=== PATIENT | male | born 1950 | race Caucasian/White ===

== ENCOUNTER → 2017-06-14 | Outpatient (CLI) | payer MEDICARE, MEDICAID, SELFPAY | PROVIDERS: Family Provider Nurse Practitioner; Visit Provider Nurse Practitioner | DX: E11.9 Type 2 diabetes mellitus without complications (principal); I10 Essential (primary) hypertension; Z71.3 Dietary counseling and surveillance | CPT/HCPCS: 97802; G0108 ==

== ENCOUNTER → 2018-07-19 14:57 | Outpatient (CLI) | payer MEDICARE, MEDICAID, SELFPAY ==
--- NOTE | 2018-07-19 15:03 | XR_ITS ---
XR chest 2V HISTORY: ITS.REASON: RESPIRATORY INFECTION, SOB, COUGH ORDERING PHYSICIAN: Christina Raymundo PATIENT AGE: 68 years COMPARISON: 12/19/2014 FINDINGS: Prior CABG. COPD. Left hemidiaphragm is slightly elevated with some increased density left lung base laterally. This did have a similar appearance on a prior abdomen CT of 12/03/2014 No lobar consolidation or collapse is evident. No acute bony anomalies. IMPRESSION: Chronic changes in the left lung base with COPD, no acute finding
== END ==
PROVIDERS: PCP Family Medicine; Visit Provider Nurse Practitioner Family
DX: J98.8 Other specified respiratory disorders (principal); R06.02 Shortness of breath; R05 Cough
CPT/HCPCS: 71046

== ENCOUNTER → 2019-04-06 09:40 | Outpatient (CLI) | payer MEDICARE, MEDICAID, SELFPAY ==
--- NOTE | 2019-04-06 | CA_ITS ---
APPROVED REPORT Left Lower Extremity Venous Study for DVT. Shingle Inspector: DARRELL Indications Lower Extremity Pain: Lower Extremity Edema: Left Lower Extremity Swelling: Left Risk Factors Trauma Obesity Patient was trampled by a cow 04/01/19. Bruising to the left lower calf. Medications Aspirin 81 mg aspirin daily Vein Imaging CFV (L): compressive, spontaneous, phasic, augmentation FEM (L): compressive, spontaneous, phasic, augmentation POP (L): compressive, spontaneous, phasic, augmentation PTV (L): Compressible GSV (L): compressive, spontaneous, phasic, augmentation SSV (L): Compressible Peroneals (L):Compressible GAS (L): Compressible Findings No evidence of DVT or superficial thrombophlebitis in the veins scanned of the left lower extremity. Conclusion No evidence of DVT or superficial thrombophlebitis in the veins scanned of the left lower extremity. Electronically signed by : Sreedhar Espion MD 04/06/2019 16:58:37
--- NOTE | 2019-04-06 | CA_ITS ---
APPROVED REPORT EXAM: Comprehensive 2D, Doppler, and color-flow Echocardiogram Campaign Developer: Radha Segovia CRT Ht: 5 ft 6 in Wt: 250lbs BSA: 2.20 BP: 102/71 mmHg Indications: ABN CTA SUSPECT PARTIALLY THROMBOSED TIFFANY BY CTA-CHEST. AAA REPAIR, CABG 2009. AORTA BI-ILIAC STENT GRAFT - POSSIBLE ENDOGRAFT LEAK BY CT ABDOMEN-PELVIS 2D Dimensions IVSd 1.10 cm PWd 1.90 cm LVDd 4.00 cm LVOT 1.90 cm (M/F) 1.5-2.5 M-Mode Dimensions RVDd 2.20 cm (0.9-2.6) LA Diam 4.50 cm (1.9-4.0) LVDd 6.30 cm (3.5-5.7) Ao Diam 4.30 cm (2.0-3.7) LVDs 4.50 cm (3.5-5.7) AV Cusp 2.10 cm (1.5-2.6) IVSd 1.50 cm (0.6-1.1) PWd 0.70 cm (0.6-1.1) EF (Teich) 54.00% FS 28.60% EDV (Teich) 201.00 mL ESV (Teich) 92.40 mL LV Diastology E/A Ratio 0.80 Aortic Valve AoV Peak Ari. 142.00 (50-130 cm/s) AI PHT 615.00 ms AO Peak GR. 8.00 mmHg Mitral Valve MV E Max Ari. 58.70 (40-130 cm/s) MV A Velocity 76.00 (40-130 cm/s) E/A Ratio 0.80 Pulmonary Valve TN End VMAX 100.00 cm/s PA Accel Time 151.00 (>120 msec) Tricuspid Valve TR P. Velocity 268.00 cm/s RAP Estimate 10.00 mmHg RVSP 39.00 mmHg Left Ventricle Left atrium is mildly enlarged, left ventricle is normal size, mild concentric left ventricular hypertrophy, visually estimated ejection fraction 55% with no regional wall motion abnormality. Endocardial surfaces are poorly visualized. Doppler evidence of impaired LV relaxation seen, there is no tissue Doppler performed. Right Ventricle Right atrium and right ventricular mildly enlarged with normal contractility. Aortic Valve Aortic valve is thickened and calcified leaflet continue to display good mobility, there is no aortic stenosis, there is mild aortic insufficiency. Mitral Valve Mitral valve leaflets are minimally thickened, there is mild mitral regurgitation. Tricuspid Valve Tricuspid valve is grossly normal, there is mild tricuspid regurgitation, tricuspid regurgitation jet velocity is inadequate for calculation of the right ventricular systolic pressure. Pulmonic Valve Pulmonic valve is poorly visualized. Great Vessels Aortic root is normal size. Pericardium No significant pericardial effusion noted. Conclusion 1. Mildly enlarged left atrium, normal left ventricular size, mild concentric left ventricular hypertrophy, visually estimated ejection fraction 55% with no regional wall motion abnormality, endocardial surfaces are poorly visualized, Doppler evidence of impaired LV relaxation seen, there is no tissue Doppler performed. 2. Mildly enlarged right ventricle with normal contractility. 3. Thickened and calcified aortic valve without Doppler evidence of aortic stenosis, there is mild aortic insufficiency. 4. Mild mitral and tricuspid regurgitation 5. No significant pericardial effusion noted. Electronically signed by : Aime Wade, 04/06/2019 13:55:18
== END ==
PROVIDERS: PCP Nurse Practitioner Family; Visit Provider Nurse Practitioner Family
DX: M79.89 Other specified soft tissue disorders (principal); R93.89 Abnormal findings on diagnostic imaging of other specified body structures; R60.0 Localized edema
CPT/HCPCS: 93306; 93971

== ENCOUNTER → 2019-04-12 12:33 | Outpatient (CLI) | payer MEDICARE, SELFPAY | PROVIDERS: Visit Provider Internal Medicine Cardiovascular Disease | DX: R06.02 Shortness of breath (principal) | CPT/HCPCS: 36415; 83880 ==

== ENCOUNTER → 2019-04-19 10:43 | Outpatient (CLI) | payer MEDICARE, OTHER, SELFPAY ==
--- NOTE | 2019-04-19 10:44 | NM_ITS ---
APPROVED REPORT Exam: Nuclear Stress Test Indication: Abnormal ECHO, Chest pain, SOB, Fatigue, Obesity, HTN, High cholesterol, Family history, CAD, CABG Patient Location: Outpatient Stress Tech: Carrie Richards [place] Tech:Zeny Bustillorington ARRT RT(R)(N) Ht: 5 ft 6 in Wt: 250 lbs HR: 65 bpm BP: 148/76 mmHg BSA: 2.20 m2 BMI: 40.3 History: Abnormal ECHO, Chest pain, SOB, Fatigue, Obesity, HTN, High cholesterol, Family history, CAD, CABG Procedure: Patient received a 0.4 mg of intravenous Lexiscan, resting heart rate 65 bpm, resting blood pressure 148/76 mmHg, with Lexiscan maximum heart rate achived was 85 bpm which is % of the maximum predicted heart rate and blood pressure was 132/71 mmHg. With Lexiscan, patient denied any complaint of chest pain. Cardiac Stress and Resting SPECT Images: Cardiac Stress and Resting SPECT images were obtained using technetium 99m Myoview 31.9 mCi stress and 10.87 mCi at rest. EF normal at 64%. No wall motion abnormalities. Reversible defect in the inferior wall. Decrease activity in the anteroseptal region which becomes normal on rest images Conclusion: EF normal at 64%. No wall motion abnormalities. Ischemia in anteroseptal region and inferior wall Electronically signed by : Sreedhar Espino MD 04/27/2019 17:06:37
--- NOTE | 2019-04-19 10:44 | CA_ITS ---
APPROVED REPORT Media Services Coordinator: Christina Carrion RVT Laterality: Bilateral Study Quality: Good Indications: cad, Dizziness and Vertigo Risk Factors Hypertension: Hyperlipidemia Smoking Doppler Spectral Velocity Analysis ECA (R) 72.70/10.70 cm/s ECA (L) 78.30/10.90 cm/s dICA (R) 60.60/18.90 cm/s dICA (L) 41.70/12.80 cm/s Annel (R) 39.70/13.30 cm/s Annel (L) 31.20/12.90 cm/s pICA (R) 55.40/13.30 cm/s pICA (L) 37.00/11.60 cm/s dCCA (R) 45.80/12.30 cm/s dCCA (L) 45.50/10.70 cm/s pCCA (R) 66.10/13.90 cm/s pCCA (L) 62.70/17.20 cm/s Vert (R) 22.80/4.40 cm/s Vert (L) 35.50/7.50 cm/s ICA/CCA 1.30 ICA/CCA 0.90 Findings Study suggests 20-49% stenosis of the right internal carotid artery. study suggests less than 20% stenosis of the left internal carotid artery. Antegrade flow seen bilateral vertebral arteries. Conclusion Study suggests 20-49% stenosis of the right internal carotid artery. study suggests less than 20% stenosis of the left internal carotid artery. Antegrade flow seen bilateral vertebral arteries. Electronically signed by : Sreedhar Espino MD 04/20/2019 18:00:57
--- NOTE | 2019-04-19 10:44 | CA_ITS ---
APPROVED REPORT Exam: Pharmacologic Technologist: benita mahan, Ht: 5 ft 6 in Wt: 250 lbs BSA: 2.20 m2 HR: 65 bpm BP: 148/76 mmHg Rhythm: NSR,PVC,EARLY REPOLARIZATION CHANGES Indications: SOB, CP Medical History Medical History: HTN, Hyperlipidemia Medications: Amlodipine,,,,, Omeprazole,,,,, Metoprolol,,,,, Simvastatin,,,,, Asa,,,,, HCTZ,,,,, Lasix,,,,, TAMSULOSIN,,,,, Benazapril,,,,, Potassium,,,,, Allergies: COCONUT Cardiac Risk Factors: Hyperlipidemia, HTN Stress Test Details Test: LEXISCAN HR Resting HR: 63 bpm Max Heart Rate (APMHR): 154 bpm Max HR Achieved: 85 bpm Target HR (85% APMHR): 130 bpm % of APMHR: 55 Recovery HR: 77 bpm BP Resting BP: 148.0/76.0 mmHg Max BP: 148.0/76.0 mmHg Recovery BP: 141.0/80.0 mmHg ECG Resting ECG: NSR,PVC,EARLY REPOLARIZATION CHANGES. Clinical Exercise duration: 04:22 min Highest Stage Achieved: Exercise capacity: 1.0 METs Stress ECG Conclusion DURING INFUSION PATIENT HAD SOA,MILD NAUSEA,MALAISE,BUT NO CHEST PAIN. OCCASIONAL ISOLATED PVC. NO SIGNIFICANT ST-T CHANGES. UNREMARKABLE LEXISCAN STRESS. MYOVIEW IMAGES REPORTED SEPARATELY. Test Summary RECOVERY 05:18 . . 74 . 140/ 77 . . Stage 1 01:00 . . 74 . . . . Stage 2 01:00 . . 84 . 132/ 71 . . Stage 3 01:00 . . 81 . 131/ 84 . . Stage 4 01:00 . . 78 . . . . Stage 4 01:22 . . 75 . 147/ 79 . Stop exercise at 04:22 RECOVERY 01:00 . . 78 . . . . RECOVERY 02:00 . . 77 . 141/ 80 . . RECOVERY 03:00 . . 78 . 141/ 80 . . RECOVERY 04:00 . . 76 . 130/ 79 . . RECOVERY 05:00 . . 74 . 130/ 79 . . RECOVERY 05:18 . . 74 . 140/ 77 . . Electronically signed by : Zachary Marcos, 04/24/2019 15:00:52
--- NOTE | 2019-04-19 14:56 | HMH.ITSHM ---
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 []FUROSEMIDE OMEPRAZOLE METOPROLOL POTASSIUM BENAZEPRIL/HCTZ ASA TAMSULOSIN AMLODIPINE SIMVASTATIN
== END ==
PROVIDERS: PCP Nurse Practitioner Family; Visit Provider Internal Medicine Cardiovascular Disease
DX: I10 Essential (primary) hypertension (principal); I25.10 Atherosclerotic heart disease of native coronary artery without angina pectoris; Z95.1 Presence of aortocoronary bypass graft; T82.330A Leakage of aortic (bifurcation) graft (replacement), initial encounter; R07.9 Chest pain, unspecified
CPT/HCPCS: 78452; 93017; 93880; A9502; J2785

== ENCOUNTER → 2019-05-02 14:02 | Outpatient (CLI) | payer MEDICARE, OTHER, SELFPAY | PROVIDERS: PCP Family Medicine; Visit Provider Internal Medicine Cardiovascular Disease | DX: G47.30 Sleep apnea, unspecified (principal); R06.02 Shortness of breath; I25.10 Atherosclerotic heart disease of native coronary artery without angina pectoris; I10 Essential (primary) hypertension; R60.9 Edema, unspecified; R53.83 Other fatigue | CPT/HCPCS: G0399 ==

== ENCOUNTER → 2019-05-30 10:43 | Outpatient (CLI) | payer MEDICARE, MEDICAID, SELFPAY ==
[2019-05-30 13:20] LABS: Ferritin 296 ng/mL (8-388)
== END ==
PROVIDERS: Visit Provider Nurse Practitioner Family
DX: E83.10 Disorder of iron metabolism, unspecified (principal); G25.81 Restless legs syndrome; G47.33 Obstructive sleep apnea (adult) (pediatric)
CPT/HCPCS: 36415; 82728

== ENCOUNTER → 2019-06-07 11:02 | Outpatient (CLI) | payer MEDICARE, OTHER, SELFPAY ==
[2019-06-07 12:50] LABS: Alanine Aminotransferase 25 U/L (12-78); Albumin Level 3.2 gm/dL (3.4-5.0); Alkaline Phosphatase 75 U/L (46-116); Anion Gap 12.7 mEq/L (5-15); Aspartate Amino Transferase 17 U/L (15-37); Bilirubin,Direct 0.2 mg/dL (0.0-0.2); Bilirubin,Indirect 0.6 mg/dL (0.0-0.9); Bilirubin,Total 0.8 mg/dL (0.2-1.0); Blood Urea Nitrogen 13 mg/dL (7-18); Calcium 8.6 mg/dL (8.5-10.1); Carbon Dioxide 29 mmol/L (21.0-32.0); Chloride 103 mmol/L (98-107); Chol/HDL Ratio 3.1 (1-3.5); Cholesterol 161 mg/dL (140-200); Creatinine,Serum 0.97 mg/dL (0.70-1.30); Estimated Glomerular Filt Rate 77 ml/min (>60); GFR (African American) 93 ML/MIN (>60); Glucose 124 mg/dL (74-106); HDL Cholesterol 52 mg/dL (27-67); LDL Cholesterol 83 mg/dL (0-130); Potassium 4.7 mmoL/L (3.5-5.1); Sodium 140 mmol/L (136-145); Total Protein,Serum 6.4 gm/dL (6.4-8.2); Triglycerides 128 mg/dL (30-200); VLDL Cholesterol 26 mg/dL (0-40)
== END ==
PROVIDERS: Visit Provider Internal Medicine Cardiovascular Disease
DX: E78.5 Hyperlipidemia, unspecified (principal); I10 Essential (primary) hypertension; I25.10 Atherosclerotic heart disease of native coronary artery without angina pectoris; R60.9 Edema, unspecified; Z95.1 Presence of aortocoronary bypass graft; I71.4 Abdominal aortic aneurysm, without rupture
CPT/HCPCS: 36415; 80048; 80061; 80076

== ENCOUNTER → 2019-07-05 19:57 | Outpatient (CLI) | payer MEDICARE, OTHER, SELFPAY | PROVIDERS: PCP Family Medicine; Visit Provider Nurse Practitioner Family | DX: G47.33 Obstructive sleep apnea (adult) (pediatric) (principal); I10 Essential (primary) hypertension; R06.83 Snoring | CPT/HCPCS: 95811 ==

== ENCOUNTER → 2019-08-09 08:31 | Outpatient (CLI) | payer MEDICARE, OTHER, SELFPAY ==
[2019-08-09 09:43] LABS: Anion Gap 11.5 mEq/L (5-15); Blood Urea Nitrogen 20 mg/dL (7-18); Carbon Dioxide 30 mmol/L (21.0-32.0); Chloride 102 mmol/L (98-107); Creatinine,Serum 0.91 mg/dL (0.70-1.30); Estimated Glomerular Filt Rate 83 ml/min (>60); GFR (African American) 101 ML/MIN (>60); Glucose 156 mg/dL (74-106); Potassium 4.5 mmoL/L (3.5-5.1); Sodium 139 mmol/L (137-145)
== END ==
PROVIDERS: Visit Provider Internal Medicine Cardiovascular Disease
DX: E78.2 Mixed hyperlipidemia (principal); I10 Essential (primary) hypertension; I25.10 Atherosclerotic heart disease of native coronary artery without angina pectoris; I71.4 Abdominal aortic aneurysm, without rupture; R53.83 Other fatigue; R60.9 Edema, unspecified; Z95.1 Presence of aortocoronary bypass graft
CPT/HCPCS: 36415; 80048

== ENCOUNTER → 2019-08-23 13:26 | Outpatient (CLI) | payer MEDICARE, OTHER, SELFPAY ==
[2019-08-23 15:50] LABS: Chloride 96 mmol/L (98-107); Potassium 5.1 mmoL/L (3.5-5.1); Sodium 132 mmol/L (136-145)
[2019-08-23 15:53] LABS: Anion Gap 15.1 mEq/L (5-15); Blood Urea Nitrogen 18 mg/dl (9-20); Calcium 9.4 mg/dl (8.4-10.2); Carbon Dioxide 26 mmol/L (22.0-30.0); Estimated Glomerular Filt Rate 84 ml/min (>60); GFR (African American) 102 ML/MIN (>60); Glucose 229 mg/dl (74-100)
== END ==
PROVIDERS: Visit Provider Internal Medicine Cardiovascular Disease
DX: I50.30 Unspecified diastolic (congestive) heart failure; E78.5 Hyperlipidemia, unspecified; I25.10 Atherosclerotic heart disease of native coronary artery without angina pectoris; I71.4 Abdominal aortic aneurysm, without rupture; R53.83 Other fatigue; R60.9 Edema, unspecified; Z95.1 Presence of aortocoronary bypass graft; Z87.891 Personal history of nicotine dependence
CPT/HCPCS: 36415; 80048; 83880

== ENCOUNTER → 2019-08-30 13:03 | Outpatient (CLI) | payer MEDICARE, OTHER, SELFPAY ==
[2019-08-30 15:01] LABS: Chloride 95 mmol/L (98-107); Potassium 5.2 mmoL/L (3.5-5.1); Sodium 131 mmol/L (136-145)
[2019-08-30 15:04] LABS: Anion Gap 14.2 mEq/L (5-15); Blood Urea Nitrogen 20 mg/dl (9-20); Calcium 9.5 mg/dl (8.4-10.2); Carbon Dioxide 27 mmol/L (22.0-30.0); Estimated Glomerular Filt Rate 84 ml/min (>60); GFR (African American) 102 ML/MIN (>60); Glucose 252 mg/dl (74-100)
== END ==
PROVIDERS: Urology; Visit Provider Internal Medicine Cardiovascular Disease
DX: E87.1 Hypo-osmolality and hyponatremia (principal)
CPT/HCPCS: 36415; 80048

== ENCOUNTER → 2019-09-06 12:05 | Outpatient (CLI) | payer MEDICARE, OTHER, SELFPAY ==
[2019-09-06 16:13] LABS: Anion Gap 16.2 mEq/L (5-15); Blood Urea Nitrogen 20 mg/dl (9-20); Calcium 9.5 mg/dl (8.4-10.2); Carbon Dioxide 24 mmol/L (22.0-30.0); Chloride 97 mmol/L (98-107); Estimated Glomerular Filt Rate 84 ml/min (>60); GFR (African American) 102 ML/MIN (>60); Glucose 222 mg/dl (74-100); Potassium 5.2 mmoL/L (3.5-5.1); Sodium 132 mmol/L (136-145)
== END ==
PROVIDERS: Visit Provider Physician Assistant
DX: E78.5 Hyperlipidemia, unspecified (principal); I25.10 Atherosclerotic heart disease of native coronary artery without angina pectoris; I50.30 Unspecified diastolic (congestive) heart failure; I71.4 Abdominal aortic aneurysm, without rupture; Z95.1 Presence of aortocoronary bypass graft
CPT/HCPCS: 36415; 80048

== ENCOUNTER → 2019-09-13 10:34 | Outpatient (CLI) | payer MEDICARE, OTHER, SELFPAY ==
[2019-09-13 11:29] LABS: Anion Gap 14.5 mEq/L (5-15); Blood Urea Nitrogen 18 mg/dl (9-20); Calcium 9.8 mg/dl (8.4-10.2); Carbon Dioxide 24 mmol/L (22.0-30.0); Chloride 97 mmol/L (98-107); Estimated Glomerular Filt Rate 112 ml/min (>60); GFR (African American) 136 ML/MIN (>60); Glucose 233 mg/dl (74-100); Potassium 4.5 mmoL/L (3.5-5.1); Sodium 131 mmol/L (136-145)
== END ==
PROVIDERS: Visit Provider Urology
DX: E78.5 Hyperlipidemia, unspecified (principal); I71.4 Abdominal aortic aneurysm, without rupture; I25.10 Atherosclerotic heart disease of native coronary artery without angina pectoris; I50.30 Unspecified diastolic (congestive) heart failure; Z95.1 Presence of aortocoronary bypass graft; I11.0 Hypertensive heart disease with heart failure
CPT/HCPCS: 36415; 80048

== ENCOUNTER → 2019-12-13 11:19 | Outpatient (CLI) | payer MEDICARE, OTHER, SELFPAY ==
[2019-12-13 11:24] LABS: MANUAL DIFFERENTIAL MANUAL DIFFERENTIAL (MANUAL DIFF)
[2019-12-13 12:00] LABS: Basophils # 0.1 K/mm3 (0-0.2); Basophils % 0.6 % (0.1-2.0); Eosinophils # 0.2 K/mm3 (0.0-0.4); Eosinophils % 2.7 % (0.1-12.0); Hematocrit 40.7 % (42.0-52.0); Hemoglobin 13.9 g/dL (14.1-18.0); Lymphocytes # 2.1 K/mm3 (0.7-4.5); Lymphocytes % 28.5 % (10-50); Mean Corpuscular HGB Conc 34.2 g/dL (31.8-35.4); Mean Corpuscular Hemoglobin 33.5 pg (27.0-31.2); Mean Corpuscular Volume 98.1 fl (80-94); Mean Platelet Volume 7.7 fl (7.4-10.4); Monocytes # 0.6 K/mm3 (0.1-1.0); Monocytes % 7.3 % (1.7-9.3); Neutrophils # 4.5 K/mm3 (1.8-7.8); Neutrophils % 60.8 % (37.0-80.0); Platelet Count 254 K/mm3 (142-424); Red Blood Count 4.15 M/mm3 (4.60-6.20); Red Cell Distribution Width 13.4 % (11.5-17.5); White Blood Count 7.4 K/mm3 (4.8-10.8)
[2019-12-13 12:46] LABS: Alanine Aminotransferase 18 U/L (12-78); Albumin Level 4.1 g/dl (3.5-5.0); Alkaline Phosphatase 113 U/L (38-126); Anion Gap 13.8 mEq/L (5-15); Aspartate Amino Transferase 28 U/L (17-59); Bilirubin,Direct 0.2 mg/dl (0.0-0.4); Bilirubin,Indirect 0.4 mg/dL (0.0-0.9); Bilirubin,Total 0.6 mg/dl (0.2-1.3); Bilirubin,Unconjugated 0.5 mg/dL (0.0-1.1); Blood Urea Nitrogen 19 mg/dl (9-20); Calcium 9.8 mg/dl (8.4-10.2); Carbon Dioxide 30 mmol/L (22.0-30.0); Chloride 93 mmol/L (98-107); Chol/HDL Ratio 2.6 (1-3.5); Cholesterol 151 mg/dl (140-200); Estimated Glomerular Filt Rate 84 ml/min (>60); GFR (African American) 102 ML/MIN (>60); Glucose 259 mg/dl (74-100); HDL Cholesterol 58 mg/dl (40-60); Potassium 4.8 mmoL/L (3.5-5.1); Sodium 132 mmol/L (136-145); Total Protein,Serum 6.9 g/dl (6.3-8.2); Triglycerides 244 mg/dl (30-150); VLDL Cholesterol 49 mg/dL (0-40)
[2019-12-13 12:57] LABS: Direct LDL Cholesterol 83.05 mg/dL (100-129)
[2019-12-13 17:05] LABS: Lymphocytes % 22 % (10-50); Monocytes % 9 % (2-9); Neutrophils % 69 % (42-76); Platelet Estimate Normal; RBC Morphology Normal; Total Cells Counted 100
== END ==
PROVIDERS: Visit Provider Physician Assistant
DX: I50.30 Unspecified diastolic (congestive) heart failure (principal); Z79.899 Other long term (current) drug therapy; E78.5 Hyperlipidemia, unspecified; I25.10 Atherosclerotic heart disease of native coronary artery without angina pectoris; R53.83 Other fatigue; R60.9 Edema, unspecified; I11.0 Hypertensive heart disease with heart failure
CPT/HCPCS: 36415; 80048; 80061; 80076; 85007; 85014; 85018; 85048; 85049

== ENCOUNTER → 2020-03-13 09:59 | Outpatient (CLI) | payer MEDICARE, OTHER, SELFPAY | PROVIDERS: Visit Provider Internal Medicine Cardiovascular Disease | DX: I25.10 Atherosclerotic heart disease of native coronary artery without angina pectoris (principal) ==

== ENCOUNTER → 2020-05-07 14:36 | Outpatient (CLI) | payer MEDICARE, OTHER, SELFPAY ==
--- NOTE | 2020-05-07 14:39 | XR_ITS ---
PROCEDURE: XR RIBS LT MIN 3V W CXR1V CLINICAL INDICATION: chest trauma, r/o ribs fracture Left-sided injury with pain COMPARISON: CR CXR CHEST(2 VIEWS-NOT PORTABLE) from 12/19/2014 CR CXR2V XR chest 2V from 07/19/[address] ANGIO CHEST from 04/05/2019 CR XR CHEST 2V from 04/05/2019 FINDINGS: Prior median sternotomy. Normal heart size. COPD changes. There is increased density in the left lung base which may be related to an area of atelectasis or infiltrate. Pericardial fat pad also consideration. No displaced rib fractures are evident. IMPRESSION: COPD with left basilar opacity which could be due to atelectasis infiltrate or pericardial fat pad with no acute finding of the ribs. Dictated by: Sreehdar Espino MD 05/07/2020 15:53 Sreedhar Espino MD in [facility] 05/07/2020 15:53
--- NOTE | 2020-05-07 14:55 | XR_ITS ---
PROCEDURE: XR STERNUM MIN 2V CLINICAL INDICATION: Pain following trauma COMPARISON: CR XR CHEST 2V from 04/05/2019 FINDINGS: There has been a prior median sternotomy. There is fracture the 2nd from top median sternotomy wire and the most inferior median sternotomy wire unchanged from 04/05/2019. no acute fracture or dislocation evident of the sternum. CT may provide more thorough evaluation if clinically warranted. IMPRESSION: Prior median sternotomy with fractured sternotomy wires otherwise negative Dictated by: Sreedhar Espino MD 05/07/2020 15:26 Sreedhar Espino MD in [facility] 05/07/2020 15:26
== END ==
PROVIDERS: PCP Family Medicine; Visit Provider Specialist
DX: R07.1 Chest pain on breathing (principal)
CPT/HCPCS: 71101; 71120

== ENCOUNTER → 2020-09-03 14:53 | Outpatient (CLI) | payer MEDICARE, OTHER, SELFPAY | PROVIDERS: PCP Family Medicine; Visit Provider Family Medicine | DX: Z71.3 Dietary counseling and surveillance (principal); E11.9 Type 2 diabetes mellitus without complications | CPT/HCPCS: 97802 ==

== ENCOUNTER → 2020-09-16 09:11 | Outpatient (CLI) | payer MEDICARE, OTHER, SELFPAY ==
--- NOTE | 2020-09-16 09:11 | US_ITS ---
PROCEDURE: US ABD. AORTA SCREENING CLINICAL INDICATION: AAA Follow-up aneurysm COMPARISON: No exams were available for comparison FINDINGS: Study is very limited due to overlying bowel gas. Cannot adequately evaluate for aortic aneurysm based on this exam. IMPRESSION: Nondiagnostic for aortic aneurysm evaluation due to overlying bowel gas. Dictated by: Sreedhar Espino MD 09/16/2020 19:33 Sreedhar Espino MD in [facility] 09/16/2020 19:33
[2020-09-16 10:33] LABS: Blood Urea Nitrogen 24 mg/dl (9-20); Estimated Glomerular Filt Rate 84 ml/min (>60); GFR (African American) 102 ML/MIN (>60)
--- NOTE | 2020-09-16 10:35 | CT_ITS ---
Procedure: CT ANGIO ABDOMEN CLINICAL HISTORY: AAA Follow-up aortic aneurysm COMPARISON: CT ABDPELW/O CT ABD PELVIS W/O CONTRAST from 12/03/[address] ANGIO CHEST from 04/05/[address] ABDOMEN PELVIS W CON from 04/05/2019 US US ABD. AORTA SCREENING from 09/16/2020 TECHNIQUE: IV Contrast: 100ml Isovue 370 Axial images obtained with sagittal and coronal reformats. All CT scans at the facility use one or more dose reduction, viz: automated exposure control, ma/kV adjustment per patient size (including targeted exams where dose is matched to indication, i.e. head), or iterative reconstruction technique. FINDINGS: Lung base images show prior CABG with paraseptal emphysematous changes and coronary artery calcifications. There is some atelectatic or fibrotic changes in the lower lobes posteriorly. There is once again noted what appears to represent an enlarged partially thrombosed left atrial appendage. This has a similar appearance when compared to the previous exam of 04/05/2019. Fatty liver. Prior cholecystectomy. The liver, spleen, adrenal glands, have an unremarkable appearance. A well-circumscribed cystic areas present along the tail the pancreas at 3.7 cm not significantly changed measuring near water density and may represent a chronic pseudo cyst. There is fatty infiltration of the pancreas. Right renal cysts are present measuring up to 4 cm. Scarring is present along the lower pole of the left kidney. There has been prior aortobifem stent graft placement. No evidence of graft leak. The [place] aneurysm sac measures 5 by 5.6 cm not significantly changed. There is mild fusiform dilatation of the abdominal aorta at the level of the renal arteries measuring 3.7 cm not significantly changed. Atherosclerotic changes involve the renal arteries. Calcific plaque is also present at the ostium of the celiac artery with at least 50 percent stenosis. There are degenerative changes in the lumbar spine. Postsurgical changes are present involving the anterior abdominal wall at the umbilical area IMPRESSION: 1. Status post aortobifem stent graft placement which appear stable. No evidence of graft leak. There is mild fusiform dilatation of the aorta at the level of the renal arteries not significantly changed. 2. Partial thrombosis of enlarged left atrial appendage overall not significantly changed. Echocardiography may confirm this. 3. No change in the benign-appearing 3.7 cm cystic lesion of the pancreas Dictated by: Sreedhar Espino MD 09/16/2020 12:51 Sreedhar Espino MD in [facility] 09/16/2020 12:51
== END ==
PROVIDERS: Physician Assistant; PCP Family Medicine; Visit Provider Internal Medicine Cardiovascular Disease
DX: I71.4 Abdominal aortic aneurysm, without rupture (principal)
CPT/HCPCS: 36415; 74175; 76705; 82565; 84520; Q9967

== ENCOUNTER → 2021-03-03 15:35 | Outpatient (CLI) | payer MEDICARE, OTHER, SELFPAY ==
--- NOTE | 2021-03-03 15:43 | XR_ITS ---
PROCEDURE: XR CHEST PORTABLE CLINICAL HISTORY: COVID OUTPATIENT COMPARISON: CR CXR2V XR chest 2V from 07/19/[address] ANGIO CHEST from 04/05/2019 CR XR CHEST 2V from 04/05/2019 CR XR RIBS LT MIN 3V W CXR1V from 05/07/2020 FINDINGS: COPD with scattered areas of scarring which has progressed since 05/07/2020. Prior CABG. Normal heart size. Chronic changes left lung base. No lobar consolidation or collapse. No acute bony abnormalities. IMPRESSION: COPD with scattered areas of scarring. No acute finding Dictated by: Sreedhar Espino MD 03/03/2021 16:43 Sreedhar Espino MD in [facility] 03/03/2021 16:43
== END ==
PROVIDERS: PCP Nurse Practitioner Family; Visit Provider Nurse Practitioner Family
DX: Z20.822 Contact with and (suspected) exposure to COVID-19 (principal); U07.1 COVID-19; R05 Cough; R06.02 Shortness of breath
CPT/HCPCS: 71045; U0003

== ENCOUNTER → 2021-03-25 15:07 | Outpatient (CLI) | payer MEDICARE, OTHER, SELFPAY ==
[2021-03-25 15:26] LABS: Basophils % 0.4 % (0.1-2.0); Eosinophils # 0.3 K/mm3 (0.0-0.4); Eosinophils % 2.6 % (0.1-12.0); Hematocrit 41.7 % (42.0-52.0); Hemoglobin 13.9 g/dL (14.1-18.0); Lymphocytes # 2.3 K/mm3 (0.7-4.5); Lymphocytes % 20.2 % (10-50); Mean Corpuscular HGB Conc 33.3 g/dL (31.8-35.4); Mean Corpuscular Hemoglobin 32.7 pg (27.0-31.2); Mean Corpuscular Volume 97.9 fl (80-94); Mean Platelet Volume 7.2 fl (7.4-10.4); Monocytes # 0.8 K/mm3 (0.1-1.0); Monocytes % 7.1 % (1.7-9.3); Neutrophils # 7.8 K/mm3 (1.8-7.8); Neutrophils % 69.7 % (37.0-80.0); Platelet Count 296 K/mm3 (142-424); Red Blood Count 4.25 M/mm3 (4.60-6.20); Red Cell Distribution Width 12.7 % (11.5-17.5); White Blood Count 11.2 K/mm3 (4.8-10.8)
[2021-03-25 15:37] LABS: Anion Gap 12.3 mEq/L (5-15); Blood Urea Nitrogen 23 mg/dl (9-20); Calcium 10.3 mg/dl (8.4-10.2); Carbon Dioxide 29 mmol/L (22.0-30.0); Chloride 99 mmol/L (98-107); Estimated Glomerular Filt Rate 67 ml/min (>60); GFR (African American) 81 ML/MIN (>60); Glucose 161 mg/dl (74-100); Potassium 5.3 mmoL/L (3.5-5.1); Sodium 135 mmol/L (136-145)
[2021-03-25 15:53] LABS: Troponin I < 0.01 ng/ml (0.00-0.034)
== END ==
PROVIDERS: Visit Provider Family Medicine
DX: R06.00 Dyspnea, unspecified (principal)
CPT/HCPCS: 36415; 80048; 84484; 85025

== ENCOUNTER → 2022-08-20 15:07 | Outpatient (CLI) | payer MEDICARE, OTHER, SELFPAY ==
[2022-08-20 15:51] LABS: Alanine Aminotransferase 24 U/L (12-78); Albumin Level 3.9 g/dl (3.5-5.0); Albumin/Globulin Ratio 1.4 (1.1-1.8); Alkaline Phosphatase 101 U/L (38-126); Anion Gap 9.3 mEq/L (5-15); Aspartate Amino Transferase 29 U/L (17-59); Bilirubin,Total 0.6 mg/dl (0.2-1.3); Blood Urea Nitrogen 19 mg/dl (9-20); Calcium 8.7 mg/dl (8.4-10.2); Carbon Dioxide 22 mmol/L (22.0-30.0); Chloride 106 mmol/L (98-107); Chol/HDL Ratio 3.4 (1-3.5); Cholesterol 141 mg/dl (140-200); Estimated Glomerular Filt Rate 83 ml/min (>60); GFR (African American) 101 ML/MIN (>60); Globulin 2.8 g/dL (1.3-3.2); Glucose 232 mg/dl (74-100); HDL Cholesterol 42 mg/dl (40-60); Potassium 4.3 mmoL/L (3.5-5.1); Sodium 133 mmol/L (136-145); Total Protein,Serum 6.7 g/dl (6.3-8.2); Triglycerides 323 mg/dl (30-150); VLDL Cholesterol 65 mg/dL (0-40)
[2022-08-20 16:02] LABS: Direct LDL Cholesterol 70.18 mg/dL (100-129)
[2022-08-20 17:21] LABS: Prostate Specific Ag Screen 4.9 ng/ml (0.0-4.0)
== END ==
PROVIDERS: PCP Nurse Practitioner Family; Visit Provider Nurse Practitioner Family
DX: I10 Essential (primary) hypertension (principal); E78.2 Mixed hyperlipidemia; Z12.5 Encounter for screening for malignant neoplasm of prostate
CPT/HCPCS: 36415; 80053; 80061; G0103

== ENCOUNTER 2022-09-20 20:25 | Emergency (ER) | payer MEDICARE, OTHER, SELFPAY ==
[2022-09-20 20:25] VITALS: BP 155/89; PULSE 93; RESP 23; TEMP 36.7; O2SAT 94; BMI 39.9
--- NOTE | 2022-09-20 20:25 | ECG_ITS ---
APPROVED REPORT Exam: Resting ECG HR:93 bpm ECG Measurements Heart Rate 93 AXES VT 159 P 25 QRSd 94 QRS 39 QT 348 T 80 QTc 398 Conclusion SINUS RHYTHM NORMAL ECG UNCONFIRMED REPORT Electronically signed by : Rajendra Sprague MD 09/21/2022 02:58:01
--- NOTE | 2022-09-20 20:26 | XR_ITS ---
PROCEDURE INFORMATION: Exam: XR Chest Exam date and time: 09/20/2022 8:33 PM Age: 72 years old Clinical indication: Cough and shortness of breath; Additional info: SOA TECHNIQUE: Imaging protocol: Radiologic exam of the chest. Views: 2 views. COMPARISON: CR XR CHEST PORTABLE 03/03/2021 3:59 PM FINDINGS: Lungs: Lungs are hyperinflated. Clear parenchyma. Pleural spaces: No pleural effusion. No pneumothorax. Heart/Mediastinum: Cardiac silhouette is normal in size for technique. Vasculature: Mediastinal surgical clips and vascular markers suggest prior myocardial revascularization. Bones/joints: Age appropriate. IMPRESSION: Hyperinflated but clear lungs. No other acute cardiopulmonary abnormality.
[2022-09-20 20:34] LABS: Coronavirus 19, PCR Not Detected (NotDetected); Influenza A, PCR Not Detected (NotDetected); Influenza B, PCR Not Detected (NotDetected)
--- NOTE | 2022-09-20 20:40 | PC.NURSE ---
pt taken to cxr via wheelchair
--- NOTE | 2022-09-20 20:45 | PC.NURSE ---
pt back in room, rechecked o2 and VS at this time
[2022-09-20 20:54] LABS: Basophils # 0.2 K/mm3 (0-0.2); Basophils % 1.2 % (0.1-2.0); Eosinophils # 0.3 K/mm3 (0.0-0.4); Eosinophils % 2.1 % (0.1-12.0); Hematocrit 46.7 % (42.0-52.0); Hemoglobin 15.5 g/dL (14.1-18.0); Lymphocytes # 2.7 K/mm3 (0.7-4.5); Mean Corpuscular HGB Conc 33.3 g/dL (31.8-35.4); Mean Corpuscular Hemoglobin 32.2 pg (27.0-31.2); Mean Corpuscular Volume 96.9 fl (80-94); Monocytes # 0.8 K/mm3 (0.1-1.0); Monocytes % 6.2 % (1.7-9.3); Neutrophils % 69.5 % (37.0-80.0); Platelet Count 283 K/mm3 (142-424); Red Blood Count 4.82 M/mm3 (4.60-6.20); Red Cell Distribution Width 13.8 % (11.5-17.5)
[2022-09-20 20:57] LABS: Blood Urea Nitrogen 24 mg/dl (9-20); Calcium 9.3 mg/dl (8.4-10.2); Carbon Dioxide 26 mmol/L (22.0-30.0); Chloride 95 mmol/L (98-107); Creatinine Clearance Estimated 112 mL/min (50-200); Estimated Glomerular Filt Rate 74 ml/min (>60); GFR (African American) 89 ML/MIN (>60); Glucose 158 mg/dl (74-100); Magnesium 1.9 mg/dl (1.6-2.3); Potassium 4.3 mmoL/L (3.5-5.1)
[2022-09-20 21:10] LABS: NT Pro Brain Natriuretic Pep. 148 pg/mL (0-125)
[2022-09-20 21:11] LABS: Anion Gap 14.3 mEq/L (5-15); Sodium 131 mmol/L (136-145)
[2022-09-20 21:24] LABS: Microscopic, Urine URINE MICROSCOPIC (MICROSCOPIC)
--- NOTE | 2022-09-20 21:29 | PC.NURSE ---
Rounded on patient, no needs voiced at this time.
--- NOTE | 2022-09-20 21:34 | CT_ITS ---
PROCEDURE INFORMATION: Exam: CTA Chest With Contrast Exam date and time: 09/20/2022 9:55 PM Age: 72 years old Clinical indication: Cough and shortness of breath; Prior surgery; Additional info: bettie REA TECHNIQUE: Imaging protocol: Computed tomographic angiography of the chest with contrast. 3D rendering (Not supervised by radiologist): MIP and/or 3D reconstructed images were created by the technologist. Radiation optimization: All CT scans at this facility use at least one of these dose optimization techniques: automated exposure control; mA and/or kV adjustment per patient size (includes targeted exams where dose is matched to clinical indication); or iterative reconstruction. Contrast material: ISOVUE; Contrast volume: 70 ml; Contrast route: INTRAVENOUS (IV); REPORTING DATA: Count of CT and Cardiac NM exams in prior 12 months: This patient has received 0 known CTs and 0 known cardiac nuclear medicine studies in the 12 months prior to the current study. COMPARISON: CT ANGIO CHEST 04/05/2019 10:31 PM FINDINGS: Pulmonary arteries: Normal. No pulmonary emboli. Aorta: Unremarkable. No aortic aneurysm. No aortic dissection. Lungs: Lungs are notable for centrilobular and paraseptal emphysema. There is diffuse bronchial wall thickening with luminal narrowing and patchy endobronchial debris. Peripheral airspace opacities are seen at both lung bases, right greater than left. Pleural spaces: Unremarkable. No pneumothorax. No pleural effusion. Heart: Mediastinal surgical clips and vascular markers suggest prior myocardial revascularization. Along the posterior aspect of the left ventricle, indenting the left atrium, there is a mass lesion measuring 4.9 x 4.8 x 4.7 cm containing a small teardrop shaped contrast collection. This appears to be in communication with heavily calcified coronary artery. Coronary arteries: Extensive coronary artery hyperdensity could be calcification and/or stent material. Lymph nodes: Unremarkable. No enlarged lymph nodes. Pancreas: Stable 3.8 cm simple cyst at the pancreatic tail has not changed since 2019. Bones/joints: Unremarkable. No acute fracture. Soft tissues: Unremarkable. IMPRESSION: 1. No findings of acute pulmonary embolism. 2. There are findings of acute on chronic bronchitis with peripheral airspace opacity at each lung base suggesting pneumonia. Aspiration not excluded. 3. 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 On prior exam this measured 3.9 cm. COMMENTS: In the absence of a history or active diagnosis of lung cancer, it is recommended that this patient with emphysema be evaluated for enrollment in a low dose CT lung cancer screening program.
[2022-09-20 21:49] LABS: Alanine Aminotransferase 20 U/L (12-78); Albumin Level 4.4 g/dl (3.5-5.0); Alkaline Phosphatase 76 U/L (38-126); Aspartate Amino Transferase 29 U/L (17-59); Bilirubin,Direct 0.1 mg/dl (0.0-0.4); Bilirubin,Indirect 0.7 mg/dL (0.0-0.9); Bilirubin,Total 0.8 mg/dl (0.2-1.3); Bilirubin,Unconjugated 0.7 mg/dL (0.0-1.1); Total Protein,Serum 7.8 g/dl (6.3-8.2)
[2022-09-20 22:08] LABS: Appearance,Urine CLEAR (Clear); Bilirubin,Urine Negative (Negative); Blood, Urine TRACE-L (Negative); Color,Urine YELLOW (Yellow); Glucose,Urine (UA) 3+ (Negative); Ketones,Urine Negative (Negative); Leukocyte Esterase,Urine Negative (Negative); Nitrate,Urine Negative (Negative); Protein,Urine Negative (Negative); Specific Gravity, Urine 1.025 (1.005-1.030); Urobilinogen,Urine 0.2 EU/dl (0.2)
[2022-09-20 22:13] LABS: Bacteria,Urine Trace /lpf; RBC,Urine Occasional #/hpf (0-3); Squamous Epithelial Cell,Urine Occasional #/hpf (0-5); WBC,Urine Occasional #/hpf (0-3); Yeast,Urine Occasional /lpf
[2022-09-20 22:15] VITALS: BP 114/72
--- NOTE | 2022-09-20 22:15 | PC.NURSE ---
Pt repositioned in bed. No other needs voiced at this time.
[2022-09-20 22:30] VITALS: BP 133/71; PULSE 92; RESP 22; O2SAT 92
--- NOTE | 2022-09-20 22:35 | PC.NURSE ---
MARIAN walters MD is with another pt at this time and asked for them to call back soon.
--- NOTE | 2022-09-20 22:38 | PC.NURSE ---
reviewing CTA results at this time
--- NOTE | 2022-09-20 22:50 | PC.NURSE ---
Dr. Bautista s/w [facility] regarding CT scan results
--- NOTE | 2022-09-20 22:59 | PC.NURSE ---
Dr. Bautista s/w Dr. Macros regarding results
--- NOTE | 2022-09-20 23:24 | HMH.EDSOB ---
Discharge Plan Disposition Patient Disposition: Home, Self-Care Prescriptions Prescriptions: New levofloxacin 500 mg tablet 500 mg PO DAILY Qty: 7 0RF No Action omeprazole 20 mg capsule,delayed release(DR/EC) 20 mg PO BID tamsulosin [Flomax] 0.4 mg capsule 0.4 mg PO DAILY aspirin [Adult Low Dose Aspirin] 81 mg tablet,delayed release (DR/EC) 81 mg PO DAILY Symbicort 80-4.5 mcg/actuation HFA aerosol inhaler 2 puff INHALATION BID pramipexole 0.25 mg tablet 0.25 mg PO HS Qty: 30 11RF dapagliflozin 5 mg tablet 5 mg PO DAILY Label Comments: TAKE 1 TABLET BY MOUTH EVERY DAY Toujeo SoloStar U-300 Insulin 300 unit/mL (1.5 mL) insulin pen 40 unit SQ HS losartan 25 mg tablet 25 mg PO DAILY Label Comments: TAKE 1 TABLET BY MOUTH EVERY DAY metformin 1,000 mg tablet 1,000 mg PO BID Label Comments: TAKE 1 TABLET BY MOUTH TWICE DAILY WITH MEALS furosemide 40 mg tablet 40 mg PO DAILY potassium chloride 10 mEq capsule, extended release 10 meq PO DAILY metoprolol succinate [Toprol XL] 50 mg tablet extended release 24 hr 50 mg PO DAILY spironolactone 50 mg tablet See Rx Instructions .ROUTE .COMPLEX Rx Instructions: TAKE 1 TABLET BY MOUTH DAILY rosuvastatin [Crestor] 20 mg tablet 20 mg PO DAILY Referrals Follow up/Referrals: Mckenna Hernández APRN [Primary Care Provider] - See instructions Zachary Marcos MD [Staff Physician] - See instructions Clinical Impressions Clinical Impression: Acute exacerbation of chronic obstructive airways disease, CAD (coronary artery disease), S/P CABG x 5, Cardiac mass Instructions Patient Instructions: DI for Chronic Obstructive Pulmonary Disease Discharge ED Provider: Lily (ED)Juancho Resp/SOB HPI General Chief Complaint: Shortness of Breath/Dyspnea Stated Complaint: SOA, Cough, Congestion Time Seen by Provider: 09/20/22 23:24 Mode of Arrival: Family Vehicle Source of Information: Patient, Spouse and Medical Record Limitations: No Limitations Description of Symptoms (Recalled from ER Triage Doc. by RN): Pt c/o SOA, chest congestion, productive cough, and pain to chest with cough. He also c/o body aches and chills. States that his symtoms began on Tuesday (09/17) and he called his PCP office today but they are unable to see him until . Pt stated I think I need to be seen before that . He does have a hx of CHF and takes Lasix. History of Present Illness started with sinus congestion on tuesday and now prod cough and body aches and chest pain ant assoc with cough - MD Complaint: shortness of breath, cough and chest pain Onset (ago): day(s) Context: recent illness Severity: moderate Consistency/Duration: intermittent Known history of: COPD Associated symptoms: cough Related Data Home oxygen amount: none Home Medications Medication Instructions Recorded Confirmed aspirin 81 mg tablet,delayed 81 mg PO DAILY heart health 04/12/19 09/20/22 release (Adult Low Dose Aspirin) budesonide-formoterol HFA 80 2 puff inhalation BID COPD 04/12/19 09/20/22 mcg-4.5 mcg/actuation aerosol inhaler (Symbicort) omeprazole 20 mg capsule,delayed 20 mg PO BID GERD 04/12/19 09/20/22 release tamsulosin 0.4 mg capsule (Flomax) 0.4 mg PO DAILY bph 04/12/19 09/20/22 dapagliflozin 5 mg tablet 5 mg PO DAILY Diabetes 09/11/20 09/20/22 insulin glargine U-300 conc 300 40 unit SQ HS Diabetes 05/07/21 09/20/22 unit/mL (1.5 mL) subcutaneous pen (Toujeo SoloStar U-300 Insulin) losartan 25 mg tablet 25 mg PO DAILY High blood pressure 05/07/21 09/20/22 metformin 1,000 mg tablet 1,000 mg PO BID Diabetes 07/15/21 09/20/22 furosemide 40 mg tablet 40 mg PO DAILY Fluid 09/20/22 09/20/22 metoprolol succinate 50 mg 50 mg PO DAILY High blood pressure 09/20/22 09/20/22 tablet,extended release 24 hr (Toprol XL) potassium chloride 10 mEq 10 meq PO DAILY Supplement 09/20/22 09/20/22 cap
[2022-09-20 23:49] VITALS: BP 119/72; PULSE 91; RESP 21; TEMP 36.7; O2SAT 93
== END 2022-09-20 23:59 | disposition home or self-care (01) ==
PROVIDERS: Emergency Provider Emergency Medicine; PCP Nurse Practitioner Family
DX: J44.1 Chronic obstructive pulmonary disease with (acute) exacerbation (principal); I25.10 Atherosclerotic heart disease of native coronary artery without angina pectoris; R07.9 Chest pain, unspecified
CPT/HCPCS: 71046; 71275; 80048; 80076; 81001; 83735; 83880; 84484; 85025; 93005; 96360; 96374; 99285; C9803; Q9967; U0003; U0005

== ENCOUNTER 2023-03-07 08:52 | Day surgery (SDC) | payer MEDICARE, SELFPAY ==
[2023-03-07] VITALS (9 sets, daily range): BP systolic 96–155; BP diastolic 63–90; PULSE 69–78; RESP 18–20; O2SAT 90–92; BMI 40.6
--- NOTE | 2023-03-07 07:08 | IR_ITS ---
APPROVED REPORT Patient Location: Outpatient Taffy Puller: SATHISH Mcclain RT (R) PROCEDURES Left heart catheterization Left ventriculogram Selective coronary angiogram Selective engagement of the saphenous vein graft which supplies the first diagonal artery first obtuse marginal artery and terminal obtuse marginal artery Selective engagement of the saphenous vein grafts which supplies the absentee-shawnee right coronary INDICATION Coronary artery disease, History of coronary bypass surgery, Accelerated angina pectoris, Informed consent was obtained prior to the procedure. COMPLICATIONS None Estimated Blood Loss: Less than 10 mls TECHNIQUE One percent lidocaine used to anesthetize the right anterior aspect of the wrist. The right radial artery was accessed via the Seldinger technique. A 6 Burkinan sheath was placed in the right radial artery. 2.5 mg of Verapamil, 800 mcg of nitroglycerin, 1mg Lidocaine and 5000 U Heparin were given through the arterial sheath. The papa catheter was also used to perform left heart catheterization, left ventriculogram and selective coronary angiogram. At the end of the procedure the sheath was removed good hemostasis was achieved using Traclet band, patient was transferred to the postop holding area in stable condition. ANGIOGRAPHIC RESULTS The left main artery Has distal 10% stenosis The left anterior descending artery Has proximal 30% stenosis with mid vessel 30% stenoses. 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 from previous heart cath The BOSTON ventriculogram reveals Hyperdynamic at 70% The left ventricular end-diastolic pressure Severely elevated at 30 mmHg Saphenous vein graft to the diagonal artery is widely patent at then skips to the first obtuse marginal artery and then skips to the terminal obtuse marginal artery off the circumflex artery Saphenous vein graft to the mid right coronary is widely patent IMPRESSION Unchanged coronary artery disease as described above from previous cardiac catheterization Complete surgical revascularization as described above Hyperdynamic ventricle consistent with diastolic dysfunction Severely elevated LVEDP consistent with diastolic dysfunction which is likely etiology for patient's symptoms PLAN 1. Medical management for ischemic heart disease and diastolic dysfunction Electronically signed by : Zachary Marcos MD 03/07/2023 11:53:56
[2023-03-07 09:34] LABS: Basophils # 0.1 K/mm3 (0-0.2); Basophils % 0.7 % (0.1-2.0); Eosinophils # 0.4 K/mm3 (0.0-0.4); Hematocrit 47.8 % (42.0-52.0); Hemoglobin 15.4 g/dL (14.1-18.0); Lymphocytes % 33.2 % (10-50); Mean Corpuscular HGB Conc 32.2 g/dL (31.8-35.4); Mean Corpuscular Hemoglobin 31.2 pg (27.0-31.2); Mean Corpuscular Volume 96.8 fl (80-94); Mean Platelet Volume 8.4 fl (7.4-10.4); Monocytes # 0.8 K/mm3 (0.1-1.0); Monocytes % 9.1 % (1.7-9.3); Neutrophils # 4.7 K/mm3 (1.8-7.8); Platelet Count 273 K/mm3 (142-424); Red Blood Count 4.94 M/mm3 (4.60-6.20); White Blood Count 8.9 K/mm3 (4.8-10.8)
[2023-03-07 09:51] LABS: Chloride 104 mmol/L (98-107); Sodium 138 mmol/L (136-145)
[2023-03-07 09:52] LABS: Potassium 4.3 mmoL/L (3.5-5.1)
[2023-03-07 09:54] LABS: Blood Urea Nitrogen 20 mg/dl (9-20); Creatinine Clearance Estimated 111 mL/min (50-200); Estimated Glomerular Filt Rate 96 ml/min (>60); GFR (African American) 116 ML/MIN (>60)
[2023-03-07 09:55] LABS: Anion Gap 15.3 mEq/L (5-15); Calcium 9.2 mg/dl (8.4-10.2); Carbon Dioxide 23 mmol/L (22.0-30.0); Glucose 161 mg/dl (74-100)
== END 2023-03-07 14:33 | disposition home or self-care (01) ==
PROVIDERS: PCP Nurse Practitioner Family; Visit Provider Internal Medicine
DX: I25.118 Atherosclerotic heart disease of native coronary artery with other forms of angina pectoris; E78.5 Hyperlipidemia, unspecified; G47.33 Obstructive sleep apnea (adult) (pediatric); I11.0 Hypertensive heart disease with heart failure; I25.41 Coronary artery aneurysm; I50.30 Unspecified diastolic (congestive) heart failure; R06.00 Dyspnea, unspecified; R53.83 Other fatigue; R60.9 Edema, unspecified; Z95.1 Presence of aortocoronary bypass graft; Z79.4 Long term (current) use of insulin; E11.9 Type 2 diabetes mellitus without complications
CPT/HCPCS: 80048; 85025; 93459; 99152; 99153; C1725; C1760; C1769; C1894; J1644; Q9967

== ENCOUNTER → 2023-03-16 11:03 | Outpatient (CLI) | payer MEDICARE, SELFPAY ==
[2023-03-16 12:15] LABS: Anion Gap 18.3 mEq/L (5-15); Blood Urea Nitrogen 17 mg/dl (9-20); Calcium 9.4 mg/dl (8.4-10.2); Carbon Dioxide 21 mmol/L (22.0-30.0); Chloride 100 mmol/L (98-107); Estimated Glomerular Filt Rate 83 ml/min (>60); GFR (African American) 101 ML/MIN (>60); Glucose 188 mg/dl (74-100); Potassium 4.3 mmoL/L (3.5-5.1); Sodium 135 mmol/L (136-145)
== END ==
PROVIDERS: PCP Nurse Practitioner Family; Visit Provider Nurse Practitioner
DX: E78.5 Hyperlipidemia, unspecified (principal); I10 Essential (primary) hypertension; R06.00 Dyspnea, unspecified; R53.83 Other fatigue; R60.9 Edema, unspecified
CPT/HCPCS: 36415; 80048

== ENCOUNTER → 2023-06-23 15:04 | Outpatient (CLI) | payer MEDICARE, MEDICAID, SELFPAY ==
--- NOTE | 2023-06-23 15:04 | CA_ITS ---
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 TDE do to body habitus and poor windows 2D Dimensions Left Atrium 4.13 cm LA Volume 40.60 mL LVOT 1.76 cm (M/F) 1.5-2.5 LA Volume Index 18.50 mL/m2 (M/F) 16-34 GL Strain -15.1 % M-Mode Dimensions RVDd 3.21 cm (0.9-2.6) LVDd 5.20 cm (3.5-5.7) Ao Diam 5.40 cm (2.0-3.7) LVDs 3.42 cm (3.5-5.7) IVSd 1.23 cm (0.6-1.1) PWd 0.76 cm (0.6-1.1) EF (Teich) 62.90% FS 34.20% EDV (Teich) 129.50 mL TAPSE 1.66 (<1.7) ESV (Teich) 48.10 mL LV Diastology E Decel Time 203 (160-240 msec) E/A Ratio 0.70 MED E' 6.4 (>= 7 cm/sec) MED A' 10.10 cm/s E'/MED E' Ratio 10.33 (<= 14) LAT E' 5.7 (>= 10 cm/sec) LAT A' 6.30 cm/s E/LAT E' Ratio 11.60 (<= 14) Aortic Valve LVOT Max 148.0 (70-110 cm/s) MEERA Index 1.12 cm2/m2 LVOT VTI 27.30 cm AoV Peak Ari. 164.0 (50-130 cm/s) AI PHT 497.00 ms AO Peak GR. 10.30 mmHg AO Mean GR. 6.10 (<5 mmHg) AO VTI 27.0 (18-25 cm) MEERA (VTI) 2.46 (2.5-4.5 cm2) Mitral Valve MV E Max Ari. 66.0 (40-130 cm/s) MV A Velocity 94.0 (40-130 cm/s) E/A Ratio 0.70 MV Decel. Time 203 (160-240 ms) Tricuspid Valve TR P. Velocity 285.00 cm/s RAP Estimate 10.00 mmHg RVSP 42.60 mmHg Left Ventricle The left ventricle is normal size. The left ventricular systolic function is normal. The left ventricular ejection fraction is within the normal range. There is increased LV wall thickness. There is normal LV segmental wall motion. Transmitral Doppler flow pattern suggests impaired LV relaxation. LVEF is 65%. Right Ventricle The right ventricle is normal size. The right ventricular systolic function is normal. Atria The left atrium size is normal. The right atrium size is normal. There is no Doppler evidence of interatrial shunt. Aortic Valve The aortic valve is mildly thickened. There is focal nodular calcification of the noncoronary cusp. There is no aortic valvular stenosis. Mild aortic regurgitation is present. Mitral Valve The mitral valve leaflets are mildly thickened. No evidence of mitral valve stenosis. Trace mitral regurgitation. Tricuspid Valve The tricuspid valve leaflets are thin and pliable. Your assessment cannot be made due to absence of Doppler imaging. Pulmonic Valve The pulmonary valve is normal in structure. Trace pulmonic regurgitation. Great Vessels The aortic root is mildly dilated, measuring 4.1 cm in diameter. There is sinus of Valsalva dilation, possibly due to pseudoaneurysm formation. The ascending aorta is not well-visualized. The IVC is dilated, but collapses > 50% with respirophasic variation. The RA pressure is estimated at 8 mmHg. Pericardium There is no pericardial effusion. Other Information Study Quality: Technically Difficult Conclusion Technically difficult study due to poor acoustic windows. Normal biventricular systolic function. Mild AI. Aortic root is mildly dilated, measuring 4.1 cm in diameter. There is sinus of Valsalva dilation, possibly due to pseudoaneurysm formation. Electronically signed by : Mikaela Ann MD 06/26/2023 22:22:29
== END ==
LOC: RT 15:04
PROVIDERS: PCP Nurse Practitioner; Visit Provider Internal Medicine
DX: I25.10 Atherosclerotic heart disease of native coronary artery without angina pectoris (principal); I50.30 Unspecified diastolic (congestive) heart failure; I51.89 Other ill-defined heart diseases; Z87.891 Personal history of nicotine dependence
CPT/HCPCS: 93306

== ENCOUNTER 2024-05-24 19:54 | Emergency (ER) | payer MEDICARE, MEDICAID, SELFPAY ==
[2024-05-24 19:55] VITALS: BP 105/72; PULSE 89; RESP 18; TEMP 36.6; O2SAT 96; BMI 39.5
--- NOTE | 2024-05-24 20:01 | XR_ITS ---
PROCEDURE INFORMATION: Exam: XR Left Humerus Exam date and time: 05/24/2024 8:16 PM Age: 73 years old Clinical indication: Pain; Shoulder; Left; Additional info: Traction injury TECHNIQUE: Imaging protocol: Radiologic exam of the left humerus. Views: 2 or more views. COMPARISON: CR XR SHOULDER RT MIN 2V 05/24/2024 8:16 PM FINDINGS: Bones/joints: No acute fracture or dislocation. Rounded calcifications projects at the humeral neck. Soft tissues: Normal. IMPRESSION: No acute fracture or dislocation.
--- NOTE | 2024-05-24 20:01 | XR_ITS ---
PROCEDURE INFORMATION: Exam: XR Left Shoulder Exam date and time: 05/24/2024 8:16 PM Age: 73 years old Clinical indication: Pain; Shoulder; Left; Additional info: Traction injury TECHNIQUE: Imaging protocol: Radiologic exam of the left shoulder. Views: 2 or more views. COMPARISON: CR XR HUMERUS RT 05/24/2024 8:16 PM FINDINGS: Bones/joints: No acute fracture or dislocation. Mild osteoarthritis of the glenohumeral and acromioclavicular joints. Soft tissues: Normal. Other findings: Rounded calcifications project over the humeral neck. IMPRESSION: No acute fracture or dislocation.
--- NOTE | 2024-05-24 20:06 | ED_ITS ---
Discharge Plan Disposition Patient Disposition: Home, Self-Care Prescriptions Prescriptions: New methocarbamol 500 mg tablet 1,000 mg PO Q8H PRN (Reason: muscle pain and spasm) Qty: 24 0RF ibuprofen 800 mg tablet 800 mg PO Q8H PRN (Reason: pain and swelling) Qty: 12 0RF Rx Instructions: Take with food hydrocodone-acetaminophen 5-325 mg tablet 1 tab PO Q12H PRN (Reason: pain (scale score 7-10)) Qty: 4 0RF Rx Instructions: Only take after your methocarbamol and ibuprofen are not satisfactory No Action omeprazole 20 mg capsule,delayed release(DR/EC) 20 mg PO BID tamsulosin [Flomax] 0.4 mg capsule 0.4 mg PO DAILY aspirin [Adult Low Dose Aspirin] 81 mg tablet,delayed release (DR/EC) 81 mg PO DAILY Symbicort 80-4.5 mcg/actuation HFA aerosol inhaler 2 puff INHALATION BID fluticasone propionate 50 mcg/actuation spray,suspension 1 spray intranasal DAILY Farxiga 10 mg tablet 10 mg PO DAILY Patient Comments: TAKE 1 TABLET BY MOUTH EVERY DAY Toujeo Max U-300 SoloStar 300 unit/mL (3 mL) insulin pen 90 unit SQ furosemide [Lasix] 40 mg tablet 40 mg PO BID Qty: 180 3RF losartan 50 mg tablet 50 mg PO BID Qty: 180 3RF pramipexole 0.25 mg tablet 0.25 mg PO HS Qty: 90 3RF metformin 1,000 mg tablet 1,000 mg PO BID Patient Comments: TAKE 1 TABLET BY MOUTH TWICE DAILY WITH MEALS potassium chloride 10 mEq capsule, extended release 10 meq PO DAILY Qty: 90 3RF Ozempic 0.25 mg or 0.5 mg (2 mg/3 mL) pen injector 0.5 mg SQ WEEKLY metoprolol succinate [Toprol XL] 50 mg tablet extended release 24 hr 50 mg PO DAILY spironolactone 50 mg tablet See Rx Instructions .ROUTE .COMPLEX Rx Instructions: TAKE 1 TABLET BY MOUTH DAILY rosuvastatin [Crestor] 20 mg tablet 20 mg PO DAILY Referrals Follow up/Referrals: Kristopher Palacios DO [Staff Physician] - See instructions Va Short APRN [Primary Care Provider] - See instructions Activity Restrictions/Add. Instructions Additional Instructions/Restrictions: At this time it was felt you are safe to be discharged home. If new or worsening symptoms please do not hesitate to return the emergency department. Please take your medications as prescribed and call and schedule appoint with Dr. Palacios as soon as you are able. Please wear your sling for comfort as needed. Clinical Impressions Clinical Impression: Left shoulder strain, Bony sclerosis Print Language Print Language: Martiniquais Discharge ED Provider: Ga Jeter General Adult HPI General Chief complaint: Extremity Injury, Upper Stated complaint: AO-05/24/24- pain in L shoulder and arm Time Seen by Provider: 05/24/24 19:56 History of Present Illness HPI narrative: Patient is a 73-year-old right handed male who presents emergency department for evaluation of a injury to his left upper extremity. 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 Onset was acute occurring a few hours prior to arrival. The pain is from his proximal humerus up over his shoulder into his lateral neck. He did not fall and hit his head. No other acute complaints at this time. Related Data Home Medications ?Medication ?Instructions ?Recorded ?Confirmed aspirin 81 mg tablet,delayed 81 mg PO DAILY heart health 04/12/19 12/21/23 release (Adult Low Dose Aspirin) budesonide-formoterol HFA 80 2 puff inhalation BID COPD 04/12/19 12/21/23 mcg-4.5 mcg/actuation aerosol inhaler (Symbicort) omeprazole 20 mg capsule,delayed 20 mg PO BID GERD 04/12/19 12/21/23 release tamsulosin 0.4 mg capsule (Flomax) 0.4 mg PO DAILY bph 04/12/19 12/21/23 metformin 1,000 mg tablet 1,000 mg PO BID Diabetes 07/15/21 12/21/23 metoprolol succinate 50 mg 50 mg PO DAILY High blood pressure 09/20/22 12/21/23 tablet,extended release 24 hr (Toprol XL) rosuvastatin 20 mg tablet (Crestor) 20 mg PO DAILY High cholesterol 09/20/22 12/21/23 spironolactone 50 mg tablet See Rx Instructions .Route 09/20/22 12/21/23 .COMPLEX High blood pressure dapagliflozin propanediol 10 mg 10 mg PO DAILY 12/20/23 06/26/24 tablet (Farxiga) fluticasone propionate 50 1 spray intranasal DAILY 06/15/23 12/21/23 mcg/actuation nasal spray,suspension insulin glargine U-300 conc 300 90 unit SQ 06/15/23 12/21/23 unit/mL (3 mL) subcutaneous pen (Toujeo Max U-300 SoloStar) semaglutide 0.25 mg or 0.5 mg (2 0.5 mg SQ WEEKLY 09/20/23 12/21/23 mg/3 mL) subcutaneous pen injector (Ozempic) Previous Rx's ?Medication ?Instructions ?Recorded potassium chloride 10 mEq 10 meq PO DAILY Supplement #90 caps 11/24/22 capsule,extended release furosemide 40 mg tablet (Lasix) 40 mg PO BID #180 tabs 12/15/23 losartan 50 mg tablet 50 mg PO BID #180 tabs 12/15/23 pramipexole 0.25 mg tablet 0.25 mg PO HS RLS #90 tabs 12/21/23 hydrocodone 5 mg-acetaminophen 325 1 tab PO Q12H PRN pain (scale 05/24/24 mg tablet score 7-10) #4 tabs ibuprofen 800 mg tablet 800 mg PO Q8H PRN pain and 05/24/24 swelling #12 tabs methocarbamol 500 mg tablet 1,000 mg (2 x 500 mg) PO Q8H PRN 05/24/24 muscle pain and spasm #24 tabs Allergies Allergy/AdvReac Type Severity Reaction Status Date / Time No Known Allergies Allergy Verified 12/21/23 07:55 [facility] Disclaimer: The information contained in this section may have been updated after the patient was seen, as this information can be updated by other users. Medical History History of coronary angiogram Coronary aneurysm Myxoma of heart Cardiac mass KALYN (obstructive sleep apnea) Severe KALYN with hypoxemia in the setting of multiple cardiac comorbidities. Compliance fluctuates without close follow-up Dyspnea Fatigue Abnormal stress test Typical angina Surgical History History of cardiac cath History of cholecystectomy Hx of CABG Family History Other Cancer Coronary artery disease Diabetes Hypertension Social History Smoking Status: Never smoker alcohol intake: current alcohol intake frequency: 3 or more drinks per day substance use type: denies use current occupational status: retired household members: spouse housing: house Other Medical History Have you received the Flu Vaccine for this season: Yes Have you received the Pneumonia Vaccine: Yes ROS Obtained: Yes Systems reviewed as appropriate & no additional complaints except as documented Physical Exam General General appearance: alert and in no apparent distress Head Head exam: atraumatic and normocephalic Eye Eye exam: Present PERRL and EOMI ENT ENT exam: Present mucous membranes moist Neck Neck exam: Present normal inspection Chest Chest inspection: Present normal inspection and symmetric chest wall rise Respiratory Respiratory exam: Present normal lung sounds bilaterally; Absent respiratory distress Cardiovascular Cardiovascular exam: Present regular rate and normal rhythm Abdominal Exam Abdominal exam: Present soft; Absent tenderness Extremities Exam Extremities exam: Present normal inspection and other (Palpable left radial pulse 5 out of 5 strength bilateral upper extremities. Tenderness over the left humeral head. Pain with abduction at the left shoulder. No overlying bruising) Neurological Exam Neurological exam: Present alert Psychiatric Psychiatric exam: Present normal affect Skin Skin exam: Present warm and dry Medical Decision Making Medical Records Screening: Per USPSTF and CDC recommendations, given the prevalence of disease in our region, it is our hospital?s policy to screen for HIV and viral Hepatitis for all patients aged 18 and over and those with ongoing risk factors. Robert Inquiry Pt receiving controlled substance: No Vital Signs: 05/24/24 19:55 05/24/24 20:35 Temperature 97.9 F Temperature Source Oral Pulse Rate 92 H Pulse Rate [Left Radial] 89 Respiratory Rate 18 Blood Pressure 102/69 L Blood Pressure [Right Arm] 105/72 L Blood Pressure Mean [Right Arm] 83 Blood Pressure Source [Right Arm] Automatic Cuff Blood Pressure Position [Right Arm] Supine 02 Sat by Pulse Oximetry 96 96 Oxygen Delivery Method Room Air Orders (Tests/Meds): ED MEDICATIONS Discontinued Medications Generic Name Dose Route Start Last Admin Trade Name Freq PRN Reason Stop Dose Admin Ibuprofen 600 mg 05/24/24 20:02 05/24/24 20:10 Ibuprofen 600 Mg Tablet PO 05/24/24 20:03 600 mg ONCE ONE Administration Methocarbamol 1,000 mg 05/24/24 20:03 05/24/24 20:10 Methocarbamol 500mg Tablet PO 05/24/24 20:04 1,000 mg ONCE ONE Administration Oxycodone HCl 5 mg 05/24/24 20:03 05/24/24 20:11 Oxycodone 5mg Immediate Release Tablet PO 05/24/24 20:04 5 mg ONCE ONE Administration ORDERS Category Date Time Status XR humerus LT Stat Exams 05/24/24 20:01 Taken XR shoulder LT min 2V Stat Exams 05/24/24 20:01 Taken Medical Decision Narrative: In summary patient is 73-year-old male past medical history described by presents emergency department for evaluation of traction injury to his left shoulder. Patient is hemodynamically stable nontoxic-appearing upon arrival, afebrile. Based on history and physical exam differential includes muscular tenderness injury, shoulder separation, shoulder dislocation, fracture, among others. Limited workup and trauma survey will be conducted with plain film of the left shoulder and humerus. Initial inventions include ibuprofen and methocarbamol and 1 dose of oxycodone given the severity of his pain. X-ray informally interpreted by me there appears to be a sclerotic lesion on his proximal humerus which is of undetermined etiology at this time. I do not see any significant fracture or dislocation. Given this patient be given a sling for comfort and will be discharged with methocarbamol and high-dose ibuprofen with a few doses of Bryant for breakthrough pain control. Critical Care Critical Care Time Critical Care Time: No
[2024-05-24] MEDS: IBUPROFEN 600 MG TABLET PO (20:10)
[2024-05-24] MEDS: METHOCARBAMOL 500MG TABLET 1000 MG PO (20:10)
[2024-05-24] MEDS: OXYCODONE 5MG IMMEDIATE RELEASE TABLET 5 MG PO (20:11)
[2024-05-24 20:35] VITALS: BP 102/69; PULSE 92; O2SAT 96
[2024-05-24 20:45] VITALS: PULSE 91; O2SAT 97
[2024-05-24 21:09] VITALS: BP 105/62; PULSE 74; RESP 18; TEMP 36.6; O2SAT 98
== END 2024-05-24 21:25 | disposition home or self-care (01) ==
PROVIDERS: Emergency Provider Emergency Medicine; PCP Nurse Practitioner
DX: S46.912A Strain of unspecified muscle, fascia and tendon at shoulder and upper arm level, left arm, initial encounter (principal); Q78.2 Osteopetrosis; M25.512 Pain in left shoulder; M79.602 Pain in left arm; W01.198A Fall on same level from slipping, tripping and stumbling with subsequent striking against other object, initial encounter; Y93.89 Activity, other specified; Y92.89 Other specified places as the place of occurrence of the external cause
CPT/HCPCS: 73030; 73060; 99283

== ENCOUNTER 2024-05-29 12:03 | Outpatient (CLI) | payer MEDICARE, MEDICAID, SELFPAY ==
--- NOTE | 2024-05-29 12:06 | XR_ITS ---
FINAL REPORT CLINICAL HISTORY: Focus on AP and Lateral -- fell on 05/24 -- no surgery COMPARISON: None FINDINGS: LEFT ELBOW: 3 images of the left elbow were obtained. The lateral view is somewhat rotated. There is no evidence of fracture or dislocation. Mild degenerative change is present. There is no soft tissue abnormality identified. IMPRESSION: Mild degenerative change without acute bony abnormality. Reviewed, Interpreted and Dictated by Praveen Treviño III, MD Transcribed by Juine Levy Authenticated and . [facility]
== END 2024-05-29 23:59 | disposition home or self-care (01) ==
LOC: RAD 12:04
PROVIDERS: PCP Nurse Practitioner; Visit Provider Physician Assistant
DX: M25.522 Pain in left elbow (principal)
CPT/HCPCS: 73080

== ENCOUNTER 2024-06-14 11:22 | Outpatient (CLI) | payer MEDICARE, MEDICAID, SELFPAY ==
[2024-06-14 12:19] LABS: Hematocrit 45.6 % (42.0-52.0); Hemoglobin 15.1 g/dL (14.1-18.0); Lymphocytes % 21.8 % (10-50); Mean Corpuscular HGB Conc 33.1 g/dL (31.8-35.4); Mean Corpuscular Hemoglobin 30.7 pg (27.0-31.2); Mean Corpuscular Volume 92.7 fl (80-94); Mean Platelet Volume 10.9 fl (7.4-10.4); Neutrophils % 67.5 % (37.0-80.0); Platelet Count 196 K/mm3 (142-424); Red Blood Count 4.92 M/mm3 (4.60-6.20); White Blood Count 8.9 K/mm3 (4.8-10.8)
[2024-06-14 12:20] LABS: Albumin Level 4.3 g/dl (3.5-5.0); Basophils # 0.1 K/mm3 (0-0.2); Basophils % 0.6 % (0.1-2.0); Chloride 102 mmol/L (98-107); Eosinophils # 0.2 K/mm3 (0.0-0.4); Lymphocytes # 1.9 K/mm3 (0.7-4.5); Monocytes # 0.7 K/mm3 (0.1-1.0); Monocytes % 7.8 % (1.7-9.3); Potassium 4.6 mmoL/L (3.5-5.1); Sodium 133 mmol/L (136-145)
[2024-06-14 12:22] LABS: Bilirubin,Unconjugated 0.3 mg/dL (0.0-1.1); Blood Urea Nitrogen 25 mg/dl (9-20); Estimated Glomerular Filt Rate 83 ml/min (>60); GFR (African American) 100 ML/MIN (>60)
[2024-06-14 12:23] LABS: Alanine Aminotransferase 26 U/L (12-78); Alkaline Phosphatase 77 U/L (38-126); Anion Gap 10.6 mEq/L (5-15); Aspartate Amino Transferase 38 U/L (17-59); Bilirubin,Direct 0.3 mg/dl (0.0-0.4); Bilirubin,Indirect 0.4 mg/dL (0.0-0.9); Bilirubin,Total 0.7 mg/dl (0.2-1.3); Calcium 9.7 mg/dl (8.4-10.2); Carbon Dioxide 25 mmol/L (22.0-30.0); Chol/HDL Ratio 3.6 (1-3.5); Cholesterol 131 mg/dl (140-200); Glucose 159 mg/dl (74-100); HDL Cholesterol 36 mg/dl (40-60); Total Protein,Serum 6.9 g/dl (6.3-8.2); Triglycerides 283 mg/dl (30-150); VLDL Cholesterol 57 mg/dL (0-40)
[2024-06-14 12:53] LABS: Thyroid Stimulating Hormone 1.13 uIU/mL (0.465-4.68)
[2024-06-14 13:48] LABS: Free T4 (Free Thyroxine) 1.16 ng/dl (0.78-2.19)
== END 2024-06-14 23:59 | disposition home or self-care (01) ==
LOC: LAB 11:24
PROVIDERS: PCP Nurse Practitioner; Visit Provider Nurse Practitioner Family
DX: R07.82 Intercostal pain (principal); Z98.890 Other specified postprocedural states; Z86.79 Personal history of other diseases of the circulatory system; I65.23 Occlusion and stenosis of bilateral carotid arteries; I25.41 Coronary artery aneurysm; I50.30 Unspecified diastolic (congestive) heart failure; I51.89 Other ill-defined heart diseases; R53.83 Other fatigue; R60.9 Edema, unspecified; E78.2 Mixed hyperlipidemia; I10 Essential (primary) hypertension; I25.118 Atherosclerotic heart disease of native coronary artery with other forms of angina pectoris; I71.40 Abdominal aortic aneurysm, without rupture, unspecified
CPT/HCPCS: 36415; 80048; 80061; 80076; 84439; 84443; 85025

== ENCOUNTER 2024-06-29 07:40 | Outpatient (CLI) | payer MEDICARE, MEDICAID, SELFPAY ==
--- NOTE | 2024-06-29 07:41 | CT_ITS ---
FINAL REPORT TECHNIQUE: Thin section axial images were obtained through the abdomen after contrast injection per CT angiogram protocol. Multiplanar reconstruction images were obtained from the axial data. This exam was performed with techniques to keep radiation dose as low as reasonably achievable. This includes automated exposure control, adjustment of the MA and KVP, and iterative reconstruction technique. CLINICAL HISTORY: AAA repair COMPARISON: 09/16/2020 FINDINGS: CTA: There is a stable appearance of the partial thrombosis of the left atrial appendage when compared to the prior exam of 2020. There are postoperative changes of an abdominal aortic aneurysm. 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 The more inferior portion of the aneurysm measures 6.6 cm in diameter, increased from 6.2 cm in 202. The graft is patent. The celiac axis and superior mesenteric artery are patent without stenosis. The FANI is not visualized. The renal arteries are patent. The common iliac arteries are patent, with occlusion of the left internal iliac artery. The remainder of the internal and external iliac arteries are patent. NONVASCULAR: Changes of emphysema are present in the lung bases. The gallbladder is absent. There is a 37 mm cystic lesion in the tail of the pancreas, stable. The solid abdominal organs are without acute abnormality. The GI tract is otherwise without acute abnormality. No lymphadenopathy or free fluid. No acute osseous abnormality. IMPRESSION: The juxtarenal portion of the aortic aneurysm measures 5 cm, stable since the prior exam. The more inferior portion of the aneurysm measures 6.6 cm in diameter, slightly enlarged from the 6.2 cm aneurysm measured in 202. The grafts are patent. 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 Cystic lesion in the tail of the pancreas, stable. Reviewed, Interpreted and Dictated by Cathy Yu MD Transcribed by Junie Levy Authenticated and [facility]
--- NOTE | 2024-06-29 07:43 | CA_ITS ---
FINAL REPORT TECHNIQUE: Sheridan scale, color and spectral doppler images of the bilateral carotid arteries were obtained. CLINICAL HISTORY: CABG, AAA, HTN, HLD, DM COMPARISON: None FINDINGS: RIGHT CAROTID: CCA PSV - 81.3 cm/sec ICA PSV - 65.1 cm/sec ICA/CCA PSV ratio - 1.0. Comments: Mild plaque is noted in the distal right common carotid and proximal right internal carotid. LEFTCAROTID: CCA PSV - 86.1. cm/sec ICA PSV - 66.3. cm/sec ICA/CCA PSV ratio - 1.2. Comments: Mild plaque is noted in the distal left common carotid and proximal left internal carotid. Antegrade flow is seen within the vertebral arteries. IMPRESSION: Carotid stenosis classified less than 50% bilaterally. Reviewed, Interpreted and Dictated by Cathy Yu MD Transcribed by Bibiana Isaacs Authenticated and . [facility]
[2024-06-29] MEDS: SODIUM CHLORIDE 0.9% 10ML SYR (RAD ONLY) 10 ML IV (08:15)
[2024-06-29] MEDS: 0.9 % SODIUM CHLORIDE 50 ML VIAL IV (08:15)
[2024-06-29] MEDS: IOPAMIDOL-370 (76%);100ML BOTTLE 100 ML IV (08:15)
== END 2024-06-29 23:59 | disposition home or self-care (01) ==
LOC: RAD 07:41
PROVIDERS: PCP Nurse Practitioner; Visit Provider Nurse Practitioner Family
DX: I71.40 Abdominal aortic aneurysm, without rupture, unspecified (principal); R07.82 Intercostal pain; I25.118 Atherosclerotic heart disease of native coronary artery with other forms of angina pectoris; I25.41 Coronary artery aneurysm; Z98.890 Other specified postprocedural states; Z86.79 Personal history of other diseases of the circulatory system; I65.23 Occlusion and stenosis of bilateral carotid arteries; I50.30 Unspecified diastolic (congestive) heart failure; R53.83 Other fatigue; R60.9 Edema, unspecified; E78.2 Mixed hyperlipidemia; I10 Essential (primary) hypertension
CPT/HCPCS: 74175; 93306; 93880; Q9967

== ENCOUNTER 2024-07-19 18:13 | Emergency (ER) | payer MEDICARE, MEDICAID, SELFPAY ==
[2024-07-19] VITALS (8 sets, daily range): BP systolic 119–181; BP diastolic 57–107; PULSE 71–93; RESP 18–20; TEMP 36.6–36.7; O2SAT 92–97; BMI 38.0
--- NOTE | 2024-07-19 18:18 | [facility].EDGENADL ---
Discharge Plan Disposition Patient Disposition: Home, Self-Care Condition: Good Prescriptions Prescriptions: No Action omeprazole 20 mg capsule,delayed release(DR/EC) 20 mg PO BID tamsulosin [Flomax] 0.4 mg capsule 0.4 mg PO DAILY aspirin [Adult Low Dose Aspirin] 81 mg tablet,delayed release (DR/EC) 81 mg PO DAILY Symbicort 80-4.5 mcg/actuation HFA aerosol inhaler 2 puff INHALATION BID fluticasone propionate 50 mcg/actuation spray,suspension 1 spray intranasal DAILY Farxiga 10 mg tablet 10 mg PO DAILY Patient Comments: TAKE 1 TABLET BY MOUTH EVERY DAY Toujeo Max U-300 SoloStar 300 unit/mL (3 mL) insulin pen 90 unit SQ furosemide [Lasix] 40 mg tablet 40 mg PO BID Qty: 180 3RF losartan 50 mg tablet 50 mg PO BID Qty: 180 3RF pramipexole 0.25 mg tablet 0.25 mg PO HS Qty: 90 3RF oxybutynin chloride 10 mg tablet extended release 24hr 10 mg PO ONCE Patient Comments: TAKE 1 TABLET BY MOUTH DAILY metformin 1,000 mg tablet 1,000 mg PO BID Patient Comments: TAKE 1 TABLET BY MOUTH TWICE DAILY WITH MEALS potassium chloride 10 mEq capsule, extended release 10 meq PO DAILY Qty: 90 3RF Ozempic 0.25 mg or 0.5 mg (2 mg/3 mL) pen injector 0.5 mg SQ WEEKLY metoprolol succinate [Toprol XL] 50 mg tablet extended release 24 hr 50 mg PO DAILY spironolactone 50 mg tablet See Rx Instructions .ROUTE .COMPLEX Rx Instructions: TAKE 1 TABLET BY MOUTH DAILY rosuvastatin [Crestor] 20 mg tablet 20 mg PO DAILY methocarbamol 500 mg tablet 1,000 mg PO Q8H PRN (Reason: muscle pain and spasm) Qty: 24 0RF ibuprofen 800 mg tablet 800 mg PO Q8H PRN (Reason: pain and swelling) Qty: 12 0RF Rx Instructions: Take with food hydrocodone-acetaminophen 5-325 mg tablet 1 tab PO Q12H PRN (Reason: pain (scale score 7-10)) Qty: 4 0RF Rx Instructions: Only take after your methocarbamol and ibuprofen are not satisfactory Referrals Follow up/Referrals: Va Short APRN [Primary Care Provider] - See instructions Art,Alfred Arguelles MD [Referring] - See instructions Activity Restrictions/Add. Instructions Additional Instructions/Restrictions: I have referred you to urology. Please keep the Guadarrama catheter in place until you see urology. Continue taking your tamsulosin. Follow-up with your PCP within 48 hours for recheck. You have any new worsening signs or symptoms return to the ER as needed. Clinical Impressions Clinical Impression: Bladder outlet obstruction, BPH with urinary obstruction Instructions Patient Instructions: DI for Acute Abdominal Pain Print Language Print Language: Citizen Of [place] Discharge ED Provider: Arnel Stoner General Adult HPI <ROCCO Wise - Last Filed: 07/19/24 21:53> General Chief complaint: Abdominal Pain Stated complaint: Back pain,nausea possible kidney stone Time Seen by Provider: 07/19/24 18:18 History of Present Illness HPI narrative: Patient presents for left-sided back and abdominal pain. Patient states that he began having left-sided back and abdominal pain starting last night continuing today. Patient reports difficulty urinating and that he has to strain to pee. He denies any fever chills hemoptysis hematochezia melena nausea vomiting diarrhea. Denies any hematuria. Related Data Home Medications ?Medication ?Instructions ?Recorded ?Confirmed aspirin 81 mg tablet,delayed 81 mg PO DAILY heart health 04/12/19 06/14/24 release (Adult Low Dose Aspirin) budesonide-formoterol HFA 80 2 puff inhalation BID COPD 04/12/19 06/14/24 mcg-4.5 mcg/actuation aerosol inhaler (Symbicort) omeprazole 20 mg capsule,delayed 20 mg PO BID GERD 04/12/19 06/14/24 release tamsulosin 0.4 mg capsule (Flomax) 0.4 mg PO DAILY bph 04/12/19 06/14/24 metformin 1,000 mg tablet 1,000 mg PO BID Diabetes 07/15/21 06/14/24 metoprolol succinate 50 mg 50 mg PO DAILY High blood pressure 09/20/22 06/14/24 tablet,extended release 24 hr (Toprol XL) rosuvastatin 20 mg tablet (Crestor) 20 mg PO DAILY High cholesterol 09/20/22 06/14/24 spironolactone 50 mg tablet See Rx Instructions .Route 09/20/22 06/14/24 .COMPLEX High blood pressure dapagliflozin propanediol 10 mg 10 mg PO DAILY 06/15/23 06/14/24 tablet (Farxiga) fluticasone propionate 50 1 spray intranasal DAILY 06/15/23 06/14/24 mcg/actuation nasal spray,suspension insulin glargine U-300 conc 300 90 unit SQ 06/15/23 06/14/24 unit/mL (3 mL) subcutaneous pen (Toujeo Max U-300 SoloStar) semaglutide 0.25 mg or 0.5 mg (2 0.5 mg SQ WEEKLY 09/20/23 06/14/24 mg/3 mL) subcutaneous pen injector (Ozempic) oxybutynin chloride 10 mg 10 mg PO ONCE 06/14/24 06/14/24 tablet,extended release 24 hr Previous Rx's ?Medication ?Instructions ?Recorded potassium chloride 10 mEq 10 meq PO DAILY Supplement #90 caps 11/24/22 capsule,extended release furosemide 40 mg tablet (Lasix) 40 mg PO BID #180 tabs 12/15/23 losartan 50 mg tablet 50 mg PO BID #180 tabs 12/15/23 pramipexole 0.25 mg tablet 0.25 mg PO HS RLS #90 tabs 12/21/23 hydrocodone 5 mg-acetaminophen 325 1 tab PO Q12H PRN pain (scale 05/24/24 mg tablet score 7-10) #4 tabs ibuprofen 800 mg tablet 800 mg PO Q8H PRN pain and 05/24/24 swelling #12 tabs methocarbamol 500 mg tablet 1,000 mg (2 x 500 mg) PO Q8H PRN 05/24/24 muscle pain and spasm #24 tabs Allergies Allergy/AdvReac Type Severity Reaction Status Date / Time No Known Allergies Allergy Verified 06/14/24 10:55 [facility] <ROCCO Wise - Last Filed: 07/19/24 21:53> [facility] Disclaimer: The information contained in this section may have been updated after the patient was seen, as this information can be updated by other users. Medical History (Updated 07/19/24 @ 21:00 by ROCCO Wise) Chest pain AAA (abdominal aortic aneurysm) HLD (hyperlipidemia) HTN (hypertension) CAD (coronary artery disease) Stenosis of carotid artery History of coronary angiogram Coronary aneurysm Myxoma of heart Cardiac mass KALYN (obstructive sleep apnea) Dyspnea Fatigue Abnormal stress test Typical angina Surgical History (Updated 06/14/24 @ 11:22 by Abiola Jamil APRN) S/P CABG x 5 S/P AAA repair History of cardiac cath History of cholecystectomy Hx of CABG Family History Other Cancer Coronary artery disease Diabetes Hypertension Social History Smoking Status: Never smoker alcohol intake: current alcohol intake frequency: 3 or more drinks per day substance use type: denies use current occupational status: retired Travel in the last 8 weeks: Inside the [place] household members: spouse housing: house Have you lived/traveled outside [place] in past 30 days?: No Contact w/someone who lives/traveled outside US past 30 days?: No Exposure to someone with infectious disease in past 14 days?: No Do you have a fever (greater than 100.4 F or 38 C)?: No Have you tested positive for COVID-19: No Exposed to someone with COVID-19 in past 14 days?: No Do you have a sore throat?: No Do you have a cough?: No Do you have any weakness?: No Do you have any diarrhea?: No Are you experiencing any unusual bleeding?: No Do you have any muscle aches/pain?: No Do you have any abdominal pain?: No Are you experiencing loss of taste or smell?: No Other Medical History Have you received the Flu Vaccine for this season: Yes Have you received the Pneumonia Vaccine: Yes <ROCCO Wise - Last Filed: 07/19/24 21:53> ROS Obtained: Yes Systems reviewed as appropriate & no additional complaints except as documented Physical Exam <ROCCO Wise - Last Filed: 07/19/24 21:53> General General appearance: alert Respiratory Respiratory exam: Present normal lung sounds bilaterally Cardiovascular Cardiovascular exam: Present regular rate Neurological Exam Neurological exam: Present alert Medical Decision Making <ROCCO Wise - Last Filed: 07/19/24 21:53> Medical Records Medical records reviewed: Yes I reviewed the patient's medical records. Screening: Per USPSTF and CDC recommendations, given the prevalence of disease in our region, it is our hospital?s policy to screen for HIV and viral Hepatitis for all patients aged 18 and over and those with ongoing risk factors. Robert Inquiry Pt receiving controlled substance: No Vital Signs: 07/19/24 18:14 07/19/24 18:32 07/19/24 19:20 Temperature Temperature Source Pulse Rate 93 H 82 Pulse Rate [Left Radial] 71 Respiratory Rate 20 Blood Pressure 181/107 H 124/70 Blood Pressure [Right Arm] 124/70 Blood Pressure Mean [Right Arm] 88 02 Sat by Pulse Oximetry 94 L 97 93 L Oxygen Delivery Method Room Air Room Air 07/19/24 19:21 07/19/24 19:31 07/19/24 20:00 Temperature 97.8 F Temperature Source Oral Pulse Rate 82 85 Pulse Rate [Left Radial] Respiratory Rate Blood Pressure 120/81 119/57 L Blood Pressure [Right Arm] Blood Pressure Mean [Right Arm] 02 Sat by Pulse Oximetry 93 L 92 L Oxygen Delivery Method 07/19/24 20:30 07/19/24 21:25 Temperature 98.1 F Temperature Source Pulse Rate 74 74 Pulse Rate [Left Radial] Respiratory Rate 18 Blood Pressure 133/76 133/76 Blood Pressure [Right Arm] Blood Pressure Mean [Right Arm] 02 Sat by Pulse Oximetry 94 L Oxygen Delivery Method Room Air Lab Data Lab results reviewed: Yes I reviewed the patient's lab results. Lab Results 07/19/24 18:26: WBC 13.8 H, RBC 5.16, Hgb 15.7, Hct 47.4, MCV 91.9, MCH 30.4, MCHC 33.1, RDW 13.1, Plt Count 156, MPV 12.2 H, Neut % (Auto) 73.0, Lymph % (Auto) 18.6, [place] % (Auto) 6.2, Eos % (Auto) 1.2, Baso % (Auto) 0.7, Neut # (Auto) 10.1 H, Lymph # (Auto) 2.6, [place] # (Auto) 0.9, Eos # (Auto) 0.2, Baso # (Auto) 0.1, Sodium 134 L, Potassium 4.6, Chloride 97 L, Carbon Dioxide 21 L, Anion Gap 20.6 H, BUN 25 H, Creatinine 1.00, Estimated Creat Clear 107, Estimated GFR 73, Est GFR ( Amer) 89, Glucose 222 H, Calcium 9.8, Total Bilirubin 0.8, AST 65 H, ALT 31, Alkaline Phosphatase 79, Total Protein 8.2, Albumin 5.0, Globulin 3.2, Albumin/Globulin Ratio 1.6, HCV Ab KASSIE w/Rflx PCR Qn Negative, HIV Ag/Ab Combo Qual Negative 07/19/24 18:54: Urine Color Yellow, Urine Appearance Clear, Urine pH 6.0, Ur Specific Marine 1.010, Urine Protein Negative, Urine Glucose (UA) 3+, Urine Ketones Negative, Urine Blood Trace-i, Urine Nitrate Negative, Urine Bilirubin Negative, Urine Urobilinogen 0.2, Ur Leukocyte Esterase Negative, Urine RBC 5-10, Urine WBC Occasional, Ur Transition Epith Cell Occ, Urine Bacteria Trace, Urine Mucus Trace 07/19/24 18:26 07/19/24 18:26 Orders (Tests/Meds): ED MEDICATIONS Discontinued Medications Generic Name Dose Route Start Last Admin Trade Name Freq PRN Reason Stop Dose Admin Acetaminophen 1,000 mg 07/19/24 18:23 07/19/24 18:36 Acetaminophen 500mg Tab PO 07/19/24 18:24 1,000 mg ONCE ONE Administration Lactated Ringer's 1,000 mls @ 999 mls/hr 07/19/24 18:23 07/19/24 18:36 Lactated Ringer's 1000 Ml Bag IV 07/19/24 19:23 999 mls/hr .Q1H1M ONE Administration Iopamidol 75 ml 07/19/24 19:56 07/19/24 19:56 Iopamidol-370 (76%);100ml Bottle IV 07/19/24 19:57 75 ml ONCE ONE Administration Ketorolac Tromethamine 15 mg 07/19/24 18:23 07/19/24 18:36 Ketorolac 30mg/Ml Vial IV 07/19/24 18:24 15 mg ONCE ONE Administration Ondansetron HCl 4 mg 07/19/24 18:23 07/19/24 18:36 Ondansetron 4mg/2ml Vial IV 07/19/24 18:24 4 mg ONCE ONE Administration Sodium Chloride 10 ml 07/19/24 19:56 07/19/24 19:56 Sodium Chloride 0.9% 10ml Syr (Rad Only) IV 08/18/24 19:55 10 ml NEEDED PRN Administration Maintain IV Site ORDERS Category Date Time Status CT abdomen pelvis w con Stat Cat Scan 07/19/24 18:23 Completed CBC w/Auto Diff [Complete Blood Count Auto Diff] Stat Lab 07/19/24 18:26 Completed CMP [Comprehensive Metabolic Panel] Stat Lab 07/19/24 18:26 Completed HIV Combo Stat Lab 07/19/24 18:26 Completed Hepatitis C Ab Qual. W/ RFX Stat Lab 07/19/24 18:26 Completed UA [Urinalysis and Microscopic] Stat Lab 07/19/24 18:54 Completed Medical Decision Narrative: In summary patient is a 74-year-old male who presents to the emergency department for evaluation of left flank and left-sided abdominal pain. Patient is hemodynamically stable upon arrival, afebrile. Physical exam is remarkable actually for suprapubic tenderness along with left-sided abdominal tenderness negative CVA tenderness to percussion normal bowel sounds no rebound or guarding or rigidity.. Differential diagnosis includes kidney stone versus constipation versus bladder outlet obstruction versus diverticulitis versus gastroenteritis etc. Initial workup will be conducted with hematologic labs urinalysis bladder scan CT scan abdomen pelvis. Initial interventions include Tylenol Toradol . Initial workup reviewed by me had greater than 1000 on bladder scan after which we placed Guadarrama catheter successfully with almost 2 L out immediately., his hematologic labs showed a white count of 13.8 with a neutrophilic shift of 10.1 however the remainder of his hematologic labs are nonactionable including normal creatinine urinalysis showed no evidence of urinary tract infection and my informal interpretation of CT scan abdomen pelvis showed bladder outlet obstruction due to BPH with with stranding around the now decompressed bladder after Guadarrama insertion.. Upon repeat evaluation significant reduction in his pain to 0. Given this patient will be discharged with Guadarrama catheter in place and referral to urology strict return precautions. <Arnel Stoner MD - Last Filed: 07/19/24 22:13> Vital Signs: 07/19/24 18:14 07/19/24 18:32 07/19/24 19:20 Temperature Temperature Source Pulse Rate 93 H 82 Pulse Rate [Left Radial] 71 Respiratory Rate 20 Blood Pressure 181/107 H 124/70 Blood Pressure [Right Arm] 124/70 Blood Pressure Mean [Right Arm] 88 02 Sat by Pulse Oximetry 94 L 97 93 L Oxygen Delivery Method Room Air Room Air 07/19/24 19:21 07/19/24 19:31 07/19/24 20:00 Temperature 97.8 F Temperature Source Oral Pulse Rate 82 85 Pulse Rate [Left Radial] Respiratory Rate Blood Pressure 120/81 119/57 L Blood Pressure [Right Arm] Blood Pressure Mean [Right Arm] 02 Sat by Pulse Oximetry 93 L 92 L Oxygen Delivery Method 07/19/24 20:30 07/19/24 21:25 Temperature 98.1 F Temperature Source Pulse Rate 74 74 Pulse Rate [Left Radial] Respiratory Rate 18 Blood Pressure 133/76 133/76 Blood Pressure [Right Arm] Blood Pressure Mean [Right Arm] 02 Sat by Pulse Oximetry 94 L Oxygen Delivery Method Room Air Lab Data Lab Results 07/19/24 18:26: WBC 13.8 H, RBC 5.16, Hgb 15.7, Hct 47.4, MCV 91.9, MCH 30.4, MCHC 33.1, RDW 13.1, Plt Count 156, MPV 12.2 H, Neut % (Auto) 73.0, Lymph % (Auto) 18.6, [place] % (Auto) 6.2, Eos % (Auto) 1.2, Baso % (Auto) 0.7, Neut # (Auto) 10.1 H, Lymph # (Auto) 2.6, [place] # (Auto) 0.9, Eos # (Auto) 0.2, Baso # (Auto) 0.1, Sodium 134 L, Potassium 4.6, Chloride 97 L, Carbon Dioxide 21 L, Anion Gap 20.6 H, BUN 25 H, Creatinine 1.00, Estimated Creat Clear 107, Estimated GFR 73, Est GFR ( Amer) 89, Glucose 222 H, Calcium 9.8, Total Bilirubin 0.8, AST 65 H, ALT 31, Alkaline Phosphatase 79, Total Protein 8.2, Albumin 5.0, Globulin 3.2, Albumin/Globulin Ratio 1.6, HCV Ab KASSIE w/Rflx PCR Qn Negative, HIV Ag/Ab Combo Qual Negative 07/19/24 18:54: Urine Color Yellow, Urine Appearance Clear, Urine pH 6.0, Ur Specific Marine 1.010, Urine Protein Negative, Urine Glucose (UA) 3+, Urine Ketones Negative, Urine Blood Trace-i, Urine Nitrate Negative, Urine Bilirubin Negative, Urine Urobilinogen 0.2, Ur Leukocyte Esterase Negative, Urine RBC 5-10, Urine WBC Occasional, Ur Transition Epith Cell Occ, Urine Bacteria Trace, Urine Mucus Trace Orders (Tests/Meds): ED MEDICATIONS Discontinued Medications Generic Name Dose Route Start Last Admin Trade Name Nicolasa PRN Reason Stop Dose Admin Acetaminophen 1,000 mg 07/19/24 18:23 07/19/24 18:36 Acetaminophen 500mg Tab PO 07/19/24 18:24 1,000 mg ONCE ONE Administration Lactated Ringer's 1,000 mls @ 999 mls/hr 07/19/24 18:23 07/19/24 18:36 Lactated Ringer's 1000 Ml Bag IV 07/19/24 19:23 999 mls/hr .Q1H1M ONE Administration Iopamidol 75 ml 07/19/24 19:56 07/19/24 19:56 Iopamidol-370 (76%);100ml Bottle IV 07/19/24 19:57 75 ml ONCE ONE Administration Ketorolac Tromethamine 15 mg 07/19/24 18:23 07/19/24 18:36 Ketorolac 30mg/Ml Vial IV 07/19/24 18:24 15 mg ONCE ONE Administration Ondansetron HCl 4 mg 07/19/24 18:23 07/19/24 18:36 Ondansetron 4mg/2ml Vial IV 07/19/24 18:24 4 mg ONCE ONE Administration Sodium Chloride 10 ml 07/19/24 19:56 07/19/24 19:56 Sodium Chloride 0.9% 10ml Syr (Rad Only) IV 08/18/24 19:55 10 ml NEEDED PRN Administration Maintain IV Site ORDERS Category Date Time Status CT abdomen pelvis w con Stat Cat Scan 07/19/24 18:23 Completed CBC w/Auto Diff [Complete Blood Count Auto Diff] Stat Lab 07/19/24 18:26 Completed CMP [Comprehensive Metabolic Panel] Stat Lab 07/19/24 18:26 Completed HIV Combo Stat Lab 07/19/24 18:26 Completed Hepatitis C Ab Qual. W/ RFX Stat Lab 07/19/24 18:26 Completed UA [Urinalysis and Microscopic] Stat Lab 07/19/24 18:54 Completed Medical Decision Narrative: In summary patient is a 74-year-old male who presents to the emergency department for evaluation of left flank and left-sided abdominal pain. Patient is hemodynamically stable upon arrival, afebrile. Physical exam is remarkable actually for suprapubic tenderness along with left-sided abdominal tenderness negative CVA tenderness to percussion normal bowel sounds no rebound or guarding or rigidity.. Differential diagnosis includes kidney stone versus constipation versus bladder outlet obstruction versus diverticulitis versus gastroenteritis etc. Initial workup will be conducted with hematologic labs urinalysis bladder scan CT scan abdomen pelvis. Initial interventions include Tylenol Toradol . Initial workup reviewed by me had greater than 1000 on bladder scan after which we placed Guadarrama catheter successfully with almost 2 L out immediately., his hematologic labs showed a white count of 13.8 with a neutrophilic shift of 10.1 however the remainder of his hematologic labs are nonactionable including normal creatinine urinalysis showed no evidence of urinary tract infection and my informal interpretation of CT scan abdomen pelvis showed bladder outlet obstruction due to BPH with with stranding around the now decompressed bladder after Guadarrama insertion.. Upon repeat evaluation significant reduction in his pain to 0. Given this patient will be discharged with Guadarrama catheter in place and referral to urology strict return precautions. I was consulted by the KHUSHI, and we discussed the complexity of the problems being addressed. I approved the treatment and management plan for this patient's care in the Emergency Department, thus performing a substantive portion of the medical decision making. Arnel Stoner MD Critical Care <ROCCO Wise - Last Filed: 07/19/24 21:53> Critical Care Time Critical Care Time: No
--- NOTE | 2024-07-19 18:23 | CT_ITS ---
PROCEDURE INFORMATION: Exam: CT Abdomen And Pelvis With Contrast Exam date and time: 07/19/2024 7:54 PM Age: 74 years old Clinical indication: Abdominal pain; Additional info: Flank pain and dysuria TECHNIQUE: Imaging protocol: Computed tomography of the abdomen and pelvis with contrast. Radiation optimization: All CT scans at this facility use at least one of these dose optimization techniques: automated exposure control; mA and/or kV adjustment per patient size (includes targeted exams where dose is matched to clinical indication); or iterative reconstruction. Contrast material: ISOVUE; Contrast volume: 75 ml; Contrast route: IV; COMPARISON: CT ANGIO ABDOMEN 06/29/2024 7:59 AM FINDINGS: Lungs: Dependent bilateral lung base opacities favor atelectasis. Liver: Normal. No mass. Gallbladder and biliary ducts: There are surgical clips within the gallbladder fossa. Pancreas: Smooth cystic structure of the pancreatic tail measuring 3.5 cm with water density of 0 Hounsfield units compatible with pancreatic pseudocyst unchanged from prior exam. Spleen: Normal. No splenomegaly. Adrenal glands: Normal. No mass. Kidneys and ureters: Multiple Bosniak 1 renal cystic lesions defined as homogeneous and fluid density (-9 to 20 HU), no septations or calcifications, having moyer smooth and thin. Largest cyst measures 5.7 cm. No follow-up recommended. Stomach and bowel: Unremarkable. No obstruction. No mucosal thickening. Appendix: No evidence of appendicitis. Intraperitoneal space: Unremarkable. No free air. No significant fluid collection. Vasculature: Aneurysmal dilatation of the distal aorta measuring 6.5 cm with postsurgical changes stable from prior exam. Lymph nodes: Unremarkable. No enlarged lymph nodes. Urinary bladder: Guadarrama catheter terminates within the bladder. Inflammatory stranding of the urinary bladder wall compatible with cystitis. Reproductive: Unremarkable as visualized. Bones/joints: Unremarkable. No acute fracture. Soft tissues: Normal. IMPRESSION: 1. Inflammatory stranding of the urinary bladder wall compatible with cystitis. 2. Smooth cystic structure of the pancreatic tail measuring 3.5 cm with water density of 0 Hounsfield units compatible with pancreatic pseudocyst unchanged from prior exam. 3. Aneurysmal dilatation of the distal aorta measuring 6.5 cm with postsurgical changes stable from prior exam. COMMENTS: Consistent with the [employer]'s Incidental Findings Committee white paper (J Am Kevyn Radiol 2018): Any incidental renal lesion less than 1 cm or classified as too small to characterize, or any incidental cystic renal lesion characterized as simple-appearing, is likely benign. No follow-up imaging is recommended for these lesions per consensus recommendations based on imaging criteria.
[2024-07-19 18:33] LABS: Basophils # 0.1 K/mm3 (0-0.2); Basophils % 0.7 % (0.1-2.0); Eosinophils # 0.2 K/mm3 (0.0-0.4); Eosinophils % 1.2 % (0.1-12.0); Hematocrit 47.4 % (42.0-52.0); Hemoglobin 15.7 g/dL (14.1-18.0); Lymphocytes # 2.6 K/mm3 (0.7-4.5); Lymphocytes % 18.6 % (10-50); Mean Corpuscular HGB Conc 33.1 g/dL (31.8-35.4); Mean Corpuscular Hemoglobin 30.4 pg (27.0-31.2); Mean Corpuscular Volume 91.9 fl (80-94); Mean Platelet Volume 12.2 fl (7.4-10.4); Monocytes # 0.9 K/mm3 (0.1-1.0); Monocytes % 6.2 % (1.7-9.3); Neutrophils # 10.1 K/mm3 (1.8-7.8); Platelet Count 156 K/mm3 (142-424); Red Blood Count 5.16 M/mm3 (4.60-6.20); Red Cell Distribution Width 13.1 % (11.5-17.5); White Blood Count 13.8 K/mm3 (4.8-10.8)
[2024-07-19] MEDS: LACTATED RINGERS 1000ML 1,000 ML 999 ML IV (18:36)
[2024-07-19] MEDS: ACETAMINOPHEN 500MG TAB 1000 MG PO (18:36)
[2024-07-19] MEDS: ONDANSETRON 4MG/2ML VIAL 4 MG IV (18:36)
[2024-07-19] MEDS: KETOROLAC 30MG/ML VIAL 15 MG IV (18:36)
--- NOTE | 2024-07-19 18:56 | PC.NURSE ---
1500 cc emptied from catheter
[2024-07-19 18:57] LABS: Microscopic, Urine URINE MICROSCOPIC (MICROSCOPIC)
[2024-07-19 19:35] LABS: Appearance,Urine CLEAR (Clear); Bilirubin,Urine Negative (Negative); Blood, Urine TRACE-I (Negative); Color,Urine YELLOW (Yellow); Glucose,Urine (UA) 3+ (Negative); Ketones,Urine Negative (Negative); Leukocyte Esterase,Urine Negative (Negative); Nitrate,Urine Negative (Negative); Protein,Urine Negative (Negative); Urobilinogen,Urine 0.2 EU/dl (0.2)
[2024-07-19 19:45] LABS: Alanine Aminotransferase 31 U/L (12-78); Albumin/Globulin Ratio 1.6 (1.1-1.8); Alkaline Phosphatase 79 U/L (38-126); Anion Gap 20.6 mEq/L (5-15); Aspartate Amino Transferase 65 U/L (17-59); Bilirubin,Total 0.8 mg/dl (0.2-1.3); Blood Urea Nitrogen 25 mg/dl (9-20); Calcium 9.8 mg/dl (8.4-10.2); Carbon Dioxide 21 mmol/L (22.0-30.0); Chloride 97 mmol/L (98-107); Creatinine Clearance Estimated 107 mL/min (50-200); Estimated Glomerular Filt Rate 73 ml/min (>60); GFR (African American) 89 ML/MIN (>60); Globulin 3.2 g/dL (1.3-3.2); Glucose 222 mg/dl (74-100); Potassium 4.6 mmoL/L (3.5-5.1); Sodium 134 mmol/L (136-145); Total Protein,Serum 8.2 g/dl (6.3-8.2)
--- NOTE | 2024-07-19 19:53 | PC.NURSE ---
Pt to CT scan via stretcher
[2024-07-19] MEDS: SODIUM CHLORIDE 0.9% 10ML SYR (RAD ONLY) 10 ML IV (19:56)
[2024-07-19] MEDS: IOPAMIDOL-370 (76%);100ML BOTTLE 75 ML IV (19:56)
[2024-07-19 20:05] LABS: Bacteria,Urine Trace /lpf; Mucus,Urine Trace /lpf; Transitional Epi Cells,Urine OCC #/lpf (0-3); WBC,Urine Occasional #/hpf (0-3)
[2024-07-19 20:24] LABS: HIV Combo NEGATIVE (Negative)
[2024-07-19 20:32] LABS: Hepatitis C Ab Qual. W/ RFX NEGATIVE (Negative)
== END 2024-07-19 21:27 | disposition home or self-care (01) ==
PROVIDERS: Physician Assistant; Emergency Provider Emergency Medicine; PCP Nurse Practitioner
DX: N40.1 Benign prostatic hyperplasia with lower urinary tract symptoms (principal); N32.0 Bladder-neck obstruction; R10.9 Unspecified abdominal pain; M54.9 Dorsalgia, unspecified
CPT/HCPCS: 51702; 74177; 80053; 81001; 85025; 86803; 87389; 96361; 96374; 96375; 99285; J1885; J2405; J7120; Q9967

== ENCOUNTER 2024-07-22 21:18 | Emergency (ER) | payer MEDICARE, MEDICAID, SELFPAY ==
--- NOTE | 2024-07-22 21:20 | ED_ITS ---
Discharge Plan Disposition Chief Complaint: Abdominal Pain Prescriptions Prescriptions: No Action omeprazole 20 mg capsule,delayed release(DR/EC) 20 mg PO BID tamsulosin [Flomax] 0.4 mg capsule 0.4 mg PO DAILY aspirin [Adult Low Dose Aspirin] 81 mg tablet,delayed release (DR/EC) 81 mg PO DAILY Symbicort 80-4.5 mcg/actuation HFA aerosol inhaler 2 puff INHALATION BID fluticasone propionate 50 mcg/actuation spray,suspension 1 spray intranasal DAILY Farxiga 10 mg tablet 10 mg PO DAILY Patient Comments: TAKE 1 TABLET BY MOUTH EVERY DAY Toujeo Max U-300 SoloStar 300 unit/mL (3 mL) insulin pen 90 unit SQ furosemide [Lasix] 40 mg tablet 40 mg PO BID Qty: 180 3RF losartan 50 mg tablet 50 mg PO BID Qty: 180 3RF pramipexole 0.25 mg tablet 0.25 mg PO HS Qty: 90 3RF oxybutynin chloride 10 mg tablet extended release 24hr 10 mg PO ONCE Patient Comments: TAKE 1 TABLET BY MOUTH DAILY metformin 1,000 mg tablet 1,000 mg PO BID Patient Comments: TAKE 1 TABLET BY MOUTH TWICE DAILY WITH MEALS potassium chloride 10 mEq capsule, extended release 10 meq PO DAILY Qty: 90 3RF Ozempic 0.25 mg or 0.5 mg (2 mg/3 mL) pen injector 0.5 mg SQ WEEKLY metoprolol succinate [Toprol XL] 50 mg tablet extended release 24 hr 50 mg PO DAILY spironolactone 50 mg tablet See Rx Instructions .ROUTE .COMPLEX Rx Instructions: TAKE 1 TABLET BY MOUTH DAILY rosuvastatin [Crestor] 20 mg tablet 20 mg PO DAILY methocarbamol 500 mg tablet 1,000 mg PO Q8H PRN (Reason: muscle pain and spasm) Qty: 24 0RF ibuprofen 800 mg tablet 800 mg PO Q8H PRN (Reason: pain and swelling) Qty: 12 0RF Rx Instructions: Take with food hydrocodone-acetaminophen 5-325 mg tablet 1 tab PO Q12H PRN (Reason: pain (scale score 7-10)) Qty: 4 0RF Rx Instructions: Only take after your methocarbamol and ibuprofen are not satisfactory Referrals Follow up/Referrals: Va Short APRN [Primary Care Provider] - See instructions Instructions Patient Instructions: DI for Acute Abdominal Pain Print Language Print Language: Vincentian Discharge ED Provider: Patrick Colon General Adult HPI General Chief complaint: Abdominal Pain Stated complaint: dark urine in bag and tube/pain Time Seen by Provider: 07/22/24 21:20 History of Present Illness HPI narrative: Patient presents for evaluation of suprapubic abdominal pain in the setting of recent diagnosis of urinary retention and Guadarrama catheter placement. He noticed gradual in onset abdominal discomfort with associated feeling of bloating. He had improvement of symptoms approximately 3 days ago following placement of Guadarrama catheter. He reports that his Guadarrama catheter has been draining appropriately however does localize some of his discomfort to his urethral area. No nausea or vomiting syncope presyncope fevers or chills. Associated symptoms include hematuria which started within the past 24 hours. No flank pain or back pain or chest pain Please note that above description of symptoms, in this electronic medical record under categorization of recalled from ER triage doctor by RN are reflective of an initial nursing assessment, however, is not reflective of my full history and physical exam that was personally taken and clarified. Consequentially, this preceding description of symptoms, which may include the patient's categorized chief complaint in the EMR, do not reflect my personal clinical impression, and the ultimate description of history of present illness and patient stated complaints should be deferred to this section of the note. Unless stated otherwise or congruent with this section of the note, additional signs, symptoms, or incongruence should be interpreted as inaccurate with my clinical impression. Related Data Home Medications ?Medication ?Instructions ?Recorded ?Confirmed aspirin 81 mg tablet,delayed 81 mg PO DAILY heart health 04/12/19 06/14/24 release (Adult Low Dose Aspirin) budesonide-formoterol HFA 80 2 puff inhalation BID COPD 04/12/19 06/14/24 mcg-4.5 mcg/actuation aerosol inhaler (Symbicort) omeprazole 20 mg capsule,delayed 20 mg PO BID GERD 04/12/19 06/14/24 release tamsulosin 0.4 mg capsule (Flomax) 0.4 mg PO DAILY bph 04/12/19 06/14/24 metformin 1,000 mg tablet 1,000 mg PO BID Diabetes 07/15/21 06/14/24 metoprolol succinate 50 mg 50 mg PO DAILY High blood pressure 09/20/22 06/14/24 tablet,extended release 24 hr (Toprol XL) rosuvastatin 20 mg tablet (Crestor) 20 mg PO DAILY High cholesterol 09/20/22 06/14/24 spironolactone 50 mg tablet See Rx Instructions .Route 09/20/22 06/14/24 .COMPLEX High blood pressure dapagliflozin propanediol 10 mg 10 mg PO DAILY 06/15/23 06/14/24 tablet (Farxiga) fluticasone propionate 50 1 spray intranasal DAILY 06/15/23 06/14/24 mcg/actuation nasal spray,suspension insulin glargine U-300 conc 300 90 unit SQ 06/15/23 06/14/24 unit/mL (3 mL) subcutaneous pen (Toujeo Max U-300 SoloStar) semaglutide 0.25 mg or 0.5 mg (2 0.5 mg SQ WEEKLY 09/20/23 06/14/24 mg/3 mL) subcutaneous pen injector (Ozempic) oxybutynin chloride 10 mg 10 mg PO ONCE 06/14/24 06/14/24 tablet,extended release 24 hr Previous Rx's ?Medication ?Instructions ?Recorded potassium chloride 10 mEq 10 meq PO DAILY Supplement #90 caps 11/24/22 capsule,extended release furosemide 40 mg tablet (Lasix) 40 mg PO BID #180 tabs 12/15/23 losartan 50 mg tablet 50 mg PO BID #180 tabs 12/15/23 pramipexole 0.25 mg tablet 0.25 mg PO HS RLS #90 tabs 12/21/23 hydrocodone 5 mg-acetaminophen 325 1 tab PO Q12H PRN pain (scale 05/24/24 mg tablet score 7-10) #4 tabs ibuprofen 800 mg tablet 800 mg PO Q8H PRN pain and 05/24/24 swelling #12 tabs methocarbamol 500 mg tablet 1,000 mg (2 x 500 mg) PO Q8H PRN 05/24/24 muscle pain and spasm #24 tabs Allergies Allergy/AdvReac Type Severity Reaction Status Date / Time No Known Allergies Allergy Verified 06/14/24 10:55 [facility] Disclaimer: The information contained in this section may have been updated after the patient was seen, as this information can be updated by other users. Medical History (Updated 07/19/24 @ 21:00 by ROCCO Wise) Chest pain AAA (abdominal aortic aneurysm) HLD (hyperlipidemia) HTN (hypertension) CAD (coronary artery disease) Stenosis of carotid artery History of coronary angiogram Coronary aneurysm Myxoma of heart Cardiac mass KALYN (obstructive sleep apnea) Dyspnea Fatigue Abnormal stress test Typical angina Surgical History (Updated 06/14/24 @ 11:22 by Abiola Jamil APRN) S/P CABG x 5 S/P AAA repair History of cardiac cath History of cholecystectomy Hx of CABG Family History Other Cancer Coronary artery disease Diabetes Hypertension Social History Smoking Status: Never smoker alcohol intake: current alcohol intake frequency: 3 or more drinks per day substance use type: denies use current occupational status: retired Travel in the last 8 weeks: Inside the [place] household members: spouse housing: house Have you lived/traveled outside US in past 30 days?: No Contact w/someone who lives/traveled outside US past 30 days?: No Exposure to someone with infectious disease in past 14 days?: No Do you have a fever (greater than 100.4 F or 38 C)?: No Have you tested positive for COVID-19: No Exposed to someone with COVID-19 in past 14 days?: No Do you have a sore throat?: No Do you have a cough?: No Do you have any weakness?: No Do you have any diarrhea?: No Are you experiencing any unusual bleeding?: No Do you have any muscle aches/pain?: No Do you have any abdominal pain?: No Are you experiencing loss of taste or smell?: No Other Medical History Have you received the Flu Vaccine for this season: Yes Have you received the Pneumonia Vaccine: Yes ROS Obtained: Yes other As per HPI Physical Exam General General appearance: alert and in no apparent distress Head Head exam: atraumatic and normocephalic Eye Eye exam: Present normal appearance Neck Neck exam: Present normal inspection Chest Chest inspection: Present normal inspection and symmetric chest wall rise Respiratory Respiratory exam: Present normal lung sounds bilaterally; Absent respiratory distress Cardiovascular Cardiovascular exam: Present regular rate and normal rhythm Abdominal Exam Abdominal exam: Present soft Neurological Exam Neurological exam: Present alert and oriented X3 Psychiatric Psychiatric exam: Present normal affect and normal mood Skin Skin exam: Present warm and dry Other Other exam information: Guadarrama catheter in place with gross hematuria, mild suprapubic tenderness to palpation, uncomfortable appearing Medical Decision Making Medical Records Medical records reviewed: Yes I reviewed the patient's medical records. Screening: Per USPSTF and CDC recommendations, given the prevalence of disease in our region, it is our hospital?s policy to screen for HIV and viral Hepatitis for all patients aged 18 and over and those with ongoing risk factors. Robert Inquiry Pt receiving controlled substance: No Vital Signs: 07/22/24 21:24 07/22/24 21:31 Temperature 97.8 F Temperature Source Oral Pulse Rate 84 Pulse Rate [Right Brachial] 84 Respiratory Rate 20 Blood Pressure 119/53 L Blood Pressure [Right Arm] 107/54 L Blood Pressure Mean [Right Arm] 71 Blood Pressure Source [Right Arm] Automatic Cuff Blood Pressure Position [Right Arm] Sitting 02 Sat by Pulse Oximetry 96 96 Oxygen Delivery Method Room Air Orders (Tests/Meds): ED MEDICATIONS Discontinued Medications Generic Name Dose Route Start Last Admin Trade Name Freq PRN Reason Stop Dose Admin Morphine Sulfate 4 mg 07/22/24 22:03 07/22/24 22:12 Morphine 4mg/Ml Syringe IV 07/22/24 22:04 4 mg ONCE ONE Administration ORDERS Category Date Time Status CBC w/Auto Diff [Complete Blood Count Auto Diff] Stat Lab 07/22/24 22:20 Received CMP [Comprehensive Metabolic Panel] Stat Lab 07/22/24 22:21 Received HIV Combo Routine Lab 07/22/24 21:27 Ordered Hepatitis C Ab Qual. W/ RFX Routine Lab 07/22/24 21:27 Ordered PT INR [Prothrombin Time INR] Stat Lab 07/22/24 22:21 Received Medical Decision Narrative: Patient with history and exam per above presenting for evaluation of hematuria, suprapubic abdominal pain Diagnoses considered include urinary retention, dysfunction of Guadarrama catheter, upon assessment and in conjunction with nursing staff who flushed Guadarrama catheter, it appears at this time that patient, with pants on and leg bag, had likely obstructed post urethral is Guadarrama catheter which potentially precipitated his discomfort and urinary retention. Patient does have history of abdominal aortic aneurysm however nontoxic-appearing and reports some improvement after manipulation of Guadarrama catheter. Additional diagnoses considered include acute kidney injury, anemia, and/or Guadarrama catheter dysfunction. Laboratory analysis ordered at this time and consideration of CT imaging will be based on patient's clinical status. Care was transferred to incoming physician Critical Care Critical Care Time Critical Care Time: No
[2024-07-22 21:24] VITALS: BP 107/54; PULSE 84; RESP 20; TEMP 36.6; O2SAT 96; BMI 37.9
[2024-07-22 21:31] VITALS: BP 119/53; PULSE 84; O2SAT 96
[2024-07-22] MEDS: MORPHINE 4MG/ML SYRINGE 4 MG IV (22:12)
--- NOTE | 2024-07-22 22:17 | PC.NURSE ---
100ml sterile water flushed through cath with sterile technique. urine flowed easily. leg bag applied for patient comfort.
[2024-07-22 22:45] LABS: Basophils # 0.1 K/mm3 (0-0.2); Basophils % 0.7 % (0.1-2.0); Eosinophils # 0.5 K/mm3 (0.0-0.4); Eosinophils % 4.7 % (0.1-12.0); Hematocrit 44.9 % (42.0-52.0); Hemoglobin 15.2 g/dL (14.1-18.0); Lymphocytes % 26.4 % (10-50); Mean Corpuscular HGB Conc 33.9 g/dL (31.8-35.4); Mean Corpuscular Hemoglobin 31.1 pg (27.0-31.2); Mean Platelet Volume 11.2 fl (7.4-10.4); Monocytes # 1.1 K/mm3 (0.1-1.0); Monocytes % 9.4 % (1.7-9.3); Neutrophils # 6.7 K/mm3 (1.8-7.8); Neutrophils % 58.6 % (37.0-80.0); Platelet Count 137 K/mm3 (142-424); Red Blood Count 4.88 M/mm3 (4.60-6.20); Red Cell Distribution Width 13.2 % (11.5-17.5); White Blood Count 11.3 K/mm3 (4.8-10.8)
[2024-07-22 22:49] LABS: Chloride 99 mmol/L (98-107)
[2024-07-22 22:50] LABS: Albumin Level 4.7 g/dl (3.5-5.0); INR 0.88 (0.9-1.1); Potassium 4.8 mmoL/L (3.5-5.1); Prothrombin Time 9.8 seconds (9.2-12.1); Sodium 135 mmol/L (136-145)
[2024-07-22 22:52] LABS: Alanine Aminotransferase 23 U/L (12-78); Aspartate Amino Transferase 33 U/L (17-59); Blood Urea Nitrogen 21 mg/dl (9-20); Creatinine Clearance Estimated 101 mL/min (50-200); Estimated Glomerular Filt Rate 73 ml/min (>60); GFR (African American) 89 ML/MIN (>60)
[2024-07-22 22:53] LABS: Albumin/Globulin Ratio 1.5 (1.1-1.8); Alkaline Phosphatase 57 U/L (38-126); Anion Gap 17.8 mEq/L (5-15); Bilirubin,Total 0.8 mg/dl (0.2-1.3); Calcium 9.8 mg/dl (8.4-10.2); Carbon Dioxide 23 mmol/L (22.0-30.0); Globulin 3.1 g/dL (1.3-3.2); Glucose 165 mg/dl (74-100); Total Protein,Serum 7.8 g/dl (6.3-8.2)
[2024-07-22 23:04] VITALS: BP 114/58; PULSE 86; RESP 20; TEMP 36.7; O2SAT 98
[2024-07-22 23:49] LABS: HIV Combo NEGATIVE (Negative)
[2024-07-22 23:56] LABS: Hepatitis C Ab Qual. W/ RFX NEGATIVE (Negative)
== END 2024-07-22 23:05 | disposition home or self-care (01) ==
PROVIDERS: Emergency Provider Emergency Medicine; PCP Nurse Practitioner
DX: T83.091A Other mechanical complication of indwelling urethral catheter, initial encounter (principal); R10.2 Pelvic and perineal pain; R31.9 Hematuria, unspecified
CPT/HCPCS: 80053; 85025; 85610; 86803; 87389; 96374; 99283; J2270

== ENCOUNTER 2024-08-08 17:49 | Emergency (ER) | payer MEDICARE, MEDICAID, SELFPAY ==
[2024-08-08 18:01] VITALS: BP 127/68; PULSE 87; RESP 16; TEMP 36.8; O2SAT 94; BMI 36.4
--- NOTE | 2024-08-08 18:09 | ED_ITS ---
Discharge Plan Disposition Patient Disposition: Home, Self-Care Condition: Good Prescriptions Prescriptions: No Action omeprazole 20 mg capsule,delayed release(DR/EC) 20 mg PO BID tamsulosin [Flomax] 0.4 mg capsule 0.4 mg PO DAILY aspirin [Adult Low Dose Aspirin] 81 mg tablet,delayed release (DR/EC) 81 mg PO DAILY Symbicort 80-4.5 mcg/actuation HFA aerosol inhaler 2 puff INHALATION BID fluticasone propionate 50 mcg/actuation spray,suspension 1 spray intranasal DAILY Farxiga 10 mg tablet 10 mg PO DAILY Patient Comments: TAKE 1 TABLET BY MOUTH EVERY DAY Toujeo Max U-300 SoloStar 300 unit/mL (3 mL) insulin pen 90 unit SQ furosemide [Lasix] 40 mg tablet 40 mg PO BID Qty: 180 3RF losartan 50 mg tablet 50 mg PO BID Qty: 180 3RF pramipexole 0.25 mg tablet 0.25 mg PO HS Qty: 90 3RF oxybutynin chloride 10 mg tablet extended release 24hr 10 mg PO ONCE Patient Comments: TAKE 1 TABLET BY MOUTH DAILY metformin 1,000 mg tablet 1,000 mg PO BID Patient Comments: TAKE 1 TABLET BY MOUTH TWICE DAILY WITH MEALS potassium chloride 10 mEq capsule, extended release 10 meq PO DAILY Qty: 90 3RF Ozempic 0.25 mg or 0.5 mg (2 mg/3 mL) pen injector 0.5 mg SQ WEEKLY metoprolol succinate [Toprol XL] 50 mg tablet extended release 24 hr 50 mg PO DAILY spironolactone 50 mg tablet See Rx Instructions .ROUTE .COMPLEX Rx Instructions: TAKE 1 TABLET BY MOUTH DAILY rosuvastatin [Crestor] 20 mg tablet 20 mg PO DAILY methocarbamol 500 mg tablet 1,000 mg PO Q8H PRN (Reason: muscle pain and spasm) Qty: 24 0RF ibuprofen 800 mg tablet 800 mg PO Q8H PRN (Reason: pain and swelling) Qty: 12 0RF Rx Instructions: Take with food hydrocodone-acetaminophen 5-325 mg tablet 1 tab PO Q12H PRN (Reason: pain (scale score 7-10)) Qty: 4 0RF Rx Instructions: Only take after your methocarbamol and ibuprofen are not satisfactory Referrals Follow up/Referrals: Va Short APRN [Primary Care Provider] - See instructions Activity Restrictions/Add. Instructions Additional Instructions/Restrictions: Follow-up with urology as scheduled. Follow-up with your PCP for any new ongoing or worsening signs or symptoms as needed Clinical Impressions Clinical Impression: Beasley catheter problem Qualifiers: Encounter type: initial encounter Qualified Code(s): T83.9XXA - Unspecified complication of genitourinary prosthetic device, implant and graft, initial encounter Instructions Patient Instructions: DI for Urinary Tract Infection (UTI), DI for Urinary Tract Infection in Children Print Language Print Language: Malay Discharge ED Provider: Arnel Stoner General Adult HPI <ROCCO Wise - Last Filed: 08/08/24 21:58> General Chief complaint: Urogenital-Male Stated complaint: catheter is leaking Time Seen by Provider: 08/08/24 18:09 Mode of Arrival: Ambulatory Source of Information: Patient and Spouse Limitations: No Limitations Description of Symptoms (Recalled from ER Triage Doc. by RN): Pt states he had a beasley catheter 1 week ago, and it started leaking this afternoon History of Present Illness HPI narrative: Patient presents for evaluation of a Beasley bag problem. Patient states that he has a Beasley indwelling for BPH with outflow obstruction. Patient was around [facility] and noticed that he is leg bag was started leaking. He came to the ER for evaluation. Patient actually has no other symptoms and is just requesting replacement. Related Data Home Medications ?Medication ?Instructions ?Recorded ?Confirmed aspirin 81 mg tablet,delayed 81 mg PO DAILY heart health 04/12/19 06/14/24 release (Adult Low Dose Aspirin) budesonide-formoterol HFA 80 2 puff inhalation BID COPD 04/12/19 06/14/24 mcg-4.5 mcg/actuation aerosol inhaler (Symbicort) omeprazole 20 mg capsule,delayed 20 mg PO BID GERD 04/12/19 06/14/24 release tamsulosin 0.4 mg capsule (Flomax) 0.4 mg PO DAILY bph 04/12/19 06/14/24 metformin 1,000 mg tablet 1,000 mg PO BID Diabetes 07/15/21 06/14/24 metoprolol succinate 50 mg 50 mg PO DAILY High blood pressure 09/20/22 06/14/24 tablet,extended release 24 hr (Toprol XL) rosuvastatin 20 mg tablet (Crestor) 20 mg PO DAILY High cholesterol 09/20/22 06/14/24 spironolactone 50 mg tablet See Rx Instructions .Route 09/20/22 06/14/24 .COMPLEX High blood pressure dapagliflozin propanediol 10 mg 10 mg PO DAILY 06/15/23 06/14/24 tablet (Farxiga) fluticasone propionate 50 1 spray intranasal DAILY 06/15/23 06/14/24 mcg/actuation nasal spray,suspension insulin glargine U-300 conc 300 90 unit SQ 06/15/23 06/14/24 unit/mL (3 mL) subcutaneous pen (Toujeo Max U-300 SoloStar) semaglutide 0.25 mg or 0.5 mg (2 0.5 mg SQ WEEKLY 09/20/23 06/14/24 mg/3 mL) subcutaneous pen injector (Ozempic) oxybutynin chloride 10 mg 10 mg PO ONCE 06/14/24 06/14/24 tablet,extended release 24 hr Previous Rx's ?Medication ?Instructions ?Recorded potassium chloride 10 mEq 10 meq PO DAILY Supplement #90 caps 11/24/22 capsule,extended release furosemide 40 mg tablet (Lasix) 40 mg PO BID #180 tabs 12/15/23 losartan 50 mg tablet 50 mg PO BID #180 tabs 12/15/23 pramipexole 0.25 mg tablet 0.25 mg PO HS RLS #90 tabs 12/21/23 hydrocodone 5 mg-acetaminophen 325 1 tab PO Q12H PRN pain (scale 05/24/24 mg tablet score 7-10) #4 tabs ibuprofen 800 mg tablet 800 mg PO Q8H PRN pain and 05/24/24 swelling #12 tabs methocarbamol 500 mg tablet 1,000 mg (2 x 500 mg) PO Q8H PRN 05/24/24 muscle pain and spasm #24 tabs Allergies Allergy/AdvReac Type Severity Reaction Status Date / Time No Known Allergies Allergy Verified 06/14/24 10:55 [facility] <ROCCO Wise - Last Filed: 08/08/24 21:58> [facility] Disclaimer: The information contained in this section may have been updated after the patient was seen, as this information can be updated by other users. Medical History (Updated 08/08/24 @ 18:14 by ROCCO Wise) Chest pain AAA (abdominal aortic aneurysm) HLD (hyperlipidemia) HTN (hypertension) CAD (coronary artery disease) Stenosis of carotid artery History of coronary angiogram Coronary aneurysm Myxoma of heart Cardiac mass KALYN (obstructive sleep apnea) Dyspnea Fatigue Abnormal stress test Typical angina Surgical History (Updated 06/14/24 @ 11:22 by Abiola Jamil APRN) S/P CABG x 5 S/P AAA repair History of cardiac cath History of cholecystectomy Hx of CABG Family History Other Cancer Coronary artery disease Diabetes Hypertension Social History Smoking Status: Never smoker alcohol intake: current alcohol intake frequency: 3 or more drinks per day substance use type: denies use current occupational status: retired Travel in the last 8 weeks: [place] the [place] household members: spouse housing: house Have you lived/traveled outside US in past 30 days?: No Contact w/someone who lives/traveled outside US past 30 days?: No Exposure to someone with infectious disease in past 14 days?: No Do you have a fever (greater than 100.4 F or 38 C)?: No Have you tested positive for COVID-19: No Exposed to someone with COVID-19 in past 14 days?: No Do you have a sore throat?: No Do you have a cough?: No Do you have any weakness?: No Do you have any diarrhea?: No Are you experiencing any unusual bleeding?: No Do you have any muscle aches/pain?: No Do you have any abdominal pain?: No Are you experiencing loss of taste or smell?: No Other Medical History Have you received the Flu Vaccine for this season: Yes Have you received the Pneumonia Vaccine: Yes <ROCCO Wise - Last Filed: 08/08/24 21:58> ROS Obtained: Yes Systems reviewed as appropriate & no additional complaints except as documented Physical Exam <ROCCO Wise - Last Filed: 08/08/24 21:58> General General appearance: alert Respiratory Respiratory exam: Present normal lung sounds bilaterally Cardiovascular Cardiovascular exam: Present regular rate and +S2 Neurological Exam Neurological exam: Present alert Medical Decision Making <ROCCO Wise - Last Filed: 08/08/24 21:58> Medical Records Screening: Per USPSTF and CDC recommendations, given the prevalence of disease in our [facility], it is our hospital?s policy to screen for HIV and viral Hepatitis for all patients aged 18 and over and those with ongoing risk factors. Robert Inquiry Pt receiving controlled substance: No Vital Signs: 08/08/24 18:01 08/08/24 18:20 Temperature 98.3 F 98.3 F Temperature Source Oral Oral Pulse Rate 87 Pulse Rate [Right] 87 Respiratory Rate 16 16 Blood Pressure 127/68 Blood Pressure [Right Arm] 127/68 Blood Pressure Mean [Right Arm] 87 Blood Pressure Source Automatic Cuff Blood Pressure Source [Right Arm] Automatic Cuff Blood Pressure Position Sitting Blood Pressure Position [Right Arm] Sitting 02 Sat by Pulse Oximetry 94 L Oxygen Delivery Method Room Air Room Air Medical Decision Narrative: In summary patient is a 74-year-old male who presents to the emergency de partment for evaluation of a leg bag malfunction. Patient is hemodynamically stable upon arrival, afebrile. Unremarkable nonfocal as patient has no complaints. Confirmed that he has a malfunctioning drain valve on his Beasley bag and I have replaced the leg bag with a new 1 and confirmed that it is not leaking anywhere else. Patient is thus appropriate for discharge follow-up urology as scheduled. <Arnel Stoner MD - Last Filed: 08/08/24 22:10> Vital Signs: 08/08/24 18:01 08/08/24 18:20 Temperature 98.3 F 98.3 F Temperature Source Oral Oral Pulse Rate 87 Pulse Rate [Right] 87 Respiratory Rate 16 16 Blood Pressure 127/68 Blood Pressure [Right Arm] 127/68 Blood Pressure Mean [Right Arm] 87 Blood Pressure Source Automatic Cuff Blood Pressure Source [Right Arm] Automatic Cuff Blood Pressure Position Sitting Blood Pressure Position [Right Arm] Sitting 02 Sat by Pulse Oximetry 94 L Oxygen Delivery Method Room Air Room Air Medical Decision Narrative: In summary patient is a 74-year-old male who presents to the emergency department for evaluation of a leg bag malfunction. Patient is hemodynamically stable upon arrival, afebrile. Unremarkable nonfocal as patient has no complaints. Confirmed that he has a malfunctioning drain valve on his Beasley bag and I have replaced the leg bag with a new 1 and confirmed that it is not leaking anywhere else. Patient is thus appropriate for discharge follow-up urology as scheduled. I was consulted by the KHUSHI, and we discussed the complexity of the problems being addressed. I approved the treatment and management plan for this patient's care in the Emergency Department, thus performing a substantive portion of the medical decision making. Arnel Stoner MD Critical Care <ROCCO Wise - Last Filed: 08/08/24 21:58> Critical Care Time Critical Care Time: No
[2024-08-08 18:20] VITALS: BP 127/68; PULSE 87; RESP 16; TEMP 36.8; O2SAT 94
== END 2024-08-08 18:24 | disposition home or self-care (01) ==
PROVIDERS: Emergency Provider Emergency Medicine; PCP Nurse Practitioner
DX: T83.9XXA Unspecified complication of genitourinary prosthetic device, implant and graft, initial encounter (principal)
CPT/HCPCS: 99283

== ENCOUNTER 2024-08-14 18:54 | Emergency (ER) | payer MEDICARE, MEDICAID, SELFPAY ==
[2024-08-14 18:57] VITALS: BP 169/103; PULSE 89; RESP 18; TEMP 36.8; O2SAT 98; BMI 36.4
--- NOTE | 2024-08-14 19:34 | PC.NURSE ---
560 ml in bladder
--- NOTE | 2024-08-14 19:34 | PC.NURSE ---
ROUNDING COMPLETE; NO NEEDS AT THIS TIME
[2024-08-14 19:45] VITALS: PULSE 100; O2SAT 96
--- NOTE | 2024-08-14 19:55 | PC.NURSE ---
16 [employer] FC PLACED- 800ML OF BLOOD TINGED URINE OUT
--- NOTE | 2024-08-14 20:04 | PC.NURSE ---
ROUNDING DONE; NO NEEDS
[2024-08-14 20:19] LABS: Microscopic, Urine URINE MICROSCOPIC (MICROSCOPIC)
--- NOTE | 2024-08-14 20:32 | ED_ITS ---
Discharge Plan Disposition Patient Disposition: Home, Self-Care Prescriptions Prescriptions: New cefdinir 300 mg capsule 300 mg PO BID 10 Days Qty: 20 0RF No Action omeprazole 20 mg capsule,delayed release(DR/EC) 20 mg PO BID tamsulosin [Flomax] 0.4 mg capsule 0.4 mg PO DAILY aspirin [Adult Low Dose Aspirin] 81 mg tablet,delayed release (DR/EC) 81 mg PO DAILY Symbicort 80-4.5 mcg/actuation HFA aerosol inhaler 2 puff INHALATION BID fluticasone propionate 50 mcg/actuation spray,suspension 1 spray intranasal DAILY Farxiga 10 mg tablet 10 mg PO DAILY Patient Comments: TAKE 1 TABLET BY MOUTH EVERY DAY Toujeo Max U-300 SoloStar 300 unit/mL (3 mL) insulin pen 90 unit SQ furosemide [Lasix] 40 mg tablet 40 mg PO BID Qty: 180 3RF losartan 50 mg tablet 50 mg PO BID Qty: 180 3RF pramipexole 0.25 mg tablet 0.25 mg PO HS Qty: 90 3RF oxybutynin chloride 10 mg tablet extended release 24hr 10 mg PO ONCE Patient Comments: TAKE 1 TABLET BY MOUTH DAILY metformin 1,000 mg tablet 1,000 mg PO BID Patient Comments: TAKE 1 TABLET BY MOUTH TWICE DAILY WITH MEALS potassium chloride 10 mEq capsule, extended release 10 meq PO DAILY Qty: 90 3RF Ozempic 0.25 mg or 0.5 mg (2 mg/3 mL) pen injector 0.5 mg SQ WEEKLY metoprolol succinate [Toprol XL] 50 mg tablet extended release 24 hr 50 mg PO DAILY spironolactone 50 mg tablet See Rx Instructions .ROUTE .COMPLEX Rx Instructions: TAKE 1 TABLET BY MOUTH DAILY rosuvastatin [Crestor] 20 mg tablet 20 mg PO DAILY methocarbamol 500 mg tablet 1,000 mg PO Q8H PRN (Reason: muscle pain and spasm) Qty: 24 0RF ibuprofen 800 mg tablet 800 mg PO Q8H PRN (Reason: pain and swelling) Qty: 12 0RF Rx Instructions: Take with food hydrocodone-acetaminophen 5-325 mg tablet 1 tab PO Q12H PRN (Reason: pain (scale score 7-10)) Qty: 4 0RF Rx Instructions: Only take after your methocarbamol and ibuprofen are not satisfactory Referrals Follow up/Referrals: Va Short APRN [Primary Care Provider] - See instructions Activity Restrictions/Add. Instructions Additional Instructions/Restrictions: Follow-up with urology as discussed. Antibiotics for 10 days. Call your family doctor to establish care for this visit to the emergency department and schedule follow-up within 48 hours to ensure improvement. If you have any worsening of your condition or any other concerning signs or symptoms, return to the emergency department or your primary care doctor for further evaluation. Clinical Impressions Clinical Impression: Acute urinary retention Instructions Patient Instructions: DI for Urinary Tract Infection (UTI), DI for Urinary Tract Infection in Children Print Language Print Language: Urdu Discharge ED Provider: Arnel Stoner General Adult HPI General Chief complaint: Urogenital-Male Stated complaint: having trouble urinating Time Seen by Provider: 08/14/24 19:09 Mode of Arrival: Ambulatory Source of Information: Patient and Spouse Limitations: No Limitations Description of Symptoms (Recalled from ER Triage Doc. by RN): Pt arrives today with c/o urinary rention. Pt had a beasley catheter removed today by urologist at 1pm. Pt was able to void some when the beasley catheter was removed in the office. Pt last voided at 4pm. However now patient is unable to void and is in extreme pain. History of Present Illness HPI narrative: Please note that above description of symptoms, in this electronic medical record under categorization of recalled from ER triage doctor by RN are reflective of an initial nursing assessment, however, is not reflective of my full history and physical exam that was personally taken and clarified. Consequentially, this preceding description of symptoms, which may include the patient's categorized chief complaint in the EMR, do not reflect my personal clinical impression, and the ultimate description of history of present illness and patient stated complaints should be deferred to this section of the note. Unless stated otherwise or congruent with this section of the note, additional signs, symptoms, or incongruence should be interpreted as inaccurate with my clinical impression. Related Data Home Medications ?Medication ?Instructions ?Recorded ?Confirmed aspirin 81 mg tablet,delayed 81 mg PO DAILY heart health 04/12/19 06/14/24 release (Adult Low Dose Aspirin) budesonide-formoterol HFA 80 2 puff inhalation BID COPD 04/12/19 06/14/24 mcg-4.5 mcg/actuation aerosol inhaler (Symbicort) omeprazole 20 mg capsule,delayed 20 mg PO BID GERD 10/17/19 12/19/24 release tamsulosin 0.4 mg capsule (Flomax) 0.4 mg PO DAILY bph 04/12/19 06/14/24 metformin 1,000 mg tablet 1,000 mg PO BID Diabetes 07/15/21 08/14/24 metoprolol succinate 50 mg 50 mg PO DAILY High blood pressure 09/20/22 06/14/24 tablet,extended release 24 hr (Toprol XL) rosuvastatin 20 mg tablet (Crestor) 20 mg PO DAILY High cholesterol 09/20/22 06/14/24 spironolactone 50 mg tablet See Rx Instructions .Route 09/20/22 06/14/24 .COMPLEX High blood pressure dapagliflozin propanediol 10 mg 10 mg PO DAILY 06/15/23 06/14/24 tablet (Farxiga) fluticasone propionate 50 1 spray intranasal DAILY 06/15/23 06/14/24 mcg/actuation nasal spray,suspension insulin glargine U-300 conc 300 90 unit SQ 06/15/23 06/14/24 unit/mL (3 mL) subcutaneous pen (Toujeo Max U-300 SoloStar) semaglutide 0.25 mg or 0.5 mg (2 0.5 mg SQ WEEKLY 09/20/23 06/14/24 mg/3 mL) subcutaneous pen injector (Ozempic) oxybutynin chloride 10 mg 10 mg PO ONCE 06/14/24 06/14/24 tablet,extended release 24 hr Previous Rx's ?Medication ?Instructions ?Recorded potassium chloride 10 mEq 10 meq PO DAILY Supplement #90 caps 11/24/22 capsule,extended release furosemide 40 mg tablet (Lasix) 40 mg PO BID #180 tabs 12/15/23 losartan 50 mg tablet 50 mg PO BID #180 tabs 12/15/23 pramipexole 0.25 mg tablet 0.25 mg PO HS RLS #90 tabs 12/21/23 hydrocodone 5 mg-acetaminophen 325 1 tab PO Q12H PRN pain (scale 05/24/24 mg tablet score 7-10) #4 tabs ibuprofen 800 mg tablet 800 mg PO Q8H PRN pain and 05/24/24 swelling #12 tabs methocarbamol 500 mg tablet 1,000 mg (2 x 500 mg) PO Q8H PRN 05/24/24 muscle pain and spasm #24 tabs cefdinir 300 mg capsule 300 mg PO BID 10 days #20 caps 08/14/24 Allergies Allergy/AdvReac Type Severity Reaction Status Date / Time No Known Allergies Allergy Verified 06/14/24 10:55 [facility] Disclaimer: The information contained in this section may have been updated after the patient was seen, as this information can be updated by other users. Medical History (Updated 08/14/24 @ 21:44 by Arnel Stoner MD) Chest pain AAA (abdominal aortic aneurysm) HLD (hyperlipidemia) HTN (hypertension) CAD (coronary artery disease) Stenosis of carotid artery History of coronary angiogram Coronary aneurysm Myxoma of heart Cardiac mass KALYN (obstructive sleep apnea) Dyspnea Fatigue Abnormal stress test Typical angina Surgical History (Updated 06/14/24 @ 11:22 by Abiola Jamil APRN) S/P CABG x 5 S/P AAA repair History of cardiac cath History of cholecystectomy Hx of CABG Family History Other Cancer Coronary artery disease Diabetes Hypertension Social History Smoking Status: Never smoker alcohol intake: current alcohol intake frequency: 3 or more drinks per day substance use type: denies use current occupational status: retired Travel in the last 8 weeks: Inside the [place] household members: spouse housing: house Have you lived/traveled outside [place] in past 30 days?: No Contact w/someone who lives/traveled outside [place] past 30 days?: No Exposure to someone with infectious disease in past 14 days?: No Do you have a fever (greater than 100.4 F or 38 C)?: No Have you tested positive for COVID-19: No Exposed to someone with COVID-19 in past 14 days?: No Do you have a sore throat?: No Do you have a cough?: No Do you have any weakness?: No Do you have any diarrhea?: No Are you experiencing any unusual bleeding?: No Do you have any muscle aches/pain?: No Do you have any abdominal pain?: No Are you experiencing loss of taste or smell?: No Other Medical History Have you received the Flu Vaccine for this season: Yes Have you received the Pneumonia Vaccine: Yes ROS Obtained: Yes All systems reviewed & no additional complaints except as documented Physical Exam General General appearance: alert and in distress (Secondary to pain) Head Head exam: atraumatic and normocephalic Eye Eye exam: Present normal appearance, PERRL and EOMI Neck Neck exam: Present normal inspection, full ROM and trachea midline Respiratory Respiratory exam: Absent respiratory distress, wheezes, stridor, accessory muscle use or prolonged expiratory phase Cardiovascular Cardiovascular exam: Present other (Pulses equal symmetric in upper and lower extremities) Abdominal Exam Abdominal exam: Present soft and tenderness; Absent distention or pulsatile mass Abdominal tenderness: Present suprapubic Extremities Exam Extremities exam: Absent edema Neurological Exam Neurological exam: Present alert, oriented X3 and CN II-XII intact; Absent motor sensory deficit Skin Skin exam: Present warm and dry; Absent diaphoresis or erythema Medical Decision Making Medical Records Medical records reviewed: Yes I reviewed the patient's medical records. Screening: Per USPSTF and CDC recommendations, given the prevalence of disease in our region, it is our hospital?s policy to screen for HIV and viral Hepatitis for all patients aged 18 and over and those with ongoing risk factors. Robert Inquiry Pt receiving controlled substance: No Robert was queried for this patient: No Vital Signs: 08/14/24 18:57 08/14/24 19:45 Temperature 98.3 F Temperature Source Tympanic Pulse Rate 100 H Pulse Rate [Right] 89 Respiratory Rate 18 Blood Pressure [Right Arm] 169/103 H Blood Pressure Mean [Right Arm] 125 Blood Pressure Source [Right Arm] Automatic Cuff Blood Pressure Position [Right Arm] Standing 02 Sat by Pulse Oximetry 98 96 Oxygen Delivery Method Room Air Lab Data Lab Results 08/14/24 19:52: Urine Color Red, Urine Appearance Turbid, Urine pH 5.5, Ur Specific [place] 1.015, Urine Protein 2+ A, Urine Glucose (UA) 3+, Urine Ketones Negative, Urine Blood 3+ A, Urine Nitrate Positive A, Urine Bilirubin Negative, Urine Urobilinogen 0.2, Ur Leukocyte Esterase 2+ A, Urine RBC Tntc, Urine WBC 20-50, Urine Bacteria 2+ Orders (Tests/Meds): ED MEDICATIONS Discontinued Medications Generic Name Dose Route Start Last Admin Trade Name Freq PRN Reason Stop Dose Admin Cefdinir 300 mg 08/14/24 20:56 08/14/24 21:02 Cefdinir 300mg Capsule PO 08/14/24 20:57 300 mg ONCE ONE Administration ORDERS Category Date Time Status Urinalysis and Microscopic Stat Lab 08/14/24 19:52 Completed Urine Culture Stat Micro 08/14/24 19:52 Received Medical Decision Narrative: 74-year-old male presenting with urinary retention. Patient recently had nephrolithiasis, had these instrument ties to [place]. Patient was following with urology, had Beasley catheter removed today, 08/[address] Anne at [place]. Able to urinate shortly thereafter, however couple hours later, unable to urinate. Has not been able to urinate in multiple hours at this point. Came in for further evaluation. On physical exam, patient appears to be in moderate distress secondary to pain. He does have suprapubic tenderness, but no peritonitis. Differential includes UTI, hematoma, urinary tract infection, BPH, less likely to be bladder rupture, hemorrhagic cystitis, among others. Bladder scan performed, patient had over 800 mL in his bladder. Beasley catheter placed gross hematuria returned. This was sent for UA, on independent interpretation, UTI, cefdinir given. Beasley anchored, discharged with outpatient urology follow-up. Because patient at baseline without signs or symptoms of clinical decompensation, deemed appropriate for discharge. Results were relayed to patient who voiced understanding and were agreeable to outpatient management and follow up. I discussed my clinical impression with patient and answered all questions. At this time, the evidence for any other entities in the differential is insufficient to warrant any further testing or ED observation. This was explained as well. Advisory was given that persistent or worsening symptoms require further evaluation. I confirmed the understanding of this discussion. Client Reporting Associate disclaimer Much of this encounter note is an electronic vp of product spoken language to printed text. Electronic vp of product of the spoken language may permit errors. Although I have reviewed the note, some errors may still exist. Critical Care Critical Care Time Critical Care Time: No
[2024-08-14 20:39] LABS: Bilirubin,Urine Negative (Negative); Blood, Urine 3+ (Negative); Glucose,Urine (UA) 3+ (Negative); Ketones,Urine Negative (Negative); Leukocyte Esterase,Urine 2+ (Negative); Nitrate,Urine POSITIVE (Negative); PH,Urine 5.5 (5.0-8.5); Protein,Urine 2+ (Negative); Specific Gravity, Urine 1.015 (1.005-1.030); Urobilinogen,Urine 0.2 EU/dl (0.2)
[2024-08-14 20:40] LABS: Appearance,Urine Turbid (Clear); Color,Urine Red (Yellow)
[2024-08-14 20:51] LABS: Bacteria,Urine 2+ /lpf; RBC,Urine TNTC #/hpf (0-3); WBC,Urine 20-50 #/hpf (0-3)
[2024-08-14] MEDS: CEFDINIR 300MG CAPSULE 300 MG PO (21:02)
--- NOTE | 2024-08-14 21:05 | PC.NURSE ---
ROUNDING COMPLETE; NO NEEDS
[2024-08-14 21:46] VITALS: BP 128/72; PULSE 72; RESP 18; TEMP 36.6; O2SAT 98
--- NOTE | 2024-08-16 16:51 | PC.NURSE ---
spoke with pt and informed him of his urine culture per and the need to come back to the ER for IV antibiotics, pt reports to give him a few hours and he will be in here.
== END 2024-08-14 21:59 | disposition home or self-care (01) ==
PROVIDERS: Emergency Provider Emergency Medicine; PCP Nurse Practitioner
DX: R33.8 Other retention of urine (principal); R33.9 Retention of urine, unspecified
CPT/HCPCS: 51702; 81001; 87086; 87088; 87186; 99283

== ENCOUNTER 2024-08-16 18:11 | Observation (INO) | payer MEDICARE, MEDICAID, SELFPAY ==
[2024-08-16 18:34] VITALS: BP 105/59; PULSE 96; RESP 19; TEMP 36.9; O2SAT 97; BMI 36.4
--- NOTE | 2024-08-16 18:46 | CT_ITS ---
PROCEDURE INFORMATION: Exam: CT Abdomen And Pelvis Without Contrast Exam date and time: 08/16/2024 7:22 PM Age: 74 years old Clinical indication: Other: Recurrent UTI TECHNIQUE: Imaging protocol: Computed tomography of the abdomen and pelvis without contrast. Radiation optimization: All CT scans at this facility use at least one of these dose optimization techniques: automated exposure control; mA and/or kV adjustment per patient size (includes targeted exams where dose is matched to clinical indication); or iterative reconstruction. COMPARISON: CT ABDOMEN PELVIS W CON 07/19/2024 7:54 PM FINDINGS: Lungs: Right lower lobe calcified nodule compatible with prior granulomatous process. No consolidations. Liver: Normal. No mass. Gallbladder and biliary ducts: There are surgical clips within the gallbladder fossa. Pancreas: Fatty infiltration of the pancreas is demonstrated without inflammatory changes. Spleen: Normal. No splenomegaly. Adrenal glands: Normal. No mass. Kidneys and ureters: Right renal Bosniak 1 cystic lesion that is homogeneous and fluid density (-9-20 HU), no septations or calcifications, having moyer smooth and thin. Measurement is 5.4 cm. No follow-up recommended. Stomach and bowel: Diverticula are scattered throughout the colon without inflammatory changes. Appendix: No evidence of appendicitis. Intraperitoneal space: Unremarkable. No free air. No significant fluid collection. Vasculature: Moderate calcific atherosclerotic disease of the abdominal aorta with 5.1 cm aneurysmal dilatation unchanged from prior exam repaired with endovascular stent. Lymph nodes: Unremarkable. No enlarged lymph nodes. Urinary bladder: [place] catheter terminates within the bladder. Inflammatory stranding of the urinary bladder wall compatible with cystitis. Reproductive: Unremarkable as visualized. Bones/joints: Moderate loss of intervertebral disc space with degenerative changes involving lower thoracic and lumbar spine greatest between T10 through L1. Soft tissues: Normal. IMPRESSION: Inflammatory stranding of the urinary bladder wall compatible with cystitis. COMMENTS: Consistent with the [employer]'s Incidental Findings Committee white paper (J Am Kevyn Radiol 2018): Any incidental renal lesion less than 1 cm or classified as too small to characterize, or any incidental cystic renal lesion characterized as simple-appearing, is likely benign. No follow-up imaging is recommended for these lesions per consensus recommendations based on imaging criteria.
--- NOTE | 2024-08-16 18:47 | HMH.EDGENADL ---
Discharge Plan Disposition Patient Disposition: Admitted Condition: Good Clinical Impressions Clinical Impression: Urinary tract infection due to extended-spectrum beta lactamase (ESBL) producing Escherichia coli, Chronic indwelling Guadarrama catheter Discharge ED Provider: Jenny Rea General Adult HPI General Chief complaint: Recheck/Abnormal Lab/Rx Stated complaint: UTI Time Seen by Provider: 08/16/24 18:42 Mode of Arrival: Ambulatory Source of Information: Patient Limitations: No Limitations Description of Symptoms (Recalled from ER Triage Doc. by RN): pt presents to ED with further eval. pt was seen recently and had cath urine sample sent for culture. reports from culture come back today. pt was called and told to come back in for IV ABX. History of Present Illness HPI narrative: This patient is a 74-year-old male with a history of hypertension, hyperlipidemia, CAD, carotid stenosis, KALYN, and urinary retention requiring Guadarrama catheter presented to the emergency department for evaluation after being called about abnormal urine culture. Patient was evaluated here 08/14/2024 because he had had his Guadarrama catheter removed by his urologist in [place] and had acute urinary retention again. He had a Guadarrama catheter placed, and culture was sent. Culture grew ESBL E. coli, which I was notified of today. I called and advised that he return to the ED, so he came in for presentation. He states he has not been feeling great. No specific symptoms overall, do stating that he has not felt very well. Related Data Home Medications ?Medication ?Instructions ?Recorded ?Confirmed aspirin 81 mg tablet,delayed 81 mg PO DAILY heart health 04/12/19 08/16/24 release (Adult Low Dose Aspirin) budesonide-formoterol HFA 80 2 puff inhalation BID COPD 04/12/19 08/16/24 mcg-4.5 mcg/actuation aerosol inhaler (Symbicort) omeprazole 20 mg capsule,delayed 20 mg PO BID GERD 04/12/19 08/16/24 release tamsulosin 0.4 mg capsule (Flomax) 0.4 mg PO DAILY bph 04/12/19 08/16/24 metformin 1,000 mg tablet 1,000 mg PO BID Diabetes 07/15/21 08/16/24 metoprolol succinate 50 mg 50 mg PO DAILY High blood pressure 09/20/22 08/16/24 tablet,extended release 24 hr (Toprol XL) rosuvastatin 20 mg tablet (Crestor) 20 mg PO DAILY High cholesterol 09/20/22 08/16/24 spironolactone 50 mg tablet 50 mg PO DAILY High blood pressure 09/20/22 08/16/24 fluticasone propionate 50 1 spray intranasal DAILY 06/15/23 08/16/24 mcg/actuation nasal spray,suspension dapagliflozin propanediol 5 mg 5 mg PO DAILY 08/16/24 08/16/24 tablet (Farxiga) insulin glargine U-300 conc 300 40 unit SQ HS 08/16/24 08/16/24 unit/mL (3 mL) subcutaneous pen (Toujeo Max U-300 SoloStar) potassium chloride 10 mEq 10 meq PO BID Supplement 08/16/24 08/16/24 capsule,extended release semaglutide 0.25 mg or 0.5 mg (2 0.5 mg SQ WEEKLY 08/16/24 08/16/24 mg/3 mL) subcutaneous pen injector (Ozempic) Previous Rx's ?Medication ?Instructions ?Recorded furosemide 40 mg tablet (Lasix) 40 mg PO BID #180 tabs 12/15/23 losartan 50 mg tablet 50 mg PO BID #180 tabs 12/15/23 pramipexole 0.25 mg tablet 0.25 mg PO HS RLS #90 tabs 12/21/23 Allergies Allergy/AdvReac Type Severity Reaction Status Date / Time No Known Allergies Allergy Verified 06/14/24 10:55 [facility] Disclaimer: The information contained in this section may have been updated after the patient was seen, as this information can be updated by other users. Medical History Chest pain AAA (abdominal aortic aneurysm) HLD (hyperlipidemia) HTN (hypertension) CAD (coronary artery disease) Stenosis of carotid artery History of coronary angiogram Coronary aneurysm Myxoma of heart Cardiac mass KALYN (obstructive sleep apnea) Dyspnea Fatigue Abnormal stress test Typical angina Surgical History S/P CABG x 5 S/P AAA repair History of cardiac cath History of cholecystectomy Hx of CABG Family History Other Cancer Coronary artery disease Diabetes Hypertension Social History Smoking Status: Former smoker alcohol intake: current alcohol intake frequency: 3 or more drinks per day substance use type: denies use current occupational status: retired Travel in the last 8 weeks: Inside the [place] household members: spouse housing: house Have you lived/traveled outside [place] in past 30 days?: No Contact w/someone who lives/traveled outside [place] past 30 days?: No Exposure to someone with infectious disease in past 14 days?: No Do you have a fever (greater than 100.4 F or 38 C)?: No Have you tested positive for COVID-19: No Exposed to someone with COVID-19 in past 14 days?: No Do you have a sore throat?: No Do you have a cough?: No Do you have any weakness?: No Do you have any diarrhea?: No Are you experiencing any unusual bleeding?: No Do you have any muscle aches/pain?: No Do you have any abdominal pain?: No Are you experiencing loss of taste or smell?: No Other Medical History Have you received the Flu Vaccine for this season: Yes Have you received the Pneumonia Vaccine: Yes ROS Obtained: Yes All systems reviewed & no additional complaints except as documented Physical Exam General General appearance: alert, in no apparent distress and obese Head Head exam: atraumatic and normocephalic Eye Eye exam: Present normal appearance, PERRL and EOMI ENT ENT exam: Present normal exam, normal oropharynx, mucous membranes moist and normal external ear exam Neck Neck exam: Present normal inspection, full ROM and trachea midline; Absent tenderness Chest Chest inspection: Present normal inspection and symmetric chest wall rise; Absent tenderness Respiratory Respiratory exam: Present normal lung sounds bilaterally; Absent respiratory distress, wheezes, stridor or accessory muscle use Cardiovascular Cardiovascular exam: Present regular rate and normal rhythm Abdominal Exam Abdominal exam: Present soft; Absent distention, tenderness or guarding Extremities Exam Extremities exam: Present normal inspection, full ROM and normal capillary refill; Absent tenderness or edema Back Exam Back exam: Present normal inspection and full ROM; Absent tenderness Neurological Exam Neurological exam: Present alert, oriented X3, CN II-XII intact and normal gait; Absent motor sensory deficit Psychiatric Psychiatric exam: Present normal affect and normal mood Skin Skin exam: Present warm and dry Medical Decision Making Medical Records Medical records reviewed: Yes I reviewed the patient's medical records. Screening: Per USPSTF and CDC recommendations, given the prevalence of disease in our region, it is our hospital?s policy to screen for HIV and viral Hepatitis for all patients aged 18 and over and those with ongoing risk factors. Robert Inquiry Pt receiving controlled substance: No Vital Signs: 08/16/24 18:34 08/16/24 20:07 08/16/24 20:22 Temperature 98.5 F 97.6 F Temperature Source Oral Oral Pulse Rate Pulse Rate [Left Radial] 96 H 90 Respiratory Rate 19 18 Blood Pressure Blood Pressure [Right Arm] 105/59 L 120/61 Blood Pressure Mean [Right Arm] 74 80 Blood Pressure Source Blood Pressure Source [Right Arm] Automatic Cuff Blood Pressure Position 02 Sat by Pulse Oximetry 97 96 Oxygen Delivery Method Room Air Room Air Room Air 08/16/24 20:26 08/16/24 20:39 Temperature 98.5 F 98.2 F Temperature Source Oral Oral Pulse Rate 91 H 71 Pulse Rate [Left Radial] Respiratory Rate 16 20 Blood Pressure 110/64 110/64 Blood Pressure [Right Arm] Blood Pressure Mean [Right Arm] Blood Pressure Source Automatic Cuff Blood Pressure Source [Right Arm] Blood Pressure Position Sitting Sitting 02 Sat by Pulse Oximetry Oxygen Delivery Method Room Air Room Air Lab Data Lab results reviewed: Yes I reviewed the patient's lab results. Lab Results 08/16/24 18:55: WBC 13.9 H, RBC 4.39 L, Hgb 13.6 L, Hct 39.9 L, MCV 90.9, MCH 31.0, MCHC 34.1, RDW 13.2, Plt Count 180, MPV 11.2 H, Neut % (Auto) 79.7, Lymph % (Auto) 9.9 L, Greer % (Auto) 8.4, Eos % (Auto) 1.2, Baso % (Auto) 0.4, Neut # (Auto) 11.1 H, Lymph # (Auto) 1.4, Greer # (Auto) 1.2 H, Eos # (Auto) 0.2, Baso # (Auto) 0.1, Sodium 131 L, Potassium 4.2, Chloride 99, Carbon Dioxide 22, Anion Gap 14.2, BUN 32 H, Creatinine 1.00, Estimated Creat Clear 97, Estimated GFR 73, Est GFR ( Amer) 89, Glucose 211 H, Calcium 9.5, Total Bilirubin 0.8, AST 29, ALT 22, Alkaline Phosphatase 73, Total Protein 7.2, Albumin 4.1, Globulin 3.1, Albumin/Globulin Ratio 1.3 08/16/24 19:20: Urine Color Yellow, Urine Appearance Clear, Urine pH 5.5, Ur Specific [place] 1.015, Urine Protein Negative, Urine Glucose (UA) 3+, Urine Ketones Negative, Urine Blood 3+ A, Urine Nitrate Negative, Urine Bilirubin Negative, Urine Urobilinogen 0.2, Ur Leukocyte Esterase 1+ A, Urine RBC 50-100, Urine WBC Tntc, Ur Squamous Epith Cells 3-5, Urine Bacteria 4+ 08/16/24 18:55 08/16/24 18:55 Orders (Tests/Meds): ED MEDICATIONS Generic Name Dose Route Start Last Admin Trade Name Freq PRN Reason Stop Dose Admin Acetaminophen 650 mg 08/16/24 20:12 08/16/24 21:37 Acetaminophen 325mg Tab PO 09/15/24 20:11 650 mg Q4HP PRN Administration Fever or Mild Pain (1-3) Hydrocodone Bitart/Acetaminophen 1 tab 08/16/24 21:09 Hydrocodone/Apap 5/325 Mg Tablet PO 09/15/24 21:08 Q12H PRN pain (scale score 7-10) Aspirin 81 mg 08/17/24 09:00 Aspirin Ec 81mg Tablet PO 09/16/24 08:59 DAILY [facility] Furosemide 40 mg 08/17/24 09:00 Furosemide 40 Mg Tablet PO 09/16/24 08:59 BID L[facility]SET Meropenem 1 gm/ Sodium 100 mls @ 100 mls/hr 08/16/24 20:15 08/16/24 20:49 Chloride IV 08/26/24 20:14 100 mls/hr Q8H [facility]SET Administration Insulin Human Lispro 0 unit 08/17/24 06:00 Humalog 100 Units/Ml 10ml Vial (Ssi) SUBCUT 09/16/24 05:59 ACHS [facility] Protocol Metoprolol Succinate 50 mg 08/17/24 09:00 Metoprolol Succinate Xl 50mg Tablet PO 09/16/24 08:59 DAILY [facility] Non-Formulary Medication 2 puff 08/17/24 09:00 Budesonide-Formoterol [Symbicort] IH 09/16/24 08:59 BID [facility] Non-Formulary Medication 0 mg 08/16/24 21:15 Spironolactone .ROUTE 09/15/24 21:14 .COMPLEX [facility] Non-Formulary Medication 50 mg 08/17/24 09:00 Losartan PO 09/16/24 08:59 BID [facility] Non-Formulary Medication 40 unit 08/16/24 21:00 Insulin Glargine U-300 Conc [Toujeo Max U-300 Solostar] SUBCUT 09/15/24 20:59 HS [facility]SET Pramipexole Dihydrochloride 0.25 mg 08/17/24 21:00 Pramipexole 0.25mg Tab PO 09/16/24 20:59 HS L[facility]SET Sodium Chloride 10 ml 08/16/24 20:17 Sodium Chloride 0.9% 10ml Flush Syringe IV 08/17/24 20:17 NEEDED PRN Maintain IV Site Tamsulosin HCl 0.4 mg 08/17/24 09:00 Tamsulosin 0.4mg Capsule PO 09/16/24 08:59 DAILY [facility]ISSET Discontinued Medications Generic Name Dose Route Start Last Admin Trade Name Freq PRN Reason Stop Dose Admin Ertapenem 1 gm/ Sodium 50 mls @ 100 mls/hr 08/16/24 19:41 08/16/24 20:04 Chloride IV 08/16/24 19:42 100 mls/hr ONCE ONE Administration ORDERS Category Date Time Status CT abdomen pelvis wo con Stat Cat Scan 08/16/24 18:46 Completed Consult to Case Management [CONS] Routine Cons 08/16/24 20:18 Active XR chest portable PICC plac Routine Exams 08/16/24 20:17 Ordered Basic Metabolic Panel AMLAB Lab 08/17/24 06:00 Ordered Complete Blood Count Auto Diff AMLAB Lab 08/17/24 06:00 Ordered Complete Blood Count Auto Diff Stat Lab 08/16/24 18:55 Completed Comprehensive Metabolic Panel Stat Lab 08/16/24 18:55 Completed Magnesium AMLAB Lab 08/17/24 06:00 Ordered Phosphorous AMLAB Lab 08/17/24 06:00 Ordered UA [Urinalysis and Microscopic] Stat Lab 08/16/24 19:20 Completed Blood Culture Stat Micro 08/16/24 18:55 Received Urine Culture Stat Micro 08/16/24 19:20 Received Urine Culture(cathed specimen) Stat Micro 08/16/24 19:20 Received Medical Decision Narrative: In summary, this patient is a 74-year-old male presenting to the Emergency Department for evaluation of abnormal urine culture. Differential diagnoses considered include but are not limited to UTI, sepsis, obstructive uropathy. Ruling out the most morbid conditions drove assessment. It should be noted patient's history includes hypertension, hyperlipidemia, CAD, KALYN, obesity which may or may not be at goal therapy. This complicates all aspects of care by increasing patient's risk for morbidity. I reviewed patient's past medical records and noted previous evaluations for catheter issues in the past and evaluation here 08/14/2024. I noted prior culture that was resistant to all oral medications except Macrobid, for which she does not have a great renal penetrance. On exam, the patient is sitting upright in no acute distress. He is afebrile, nontoxic-appearing. Workup included CBC, CMP, blood cultures, urinalysis, urine culture, CT abdomen and pelvis without IV contrast. I independently interpreted CT prior to the radiologist read and noted no hydronephrosis or obvious ureteral stone. Please see their read for final interpretation. Labs were obtained that demonstrated leukocytosis. Kidney function is normal. He has mild hyponatremia. Patient was given ertapenem for ESBL UTI. I had a discussion with him regarding discharge and follow-up for PICC placement with IV antibiotics continued tomorrow, but he would prefer admission as he does not feel comfortable going home since he is not felt well and lives far away. Given this, I had an interactive discussion with the hospitalist who admitted the patient in stable condition. Critical Care Critical Care Time Critical Care Time: No
[2024-08-16 19:14] LABS: Basophils # 0.1 K/mm3 (0-0.2); Basophils % 0.4 % (0.1-2.0); Eosinophils # 0.2 K/mm3 (0.0-0.4); Eosinophils % 1.2 % (0.1-12.0); Hematocrit 39.9 % (42.0-52.0); Hemoglobin 13.6 g/dL (14.1-18.0); Lymphocytes # 1.4 K/mm3 (0.7-4.5); Lymphocytes % 9.9 % (10-50); Mean Corpuscular HGB Conc 34.1 g/dL (31.8-35.4); Mean Corpuscular Volume 90.9 fl (80-94); Mean Platelet Volume 11.2 fl (7.4-10.4); Monocytes # 1.2 K/mm3 (0.1-1.0); Monocytes % 8.4 % (1.7-9.3); Neutrophils # 11.1 K/mm3 (1.8-7.8); Neutrophils % 79.7 % (37.0-80.0); Platelet Count 180 K/mm3 (142-424); Red Blood Count 4.39 M/mm3 (4.60-6.20); Red Cell Distribution Width 13.2 % (11.5-17.5); White Blood Count 13.9 K/mm3 (4.8-10.8)
[2024-08-16 19:17] LABS: Albumin Level 4.1 g/dl (3.5-5.0); Chloride 99 mmol/L (98-107); Potassium 4.2 mmoL/L (3.5-5.1); Sodium 131 mmol/L (136-145)
[2024-08-16 19:20] LABS: Alanine Aminotransferase 22 U/L (12-78); Albumin/Globulin Ratio 1.3 (1.1-1.8); Alkaline Phosphatase 73 U/L (38-126); Anion Gap 14.2 mEq/L (5-15); Aspartate Amino Transferase 29 U/L (17-59); Bilirubin,Total 0.8 mg/dl (0.2-1.3); Blood Urea Nitrogen 32 mg/dl (9-20); Calcium 9.5 mg/dl (8.4-10.2); Carbon Dioxide 22 mmol/L (22.0-30.0); Creatinine Clearance Estimated 97 mL/min (50-200); Estimated Glomerular Filt Rate 73 ml/min (>60); GFR (African American) 89 ML/MIN (>60); Globulin 3.1 g/dL (1.3-3.2); Glucose 211 mg/dl (74-100); Total Protein,Serum 7.2 g/dl (6.3-8.2)
[2024-08-16 19:26] LABS: Appearance,Urine CLEAR (Clear); Bilirubin,Urine Negative (Negative); Blood, Urine 3+ (Negative); Color,Urine YELLOW (Yellow); Glucose,Urine (UA) 3+ (Negative); Ketones,Urine Negative (Negative); Leukocyte Esterase,Urine 1+ (Negative); Microscopic, Urine URINE MICROSCOPIC (MICROSCOPIC); Nitrate,Urine Negative (Negative); PH,Urine 5.5 (5.0-8.5); Protein,Urine Negative (Negative); Specific Gravity, Urine 1.015 (1.005-1.030); Urobilinogen,Urine 0.2 EU/dl (0.2)
[2024-08-16 19:47] LABS: RBC,Urine 50-100 #/hpf (0-3)
[2024-08-16 19:48] LABS: Bacteria,Urine 4+ /lpf; WBC,Urine TNTC #/hpf (0-3)
[2024-08-16] MEDS: ERTAPENEM SODIUM 1 GM in 0.9 % SODIUM CHLORIDE 50 ML IV (20:04)
--- NOTE | 2024-08-16 20:19 | P.HP_ITS ---
History of Present Illness *Admission Date: 08/16/24 *Reason for visit:: UTI with fatigue and chills *History of present illness: The patient is a 74-year-old male with a history of hypertension, hyperlipidemia, coronary artery disease, carotid stenosis, obstructive sleep apnea, and urinary retention requiring a Guadarrama catheter who presents to the emergency department for evaluation following notification of an abnormal urine culture. He was seen in the emergency department on 08/14/2024 after experiencing acute urinary retention following the removal of his Guadarrama catheter by his urologist in [place]. At that time, a new Guadarrama catheter was placed, and a urine culture was sent. Today, the urine culture resulted, showing ESBL- producing E. coli, prompting the patient to return to the ED as advised. He reports that he has not been feeling well but does denies fever, dysuria, hematu kortney, flank pain, nausea, vomiting, or altered mental status. He does endorse chills, fatigue and will lower abdominal pain 5 out of 10 Laboratory results reveal leukocytosis with a WBC count of 13.9 and neutrophilic predominance. Basic metabolic panel is notable for mild hyponatremia (131) and an elevated BUN (32) with a normal creatinine. Urinalysis shows 3+ glucose, 3+ blood, too numerous to count WBCs, 50-100 RBCs, and 4+ bacteria, consistent with a urinary tract infection. CT abdomen and pelvis without contrast was reviewed and does not show hydronephrosis or an obstructing stone. The patient was started on ertapenem for treatment of his ESBL UTI. While discharge with outpatient IV antibiotic therapy was considered, the patient expressed concerns about his ability to manage at home given his distance from the hospital and his overall poor sense of well-being. After discussion with hospital medicine, he was admitted in stable condition for continued IV antibiotics and monitoring. [facility] Disclaimer: The information contained in this section may have been updated after the ro ent was seen, as this information can be updated by other users. Medical History Chest pain AAA (abdominal aortic aneurysm) HLD (hyperlipidemia) HTN (hypertension) CAD (coronary artery disease) Stenosis of carotid artery History of coronary angiogram Coronary aneurysm Myxoma of heart Cardiac mass KALYN (obstructive sleep apnea) Dyspnea Fatigue Abnormal stress test Typical angina Surgical History S/P CABG x 5 S/P AAA repair History of cardiac cath History of cholecystectomy Hx of CABG Family History Other Cancer Coronary artery disease Diabetes Hypertension Social History Smoking Status: Former smoker alcohol intake: current alcohol intake frequency: 3 or more drinks per day substance use type: denies use current occupational status: retired Travel in the last 8 weeks: Inside the [place] household members: spouse housing: house Other Medical History Have you received the Flu Vaccine for this season: Yes Have you received the Pneumonia Vaccine: Yes Review of Systems Review of Systems Review of systems (narrative): 13 point review of systems negative except as listed in HPI Meds Home Medications and Allergies Home Medications ?Medication ?Instructions ?Recorded ?Confirmed ?Type aspirin 81 mg tablet,delayed 81 mg PO DAILY 04/12/19 08/16/24 History release (Adult Low Dose Aspirin) budesonide-formoterol HFA 80 2 puff inhalation BID 04/12/19 08/16/24 History mcg-4.5 mcg/actuation aerosol inhaler (Symbicort) omeprazole 20 mg capsule,delayed 20 mg PO BID 04/12/19 08/16/24 History release tamsulosin 0.4 mg capsule (Flomax) 0.4 mg PO DAILY 04/12/19 08/16/24 History metformin 1,000 mg tablet 1,000 mg PO BIDWMEAL 07/15/21 08/17/24 History metoprolol succinate 50 mg 50 mg PO DAILY 09/20/22 08/16/24 History tablet,extended release 24 hr (Toprol XL) rosuvastatin 20 mg tablet (Crestor) 20 mg PO DAILY 09/20/22 08/16/24 History spironolactone 50 mg tablet 50 mg PO DAILY 09/20/22 08/16/24 History fluticasone propionate 50 2 spray intranasal DAILY 06/15/23 08/17/24 History mcg/actuation nasal spray,suspension furosemide 40 mg tablet (Lasix) 40 mg PO BID #180 tabs 12/15/23 08/16/24 Rx pramipexole 0.25 mg tablet 0.25 mg PO HS RLS #90 tabs 12/21/23 08/16/24 Rx dapagliflozin propanediol 5 mg 5 mg PO DAILY 08/16/24 08/16/24 History tablet (Farxiga) insulin glargine U-300 conc 300 40 unit SQ HS 08/16/24 08/16/24 History unit/mL (3 mL) subcutaneous pen (Toujeo Max U-300 SoloStar) potassium chloride 10 mEq 10 meq PO BID 08/16/24 08/16/24 History capsule,extended release semaglutide 0.25 mg or 0.5 mg (2 0.5 mg SQ WEEKLY 08/16/24 08/16/24 History mg/3 mL) subcutaneous pen injector ([employer]) ertapenem 1 gram solution for 1 g IV Q24H 5 days #0 ea 08/17/24 Rx injection finasteride 5 mg tablet 5 mg PO DAILY 30 days #30 tabs 08/17/24 Rx losartan 25 mg tablet 25 mg PO DAILY 08/17/24 08/17/24 History oxybutynin chloride 10 mg 10 mg PO DAILY 08/17/24 08/17/24 History tablet,extended release 24 hr New Prescriptions to Start Prescriptions: finasteride Drew Pleitez Allergies Allergy/AdvReac Type Severity Reaction Status Date / Time No Known Allergies Allergy Verified 06/14/24 10:55 Exam Data for Last 24 hours Vital signs and Labs for Last 24 Hours: Temp Pulse Resp BP Pulse Ox O2 Del Method 98.5 F 96 H 19 105/59 L 97 Room Air 08/16/24 18:34 08/16/24 18:34 08/16/24 18:34 08/16/24 18:34 08/16/24 18:34 08/16/24 20:07 Laboratory Results - last 24 hr 08/16/24 18:55: WBC 13.9 H, RBC 4.39 L, Hgb 13.6 L, Hct 39.9 L, MCV 90.9, MCH 31.0, MCHC 34.1, RDW 13.2, Plt Count 180, MPV 11.2 H, Neut % (Auto) 79.7, Lymph % (Auto) 9.9 L, [place] % (Auto) 8.4, Eos % (Auto) 1.2, Baso % (Auto) 0.4, Neut # (Auto) 11.1 H, Lymph # (Auto) 1.4, [place] # (Auto) 1.2 H, Eos # (Auto) 0.2, Baso # (Auto) 0.1, Sodium 131 L, Potassium 4.2, Chloride 99, Carbon Dioxide 22, Anion Gap 14.2, BUN 32 H, Creatinine 1.00, Estimated Creat Clear 97, Estimated GFR 73, Est GFR ( Amer) 89, Glucose 211 H, Calcium 9.5, Total Bilirubin 0.8, AST 29, ALT 22, Alkaline Phosphatase 73, Total Protein 7.2, Albumin 4.1, Globulin 3.1, Albumin/Globulin Ratio 1.3 08/16/24 19:20: Urine Color Yellow, Urine Appearance Clear, Urine pH 5.5, Ur Specific [place] 1.015, Urine Protein Negative, Urine Glucose (UA) 3+, Urine Ketones Negative, Urine Blood 3+ A, Urine Nitrate Negative, Urine Bilirubin Negative, Urine Urobilinogen 0.2, Ur Leukocyte Esterase 1+ A, Urine RBC 50-100, Urine WBC Tntc, Ur Squamous Epith Cells 3-5, Urine Bacteria 4+ I & O for Last 24 hours: Intake & Output 08/13/24 08/14/24 08/15/24 08/16/24 23:59 23:59 23:59 23:59 Weight 102.512 kg Constitutional Constitutional: no acute distress *Routine HEENT Exam Head: Present normocephalic Eye: Present EOMI and PERRL ENT: Present mucous membranes moist *Routine Neck Exam Neck: Present supple; Absent lymphadenopathy *Routine Respiratory Exam Respiratory: Present CTA bilaterally *Routine Cardiovascular Exam Cardiovascular: Present RRR *Routine Abdominal Exam Abdominal: Present soft and normoactive bowel sounds; Absent tenderness *Routine Rectal Exam Rectal:: deferred *Routine Genitalia Exam Genitalia:: deferred *Routine Extremities Exam Extremities: Absent cyanosis, clubbing or edema *Routine Skin Exam Skin: Present warm; Absent rash *Routine Neurological Exam Neurological: Present alert and oriented X3 Assessment and Plan *Assessment and plan (1) Urinary tract infection due to extended-spectrum beta lactamase (ESBL) producing Escherichia coli: Status: Acute Category: Medical Code(s): N39.0 - Urinary tract infection, site not specified; B96.29 - Other Escherichia coli [E. coli] as the cause of diseases classified elsewhere; Z16.12 - Extended spectrum beta lactamase (ESBL) resistance (2) Chronic indwelling Guadarrama catheter: Status: Acute Category: Medical Code(s): Z97.8 - Presence of other specified devices (3) Acute urinary retention: Status: Acute Category: Medical Code(s): R33.8 - Other retention of urine (4) HTN (hypertension): Status: Chronic Qualifiers: Hypertension type: essential hypertension Qualified Code(s): I10 - Essential (primary) hypertension Category: Medical Code(s): I10 - Essential (primary) hypertension (5) CAD (coronary artery disease): Status: Chronic Qualifiers: Associated angina: without angina Coronary Disease-Associated Artery/Lesion type: [place] artery [place] vs. transplanted heart: [place] heart Qualified Code(s): I25.10 - Atherosclerotic heart disease of [place] coronary artery without angina pectoris Category: Medical Code(s): I25.10 - Atherosclerotic heart disease of [place] coronary artery without angina pectoris (6) Restless leg syndrome: Problem Comment: Asymptomatic on pramipexole 0.25 mg p.o. nightly, no evidence of side effects. Status: Chronic Category: Medical Code(s): G25.81 - Restless legs syndrome Plan Medical Decision Making: The patient is a 74-year-old male with a history of hypertension, hyperlipidemia, coronary artery disease, carotid stenosis, obstructive sleep apnea, and chronic urinary retention requiring a Guadarrama catheter, presenting for evaluation after an ESBL E. coli UTI was identified on urine culture. He was previously seen for acute urinary retention following Guadarrama removal, requiring catheter replacement. He now reports feeling unwell without specific symptoms. Given his positive culture, leukocytosis, and risk factors for urosepsis, IV ertapenem was initiated. Blood cultures were obtained, and imaging showed no hydronephrosis or obstructing stone. While outpatient IV antibiotic therapy was considered, the patient requested admission due to concerns about self-care and travel distance. He was admitted in stable condition for continued IV antibiotics, monitoring, and further evaluation. ESBL urinary tract infection in the setting of chronic Guadarrama catheter use * Urine culture grew ESBL-producing E. coli, resistant to all oral options except Macrobid, which has poor renal penetration. * Urinalysis consistent with infection showing too numerous to count WBCs, 50- 100 RBCs, and 4+ bacteria. * Patient reports feeling unwell but denies dysuria, flank pain, fever, or other systemic symptoms. * CT abdomen and pelvis without contrast reviewed, showing no hydronephrosis or obstructing stone. * Ertapenem initiated for directed therapy against ESBL infection. * Requested PICC line placement and case management consultation * Blood cultures obtained to rule out bacteremia. * Continue Guadarrama catheter with appropriate hygiene measures. * Monitor for worsening infection or signs of urosepsis. Leukocytosis (WBC 13.9) with neutrophilic predominance * Likely reactive due to urinary tract infection. * No evidence of an alternative infectious source at this time. * Trend CBC to monitor for resolution of leukocytosis. Mild hyponatremia (131) * Likely multifactorial, possibly due to chronic disease or mild dehydration. * Monitor sodium levels and ensure adequate fluid intake. Type 2 diabetes mellitus * Hyperglycemia noted with glucose 211, urine positive for 3+ glucosuria. * No history of diabetic ketoacidosis symptoms or severe hyperglycemia. * Monitor blood glucose throughout admission. * Continue Toujeo 40 units nightly, initiate sliding scale insulin with ACHS Accu-Cheks * Consider checking HbA1c if recent values unavailable. * Adjust diabetic medications as needed. Hypertension * History of hypertension, but current blood pressure trends are unknown. * Monitor blood pressure throughout admission. * Continue home antihypertensives if patient is stable to take oral medications. Hyperlipidemia and coronary artery disease * History of coronary artery disease and hyperlipidemia, but lipid panel results are unknown. * Continue home statin therapy if appropriate. * Monitor for any signs of cardiac symptoms during hospitalization. * Maintain appropriate secondary prevention measures. Carotid stenosis * No reported neurological symptoms concerning for stroke or TIA. * Continue home ASA 81 mg * Monitor for neurological changes during admission. Obstructive sleep apnea * No reported symptoms of acute hypoxia or desaturation. * Ensure patient has access to CPAP if used at home. Chronic urinary retention with chronic Guadarrama catheter use * Guadarrama catheter was previously removed by urology but required replacement due to acute urinary retention. * Urology follow-up recommended to reassess long-term catheter needs and management options. Disposition * Initially considered for discharge with PICC line for outpatient IV antibiotics, but patient prefers admission due to concerns about self-care and distance from the hospital. * Hospitalist service accepted the patient for admission in stable condition for continued IV ertapenem, monitoring of infection status, and further evaluation. Rounded on patient after nurse practitioner. Personally examined and interviewed patient. Agree with exam findings and care plan as documented.
[2024-08-16 20:22] VITALS: BP 120/61; PULSE 90; RESP 17; RESP 18; TEMP 36.4; O2SAT 96; O2SAT 98; BMI 36.3
--- NOTE | 2024-08-16 20:25 | PC.NURSE ---
report given to Radha RN on the floor.
[2024-08-16 20:26] VITALS: BP 110/64; PULSE 91; RESP 16; TEMP 36.9; O2SAT 100
--- NOTE | 2024-08-16 20:37 | PC.NURSE ---
Patient arrived to floor via wheelchair from ED at 20:35.
[2024-08-16 20:39] VITALS: BP 110/64; PULSE 71; RESP 20; TEMP 36.8; O2SAT 96
[2024-08-16] MEDS: MEROPENEM 1 GM in 0.9 % SODIUM CHLORIDE 100 ML IV (20:49)
[2024-08-16 21:37] VITALS: TEMP 38
[2024-08-16] MEDS: ACETAMINOPHEN 325MG TAB 650 MG PO (21:37)
[2024-08-16 22:07] VITALS: TEMP 37.4
[2024-08-16 22:40] LABS: POC Glucose,Bedside 132 (70-110)
[2024-08-17] VITALS: BP 97/48; PULSE 93; RESP 18; TEMP 37.2; O2SAT 94
--- NOTE | 2024-08-17 01:53 | PC.NURSE ---
Addendum entered by Radha Stone RN 08/17/24 02:07: Medication not available in [facility]. Ac MANRIQUEZ was paged at this time for an alternative/new orders. Original Note: Patient did not take any of his bedtime home medications prior to arriving. He started to complain of restless legs with pain that was interfering with his sleep at this time. Ac MANRIQUEZ was paged to ask about administering a dose of Mirapex NOW to treat the patient's restless leg syndrome. He stated that he can receive the medication.
[2024-08-17] MEDS: GABAPENTIN 300MG CAPSULE 300 MG PO (02:17)
[2024-08-17 04:00] VITALS: TEMP 36.9; BMI 36.1
--- NOTE | 2024-08-17 05:03 | PC.NURSE ---
Mr Thierno Reyna was newly admitted on behalf of an Extended Spectrum Beta-Lactamase infection detected in his urine. He has a chronic Guadarrama in place; the Guadarrama bag was also replaced this shift. Admission assessment and home medication reconciliation was completed this shift. Upon arrival to the second floor, the patient was complaining of feeling feverish with chills. Skin was hot and moist. Oral temperature was taken and the reading was 100.4. Tylenol was administered, and his room temperature was decreased. Temperature was reevaluated as appropriately, and the reading was 99.4. Patient has remained afebrile thus far (98.5 at 04:00). He was also given a one time dose of gabapentin due to restless legs + pain. Patient has denied generalized body aches and nausea/vomiting. However, the patient did report having some lower abdominal discomfort. Auscultation of his heart, lungs, and bowels were within normal findings. Intravenous antibiotic administered per AUG. ACHS glucose checks performed. Blood pressures have been soft this shift. At this time, the patient is resting in bed with eyes closed, respirations even/unlabored on room air, and is without any apparent distress. His remains at the bedside. No acute changes noted thus far. Call light within reach. Contact precautions in place.
[2024-08-17 05:32] LABS: POC Glucose,Bedside 110 (70-110)
[2024-08-17 07:16] LABS: Chloride 101 mmol/L (98-107); Potassium 4.2 mmoL/L (3.5-5.1); Sodium 131 mmol/L (136-145)
[2024-08-17 07:18] LABS: Basophils % 0.3 % (0.1-2.0); Eosinophils # 0.1 K/mm3 (0.0-0.4); Eosinophils % 0.7 % (0.1-12.0); Hematocrit 39.4 % (42.0-52.0); Hemoglobin 13.2 g/dL (14.1-18.0); Lymphocytes # 1.6 K/mm3 (0.7-4.5); Lymphocytes % 16.2 % (10-50); Mean Corpuscular HGB Conc 33.5 g/dL (31.8-35.4); Mean Corpuscular Hemoglobin 30.5 pg (27.0-31.2); Mean Platelet Volume 11.9 fl (7.4-10.4); Monocytes # 1.1 K/mm3 (0.1-1.0); Monocytes % 11.1 % (1.7-9.3); Neutrophils # 7.2 K/mm3 (1.8-7.8); Neutrophils % 71.2 % (37.0-80.0); Platelet Count 107 K/mm3 (142-424); Red Blood Count 4.33 M/mm3 (4.60-6.20); Red Cell Distribution Width 13.2 % (11.5-17.5); White Blood Count 10.1 K/mm3 (4.8-10.8)
[2024-08-17 07:19] LABS: Blood Urea Nitrogen 28 mg/dl (9-20); Carbon Dioxide 18 mmol/L (22.0-30.0); Creatinine Clearance Estimated 96 mL/min (50-200); Estimated Glomerular Filt Rate 95 ml/min (>60); GFR (African American) 115 ML/MIN (>60); Phosphorous 2.7 mg/dl (2.5-4.5)
[2024-08-17 07:20] LABS: Calcium 9.2 mg/dl (8.4-10.2); Glucose 123 mg/dl (74-100); Magnesium 1.5 mg/dl (1.6-2.3)
[2024-08-17 07:51] LABS: Anion Gap 16.2 mEq/L (5-15)
[2024-08-17 08:00] VITALS: BP 117/60; PULSE 92; RESP 20; TEMP 37.4; O2SAT 93
--- NOTE | 2024-08-17 08:16 | SW/DCPLANNER ---
Addendum entered by Grazyna Arenas RN 08/17/24 13:27: Order for Ertapenem 1gm IV X 5 days faxed to infusion per Dr. Pleitez order. Patient will have a midline placed today, which will be pulled by infusion once antibiotic therapy has been completed. Original Note: I spoke w/ this patient regarding plans once medically stable for discharge. Patient will need an additional 7 days of IV antibiotics. I discussed options of home w/ home health and family assistance vs return to outpatient Infusion Dept for IV antibiotics. Per the patient he would prefer to return [facility] daily for the next 7 days for IV antibiotics. Patient will receive PICC line and discharge home this afternoon.
[2024-08-17] MEDS: METOPROLOL SUCCINATE XL 50MG TABLET 50 MG PO (08:46)
[2024-08-17] MEDS: IRBESARTAN 75MG TABLET 75 MG PO (08:46)
[2024-08-17] MEDS: ASPIRIN EC 81MG TABLET 81 MG PO (08:47)
[2024-08-17] MEDS: FUROSEMIDE 40 MG TABLET PO (08:47)
[2024-08-17] MEDS: SPIRONOLACTONE 25MG TABLET 50 MG PO (08:47)
--- NOTE | 2024-08-17 09:43 | P.DS_ITS ---
General Admission date:: 08/16/24 Discharge date: 08/17/24 HPI HPI HPI: The patient is a 74-year-old male with a history of hypertension, hyperlipidemia, coronary artery disease, carotid stenosis, obstructive sleep apnea, and urinary retention requiring a Guadarrama catheter who presents to the emergency department for evaluation following notification of an abnormal urine culture. He was seen in the emergency department on 08/14/2024 after experiencing acute urinary retention following the removal of his Guadarrama catheter by his urologist in [place]. At that time, a new Guadarrama catheter was placed, and a urine culture was sent. Today, the urine culture resulted, showing ESBL- producing E. coli, prompting the patient to return to the ED as advised. He reports that he has not been feeling well but does denies fever, dysuria, hematuria, flank pain, nausea, vomiting, or altered mental status. He does endorse chills, fatigue and will lower abdominal pain 5 out of 10 Laboratory results reveal leukocytosis with a WBC count of 13.9 and neutrophilic predominance. Basic metabolic panel is notable for mild hyponatremia (131) and an elevated BUN (32) with a normal creatinine. Urinalysis shows 3+ glucose, 3+ blood, too numerous to count WBCs, 50-100 RBCs, and 4+ bacteria, consistent with a urinary tract infection. CT abdomen and pelvis without contrast was reviewed and does not show hydronephrosis or an obstructing stone. The patient was started on ertapenem for treatment of his ESBL UTI. While discharge with outpatient IV antibiotic therapy was considered, the patient expressed concerns about his ability to manage at home given his distance from the hospital and his overall poor sense of well-being. After discussion with hospital medicine, he was admitted in stable condition for continued IV antibiotics and monitoring. Hospital Course Hospital Course Hospital Course: The patient is a 74-year-old male with a history of hypertension, hyperlipidemia, coronary artery disease, carotid stenosis, obstructive sleep apnea, and chronic urinary retention requiring a Guadarrama catheter, presenting for evaluation after an ESBL E. coli UTI was identified on urine culture. He was previously seen for acute urinary retention following Guadarrama removal, requiring catheter replacement. He now reports feeling unwell without specific symptoms. Given his positive culture, leukocytosis, and risk factors for urosepsis, IV ertapenem was initiated. Blood cultures were obtained, and imaging showed no hydronephrosis or obstructing stone. While outpatient IV antibiotic therapy was considered, the patient requested admission due to concerns about self-care and travel distance. He was admitted in stable condition for continued IV antibiotics, monitoring, and further evaluation. Did well overnight. PICC line was placed and transition to IV antibiotics based on culture sensitivity. Stable to discharge home with outpatient infusions on a daily basis to complete regimen. Problems addressed as follows: ESBL urinary tract infection in the setting of chronic Guadarrama catheter use Leukocytosis -Patient was having symptoms concerning for UTI. Urine culture was obtained showing ESBL producing E. coli. Only oral agent was Macrobid which did not seem appropriate given indwelling hardware. Also sensitive to meropenem and ertapenem. Decision made to initiate ertapenem for treatment of complicated UTI. Urinalysis concerning with white cells, 50-100 RBCs, 4+ bacteria. Patient had no ct signs of pyelonephritis with no flank pain or fever. Had no hydronephrosis or nephrolithiasis/obstructing stone on CT of abdomen pelvis. Decision made to place midline following morning after admission. Will complete 7 days total of ertapenem. Case management assisted with scheduling patient for outpatient infusions with ertapenem 1 g daily for total of 7 days of therapy. Last dose due on 08/22. Okay to remove midline after completing antibiotics. -Morning of discharge, white count normal at 10.1. Kidney function at baseline with BUN 28, creatinine 0.8. BPH Urinary retention -Urinary retention symptoms led to initiation of Guadarrama catheter. Patient currently on tamsulosin 0.4 mg nightly. Will add finasteride 5 mg daily to promote improvement in voiding. Has failed 2 previous voiding trials with removal of Guadarrama catheter. Counseled that finasteride may take 4 to 12 weeks to work completely but should help his prostate shrink and may aid independent voiding and ability to remove catheter in the coming weeks to months. Encouraged him to follow with urology as previously scheduled. Type 2 diabetes: Continue home regimen. No changes during admission. Hypertension: Continue home regimen for hypertension. Carotid stenosis - No reported neurological symptoms concerning for stroke or TIA. Continue home ASA 81 mg, monitored for neurologic changes. Not appear during admission. KALYN: Continue home CPAP 30-minute Exam Data for Last 24 hours Vital signs and Labs for Last 24 Hours: Temp Pulse Resp BP Pulse Ox O2 Del Method 99.3 F 92 H 20 117/60 93 L Room Air 08/17/24 08:00 08/17/24 08:00 08/17/24 08:00 08/17/24 08:00 08/17/24 08:00 08/17/24 08:00 Laboratory Results - last 24 hr 08/16/24 18:55: WBC 13.9 H, RBC 4.39 L, Hgb 13.6 L, Hct 39.9 L, MCV 90.9, MCH 31.0, MCHC 34.1, RDW 13.2, Plt Count 180, MPV 11.2 H, Neut % (Auto) 79.7, Lymph % (Auto) 9.9 L, [place] % (Auto) 8.4, Eos % (Auto) 1.2, Baso % (Auto) 0.4, Neut # (Auto) 11.1 H, Lymph # (Auto) 1.4, [place] # (Auto) 1.2 H, Eos # (Auto) 0.2, Baso # (Auto) 0.1, Sodium 131 L, Potassium 4.2, Chloride 99, Carbon Dioxide 22, Anion Gap 14.2, BUN 32 H, Creatinine 1.00, Estimated Creat Clear 97, Estimated GFR 73, Est GFR ( Amer) 89, Glucose 211 H, Calcium 9.5, Total Bilirubin 0.8, AST 29, ALT 22, Alkaline Phosphatase 73, Total Protein 7.2, Albumin 4.1, Globulin 3.1, Albumin/Globulin Ratio 1.3 08/16/24 19:20: Urine Color Yellow, Urine Appearance Clear, Urine pH 5.5, Ur Specific [place] 1.015, Urine Protein Negative, Urine Glucose (UA) 3+, Urine Ketones Negative, Urine Blood 3+ A, Urine Nitrate Negative, Urine Bilirubin Negative, Urine Urobilinogen 0.2, Ur Leukocyte Esterase 1+ A, Urine RBC 50-100, Urine WBC Tntc, Ur Squamous Epith Cells 3-5, Urine Bacteria 4+ 08/16/24 22:15: POC Glucose 132 H 08/17/24 05:25: POC Glucose 110 08/17/24 06:06: WBC 10.1 D, RBC 4.33 L, Hgb 13.2 L, Hct 39.4 L, MCV 91.0, MCH 30.5, MCHC 33.5, RDW 13.2, Plt Count 107 L D, MPV 11.9 H, Neut % (Auto) 71.2, Lymph % (Auto) 16.2, [place] % (Auto) 11.1 H, Eos % (Auto) 0.7, Baso % (Auto) 0.3, Neut # (Auto) 7.2, Lymph # (Auto) 1.6, [place] # (Auto) 1.1 H, Eos # (Auto) 0.1, Baso # (Auto) 0.0, Sodium 131 L, Potassium 4.2, Chloride 101, Carbon Dioxide 18 L, Anion Gap 16.2 H, BUN 28 H, Creatinine 0.80, Estimated Creat Clear 96, Estimated GFR 95, Est GFR ( Amer) 115 D, Glucose 123 H D, Calcium 9.2, Phosphorus 2.7, Magnesium 1.5 L I & O for Last 24 hours: Intake & Output 08/14/24 08/15/24 08/16/24 08/17/24 23:59 23:59 23:59 23:59 Intake Total 454 / 454 Output Total 550 / 550 Balance - / Weight 102.557 kg 102.1 kg Microbiology Reports for the Last 24 Hours: Microbiology 08/16/24 19:20 Urine,Clean Catch Urine Culture - Preliminary Gram Negative Rods Constitutional Constitutional: no acute distress, obese, chronically ill appearing and cooperative *Routine HEENT Exam Head: Present normocephalic Eye: Present EOMI and PERRL ENT: Present mucous membranes moist *Routine Neck Exam Neck: Present supple; Absent lymphadenopathy *Routine Respiratory Exam Respiratory: Present CTA bilaterally; Absent rhonchi, wheezes or crackles *Routine Cardiovascular Exam Cardiovascular: Present RRR *Routine Abdominal Exam Abdominal: Present soft and normoactive bowel sounds; Absent tenderness *Routine Rectal Exam Patient deferred: visual exam *Routine Exam Penile: Absent swelling Comments: Guadarrama in place *Routine Extremities Exam Extremities: Absent cyanosis, clubbing or edema *Routine Skin Exam Skin: Present warm; Absent rash *Routine Neurological Exam Neurological: Present alert, oriented X3 and moving all extremities; Absent altered mental status Results Data Completed and Pending Labs on day of discharge: Labs from last 24 hours 08/17/24 08/17/24 08/16/24 06:06 05:25 22:15 WBC 10.1 D RBC 4.33 L Hgb 13.2 L Hct 39.4 L MCV 91.0 MCH 30.5 MCHC 33.5 RDW 13.2 Plt Count 107 L D MPV 11.9 H Neut % (Auto) 71.2 Lymph % (Auto) 16.2 [place] % (Auto) 11.1 H Eos % (Auto) 0.7 Baso % (Auto) 0.3 Neut # (Auto) 7.2 Lymph # (Auto) 1.6 [place] # (Auto) 1.1 H Eos # (Auto) 0.1 Baso # (Auto) 0.0 Sodium 131 L Potassium 4.2 Chloride 101 Carbon Dioxide 18 L Anion Gap 16.2 H BUN 28 H Creatinine 0.80 Estimated Creat Clear 96 Estimated GFR 95 Est GFR ( Amer) 115 D Glucose 123 H D POC Glucose 110 132 H Calcium 9.2 Phosphorus 2.7 Magnesium 1.5 L Total Bilirubin AST ALT Alkaline Phosphatase Total Protein Albumin Globulin Albumin/Globulin Ratio Urine Color Urine Appearance Urine pH Ur Specific [place] Urine Protein Urine Glucose (UA) Urine Ketones Urine Blood Urine Nitrate Urine Bilirubin Urine Urobilinogen Ur Leukocyte Esterase Urine RBC Urine WBC Ur Squamous Epith Cells Urine Bacteria 08/16/24 08/16/24 19:20 18:55 WBC 13.9 H RBC 4.39 L Hgb 13.6 L Hct 39.9 L MCV 90.9 MCH 31.0 MCHC 34.1 RDW 13.2 Plt Count 180 MPV 11.2 H Neut % (Auto) 79.7 Lymph % (Auto) 9.9 L [place] % (Auto) 8.4 Eos % (Auto) 1.2 Baso % (Auto) 0.4 Neut # (Auto) 11.1 H Lymph # (Auto) 1.4 [place] # (Auto) 1.2 H Eos # (Auto) 0.2 Baso # (Auto) 0.1 Sodium 131 L Potassium 4.2 Chloride 99 Carbon Dioxide 22 Anion Gap 14.2 BUN 32 H Creatinine 1.00 Estimated Creat Clear 97 Estimated GFR 73 Est GFR ( Amer) 89 Glucose 211 H POC Glucose Calcium 9.5 Phosphorus Magnesium Total Bilirubin 0.8 AST 29 ALT 22 Alkaline Phosphatase 73 Total Protein 7.2 Albumin 4.1 Globulin 3.1 Albumin/Globulin Ratio 1.3 Urine Color Yellow Urine Appearance Clear Urine pH 5.5 Ur Specific [place] 1.015 Urine Protein Negative Urine Glucose (UA) 3+ Urine Ketones Negative Urine Blood 3+ A Urine Nitrate Negative Urine Bilirubin Negative Urine Urobilinogen 0.2 Ur Leukocyte Esterase 1+ A Urine RBC 50-100 Urine WBC Tntc Ur Squamous Epith Cells 3-5 Urine Bacteria 4+ Preliminary micro results at discharge 08/16/24 19:20 Urine Culture - Preliminary Urine,Clean Catch Gram Negative Rods DS: Diagnosis Discharge Diagnosis (1) Chronic indwelling Guadarrama catheter: Status: Acute Code(s): Z97.8 - Presence of other specified devices (2) Urinary tract infection due to extended-spectrum beta lactamase (ESBL) producing Escherichia coli: Status: Acute Code(s): N39.0 - Urinary tract infection, site not specified; B96.29 - Other Escherichia coli [E. coli] as the cause of diseases classified elsewhere; Z16.12 - Extended spectrum beta lactamase (ESBL) resistance (3) Acute urinary retention: Status: Acute Code(s): R33.8 - Other retention of urine (4) HTN (hypertension): Status: Chronic Code(s): I10 - Essential (primary) hypertension Qualifiers: Hypertension type: essential hypertension Qualified Code(s): I10 - Essential (primary) hypertension (5) CAD (coronary artery disease): Status: Chronic Code(s): I25.10 - Atherosclerotic heart disease of [place] coronary artery without angina pectoris Qualifiers: Associated angina: without angina Coronary Disease-Associated Artery/Lesion type: [place] artery [place] vs. transplanted heart: [place] heart Qualified Code(s): I25.10 - Atherosclerotic heart disease of [place] coronary artery without angina pectoris (6) Restless leg syndrome: Status: Chronic Code(s): G25.81 - Restless legs syndrome Problem details: Asymptomatic on pramipexole 0.25 mg p.o. nightly, no evidence of side effects. Meds Home Medications and Allergies Home Medications ?Medication ?Instructions ?Recorded ?Confirmed ?Type aspirin 81 mg tablet,delayed 81 mg PO DAILY 04/12/19 08/16/24 History release (Adult Low Dose Aspirin) budesonide-formoterol HFA 80 2 puff inhalation BID 04/12/19 08/16/24 History mcg-4.5 mcg/actuation aerosol inhaler (Symbicort) omeprazole 20 mg capsule,delayed 20 mg PO BID 04/12/19 08/16/24 History release tamsulosin 0.4 mg capsule (Flomax) 0.4 mg PO DAILY 04/12/19 08/16/24 History metformin 1,000 mg tablet 1,000 mg PO BIDWMEAL 07/15/21 08/17/24 History metoprolol succinate 50 mg 50 mg PO DAILY 09/20/22 08/16/24 History tablet,extended release 24 hr (Toprol XL) rosuvastatin 20 mg tablet (Crestor) 20 mg PO DAILY 09/20/22 08/16/24 History spironolactone 50 mg tablet 50 mg PO DAILY 09/20/22 08/16/24 History fluticasone propionate 50 2 spray intranasal DAILY 06/15/23 08/17/24 History mcg/actuation nasal spray,suspension furosemide 40 mg tablet (Lasix) 40 mg PO BID #180 tabs 12/15/23 08/16/24 Rx pramipexole 0.25 mg tablet 0.25 mg PO HS RLS #90 tabs 12/21/23 08/16/24 Rx dapagliflozin propanediol 5 mg 5 mg PO DAILY 08/16/24 08/16/24 History tablet (Farxiga) insulin glargine U-300 conc 300 40 unit SQ HS 08/16/24 08/16/24 History unit/mL (3 mL) subcutaneous pen (Toujeo Max U-300 SoloStar) potassium chloride 10 mEq 10 meq PO BID 08/16/24 08/16/24 History capsule,extended release semaglutide 0.25 mg or 0.5 mg (2 0.5 mg SQ WEEKLY 08/16/24 08/16/24 History mg/3 mL) subcutaneous pen injector (Ozempic) ertapenem 1 gram solution for 1 g IV Q24H 5 days #0 ea 08/17/24 Rx injection finasteride 5 mg tablet 5 mg PO DAILY 30 days #30 tabs 08/17/24 Rx losartan 25 mg tablet 25 mg PO DAILY 08/17/24 08/17/24 History oxybutynin chloride 10 mg 10 mg PO DAILY 08/17/24 08/17/24 History tablet,extended release 24 hr New Prescriptions to Start Prescriptions: finasteride Drew Pleitez Allergies Allergy/AdvReac Type Severity Reaction Status Date / Time No Known Allergies Allergy Verified 06/14/24 10:55 Discharge Plan Disposition Patient Disposition: Home, Self-Care Condition: Good Follow up Plan Follow up with: Va Short APRN [Primary Care Provider] - 08/24/24 9:00 am Prescriptions/Medication Reconciliation: New ertapenem 1 gram Recon Soln 1 g IV Q24H 5 Days Qty: 0 0RF finasteride 5 mg Tablet 5 mg PO DAILY 30 Days Qty: 30 0RF Continued omeprazole 20 mg capsule,delayed release(DR/EC) 20 mg PO BID tamsulosin [Flomax] 0.4 mg capsule 0.4 mg PO DAILY aspirin [Adult Low Dose Aspirin] 81 mg tablet,delayed release (DR/EC) 81 mg PO DAILY Symbicort 80-4.5 mcg/actuation HFA aerosol inhaler 2 puff INHALATION BID fluticasone propionate 50 mcg/actuation spray,suspension 2 spray intranasal DAILY furosemide [Lasix] 40 mg tablet 40 mg PO BID Qty: 180 3RF pramipexole 0.25 mg tablet 0.25 mg PO HS Qty: 90 3RF metformin 1,000 mg tablet 1,000 mg PO BIDWMEAL Patient Comments: TAKE 1 TABLET BY MOUTH TWICE DAILY WITH MEALS Rx Instructions: With meals metoprolol succinate [Toprol XL] 50 mg tablet extended release 24 hr 50 mg PO DAILY spironolactone 50 mg tablet 50 mg PO DAILY Rx Instructions: TAKE 1 TABLET BY MOUTH DAILY rosuvastatin [Crestor] 20 mg tablet 20 mg PO DAILY potassium chloride 10 mEq capsule, extended release 10 meq PO BID dapagliflozin propanediol [Farxiga] 5 mg tablet 5 mg PO DAILY Patient Comments: TAKE 1 TABLET BY MOUTH DAILY insulin glargine U-300 conc [Toujeo Max U-300 SoloStar] 300 unit/mL (3 mL) insulin pen 40 unit SQ HS Patient Comments: ADMINISTER 40 UNITS UNDER THE SKIN AT BEDTIME Ozempic 0.25 mg or 0.5 mg (2 mg/3 mL) pen injector 0.5 mg SQ WEEKLY Patient Comments: INJECT 0.5 MG UNDER THE SKIN ONCE WEEKLY ON THE SAME DAY EACH WEEK oxybutynin chloride 10 mg tablet extended release 24hr 10 mg PO DAILY Patient Comments: TAKE 1 TABLET BY MOUTH DAILY losartan 25 mg tablet 25 mg PO DAILY Patient Comments: TAKE 1 TABLET BY MOUTH DAILY Problem Reconciliation Problems Reviewed?: Yes Patient Discharge Instructions ACTIVITY: Continue current activity DIET: continue same diet Patient Instructions: DI for Urinary Tract Infection (UTI), DI for Extended Spectrum Beta-Lactamase Infection Print Language: Greek Providers Primary Care Provider: Va Short Admit Provider: Drew Pleitez Attending Provider: Drew Pleitez
[2024-08-17] MEDS: FINASTERIDE 5MG TABLET 5 MG PO (11:31)
[2024-08-17] MEDS: HYDROCODONE/APAP 5/325 MG TABLET 1 TAB PO (11:34)
[2024-08-17 11:42] LABS: POC Glucose,Bedside 142 (70-110)
[2024-08-17] MEDS: ERTAPENEM SODIUM 1 GM in 0.9 % SODIUM CHLORIDE 50 ML IV (14:19)
--- NOTE | 2024-08-21 10:09 | SW/DCPLANNER ---
Phoned patient x2. Left message with my name and call back number both times. Angle [employer]
== END 2024-08-17 15:07 | disposition home or self-care (01) ==
LOC: ER 20:12 → 2ND 20:31
PROVIDERS: Nurse Practitioner Family; Admitting Provider Internal Medicine Adolescent Medicine; Emergency Provider Emergency Medicine; PCP Nurse Practitioner; Visit Provider Internal Medicine Adolescent Medicine
DX: N39.0 Urinary tract infection, site not specified (principal); B96.29 Other Escherichia coli [E. coli] as the cause of diseases classified elsewhere; Z16.12 Extended spectrum beta lactamase (ESBL) resistance; R33.8 Other retention of urine; I10 Essential (primary) hypertension; I25.10 Atherosclerotic heart disease of native coronary artery without angina pectoris; G25.81 Restless legs syndrome; E11.9 Type 2 diabetes mellitus without complications; Z79.4 Long term (current) use of insulin; Z79.85 Long-term (current) use of injectable non-insulin antidiabetic drugs; Z79.899 Other long term (current) drug therapy; E87.1 Hypo-osmolality and hyponatremia; I65.29 Occlusion and stenosis of unspecified carotid artery
CPT/HCPCS: 36410; 74176; 80048; 80053; 81001; 82962; 83735; 84100; 85025; 87040; 87086; 87088; 87186; 99221; 99285; G0378; J1335; J2185

== ENCOUNTER 2024-08-18 14:05 | Outpatient (CLI) | payer MEDICARE, MEDICAID, SELFPAY ==
[2024-08-18] MEDS: ERTAPENEM SODIUM 1 GM in 0.9 % SODIUM CHLORIDE 50 ML IV (14:35)
== END 2024-08-18 23:59 | disposition home or self-care (01) ==
LOC: INF 14:07
PROVIDERS: PCP Nurse Practitioner; Visit Provider Internal Medicine Adolescent Medicine
DX: N39.0 Urinary tract infection, site not specified (principal)
CPT/HCPCS: 96365; J1335

== ENCOUNTER 2024-08-20 13:46 | Outpatient (CLI) | payer MEDICARE, MEDICAID, SELFPAY ==
[2024-08-20] MEDS: 0.9 % SODIUM CHLORIDE 50 ML 100 ML IV (13:57)
[2024-08-20] MEDS: ERTAPENEM SODIUM 1 GM in 0.9 % SODIUM CHLORIDE 50 ML IV (13:57)
[2024-08-20 14:00] VITALS: BP 130/58; PULSE 68; RESP 18; O2SAT 96
[2024-08-20 14:49] VITALS: BP 125/56; PULSE 62; RESP 18; O2SAT 97
== END 2024-08-20 14:49 | disposition home or self-care (01) ==
LOC: INF 13:47
PROVIDERS: PCP Nurse Practitioner; Visit Provider Internal Medicine Adolescent Medicine
DX: N39.0 Urinary tract infection, site not specified (principal); Z16.12 Extended spectrum beta lactamase (ESBL) resistance
CPT/HCPCS: 96365; J1335

== ENCOUNTER 2024-08-21 13:35 | Outpatient (CLI) | payer MEDICARE, MEDICAID, SELFPAY ==
[2024-08-21] MEDS: SODIUM CHLORIDE 0.9% 10ML FLUSH SYRINGE 10 ML IV (13:59)
[2024-08-21 14:00] VITALS: BP 109/53; PULSE 78; RESP 16; TEMP 36.7; O2SAT 98
[2024-08-21] MEDS: ERTAPENEM SODIUM 1 GM in 0.9 % SODIUM CHLORIDE 50 ML IV (14:00)
[2024-08-21] MEDS: 0.9 % SODIUM CHLORIDE 50 ML 25 ML IV (14:00)
[2024-08-21 14:43] VITALS: BP 106/69; PULSE 75; RESP 18; TEMP 36.7; O2SAT 98
== END 2024-08-21 14:45 | disposition home or self-care (01) ==
LOC: INF 13:36
PROVIDERS: PCP Nurse Practitioner; Visit Provider Internal Medicine Adolescent Medicine
DX: N39.0 Urinary tract infection, site not specified (principal)
CPT/HCPCS: 96365; J1335

== ENCOUNTER 2024-08-22 13:30 | Outpatient (CLI) | payer MEDICARE, MEDICAID, SELFPAY ==
[2024-08-22 13:42] VITALS: BP 102/68; PULSE 91; RESP 18; TEMP 36.4; O2SAT 98
[2024-08-22] MEDS: ERTAPENEM SODIUM 1 GM in 0.9 % SODIUM CHLORIDE 50 ML IV (13:42)
[2024-08-22] MEDS: SODIUM CHLORIDE 0.9% 10ML FLUSH SYRINGE 10 ML IV (13:48)
[2024-08-22 14:05] VITALS: BP 103/72; PULSE 85; RESP 18; O2SAT 98
== END 2024-08-22 14:05 | disposition home or self-care (01) ==
LOC: INF 13:30
PROVIDERS: PCP Nurse Practitioner; Visit Provider Internal Medicine Adolescent Medicine
DX: N39.0 Urinary tract infection, site not specified (principal)
CPT/HCPCS: 96365; J1335

== ENCOUNTER 2024-08-23 13:41 | Outpatient (CLI) | payer MEDICARE, MEDICAID, SELFPAY ==
[2024-08-23 13:51] VITALS: BP 100/52; PULSE 80; RESP 18; TEMP 36.6; O2SAT 98; BMI 36.4
[2024-08-23] MEDS: ERTAPENEM SODIUM 1 GM in 0.9 % SODIUM CHLORIDE 50 ML IV (14:00)
[2024-08-23 14:26] VITALS: BP 105/56; PULSE 72; RESP 18; TEMP 36.6; O2SAT 98
[2024-08-23] MEDS: NEOSPORIN OINTMENT 0.9GM UDP 1 EACH TP (14:34)
[2024-08-23] MEDS: SODIUM CHLORIDE 0.9% 50ML BAG 50 ML IV (14:35)
[2024-08-23] MEDS: SODIUM CHLORIDE 0.9% 10ML FLUSH SYRINGE 10 ML IV (14:35)
== END 2024-08-23 14:26 | disposition home or self-care (01) ==
LOC: INF 13:43
PROVIDERS: PCP Nurse Practitioner; Visit Provider Internal Medicine Adolescent Medicine
DX: N39.0 Urinary tract infection, site not specified (principal); Z16.12 Extended spectrum beta lactamase (ESBL) resistance
CPT/HCPCS: 96365; J1335

== ENCOUNTER 2024-09-07 07:23 | Day surgery (SDC) | payer MEDICARE, MEDICAID, SELFPAY ==
[2024-09-06 11:26] VITALS: BMI 36.3
[2024-09-07 07:48] VITALS: BP 135/62; PULSE 87; RESP 18; TEMP 36.1; O2SAT 91
[2024-09-07 08:03] LABS: POC Glucose,Bedside 120 (70-110)
--- NOTE | 2024-09-07 08:07 | EXP.ANES.CKL ---
[facility] Disclaimer: The information contained in this section may have been updated after the patient was seen, as this information can be updated by other users. Medical History Pre-op evaluation Guadarrama catheter in place Diabetes History of gastroesophageal reflux (GERD) Chest pain Stenosis of carotid artery History of coronary angiogram Coronary aneurysm Myxoma of heart Cardiac mass KALYN (obstructive sleep apnea) Body mass index (BMI) of 40.1 to 44.9 in adult Dyspnea Fatigue Abnormal stress test Typical angina HLD (hyperlipidemia) HTN (hypertension) CAD (coronary artery disease) AAA (abdominal aortic aneurysm) Surgical History S/P AAA repair History of cardiac cath History of cholecystectomy Hx of CABG S/P CABG x 5 Family History Other Cancer Coronary artery disease Diabetes Hypertension Social History Smoking Status: Former smoker alcohol intake: current alcohol intake frequency: 3 or more drinks per day substance use type: denies use current occupational status: retired Travel in the last 8 weeks: Inside the [place] household members: spouse housing: house Have you lived/traveled outside [place] in past 30 days?: No Contact w/someone who lives/traveled outside US past 30 days?: No Exposure to someone with infectious disease in past 14 days?: No Do you have a fever (greater than 100.4 F or 38 C)?: No Have you tested positive for COVID-19: No Exposed to someone with COVID-19 in past 14 days?: No Do you have a sore throat?: No Do you have a cough?: No Do you have any weakness?: No Are you experiencing any nausea/vomitting?: No Do you have any diarrhea?: No Are you experiencing any unusual bleeding?: No Do you have any muscle aches/pain?: No Do you have any abdominal pain?: No Are you experiencing loss of taste or smell?: No [facility] Anesthesia Checklist Patient Identification Patient Identification: Arm Band Structural Data Admitted From: Home Planned Operative Procedure/s: Colonoscopy Consent for Planned Operative Procedure(s) Verified: Yes Verified Documents: Surgical Consent and History and Physical NPO Status Verified Time NPO: 00:00 Additional verifications Anesthesia Reactions: No Airway Assessment Mallampati Score:: Class II C-Spine Mobility Assessed: Yes TMJ Mobility Assessed: Yes Dentition: Good Dentition Neurological Assessment Level of Consciousness: Awake, Alert and Appropriate Anesthesia Plan Anesthesia Risk discussed: Yes Anesthesia Plan: Verified ASA Class: III Anesthesia Type: MAC
--- NOTE | 2024-09-07 08:09 | HMH.SCOPE ---
Procedure: Date: 09/07/24 Patient Date of :: 1950 Procedure Performed:: Total colonoscopy with numerous polypectomy Indications:: Patient is a 74-year-old male with history of coronary artery disease with previous CABG x 5, abdominal aortic aneurysm status postrepair, carotid stenosis, coronary aneurysm, obstructive sleep apnea, cardiac myxoma, hypertension, hyperlipidemia. He currently has an indwelling Guadarrama catheter for urinary retention. Referred for colonoscopy. Patient states that he did have a colonoscopy a few years ago at this facility. However I am unable to locate any record of this. . Performing Provider:: Praveen Watt MD Referring Provider:: Va Nova Sedation:: MAC sedation Procedure:: Patient history was obtained and appropriate physical examination was performed. Patient's medications and allergies were reviewed. Informed consent was obtained after explaining the benefits, alternatives, and risks of the procedure including, but not limited to, bleeding, perforation, missed lesions, and adverse reaction to anesthesia medications. Patient was transported to endoscopy procedure room. Patient was connected to monitoring devices. Throughout the procedure the patient's blood pressure, pulse, and oxygen saturations were monitored continuously. Patient identification and planned procedure were verified by the staff. Patient was positioned in lateral decubitus position. Digital anorectal exam was performed. Variable stiffness Olympus colonoscope was inserted and advanced under direct visualization to the cecum. Adequacy of the colonic preparation was noted. The colonoscope was unable to be advanced into the terminal ileum. The colonoscope was then slowly withdrawn while carefully examining the color, texture, anatomy, and integrity of the mucosoa circumferentially. Within the rectum retroflexion was performed. Colonoscope was then withdrawn. Impression: Advancement of the colonoscope to the cecum was somewhat difficult due to tortuosity and redundancy of the sigmoid colon. Ultimately the ileocecal valve and appendiceal orifice were clearly identified. There was a moderate adenomatous appearing polyp in the cecum removed with hot snare. In the ascending colon distal to the ileocecal valve there was a sessile irregular adenomatous polyp removed with hot snare. At the hepatic flexure there was a moderate adenomatous polyp removed with hot snare. In the transverse colon there was a diminutive possible early polyp removed with biopsy forceps. In the descending colon there were a couple of moderate adenomatous polyps removed with hot snare. Within the rectum there were rectal varicosities. . Findings:: Multiple complex adenomatous appearing polyps as noted above Rectal varicosities Recommendations:: Follow-up colonoscopy pending pathology. Likely 2 or 3 years Complications:: None immediately apparent Estimated blood obtained (mL): 2 Colonoscopy Component Colonoscopy Component Was a colonoscopy performed during today's procedure?: Yes Recommended follow up colonoscopy of at least 10 years?: No If no, follow up colonoscopy recommended in ___ years?: See above Reason for not recommending >/= 10 yr follow-up interval?: See above
[2024-09-07 08:21] VITALS: O2SAT 92
[2024-09-07 09:11] VITALS: BP 102/64; PULSE 84; RESP 18; TEMP 36.1; O2SAT 95
[2024-09-07 09:21] VITALS: BP 101/63; PULSE 84; RESP 18; O2SAT 95
[2024-09-07 09:31] VITALS: BP 128/74; PULSE 79; RESP 18; O2SAT 96
[2024-09-07 09:41] VITALS: BP 130/73; PULSE 76; RESP 18; O2SAT 95
== END 2024-09-07 09:45 | disposition home or self-care (01) ==
PROVIDERS: PCP Nurse Practitioner; Visit Provider Surgery
PROC: 0DJD8ZZ Inspection of Lower Intestinal Tract, Via Natural or Artificial Opening Endoscopic (ICD-10-PCS; CPT 45380; principal; 2024-09-07 08:30)
DX: Z12.11 Encounter for screening for malignant neoplasm of colon (principal); D12.2 Benign neoplasm of ascending colon; D12.0 Benign neoplasm of cecum; D12.4 Benign neoplasm of descending colon; D12.3 Benign neoplasm of transverse colon; I25.10 Atherosclerotic heart disease of native coronary artery without angina pectoris; Z95.1 Presence of aortocoronary bypass graft; G47.33 Obstructive sleep apnea (adult) (pediatric); I10 Essential (primary) hypertension; E78.5 Hyperlipidemia, unspecified; R33.9 Retention of urine, unspecified; I86.8 Varicose veins of other specified sites
CPT/HCPCS: 45380; 45385; 82962; 88305; J2704

== ENCOUNTER 2024-10-12 10:30 | Outpatient (CLI) | payer MEDICARE, MEDICAID, SELFPAY ==
--- OUTSIDE RECORDS SUMMARY | 2024-10-12 10:33 | XMS_ITS | Continuity of Care Document ---
Author Organization [facility], [place], operated by [facility] Address [address] [place] [address] Care Team Providers Care Play Therapist Name Role Phone FAUSTINO AMPARO Primary Care Provider Assessment No assessment recorded. Plan of Treatment Reminders Order Date Submit Date Provider Last Modified By Organization Details Last Modified Time Details Appointments SURGERY 30 2024 03:00P M AMBERLY WRIGHT MD Not available Not available Not available OV NEW 60 2024 01:00P M SOFIA ZAIDI MD Not available Not available Not available Lab None recorded . Referral None recorded . Procedures None recorded . Surgeries None recorded . Imaging None recorded . Medication Orders None recorded . Patient TargetsNo targets recorded. Patient InstructionsNo instructions recorded. Reason for Referral None Reported. Problems Name Problem SNOMED Code Status Onset Date Resolution Date Notes Provider Name and Address Organization Details Recorded Time Retention of urine [id number] Active Julius WRIGHT MD [address], [place], [address] , [facility] & [place] 5 15:05:27 Prostate specific antigen above reference range 019182047 Active MD [address], [place], [address] , [facility] & [place] 5 15:05:21 Malignant tumor of prostate 989363291 Active MD [address], [place], [address] , [facility] & [place] 5 12:04:35 Problem Notes None recorded. Procedures Surgical History Date Name Laterality Status Provider Name and Address Organization Details Recorded Time 5 Prostate Biopsy completed AMBERLY WRIGHT MD [address], [facility] [address], [facility] & [place] 09/28/2024 09:57:43 5 Cystoscopy-Ma le completed AMBERLY WRIGHT MD [address], [facility] [address], [facility] & [place] 09/28/2024 09:58:50 5 TRUS completed AMBERLY WRIGHT MD [address], [facility] [address], [facility] & [place] 09/28/2024 09:58:17 5 CRANE MECHANIC Test completed Liyah Andersonarrez [facility] & [place] 09/13/2024 14:45:35 5 CRANE MECHANIC Test completed Christina Asher NP, [address], [facility] [address], [facility] & [place] 07/30/2024 14:57:54 Imaging Results None recorded. Procedure Notes None recorded. Medical Equipment None Reported. Allergies No known drug allergies Medications Name Sig Start Date Stop Date Status Note LastModified by Organization Details LastModified Time losartan 50 mg tablet TAKE 1 TABLET BY MOUTH TWICE DAILY active Not Available Not Available No t Available Hydromet 5 mg-1.5 mg/5 mL oral solution TAKE 5 MLS BY MOUTH EVERY 6 HOURS NEEDED FOR 6 DAYS active Not Available Not Available No t Available furosemid e 40 mg tablet TAKE 1 TABLET BY MOUTH TWICE DAILY active Not Available Not Available No t Available methocarb michael 500 mg tablet TAKE 2 TABLETS BY MOUTH EVERY 8 HOURS NEEDED FOR MUSCLE PAIN OR SPASM active Not Available Not Available No t Available potassium chloride ER 10 mEq capsule,e xtended release TAKE 1 CAPSULE BY MOUTH TWICE DAILY active Not Available Not Available No t Available oxybutyni n chloride ER 10 mg tablet,ex tended release 24 hr TAKE 1 TABLET BY MOUTH DAILY active Not Available Not Available No t Available ibuprofen 800 mg tablet TAKE 1 TABLET BY MOUTH EVERY 8 HOURS WITH FOOD NEEDED FOR PAIN OR SWELLING active Not Available Not Available No t Available metoprolo l succinate ER 50 mg tablet,ex tended release 24 hr TAKE 1 TABLET BY MOUTH DAILY active Not Available Not Available No t Available hydrocodo ne 5 mg-acetam inophen 325 mg tablet TAKE 1 TABLET BY MOUTH EVERY 12 HOURS NEEDED FOR PAIN. ONLY TAKE AFTER YOUR METHOCAR BAMOL AND IBUPROFE N ARE NOT SATISFAC TORY 08/02 completed Not Available Not Available Not Available ondansetr on HCl 4 mg tablet TAKE 1 TABLET BY MOUTH EVERY 6 HOURS FOR 10 DAYS active Not Available Not Available No t Available prednison e 20 mg tablet TAKE 2 TABLETS BY MOUTH ONCE DAILY IN AM WITH FOOD FOR 6 DAYS active Not Available Not Available No t Available ciproflox acin 500 mg tablet TAKE 1 TABLET BY MOUTH EVERY 12 HOURS FOR 7 DAYS active Not Available Not Available No t Available sulfameth oxazole 800 mg-trimet hoprim 160 mg tablet TAKE 1 TABLET BY MOUTH EVERY 12 HOURS FOR 3 DAYS active Not Available Not Available No t Available tamsulosi n 0.4 mg capsule TAKE 1 CAPSULE BY MOUTH EVERY DAY 30 MINUTES AFTER THE SAME MEAL active Not Available Not Available No t Available metformin 1,000 mg tablet TAKE 1 TABLET BY MOUTH TWICE DAILY WITH MEALS active Not Available Not Available No t Available losartan 25 mg tablet TAKE 1 TABLET BY MOUTH DAILY active Not Available Not Available No t Available pramipexo le 0.25 mg tablet TAKE 1 TABLET BY MOUTH EVERY NIGHT AT BEDTIME FOR RESTLESS LEG SYNDROME active Not Available Not Available No t Available omeprazol e 20 mg capsule,d elayed release TAKE 2 CAPSULES BY MOUTH DAILY active Not Available Not Available No t Available gentamici n 40 mg/mL injection solution Take 2 mL by injectio n route. 2024 active pt tolerate d IM injectio n well at the time it was given. Medicati on was provided by office. Not Available Not Available Not Available cefdinir 300 mg capsule TAKE 1 CAPSULE BY MOUTH TWICE DAILY FOR 10 DAYS active Not Available Not Available No t Available fluticaso ne propionat e 50 mcg/actua tion nasal spray,jason pension ADMINIST ER 2 SPRAYS INTO EACH NOSTRIL ONCE DAILY active Not Available Not Available No t Available finasteri de 5 mg tablet TAKE 1 TABLET BY MOUTH DAILY active Not Available Not Available No t Available spironola ctone 50 mg tablet TAKE 1 TABLET BY MOUTH DAILY active Not Available Not Available No t Available azithromy elis 500 mg tablet TAKE 1 TABLET BY MOUTH ONCE DAILY FOR 5 DAYS active Not Available Not Available No t Available ezetimibe 10 mg tablet TAKE 1 TABLET BY MOUTH DAILY active Not Available Not Available No t Available rosuvasta tin 20 mg tablet TAKE 1 TABLET BY MOUTH EVERY DAY active Not Available Not Available No t Available BD Ultra-Fin e Mini Pen Needle 31 gauge x 3/16 USE 1 NEEDLE DAILY DIRECTED active Not Available Not Available No t Available Symbicort 80 mcg-4.5 mcg/actua tion HFA aerosol inhaler INHALE 2 PUFFS BY MOUTH TWICE DAILY active Not Available Not Available No t Available Farxiga 10 mg tablet TAKE 1 TABLET BY MOUTH EVERY DAY active Not Available Not Available No t Available Farxiga 5 mg tablet TAKE 1 TABLET BY MOUTH DAILY active Not Available Not Available No t Available Accu-Chek Guide test strips USE DIRECTED TO TEST ONCE DAILY active Not Available Not Available No t Available Toujeo Max U-300 SoloStar 300 unit/mL (3 mL) subcutane ous insulin pen INJECT 40 UNITS UNDER THE SKIN EVERY NIGHT AT BEDTIME active Not Available Not Available No t Available OneTouch Delica Plus Lancet 33 gauge USE DIRECTED ONCE DAILY active Not Available Not Available No t Available Ozempic 0.25 mg or 0.5 mg (2 mg/3 mL) subcutane ous pen injector INJECT 0.5 MG UNDER THE SKIN ONCE WEEKLY ON THE SAME DAY EACH WEEK active Not Available Not Available No t Available OneTouch UltraSoft 2 Lancet 30 gauge USE ONE LANCET DAILY DIRECTED active Not Available Not Available No t Available Vitals None Recorded Social History None recorded. Functional Status None recorded. Mental Status None recorded. Family History Nothing Reported. Medical History No medical history recorded. Past Encounters Encounter ID Performer Location Encounter Start Date Encounter Closed Date Diagnosis/Indication Diagnosis SNOMED-CT Code Diagnosis ICD10 Code Diagnosis Note [id number] AMBERLY WRIGHT MD [facility] [place] [address] 09/13/2024 14:06:21 09/13/2024 15:34:40 Prostate specific antigen above reference range [id number] R97.20 Retention of urine 06885 4002 R33.9 we will schedule for cystoscopy and prostate biopsy in office. Assuming no cancer is present, we will likely need to proceed with surgical interventi on as he was failed multiple voiding trials. Beasley catheter will be exchanged today. [id number] AMBERLY WRIGHT MD [facility] [place] [address] 09/28/2024 09:15:18 09/28/2024 10:25:23 Prostate specific antigen above reference range 111793038 R97.20 Patient tolerated procedure well. He will follow up in 1 week for results. He was reminded to complete oral antibiotic therapy. He was instructed to contact our office or go to the ER if he experience s fever greater than 100.5?? F or chills. Retention of urine 65101 4002 R33.9 A Beasley catheter replaced after procedure. Health Concerns Section Related Observation LastModified by Organization Detai ls LastModified Time None Recorded Concern Status LastModified by Organization Details LastModified Time None Recorded Payers Encounter Date Sequence Insurance Name Policy Number Policy Rose Covered Member ID Rose Member ID Guarantor Name 09/28/2024 1 [facility] (MEDICARE REPLACEMENT/A DVANTAGE - HMO) [id number] Thierno Reyna [id number] Thierno Reyna Notes Date Note Type Note Provider Name and Address Organization Details Recorded Time 09/28/2024 text/html 09/28/24 [id number] returns to my office for cystoscopy, TRUS Bx. -- 09/14/[id number]-[id number]- male returns to clinic for voiding trail --------08/02/2571-y [id number] returns to clinic for voiding trail. 250 mL was placed in the bladder today and was unsuccessful-------- 5Pt here for CRANE MECHANIC test ---------07/24/2571 renata presents to clinic for evaluation of urinary retention. Patient reports he went to [facility] last with inability to urinate. Beasley catheter was placed and approximately 2 L was returned. Patient reports last Tuesday started experiencing some constipation however this has cleared. Reports prior to this he has never had to have a catheter placed other than after his CABG in 2009. Patient reports prior to he was having some urinary urgency / frequency. Patient has been on tamsulosin 0.4 mg daily for approximately 1 year started per his PCP. Patient reports he has also been on oxybutynin 10 mg daily for the past 6 months. Since catheter has been in place he denies any gross hematuria. CT scan of abdomen pelvis with contrast on 025 CT revealed multiple Bosniak 1 renal cystic lesions identified as homogeneous and fluid density with no septations or calcifications having while smooth and then. Largest cyst measures 5.7 cm, no follow-up recommended. 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 Beasley catheter terminates within the bladder. Inflammatory stranding of the urinary bladder wall compatible with cystitis. Pt states on Tuesday started experiencing lower abdominal pressure and went back to the ER and beasley was flushed.H/o CAD, CABG x 5 in 2009, AAA surgery, DM, HTN, and HLD. 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 08/24/24 PSA 10.2 (beasley catheter in place)07/30/24: CRANE MECHANIC- Pressure over basline [id number], Peak detrusor pressure 69spK45, Peak Vaslsalva pressure [id number]/19/2024: CT scan of abd/pelvis with contrast revealed multiple Bosniak 1 renal cystic lesions identified as homogeneous and fluid density with no septations or calcifications having while smooth and then. Largest cyst measures 5.7 cm, no follow-up recommended. 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 Beasley catheter terminates within the bladder. Inflammatory stranding of the urinary bladder wall compatible with cystitis. WBC 13.8, Hgb 15.7, Hct 47.4, BUN 25, Creat 1.00, Glucose 222. UA pH 6.0, SG 1.010, glucose 3+, trace blood, neg leuks, and neg nitratesJune 2023 PSA 7.51Edbianca Reyna is a 74-year-old male who presents for a follow-up visit. He has been experiencing difficulty urinating despite being on medication. His recent PSA level was 10.2, which was checked approximately three weeks ago while he had a catheter in place. The elevated PSA level is not of significant concern due to the presence of the catheter. However, a PSA level of 7.5 was noted in November of last year, which is elevated and raises the possibility of prostate cancer. Thierno has been unable to urinate normally, and surgical procedures are being considered to address this issue.Thierno is currently taking an 81 mg aspirin daily, prescribed by his heart doctor, Dr. Marcos. He recently had a total endoscopy done last Tuesday at [facility] and was cleared by Dr. Marcos's office for the procedure. Thierno has a history of almost becoming septic and was treated with antibiotics. He is also taking finasteride, which was prescribed to shrink his prostate. AMBERLY WRIGHT MD [address], [place], [address], [facility] & [place] 09/28/2024 09:59:54
--- OUTSIDE RECORDS SUMMARY | 2024-10-12 10:33 | XMS_ITS | Continuity of Care Document ---
Author Organization [facility] Phone Care Team Providers Care Instrument/Control Technician Name Role Phone ART, AMBERLY Arguelles Unavailable ART, AMBERLY S Primary Care KYLE, AMBERLY S Primary Attending ART, AMBERLY S Admitting RESULTS Patient: KIERA GUNN Date of : 1950 11 LABORATORY RESULTS Information is not available LABORATORY NARRATIVE RESULTS Information is not available RADIOLOGY RESULTS Information is not available PATHOLOGY NARRATIVE RESULTS ORDER 100: PATHOLOGY SPECIME N (LOINC: 70824-7) ORDER DATE: September 28, 2024 2:57:00 PM [facility] Specimen Source: PATH Specimen Type: Refer to [facility] ology laboratory PERFORMING LAB: [address] [id number] Final Result Date: October 01, 2024 9:19:00 PM [place] TEST: PATHOLOGY SPECIMEN MICROBIOLOGY RESULTS No Micro Labs/Results Exist for Patient BLOOD ADMIN RESULTS Information is not available MEDICATIONS HOME MEDICATIONS Status RXNORM NDC Medication Dose Route Frequency Dates Comments Reported By Updated By Drug Treatment Unknown DISCHARGE MEDICATIONS Status RXNORM NDC Medication Dose Route Frequency Dates Comments Physician Updated By No Discharge Medication Info rmation Available INPATIENT MEDICATIONS Status RXNORM NDC Medication Dose Route Frequency Rat e Quantity Dates Comments Physician Updated By No Inpatient Medication Info rmation Available SOCIAL HISTORY SOCIAL HISTORY SNOMED-CT Social History Element Description Effective Dates Offered Cessation Comment UpdatedBy [id number] Smoking Status Unknown If Ever Smoked SOCIAL HISTORY - Gender Sex: Male SOCIAL HISTORY - Status : status i nformation is not available Intention in Next Year: intention information is not available SOCIAL HISTORY - Sexual Behavior Sexual Orientation Gender Identity SNOMED-CT Description SNO MED -CT Description Activity Level No of Partners Partner Type UpdatedBy Information is not available HEALTH CONCERNS Problems Concern Status Health Concern problem infor mation not available. Smoking Status Status Years Used Consumed packs p er day Health Concern smoking histo ry information not available. Family History Concern Status Health Concern family histor y information not available. ENCOUNTERS ENCOUNTER INFORMATION Reason for Visit LAB DROP Admission September 28, 2024 2:48:00 PM [facility] [address] [facility] [address] Discharge September 28, 2024 2:48:00 PM [place] DIS CHARGED TO HOME OR SELF CARE ENCOUNTER DIAGNOSES Notes information is not freddy ilable. Code System Diagnosis Onset Date Diagnosis information is not available. 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 Role on Team Status Start Date End Date Update d By KYLE FISCHER Referring normal September 28 4:00:00 AM [facility] September 28, 2024 2:48:00 PM [facility] [id number] on September 28, 2024 2:54:31 PM [facility] KYLE FISCHER Attending normal September 28 4:00:00 AM [facility] September 28, 2024 2:48:00 PM [facility] [id number] on September 28, 2024 2:54:31 PM [facility] KYLE FISCHER Admitting normal September 28 4:00:00 AM [facility] September 28, 2024 2:48:00 PM [facility] [id number] on September 28, 2024 2:54:31 PM [facility] KYLE FISCHER PCP normal September 28 4:00:00 AM [facility] September 28, 2024 2:48:00 PM [facility] [id number] on September 28, 2024 2:54:31 PM [facility]
--- OUTSIDE RECORDS SUMMARY | 2024-10-12 10:33 | XMS_ITS | Continuity of Care Document ---
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 PLAN: 1. Ordered a PSMA scan to ensure the cancer has not spread to other parts of the body. 2. Referred the patient to Dr. Ron, a radiation oncologist, for further evaluation and treatment planning. 3. Discussed the possibility of performing a bipolar TURP or plasma button procedure to open up the prostate and improve urination. This procedure would be done under anesthesia, with no incisions, and the patient would likely go home the same day with a catheter in place for about three days. I reviewed the risks of the procedure including bleeding, infection, injury to adjacent structures, urethral stricture, bladder neck contracture, and the risk of anesthesia. While his BRIQUETTER OPERATOR Test numbers are encouraging, I explained that I can not guarantee that surgery will result in spontaneous voiding. He verbalized his understanding and wishes to proceed. 4. Planned to coordinate the PSMA scan, referral to Dr. Ron, and the TURP procedure simultaneously to address both the cancer and the urinary issues. 5. Informed the patient that the PSMA scan would be done at [facility] in [place] and that the referral to Dr. Ron would be placed immediately. [email or web address] Not available 10/09/2024 12:48:41 Plan of Treatment Reminders Order Date Submit Date Provider Last Modified By Organization Details Last Modified Time Details Appointments SURGERY 30 2024 03:00P M ALFRED WRIGHT MD Not available Not available Not available OV NEW 60 2024 01:00P M SOFIA ETIENNE MD Not available Not available Not available Lab None recorded. Referral radiation oncologis t referral 2024 025 NOEMI Etienne MD, [address] [facility], [place], [address], 10/09/2024 12:05:59 Procedures None recorded. Surgeries transuret hral resection of prostate (SURG) 2024 025 [email or web address] Not available 10/09/2024 14:42:37 Imaging PET-CT, skull base to mid-thigh scan - [place] 68 PSMA scan [facility] [address] [place] [address] [place], [address], 10/09/2024 12:35:19 Medication Orders None recorded. Patient TargetsNo targets recorded. Patient InstructionsNo instructions recorded. Reason for Referral Referring Physician: Alfred Wan rt, Urology, Encounter Date: 10/09/2024 Problems Name Problem SNOMED Code Status Onset Date Resolution Date Notes Provider Name and Address Organization Details Recorded Time Retention of urine 302199935 Active MD [address], [place], [address] , [place] - [facility] - [place] & [place] 5 15:05:27 Prostate specific antigen above reference range 207023922 Active MD [address], [place], [address] , [place] - [facility] - [place] & [place] 5 15:05:21 Malignant tumor of prostate 122477378 Active MD [address], [place], [address] , [place] - [facility] - [place] & [place] 5 12:04:35 Problem Notes None recorded. Procedures Surgical History Date Name Laterality Status Provider Name and Address Organization Details Recorded Time 5 Prostate Biopsy completed ALFRED WRIGHT MD [address], [place], [address], [facility] - [facility] & [place] 09/28/2024 09:57:43 5 Cystoscopy-Ma le completed MD [address], [place], [address], [facility] - [facility] & [place] 09/28/2024 09:58:50 5 TRUS completed ALFRED WRIGHT MD [address], [place], [address], [facility] - [facility] & [place] 09/28/2024 09:58:17 5 BRIQUETTER OPERATOR Test completed Liyah Garcia [facility] & [place] 09/13/2024 14:45:35 5 BRIQUETTER OPERATOR Test completed Christina Asher NP, [address] , [place], [address], [facility] - [facility] & [place] 07/30/2024 14:57:54 Imaging Results None recorded. Procedure [...] Available Not Available No t Available Vitals Date Recorded Body weight Oxygen saturation Oxygen saturation in Arterial blood by Pulse oximetry Heart rate Systolic blood pressure Diastolic blood pressure Provider Name and Address Organization Details Last Updated DateTime 5 676017. 1 g 98 % 98 % 77 /min 134 mm[Hg] 76 mm[Hg] Liyah Burnetteno Radha [facility] & [place] 5 11:32:29 Social History None recorded. Functional Status None recorded. Mental Status None recorded. Family History Nothing Reported. Medical History No medical history recorded. Past Encounters Encounter ID Performer Location Encounter Start Date Encounter Closed Date Diagnosis/Indication Diagnosis SNOMED-CT Code Diagnosis ICD10 Code Diagnosis Note [id number] ALFRED WRIGHT MD [facility] [address] [facility] [address] [place] [address] 09/13/2024 14:06:21 09/13/2024 15:34:40 Prostate specific antigen above reference range 198290042 R97.20 Retention of urine 63923 4002 R33.9 we will schedule for cystoscopy and prostate biopsy in office. Assuming no cancer is present, we will likely need to proceed with surgical interventi on as he was failed multiple voiding trials. Beasley catheter will be exchanged today. [id number] ALFRED WRIGHT MD [facility] [address] [facility] [address] [place] [address] 09/28/2024 09:15:18 09/28/2024 10:25:23 Prostate specific antigen above reference range 628540481 R97.20 Patient tolerated procedure well. He will follow up in 1 week for results. He was reminded to complete oral antibiotic therapy. He was instructed to contact our office or go to the ER if he experience s fever greater than 100.5?? F or chills. Retention of urine 39593 4002 R33.9 A Beasley catheter replaced after procedure. [id number] ALFRED WRIGHT MD [facility] 00 [address] [facility] [address] [place] [address] 10/09/2024 11:18:09 10/09/2024 12:26:02 Retention of urine 498857017 R33.9 Malignant tumor of prostate [id number] C61 Health Concerns Section Related Observation LastModified by Organization Detai ls LastModified Time None Recorded Concern Status LastModified by Organization Details LastModified Time None Recorded Payers Encounter Date Sequence Insurance Name Policy Number Policy Rose Covered Member ID Rose Member ID Guarantor Name 10/09/2024 1 [facility] (MEDICARE REPLACEMENT/A DVANTAGE - HMO) GUILLE Hectorbianca Beyer Reyna [id number] Thierno Reyna Notes Date Note Type Note Provider Name and Address Organization Details Recorded Time 10/09/2024 text/html 10/09/24 CC: [id number] returns to my office for TRUS Bx results Thierno Reyna is a 74-year-old male who presents for a follow-up visit. He has been experiencing issues since his recent procedure, including a little blood for a day or two, which he was informed is normal. He still has a catheter in place. During the visit, it was discussed that a significant amount of cancer was found in his prostate. Out of the 12 cores taken, 11 showed cancer, and even the one core without cancer had atypical cells. The prostate cancer is high-volume and high-risk, with [place] scores of 4+4 and 4+3, indicating aggressive cancer. The percentage of cancer involvement in the cores was also high, with many cores being 100% cancerous. 09/28/24 [id number] returns to my office for cystoscopy, TRUS Bx. Thierno Reyna is a 74-year-old male who presents [...] a total endoscopy done last Tuesday at [facility] and was cleared by Dr. Marcos's office for the procedure. Thierno has a history of almost becoming septic and was treated with antibiotics. He is also taking finasteride, which was prescribed to shrink his prostate. 09/14/25715956-xdtp-lvp- male returns to clinic for voiding trial --------08/02/2571-y [id number] returns to clinic for voiding trail. 250 mL was placed in the bladder today and was unsuccessful -- 07/30/24Pt here for BRIQUETTER OPERATOR test ----- 07/24/2571 renata presents to clinic for evaluation of urinary retention. Patient reports he went to [facility] last with inability to urinate. Beasley [...] scan of abdomen pelvis with contrast on 07/19/2024 CT revealed multiple Bosniak 1 renal cystic lesions identified as homogeneous and fluiddensity with no septations or calcifications having while [...] AAA surgery, DM, HTN, and HLD. 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 10/01/24 TRUS Bx: R LB 4+4- 75%, R LA 4+4 100%, RB 4+3 100%, RM 4+3 100%, RA 4+4 100%, LLB 4+3 100%, LLM 4+4 100%, LLA 4+4 50%, L B 4+3 100%, LM 4+4 75%, LA 4+3 100%; vol 25.5 cc 08/24/24 PSA 10.2 (beasley catheter in place)07/30/24: BRIQUETTER OPERATOR- Pressure over basline [id number], Peak detrusor pressure 30iqO89, Peak Vaslsalva pressure [id number]/19/2024: CT scan of abd/pelvis with contrast revealed [...] neg leuks, and neg nitratesJune 2023 PSA 7.51 ALFRED WRIGHT MD [address] , [place], [address], [place] - [facility] - [place] & [place] 10/09/2024 12:48:53
[2024-10-12 11:01] LABS: Albumin Level 4.3 g/dl (3.5-5.0); Chloride 100 mmol/L (98-107); Sodium 136 mmol/L (136-145)
[2024-10-12 11:02] LABS: Potassium 4.5 mmoL/L (3.5-5.1)
[2024-10-12 11:04] LABS: Alanine Aminotransferase 20 U/L (12-78); Albumin/Globulin Ratio 1.2 (1.1-1.8); Alkaline Phosphatase 60 U/L (38-126); Anion Gap 14.5 mEq/L (5-15); Aspartate Amino Transferase 31 U/L (17-59); Blood Urea Nitrogen 20 mg/dl (9-20); Carbon Dioxide 26 mmol/L (22.0-30.0); Estimated Glomerular Filt Rate 83 ml/min (>60); GFR (African American) 100 ML/MIN (>60); Globulin 3.6 g/dL (1.3-3.2); Total Protein,Serum 7.9 g/dl (6.3-8.2)
[2024-10-12 11:05] LABS: Calcium 9.5 mg/dl (8.4-10.2); Glucose 124 mg/dl (74-100)
== END 2024-10-12 23:59 | disposition home or self-care (01) ==
LOC: LAB 10:31
PROVIDERS: PCP Nurse Practitioner; Visit Provider Anesthesiology
DX: Z01.818 Encounter for other preprocedural examination (principal)
CPT/HCPCS: 36415; 80053

== ENCOUNTER 2024-10-18 03:02 | Emergency (ER) | payer MEDICARE, MEDICAID, SELFPAY ==
--- NOTE | 2024-10-18 03:11 | ED_ITS ---
Discharge Plan Disposition Patient Disposition: Home, Self-Care Prescriptions Prescriptions: No Action omeprazole 20 mg capsule,delayed release(DR/EC) 20 mg PO BID tamsulosin [Flomax] 0.4 mg capsule 0.4 mg PO DAILY aspirin [Adult Low Dose Aspirin] 81 mg tablet,delayed release (DR/EC) 81 mg PO DAILY Symbicort 80-4.5 mcg/actuation HFA aerosol inhaler 2 puff INHALATION BID fluticasone propionate 50 mcg/actuation spray,suspension 2 spray intranasal DAILY pramipexole 0.25 mg tablet 0.25 mg PO HS Qty: 90 3RF metformin 1,000 mg tablet 1,000 mg PO BIDWMEAL Patient Comments: TAKE 1 TABLET BY MOUTH TWICE DAILY WITH MEALS Rx Instructions: With meals (DME) pen needle, diabetic 31 gauge x 3/16 needle See Rx Instructions .ROUTE .MEDSUPPLY Qty: 1200 Patient Comments: USE 1 NEEDLE DAILY DIRECTED Rx Instructions: As directed sulfamethoxazole-trimethoprim 800-160 mg tablet 1 tab PO metoprolol succinate [Toprol XL] 50 mg tablet extended release 24 hr 50 mg PO DAILY spironolactone 50 mg tablet 50 mg PO DAILY Rx Instructions: TAKE 1 TABLET BY MOUTH DAILY rosuvastatin [Crestor] 20 mg tablet 20 mg PO DAILY potassium chloride 10 mEq capsule, extended release 10 meq PO BID dapagliflozin propanediol [Farxiga] 5 mg tablet 5 mg PO DAILY Patient Comments: TAKE 1 TABLET BY MOUTH DAILY insulin glargine U-300 conc [Toujeo Max U-300 SoloStar] 300 unit/mL (3 mL) insulin pen 40 unit SQ HS Patient Comments: ADMINISTER 40 UNITS UNDER THE SKIN AT BEDTIME Ozempic 0.25 mg or 0.5 mg (2 mg/3 mL) pen injector 0.5 mg SQ WEEKLY Patient Comments: INJECT 0.5 MG UNDER THE SKIN ONCE WEEKLY ON THE SAME DAY EACH WEEK losartan 25 mg tablet 50 mg PO DAILY Patient Comments: TAKE 1 TABLET BY MOUTH DAILY finasteride 5 mg Tablet 5 mg PO DAILY 30 Days Qty: 30 0RF furosemide [Lasix] 40 mg tablet 40 mg PO DAILY Referrals Follow up/Referrals: Va Short APRN [Primary Care Provider] - See instructions Activity Restrictions/Add. Instructions Additional Instructions/Restrictions: Please follow-up with your urologist. Please return to the emergency department if you develop any new or worsening symptoms or become concerned for your health. Clinical Impressions Clinical Impression: Acute urinary retention Instructions Patient Instructions: DI for Urinary Tract Infection (UTI), DI for Urinary Tract Infection in Children Print Language Print Language: Ethiopian Discharge ED Provider: Anthony Boyd General Adult HPI General Chief complaint: Urogenital-Male Stated complaint: cath taken out, unable to urinate Time Seen by Provider: 10/18/24 03:10 History of Present Illness HPI narrative: 74 male with history of intermittent secondary to prostate issues presents for urinary retention. He had a Guadarrama in place for some time and it was removed today. He was able to pee after the Guadarrama was removed and left the clinic appointment. Unfortunately, since that time he has not been able to pee and he has been having worsening pelvic pain and distention. Related Data Home Medications ?Medication ?Instructions ?Recorded ?Confirmed aspirin 81 mg tablet,delayed 81 mg PO DAILY 04/12/19 09/18/24 release (Adult Low Dose Aspirin) budesonide-formoterol HFA 80 2 puff inhalation BID 04/12/19 09/18/24 mcg-4.5 mcg/actuation aerosol inhaler (Symbicort) omeprazole 20 mg capsule,delayed 20 mg PO BID 04/12/19 09/18/24 release tamsulosin 0.4 mg capsule (Flomax) 0.4 mg PO DAILY 04/12/19 09/18/24 metformin 1,000 mg tablet 1,000 mg PO BIDWMEAL 07/15/21 09/18/24 metoprolol succinate 50 mg 50 mg PO DAILY 09/20/22 09/18/24 tablet,extended release 24 hr (Toprol XL) rosuvastatin 20 mg tablet (Crestor) 20 mg PO DAILY 09/20/22 09/18/24 spironolactone 50 mg tablet 50 mg PO DAILY 09/20/22 09/18/24 fluticasone propionate 50 2 spray intranasal DAILY 06/15/23 09/18/24 mcg/actuation nasal spray,suspension dapagliflozin propanediol 5 mg 5 mg PO DAILY 08/16/24 09/18/24 tablet (Farxiga) insulin glargine U-300 conc 300 40 unit SQ HS 08/16/24 09/18/24 unit/mL (3 mL) subcutaneous pen (Toujeo Max U-300 SoloStar) potassium chloride 10 mEq 10 meq PO BID 08/16/24 09/18/24 capsule,extended release semaglutide 0.25 mg or 0.5 mg (2 0.5 mg SQ WEEKLY 08/16/24 09/18/24 mg/3 mL) subcutaneous pen injector (Ozempic) losartan 25 mg tablet 50 mg PO DAILY 08/17/24 09/18/24 furosemide 40 mg tablet (Lasix) 40 mg PO DAILY 09/06/24 09/18/24 pen needle, diabetic 31 gauge x #1,200 ea 09/06/24 09/18/2409/09 sulfamethoxazole 800 1 tab PO 09/18/24 09/18/24 mg-trimethoprim 160 mg tablet Previous Rx's ?Medication ?Instructions ?Recorded pramipexole 0.25 mg tablet 0.25 mg PO HS RLS #90 tabs 12/21/23 finasteride 5 mg tablet 5 mg PO DAILY 30 days #30 tabs 08/17/24 Allergies Allergy/AdvReac Type Severity Reaction Status Date / Time No Known Allergies Allergy Verified 09/18/24 10:10 [facility] Disclaimer: The information contained in this section may have been updated after the patient was seen, as this information can be updated by other users. Medical History Pre-op evaluation Guadarrama catheter in place Diabetes History of gastroesophageal reflux (GERD) Chest pain Stenosis of carotid artery History of coronary angiogram Coronary aneurysm Myxoma of heart Cardiac mass KALYN (obstructive sleep apnea) 12/21/2023 severe KALYN currently doing well on CPAP 14 cm, nasal mask, SAIGE Chew Body mass index (BMI) of 40.1 to 44.9 in adult Advised to work lifestyle modification specifically weight loss. Dyspnea Fatigue Abnormal stress test Typical angina HLD (hyperlipidemia) HTN (hypertension) CAD (coronary artery disease) AAA (abdominal aortic aneurysm) Surgical History S/P AAA repair History of cardiac cath History of cholecystectomy Hx of CABG S/P CABG x 5 Family History Other Cancer Coronary artery disease Diabetes Hypertension Social History Smoking Status: Unknown if ever smoked alcohol intake: current alcohol intake frequency: 3 or more drinks per day substance use type: denies use current occupational status: retired Travel in the last 8 weeks: Inside the [place] household members: spouse housing: house Have you lived/traveled outside US in past 30 days?: No Contact w/someone who lives/traveled outside US past 30 days?: No Exposure to someone with infectious disease in past 14 days?: No Do you have a fever (greater than 100.4 F or 38 C)?: No Have you tested positive for COVID-19: No Exposed to someone with COVID-19 in past 14 days?: No Do you have a sore throat?: No Do you have a cough?: No Do you have any weakness?: No Do you have any diarrhea?: No Are you experiencing any unusual bleeding?: No Do you have any muscle aches/pain?: No Do you have any abdominal pain?: No Are you experiencing loss of taste or smell?: No Other Medical History Have you received the Flu Vaccine for this season: No Have you received the Pneumonia Vaccine: Yes ROS Obtained: Yes All systems reviewed & no additional complaints except as documented Physical Exam General General appearance: alert and in no apparent distress Head Head exam: atraumatic and normocephalic Eye Eye exam: Present normal appearance, PERRL and EOMI ENT ENT exam: Present normal oropharynx and normal external ear exam Neck Neck exam: Present normal inspection and full ROM Chest Chest inspection: Present normal inspection and symmetric chest wall rise; Absent tenderness Respiratory Respiratory exam: Present normal lung sounds bilaterally; Absent respiratory distress Cardiovascular Cardiovascular exam: Present regular rate and normal rhythm Abdominal Exam Abdominal exam: Present soft, distention and tenderness (Suprapubic); Absent guarding Extremities Exam Extremities exam: Present normal inspection; Absent edema or joint swelling Back Exam Back exam: Present normal inspection; Absent tenderness Neurological Exam Neurological exam: Present alert and oriented X3; Absent motor sensory deficit Psychiatric Psychiatric exam: Present normal affect and normal mood Skin Skin exam: Present warm, dry and normal color Lymphatic Lymphatic Findings: no adenopathy Medical Decision Making Medical Records Medical records reviewed: Yes I reviewed the patient's medical records. Screening: Per USPSTF and CDC recommendations, given the prevalence of disease in our region, it is our hospital?s policy to screen for HIV and viral Hepatitis for all patients aged 18 and over and those with ongoing risk factors. Robert Inquiry Pt receiving controlled substance: No Robert was queried for this patient: No Vital Signs: 10/18/24 03:38 10/18/24 04:23 Temperature 98.2 F 98.1 F Temperature Source Oral Pulse Rate 65 Pulse Rate [Right] 70 Respiratory Rate 20 18 Blood Pressure 104/52 L Blood Pressure [Right Arm] 111/64 Blood Pressure Mean [Right Arm] 79 02 Sat by Pulse Oximetry 94 L Oxygen Delivery Method Room Air Room Air Lab Data Lab results reviewed: Yes I reviewed the patient's lab results. Lab Results 10/18/24 03:24: Urine Color Yellow, Urine Appearance Clear, Urine pH 6.5, Ur Specific [place] 1.010, Urine Protein Negative, Urine Glucose (UA) 3+, Urine Ketones Negative, Urine Blood 3+ A, Urine Nitrate Negative, Urine Bilirubin Negative, Urine Urobilinogen 0.2, Ur Leukocyte Esterase Trace, Urine RBC 5-10, Urine WBC Occasional Orders (Tests/Meds): ORDERS Category Date Time Status UA [Urinalysis and Microscopic] Stat Lab 10/18/24 03:24 Completed Medical Decision Narrative: 74-year-old male with history of prostatic hypertrophy, heart, pendant diabetes, hypertension, high blood presents for urinary retention after he had his Guadarrama removed in clinic today.. History was obtained via interactive discussion with patient. On arrival, patient is [afebrile, hemodynamically stable, satting appropriately, alert, oriented x4, GCS 15], moving all extremities spontaneously. Full physical exam performed and significant for suprapubic distention and tenderness. Differential includes but is not limited to urinary retention, UTI. Patient unable to void, bladder scan greater than 700. Guadarrama was placed, UA was ordered. On re-evaluation, patient [remains afebrile, HD stable.] Laboratory workup independently interpreted by me and significant for no evidence of UTI. Patient symptomatically improved. Given patient history, exam and workup, patient's presentation most likely represents acute on chronic urinary retention. Patient was discharged in stable condition with Guadarrama in place instructions to follow-up with urology.. Procedures Risk/Benefits of Procedure(s) Were Explained: Yes Critical Care Critical Care Time Critical Care Time: No
[2024-10-18 03:28] LABS: Microscopic, Urine URINE MICROSCOPIC (MICROSCOPIC)
[2024-10-18 03:29] LABS: Appearance,Urine CLEAR (Clear); Bilirubin,Urine Negative (Negative); Blood, Urine 3+ (Negative); Color,Urine YELLOW (Yellow); Glucose,Urine (UA) 3+ (Negative); Ketones,Urine Negative (Negative); Leukocyte Esterase,Urine TRACE (Negative); Nitrate,Urine Negative (Negative); PH,Urine 6.5 (5.0-8.5); Protein,Urine Negative (Negative); Urobilinogen,Urine 0.2 EU/dl (0.2)
--- NOTE | 2024-10-18 03:29 | PC.NURSE ---
BLADDER SCAN >700 MLS PER BLADDER SCANNER. PROVIDER MADE AWARE, U/A SENT TO LAB
--- OUTSIDE RECORDS SUMMARY | 2024-10-18 03:29 | XMS_ITS | Continuity of Care Document ---
Author Organization [facility] Address [address] [facility] [address] [place] [address] Care Team Providers Care Oracle Database Analyst Name Role Phone AMPARO HARMON Primary Care [...] and the risk of anesthesia. While his ANIMAL GROOMER Test numbers are encouraging, I explained that I can not guarantee that surgery will result in spontaneous voiding. He verbalized his understanding and wishes to proceed. 4. Planned to coordinate the PSMA scan, referral to Dr. Ron, and the TURP procedure simultaneously to address both the cancer and the urinary issues. 5. Informed the patient that the PSMA scan would be done at [facility] in [place] and that the referral to Dr. Ron would be placed immediately. [email or web address] Not available 10/09/2024 12:48:41 Plan of Treatment Reminders Order Date Submit Date Provider Last Modified By Organization Details Last Modified Time Details Appointments New Patient Visit 30 min 2024 01:00P M Merritt Del Valle MD Not available Not available Not available FOLLOW UP 15 2024 10:15A M ALFRED WRIGHT MD Not available Not available Not available CT SIMULATIO N 2024 01:00P M SOFIA ETIENNE MD Not available Not available Not available Lab None recorded. Referral radiation oncologis t referral 2024 025 NOEMI Etienne MD, [address] [place], [address], 10/09/2024 12:05:59 Procedures None recorded. Surgeries transuret hral resection of prostate (SURG) 2024 025 [email or web address] Not available 10/16/2024 16:33:58 Imaging PET-CT, skull base to mid-thigh scan - Ga 68 PSMA scan 2024 025 [facility], [address] [place] [address] [place], [address], 10/16/2024 04:10:01 Medication Orders None recorded. Patient TargetsNo targets recorded. Patient InstructionsNo instructions recorded. Reason for Referral Referring Physician: Alfred [email or web address], Urology, Encounter Date: 10/09/2024 Problems Name Problem SNOMED Code Status Onset Date Resolution Date Notes Provider Name and Address Organization Details Recorded Time Retention of urine 390544740 Active 025 ALFRED WRIGHT MD [address], [place], [address] , [place] - [facility] - [place] & [place] 5 15:05:27 Prostate specific antigen above reference range 484069045 Active [address] [place], [address] , [place] - [facility] & [place] 5 15:05:21 Malignant tumor of prostate 616513238 Active [address], [place], [address] , [place] - [facility] & [place] 5 12:04:35 Problem Notes None recorded. Procedures Surgical History Date Name Laterality Status Provider Name and Address Organization Details Recorded Time 5 Prostate Biopsy completed ALFRED WRIGHT MD [address], [place], [address], [facility] & [place] 09/28/2024 09:57:43 5 Cystoscopy-Ma le completed ALFRED WRIGHT MD [address], [facility] [address], [facility] - [facility] & [place] 09/28/2024 09:58:50 5 TRUS completed ALFRED WRIGHT MD [address], [facility] [address] [place] [address] [facility] & [place] 09/28/2024 09:58:17 5 ANIMAL GROOMER Test completed Liyah Garcia [facility] & [place] 09/13/2024 14:45:35 5 ANIMAL GROOMER Test completed Christina Asher NP, [address], [place], [address], [facility] & [place] 07/30/2024 14:57:54 Imaging Results None recorded. Procedure [...] e Mini Pen Needle 31 gauge x /16 USE 1 NEEDLE DAILY DIRECTED active Not [...] Address Organization Details Last Updated DateTime 5 029530. 1 g 98 % 98 % 77 /min 134 mm[Hg] 76 mm[Hg] Liyah Hancockez [place] - [facility] & [place] 5 11:32:29 Social History None recorded. Functional Status None recorded. Mental Status None recorded. Family History Nothing Reported. Medical History No medical history recorded. Past Encounters Encounter ID Performer Location Encounter Start Date Encounter Closed Date Diagnosis/Indication Diagnosis SNOMED-CT Code Diagnosis ICD10 Code Diagnosis Note [id number] ALFRED WRIGHT MD [facility] [address] [facility] [address] [place] [address] 09/13/2024 14:06:21 09/13/2024 15:34:40 Prostate specific antigen above reference range 287135728 R97.20 Retention of urine 49718 4002 R33.9 we will schedule for cystoscopy and prostate biopsy in office. Assuming no cancer is present, we will likely need to proceed with surgical interventi on as he was failed multiple voiding trials. Beasley catheter will be exchanged today. [id number] ALFRED WRIGHT MD [facility] [address] 09/28/2024 09:15:18 09/28/2024 10:25:23 Prostate specific antigen above reference range 739142123 R97.20 Patient tolerated procedure well. He will follow up in 1 week for results. He was reminded to complete oral antibiotic therapy. He was instructed to contact our office or go to the ER if he experience s fever greater than 100.5?? F or chills. Retention of urine 49366 4002 R33.9 A Beasley catheter replaced after procedure. [id number] ALFRED WRIGHT MD [facility] [address] 10/09/2024 11:18:09 10/09/2024 12:26:02 Retention of urine 219104011 R33.9 Malignant tumor of prostate [id number] C61 Health Concerns Section Related Observation LastModified by Organization Detai ls LastModified Time None Recorded Concern Status LastModified by Organization Details LastModified Time None Recorded Payers Encounter Date Sequence Insurance Name Policy Number Policy Rose Covered Member ID Rose Member ID Guarantor Name 10/09/2024 1 [facility] (MEDICARE REPLACEMENT/A DVANTAGE - HMO) GUILLE Thierno Reyna [id number] Thierno Reyna Notes Date Note Type Note Provider Name and Address Organization Details Recorded Time 10/09/2024 text/html 10/09/24 CC: [id number]-male returns to my office for TRUS Bx [...] prostate cancer is high-volume and high-risk, with [place] scores of 4+4 and 4+3, indicating aggressive cancer. The percentage of cancer involvement in the cores was also high, with many cores being 100% cancerous. 09/28/24 [id number]-yzs-male returns to my office for cystoscopy, TRUS [...] a total endoscopy done last Tuesday at [facility] and was cleared by Dr. Marcos's office for the procedure. Thierno has a history of almost becoming septic and was treated with antibiotics. He is also taking finasteride, which was prescribed to shrink his prostate. 09/14/25712001-jqxb-aks- male returns to clinic for voiding trial --------08/02/2571-y veh-bid-bapt returns to clinic for voiding trail. 250 mL was placed in the bladder today and was unsuccessful -- 07/30/24Pt here for ANIMAL GROOMER test ----- 07/24/2571 renata presents to clinic for evaluation of urinary retention. Patient reports he went to [facility] last with inability to urinate. Beasley catheter [...] AAA surgery, DM, HTN, and HLD. Pts mechanical equipment test engineer is Dr Marcos. 10/01/24 TRUS Bx: R LB 4+4- 75%, R LA 4+4 100%, RB 4+3 100%, RM 4+3 100%, RA 4+4 100%, LLB 4+3 100%, LLM 4+4 100%, LLA 4+4 50%, L B 4+3 100%, LM 4+4 75%, LA 4+3 100%; vol 25.5 cc 08/24/24 PSA 10.2 (beasley catheter in place)07/30/24: ANIMAL GROOMER- Pressure over basline [id number], Peak detrusor pressure 46diJ38, Peak Vaslsalva pressure 5cbH9h707/19/2024: CT scan of abd/pelvis with contrast revealed [...] nitratesJune 2023 PSA 7.51 ALFRED WRIGHT MD [address], [place], [address], [facility] - [place] & [place] 10/09/2024 12:48:53
--- OUTSIDE RECORDS SUMMARY | 2024-10-18 03:29 | XMS_ITS | Data Portability ---
Author Organization [place] [facility] ADMIN Address [address] [place] [address] Care Team Providers Care Bus Assistant Name Role Phone AMPARO HARMON Primary Care Provider Assessment Encounter Date Assessment Date Assessment LastModified by Organization Details LastModified Time 09/13/2024 09/13/2024 ASSESSMENT: Thierno Reyna is a 74-year-old male with difficulty urinating and elevated PSA levels. PLAN: 1. We discussed the possibility of performing a procedure to look inside the prostate with a camera and perform an ultrasound and biopsy to check for cancer. This procedure would require Thierno to start antibiotics at least 24 hours before the biopsy to reduce the risk of infection. 2. We will reach out to Dr. Marcos to confirm if it is safe to hold aspirin for a week before the biopsy due to the bleeding risk. 3. Thierno's catheter will be changed today as it is due for replacement. 4. We will schedule the biopsy and ultrasound within the next week, assuming clearance from Dr. Marcos. 5. Thierno was advised to monitor for signs of infection, such as a high fever, and to seek medical attention if symptoms occur. 6. The antibiotic prescription for Bactrim will be sent to the pharmacy, and Thierno will start taking it the day before the biopsy. [email or web address] Not available 09/13/2024 15:05:38 10/09/2024 10/09/2024 ASSESSMENT: Thierno Reyna is a [...] and the risk of anesthesia. While his SURETY BOND AGENT Test numbers are encouraging, I explained that I can not guarantee that surgery will result in spontaneous voiding. He verbalized his understanding and wishes to proceed. 4. Planned to coordinate the PSMA scan, referral to Dr. Ron, and the TURP procedure simultaneously to address both the cancer and the urinary issues. 5. Informed the patient that the PSMA scan would be done at [facility] in [place] and that the referral to Dr. Ron [...] Not available CT SIMULATIO N 2024 01:00P Nohemi ETIENNE MD Not available Not available Not available Lab None recorded. Referral radiation oncologis t referral 2024 025 NOEMI Etienne MD, [address] [place] [address], [id number], 10/09/2024 12:05:59 Procedures None recorded. Surgeries transuret hral resection of prostate (SURG) 2024 025 [email or web address] Not available 10/16/2024 16:33:58 Imaging PET-CT, skull base to mid-thigh scan - Ga 68 PSMA scan 2024 025 [facility], [address] [place] [address] [place], [address], 10/16/2024 04:10:01 Medication Orders Bactrim DS 800 mg-160 mg tablet 2024 025 [email or web address] [facility][id number], [address] [facility] [facility], [facility] [address] [place], [phone], 09/17/2024 13:04:20 tamsulosi n 0.4 mg capsule 2024 025 [facility][id number], [address] [facility], [facility] [address] [place], [phone], 08/14/2024 13:36:31 Patient TargetsNo targets recorded. Patient InstructionsNo instructions recorded. Reason for Referral Referring Physician: Alfred zepeda, Urology, Encounter Date: 10/09/2024 Results Created Date Observation Date Name Description Value Unit Range Abnormal Flag Note LastModifiedBy Organization Detail LastModifiedTime Result Notes None recorded. Problems Name Problem SNOMED Code Status Onset Date Resolution Date Notes Provider Name and Address Organization Details Recorded Time Retention of urine 508583231 Active [address], [place], [address] , [facility] - [facility] & [place] 5 15:05:27 Prostate specific antigen above reference range 025690031 Active [address], [place], [address] , [facility] - [facility] & [place] 5 15:05:21 Malignant tumor of prostate 684939202 Active [address], [place], [address] , [facility] - [facility] & [place] 5 12:04:35 Problem Notes None recorded. Procedures Surgical History Date Name Laterality Status Provider Name and Address Organization Details Recorded Time 5 Prostate Biopsy completed MD [address], [place], [address], [facility] - [facility] & [place] 09/28/2024 09:57:43 5 Cystoscopy-Ma le completed MD [address], [place], [address], [facility] & [place] 09/28/2024 09:58:50 5 TRUS completed ALFRED WRIGHT MD [address], [place], [address], [facility] & [place] 09/28/2024 09:58:17 5 SURETY BOND AGENT Test completed Liyah Garcia [facility] & [place] 09/13/2024 14:45:35 5 SURETY BOND AGENT Test completed Christina Asher NP, [address], [place], [address], [facility] & [place] 07/30/2024 14:57:54 Imaging Results None recorded. Procedure [...] Arterial blood by Pulse oximetry Heart rate Provider Name and Address Organization Details Last Updated DateTime 08/02/2024 148657.06 g 95 % 95 % 89 /min Liyah FOURNIER TRENTON [facility] & [place] 08/02/2024 11:06:35 Date Recorded Body weight Oxygen saturation Oxygen saturation in Arterial blood by Pulse oximetry Heart rate Systolic blood pressure Diastolic blood pressure Provider Name and Address Organization Details Last Updated DateTime 883278. 88 g 96 % 96 % 83 /min 138 mm[Hg] 76 mm[Hg] Liyah CHOWDHURY [facility] & [place] 13:11:26 Date Recorded Body weight Heart rate Systolic blood pressure Diastolic blood pressure Provider Name and Address Organization Details Last Updated DateTime 09/13/2024 885152.28 g 84 /min 132 mm[Hg] 76 mm[Hg] Liyah CHOWDHURY [facility] & [place] 09/13/2024 14:43:07 Date Recorded Body weight Oxygen saturation Oxygen saturation in Arterial blood by Pulse oximetry Heart rate Systolic blood pressure Diastolic blood pressure Provider Name and Address Organization Details Last Updated DateTime 5 657527. 1 g 98 % 98 % 77 /min 134 mm[Hg] 76 mm[Hg] Liyah Garcia [place] - [facility] - [place] & [place] 5 11:32:29 Social History None recorded. Functional Status None recorded. Mental Status None recorded. Family History Nothing Reported. Medical History No medical history recorded. Past Encounters Encounter ID Performer Location Encounter Start Date Encounter Closed Date Diagnosis/Indication Diagnosis SNOMED-CT Code Diagnosis ICD10 Code Diagnosis Note [id number] Christina Asher NP, S [facility] [place] [address] 07/24/2024 13:12:43 07/24/2024 14:54:37 Retention of urine 719992323 R33.9 CT [facility] for SURETY BOND AGENT testing on Tuesday. History of diabetes mellitus 869254592 Z86.39 [id number] Christina Asher NP, S [facility] [place] [address] 07/30/2024 13:23:12 07/30/2024 14:51:50 Retention of urine 903841934 R33.9 SURETY BOND AGENT test performed [id number] ALFRED WRIGHT MD [facility] [place] [address] 08/02/2024 10:41:00 08/02/2024 12:01:26 Retention of urine 381893918 R33.9 voiding trial unsuccessf ul, catheter replaced. Patient will follow up in 1 week for repeat voiding trial and possible cystoscopy with transrecta l ultrasound of the prostate to evaluate for possible surgical interventi ons. [id number] ALFRED WRIGHT MD [facility] [place] [address] 08/14/2024 13:00:29 08/14/2024 13:38:34 Retention of urine 129263538 R33.9 Patient had successful voiding trial in office today. He will continue tamsulosin . I have instructed him to perform timed voiding at least once every 2 hours during the daytime hours. He will follow up in 6 weeks for re-evaluat ion. We will obtain pressure flow studies with [facility] prior to his return [id number] ALFRED WRIGHT MD [facility] [address] [facility] [address] [place] [address] 09/13/2024 14:06:21 09/13/2024 15:34:40 Prostate specific antigen above reference range 077590624 R97.20 Retention of urine 11549 4002 R33.9 we will schedule for cystoscopy and prostate biopsy in office. Assuming no cancer is present, we will likely need to proceed with surgical interventi on as he was failed multiple voiding trials. Beasley catheter will be exchanged today. [id number] ALFRED WRIGHT MD [facility] [address] [facility] [address] [place] [address] 09/28/2024 09:15:18 09/28/2024 10:25:23 Prostate specific antigen above reference range 921666856 R97.20 Patient tolerated procedure well. He will follow up in 1 week for results. He was reminded to complete oral antibiotic therapy. He was instructed to contact our office or go to the ER if he experience s fever greater than 100.5?? F or chills. Retention of urine 82898 4002 R33.9 A Beasley catheter replaced after procedure. [id number] ALFRED WRIGHT MD [facility] [address] [facility] [address] [place] [address] 10/09/2024 11:18:09 10/09/2024 12:26:02 Retention of urine 998215618 R33.9 Malignant tumor of prostate 134748995 C61 Health Concerns Section Related Observation LastModified by Organization Detai ls LastModified Time None Recorded Concern Status LastModified by Organization Details LastModified Time None Recorded Advance Directives Directive None Recorded Payers Encounter Date Sequence Insurance Name Policy Number Policy Rose Covered Member ID Rose Member ID Guarantor Name 08/02/2024 1 [facility] (MEDICARE REPLACEMENT/A DVANTAGE - HMO) GUILLE Reyna [id number] Thierno Reyna 08/14/2024 1 [facility] (MEDICARE REPLACEMENT/A DVANTAGE - HMO) GUILLE Reyna [id number] Thierno Reyna 09/13/2024 1 [facility] (MEDICARE REPLACEMENT/A DVANTAGE - HMO) GUILLE Reyna [id number] Thierno Reyna 09/28/2024 1 [facility] (MEDICARE REPLACEMENT/A DVANTAGE - HMO) GUILLE Reyna [id number] Thierno Reyna 10/09/2024 1 [facility] (MEDICARE REPLACEMENT/A DVANTAGE - HMO) GUILLE Reyna [id number] Thierno Reyna Notes Date Note Type Note Provider Name and Address Organization Details Recorded Time 08/02/2024 text/html 08/02/[age]-year- old- male returns to clinic for voiding trail. 250 mL was placed in the bladder today and was unsuccessful -- 07/30/2024Pt here for SURETY BOND AGENT test --------- renata presents to clinic for evaluation of urinary retention. Patient reports he went to [facility] last with inability to urinate. Beasley catheter [...] of abdomen pelvis with contrast on 07/19/2024 revealed multiple Bosniak 1 renal cystic lesions [...] AAA surgery, DM, HTN, and HLD. Pts nurse aide is Dr Marcos. 07/30/24: SURETY BOND AGENT- Pressure over basline 06bjR4n, Peak detrusor pressure 70idQ97, Peak Vaslsalva pressure 5nkY1m707/19/2024: CT scan of abd/pelvis with contrast revealed [...] 3+, trace blood, neg leuks, and neg nitrates ALFRED WRIGHT MD [address], [place], [address], [facility] - [facility] - [place] & [place] 08/02/2024 11:37:27 08/14/2024 text/html 08/14/24 35-askz-ghc-male returns to clinic for voiding trial 08/02/24 48-eeyt-swa-male returns to clinic for voiding trail. 250 mL was placed in the bladder today and was unsuccessful-------- 07/30/19 Pt here for SURETY BOND AGENT test ---------07/24/2024 74 yowm presents to clinic for evaluation of urinary retention. Patient reports he went to [facility] last with inability to urinate. Beasley catheter [...] of abdomen pelvis with contrast on 025 revealed multiple Bosniak 1 renal cystic lesions [...] AAA surgery, DM, HTN, and HLD. Pts nurse aide is Dr Marcos. * 07/30/24: SURETY BOND AGENT- Pressure over basline 03suQ1p, Peak detrusor pressure 37yrJ41, Peak Vaslsalva pressure 0vzF7n707/19/2024: CT scan of abd/pelvis with contrast revealed [...] pH 6.0, SG 1.010, glucose 3+, trace blood ALFRED WRIGHT MD [address] [facility], [place], [address], [facility] - [facility] - [place] & [place] 08/14/2024 13:36:47 09/13/2024 text/html 09/13/24 44-oebi-ydd-male returns to clinic for voiding trail --- 08/02/24 22-uyjj-kvv-male returns to clinic for voiding trail. 250 mL was placed in the bladder today and was unsuccessful-------- 5 Pt here for SURETY BOND AGENT test ---------07/24/24 74 yowm presents to clinic for evaluation of urinary retention. Patient reports he went to [facility] last with inability to urinate. Beasley catheter [...] scan of abdomen pelvis with contrast on 5 CT revealed multiple Bosniak 1 renal cystic [...] AAA surgery, DM, HTN, and HLD. Pts nurse aide is Dr Marcos. *08/24/24PSA 10.2(beasley catheter in place)07/30/24: SURETY BOND AGENT- Pressure over basline 15qsV5o, Peak detrusor pressure 44ebM61, Peak Vaslsalva pressure 4uaE0n207/19/2024: CT scan of abd/pelvis with contrast revealed [...] 3+, trace blood, neg leuks, and neg nitrates NovemberSA 7.51Edbianca Reyna is a 74-year-old male who [...] procedures are being considered to address this issue. Thierno is currently taking an 81 mg aspirin daily, prescribed by his heart doctor, Dr. Marcos. He recently had a total endoscopy done last Tuesday at [facility] and was cleared by Dr. Marcos's office for the procedure. Thierno has a history of almost becoming septic and was treated with antibiotics. He is also taking finasteride, which was prescribed to shrink his prostate. ALFRED WRIGHT MD [address], [place], [address], [place] - [facility] - [place] & [place] 09/18/2024 09:37:33 09/28/2024 text/html 09/28/24 20-eucq-ktp-male returns to my office for cystoscopy, TRUS Bx. -- 09/14/25714600-wehn-vyf- male returns to clinic for voiding trail --------08/02/2571-y gvn-acx-cpil returns to clinic for voiding trail. 250 mL was placed in the bladder today and was unsuccessful-------- 5Pt here for SURETY BOND AGENT test ---------07/24/2571 lmwnohemi presents to clinic for evaluation of urinary retention. Patient reports he went to [facility] last with inability to urinate. Beasley catheter [...] AAA surgery, DM, HTN, and HLD. Pts nurse aide is Dr Marcos. 08/24/24 PSA 10.2 (beasley catheter in place)07/30/24: SURETY BOND AGENT- Pressure over basline 14laC4s, Peak detrusor pressure 03jtS80, Peak Vaslsalva pressure 1inI3m907/19/2024: CT scan of abd/pelvis with contrast revealed [...] neg leuks, and neg nitratesJune 2023 PSA 7.51Thierno Reyna is a 74-year-old male who presents [...] a total endoscopy done last Tuesday at [facility] and was cleared by Dr. Marcos's office for the procedure. Thierno has a history of almost becoming septic and was treated with antibiotics. He is also taking finasteride, which was prescribed to shrink his prostate. ALFRED WRIGHT MD [address], [place], [address], [place] - [facility] - [place] & [place] 09/28/2024 09:59:54 10/09/2024 text/html 10/09/24 CC: 56-kbij-rwt-male returns to my office for TRUS Bx [...] prostate cancer is high-volume and high-risk, with Hecla scores of 4+4 and 4+3, indicating aggressive cancer. The percentage of cancer involvement in the cores was also high, with many cores being 100% cancerous. 09/28/24 97-jyjg-lqp-male returns to my office for cystoscopy, TRUS [...] a total endoscopy done last Tuesday at [facility] and was cleared by Dr. Marcos's office for the procedure. Thierno has a history of almost becoming septic and was treated with antibiotics. He is also taking finasteride, which was prescribed to shrink his prostate. 09/14/25714013-mlwq-ooz- male returns to clinic for voiding trial --------08/02/2571-y eru-wwu-nuev returns to clinic for voiding trail. 250 mL was placed in the bladder today and was unsuccessful -- 07/30/24Pt here for SURETY BOND AGENT test ----- 07/24/2571 renata presents to clinic for evaluation of urinary retention. Patient reports he went to [facility] last with inability to urinate. Beasley catheter [...] AAA surgery, DM, HTN, and HLD. Pts nurse aide is Dr Marcos. 10/01/24 TRUS Bx: R LB 4+4- 75%, R LA 4+4 100%, RB 4+3 100%, RM 4+3 100%, RA 4+4 100%, LLB 4+3 100%, LLM 4+4 100%, LLA 4+4 50%, L B 4+3 100%, LM 4+4 75%, LA 4+3 100%; vol 25.5 cc 08/24/24 PSA 10.2 (beasley catheter in place)07/30/24: SURETY BOND AGENT- Pressure over basline 22qzC6l, Peak detrusor pressure 08chR37, Peak Vaslsalva pressure 1rcH1k407/19/2024: CT scan of abd/pelvis with contrast revealed [...] nitratesJune 2023 PSA 7.51 ALFRED WRIGHT MD [address] [facility], [place], [address], [facility] - [place] & [place] 10/09/2024 12:48:53
--- OUTSIDE RECORDS SUMMARY | 2024-10-18 03:29 | XMS_ITS | Continuity of Care Document ---
Author Organization [facility] Address [address] [address] [place] [address] Care Team Providers Care Fisher Line Name Role Phone AMPARO HARMON Primary Care [...] the biopsy. [email or web address] Not available 09/13/2024 15:05:38 Plan of Treatment Reminders Order Date Submit Date Provider Last Modified By Organization Details Last Modified Time Details Appointments New Patient Visit 30 min 2024 01:00P Scott Del Valle MD Not available Not available Not available FOLLOW UP 15 2024 10:15A Scott WRIGHT MD Not available Not available Not available CT SIMULATIO N 2024 01:00P M SOFIA ZAIDI MD Not available Not available Not available Lab None recorded. Referral None recorded. Procedures None recorded. Surgeries None recorded. Imaging None recorded. Medication Orders Bactrim DS 800 mg-160 mg tablet 2024 025 [email or web address] [employer] #[id number], [address], [phone], 09/17/2024 13:04:20 Patient TargetsNo targets recorded. Patient InstructionsNo instructions recorded. Reason for Referral None Reported. Problems Name Problem SNOMED Code Status Onset Date Resolution Date Notes Provider Name and Address Organization Details Recorded Time Retention of urine 965924524 Active [address], [place], [address] , [place] - [facility] & [place] 5 15:05:27 Prostate specific antigen above reference range 096623543 Active [address], [place], [address] , [place] - [facility] & [place] 5 15:05:21 Malignant tumor of prostate 036335913 Active [address], [place], [address] , [place] - [facility] & [place] 5 12:04:35 Problem Notes None recorded. Procedures Surgical History Date Name Laterality Status Provider Name and Address Organization Details Recorded Time 5 Prostate Biopsy completed MD [address], [place], [address], [place] - [facility] & [place] 09/28/2024 09:57:43 5 Cystoscopy-Ma le completed MD [address], [place], [address], [place] - [facility] & [place] 09/28/2024 09:58:50 5 TRUS completed MD [address], [place], [address], [facility] & [place] 09/28/2024 09:58:17 5 FORKLIFT TECHNICIAN Test completed Liyah Garcia [facility] & [place] 09/13/2024 14:45:35 5 FORKLIFT TECHNICIAN Test completed Christina Asher, GARDE MANAGER, [address], [place], [address], [facility] & [place] 07/30/2024 14:57:54 Imaging Results [...] e Mini Pen Needle 31 gauge x 09/09 USE 1 NEEDLE DAILY DIRECTED active Not [...] t Available Vitals Date Recorded Body weight Heart rate Systolic blood pressure Diastolic blood pressure Provider Name and Address Organization Details Last Updated DateTime 09/13/2024 071736.28 g 84 /min 132 mm[Hg] 76 mm[Hg] Liyah Garcia [facility] 09/13/2024 14:43:07 Social History None recorded. Functional Status None recorded. Mental Status None recorded. Family History Nothing Reported. Medical History No medical history recorded. Past Encounters Encounter ID Performer Location Encounter Start Date Encounter Closed Date Diagnosis/Indication Diagnosis SNOMED-CT Code Diagnosis ICD10 Code Diagnosis Note [id number] AMBERLY WRIGHT MD [facility] [place] [address] 09/13/2024 14:06:21 09/13/2024 15:34:40 Prostate specific antigen above reference range 723949889 R97.20 Retention of urine 10419 4002 R33.9 we will schedule for cystoscopy and prostate biopsy in office. Assuming no cancer is present, we will likely need to proceed with surgical interventi on as he was failed multiple voiding trials. Beasley catheter will be exchanged today. Health Concerns Section Related Observation LastModified by Organization Detai ls LastModified Time None Recorded Concern Status LastModified by Organization Details LastModified Time None Recorded Payers Encounter Date Sequence Insurance Name Policy Number Policy Rose Covered Member ID Rose Member ID Guarantor Name 09/13/2024 1 [facility] (MEDICARE REPLACEMENT/A DVANTAGE - HMO) [id number] Thierno Reyna [id number] Thierno Reyna Notes Date Note Type Note Provider Name and Address Organization Details Recorded Time 09/13/2024 text/html 09/13/24 90-kgof-xqf-male returns to clinic for voiding trail --- 08/02/24 77-iqgn-zdg-male returns to clinic for voiding trail. 250 mL was placed in the bladder today and was unsuccessful-------- 5 Pt here for FORKLIFT TECHNICIAN test ---------07/24/24 74 yowm presents to clinic for evaluation of urinary retention. Patient reports [facility] with [facility]. [...] AAA surgery, DM, HTN, and HLD. Pts addiction medicine physician is Dr Marcos. *08/24/24PSA 10.2(beasley catheter in place)07/30/24: FORKLIFT TECHNICIAN- Pressure over basline 67fzW8y, Peak detrusor pressure 99qbZ68, Peak Vaslsalva pressure 4ytW8l107/19/2024: CT scan of abd/pelvis with contrast revealed [...] to shrink his prostate. AMBERLY WRIGHT MD [address], [place], [address], [facility] - [place] & [place] 09/18/2024 09:37:33
--- OUTSIDE RECORDS SUMMARY | 2024-10-18 03:30 | XMS_ITS | Continuity of Care Document ---
Author Organization [facility] Phone Care Team Providers Care Loss Prevention Guard Name Role Phone AMBERLY WRIGHT Primary Attending NO, DEFINED P Primary Care Unavailable AMBERLY WRIGHT S Unavailable AMBERLY WRIGHT Admitting ALLERGIES AND ADVERSE REACTIONS ALLERGIES AND ADVERSE REACTIONS Code System Allergy Substance Adverse Reaction Date Reaction (Severity) Comment Status Reported By Updated By No Known Allergies [id number] on October 11, 2024 4:42:32 PM UTC ASSESSMENTS Retention of urine ; FAMILY HISTORY RELATION: Father Status: Cause of : Unknown Age at : Unknown SNOMED-CT Diagnosis Age At Onset Information not available RELATION: Mother Status: Cause of : Unknown Age at : Unknown SNOMED-CT Diagnosis Age At Onset Information not available PROBLEMS PATIENT PROBLEMS Code Description/Comments Category Status Upda erik By [id number] Retention of urine active [id number] on October 15, 2024 3:47:40 PM UTC RESULTS Patient: KIERA Beyer Date of : 1950 11 LABORATORY RESULTS ORDER 500: GLUCOSE BEDSIDE T ESTING (LOINC: 76287-5) ORDER DATE: October 15, 2024 12:16:00 PM UTC Specimen Source: WHOLE BLOOD Specimen Type: Whole blood s ample PERFORMING LAB: [address] [id number] Result Comment: October 15 12:17:00 PM UTC Test performed by: [id number] ; Instrument: [id number] Final Result Date: October 15, 2024 12:17:00 PM [facility] LOINC TEST [place] [address]-5 Glucose [Mass/volume ] in Capillary blood by Glucometer H 140 mg/dl 70 mg/dl - 105 mg/dl Kenyatta 21, 2 025 12:17:00 PM [facility] LABORATORY NARRATIVE RESULTS Information is not available RADIOLOGY RESULTS Information is not available PATHOLOGY NARRATIVE RESULTS Information is not available MICROBIOLOGY RESULTS No Micro Labs/Results Exist for Patient BLOOD ADMIN RESULTS Information is not available TREATMENT PLAN DISCHARGE MEDICATIONS Status RXNORM Medication Dose Route Frequency Dates Comments U pdated By Continued [id number] Omeprazole Oral Capsule Delayed Release 20 MG 20 MG ORAL ONCE DAILY Prescr ibed: October 15, 2024 3:46:4 1 PM [facility] [id number] on October 15, 2024 3:46:41 PM [facility] Continued [id number] Methocarbamol Oral Tablet 500 MG 2 TAB ORAL NEEDED Prescr ibed: October 15, 2024 3:46:4 1 PM [facility] [id number] on October 15, 2024 3:46:41 PM [facility] Continued [id number] Ozempic (0.25 or 0.5 MG/DOSE) Subcutaneous Solution Pen-injector 2 MG/3ML 2 MG SUBCUTANEOUS ONCE EACH WEEK Prescr ibed: October 15, 2024 3:46:4 1 PM [facility] pt knows not to use until after surgery [id number] on October 15, 2024 3:46:41 PM [facility] Continued [id number] Albuterol Sulfate HFA Inhalation Aerosol Solution 108 (90 Base) MCG/ACT 2 PUF INHALED NEEDED Prescr ibed: October 15, 2024 3:46:4 1 PM [facility] [id number] on October 15, 2024 3:46:41 PM [facility] Continued [id number] Potassium Chloride ER Oral Capsule Extended Release 10 MEQ 10 MEQ ORAL ONCE DAILY Prescr ibed: October 15, 2024 3:46:4 1 PM [facility] [id number] on October 15, 2024 3:46:41 PM [facility] Continued [id number] Pramipexole Dihydrochlorid e Oral Tablet 0.25 MG 1 TAB ORAL AT BEDTIME Prescr ibed: October 15, 2024 3:46:4 1 PM [place] [id number] on October 15, 2024 3:46:41 PM [facility] Continued 111278 traMADol HCl Oral Tablet 50 MG 1 TAB ORAL EVERY SIX HOURS NEEDED Prescr ibed: October 15, 2024 3:46:4 1 PM UT [id number] on October 15, 2024 3:46:41 PM [facility] Continued 235797 Rosuvastatin Calcium Oral Tablet 20 MG 20 MG ORAL ONCE DAILY Prescr ibed: October 15, 2024 3:46:4 1 PM [place] [id number] on October 15, 2024 3:46:41 PM UTC Continued [id number] Aspirin 81 Oral Tablet Delayed Release 81 MG 81 MG ORAL ONCE DAILY Prescr ibed: October 15, 2024 3:46:4 1 PM UT [id number] on October 15, 2024 3:46:41 PM UTC Continued [id number] Ezetimibe Oral Tablet 10 MG 10 MG ORAL ONCE DAILY Prescr ibed: October 15, 2024 3:46:4 1 PM [place] [id number] on October 15, 2024 3:46:41 PM UTC Continued [id number] Spironolactone Oral Tablet 50 MG 50 MG ORAL ONCE DAILY Prescr ibed: October 15, 2024 3:46:4 1 PM UT [id number] on October 15, 2024 3:46:41 PM UTC Continued [id number] Symbicort Inhalation Aerosol 80-4.5 MCG/ACT 1 PUF INHALED ONCE DAILY Prescr ibed: October 15, 2024 3:46:4 1 PM UT [id number] on October 15, 2024 3:46:41 PM UTC Continued [id number] Farxiga Oral Tablet 5 MG 5 MG ORAL ONCE DAILY Prescr ibed: October 15, 2024 3:46:4 1 PM UT [id number] on October 15, 2024 3:46:41 PM UTC Continued 913193 Cefdinir Oral Capsule 300 MG 1 TAB ORAL TWICE A DAY Prescr ibed: October 15, 2024 3:46:4 1 PM UT [id number] on October 15, 2024 3:46:41 PM UTC Continued [id number] Finasteride Oral Tablet 5 MG 5 MG ORAL ONCE DAILY Prescr ibed: October 15, 2024 3:46:4 1 PM UT [id number] on October 15, 2024 3:46:41 PM UT Continued 397938 Tamsulosin HCl Oral Capsule 0.4 MG 0.4 MG ORAL ONCE DAILY Prescr ibed: October 15, 2024 3:46:4 1 PM UT [id number] on October 15, 2024 3:46:41 PM UTC Continued [id number] Furosemide Oral Tablet 40 MG 40 MG ORAL ONCE DAILY Prescr ibed: October 15, 2024 3:46:4 1 PM UT [id number] on October 15, 2024 3:46:41 PM UT Continued [id number] Ray Loera SoloStar Subcutaneous Solution Pen-injector 300 UNIT/ML 40 UNT SUBCUTANEOUS AT BEDTIME Prescr ibed: October 15, 2024 3:46:4 1 PM UT [id number] on October 15, 2024 3:46:41 PM UT Continued [id number] metFORMIN HCl ER (MOD) Oral Tablet Extended Release 24 Hour 1000 MG 1000 MG ORAL ONCE DAILY Prescr ibed: October 15, 2024 3:46:4 1 PM UT [id number] on October 15, 2024 3:46:41 PM UT Continued 581402 Losartan Potassium Oral Tablet 25 MG 25 MG ORAL ONCE DAILY Prescr ibed: October 15, 2024 3:46:4 1 PM UT [id number] on October 15, 2024 3:46:41 PM UT Continued 278239 Metoprolol Succinate ER Oral Tablet Extended Release 24 Hour 50 MG 50 MG ORAL ONCE DAILY Prescr ibed: October 15, 2024 3:46:4 1 PM UT [id number] on October 15, 2024 3:46:41 PM [facility] PATIENT OPEN ORDERS Code System Description Frequency Occurrences Priority [place] [address]-0 [facility] Pathology report addendum in Specimen Narrative ONE TIME 0 Routine October 15, 2024 10:05:0 0 PM [place] ART AMBERLY Arguelles [id number] on October 15, 2024 10:06:00 PM [facility] SCHEDULED PROCEDURES Code System Description Status Scheduled Date Upd ated By Patient scheduled procedure information is not available. MEDICATIONS HOME MEDICATIONS Status RXNORM [facility] Medication Dose Route Frequency Dates Comments Reported By Updated By Active [id number] 17736 33012 8 Albuterol Sulfate HFA Inhalation Aerosol Solution 108 (90 Base) MCG/ACT 2.0 PUF INHALA TION PRN Last Dose: October 14, 2024 1:00:0 0 PM UT [id number] on October 15, 2024 3:46:17 PM [facility] Active 82956 39046 1 Aspirin 81 Oral Tablet Delayed Release 81 MG 81.0 MG ORAL DAILY Last Dose: October 11, 2024 1:00:0 0 PM UT [id number] on October 15, 2024 12:17:49 PM [facility] Active 416284 96652 07166 9 Ezetimibe Oral Tablet 10 MG 10.0 MG ORAL DAILY Last Dose: October 14, 2024 1:00:0 0 PM [facility] [id number] on October 15, 2024 12:18:01 PM UTC Active 7031233 69624 94872 0 Farxiga Oral Tablet 5 MG 5.0 MG ORAL DAILY Last Dose: October 14, 2024 1:00:0 0 PM [facility] [id number] on October 15, 2024 12:18:15 PM UTC Active 011342 55321 28636 6 Finasteride Oral Tablet 5 MG 5.0 MG ORAL DAILY Last Dose: October 14, 2024 1:00:0 0 PM [facility] [id number] on October 15, 2024 12:18:26 PM UTC Active 972287 63331 10435 5 Furosemide Oral Tablet 40 MG 40.0 MG ORAL DAILY Last Dose: October 14, 2024 1:00:0 0 PM [facility] [id number] on October 15, 2024 12:18:36 PM UTC Active 896642 99318 83810 0 Losartan Potassium Oral Tablet 25 MG 25.0 MG ORAL DAILY Last Dose: October 14, 2024 1:00:0 0 PM [facility] [id number] on October 15, 2024 12:18:46 PM UTC Active 0251152 53363 87871 9 metFORMIN HCl ER (MOD) Oral Tablet Extended Release 24 Hour 1000 MG 1000. 0 MG ORAL DAILY Last Dose: October 14, 2024 1:00:0 0 PM [facility] [id number] on October 15, 2024 12:18:56 PM UTC Active 529018 33772 95716 0 Methocarbamo l Oral Tablet 500 MG 2.0 TAB ORAL PRN Last Dose: October 14, 2024 1:00:0 0 PM UTC [id number] on October 15, 2024 3:44:49 PM UTC Active 739259 99934 94072 7 Metoprolol Succinate ER Oral Tablet Extended Release 24 Hour 50 MG 50.0 MG ORAL DAILY Last Dose: October 15, 2024 1:00:0 0 AM UT [id number] on October 15, 2024 12:19:25 PM UTC Active 518100 99962 03966 2 Omeprazole Oral Capsule Delayed Release 20 MG 20.0 MG ORAL DAILY Last Dose: October 15, 2024 1:00:0 0 AM [facility] [id number] on October 15, 2024 12:19:46 PM UTC Active 398436 88039 67465 7 oxyBUTYnin Chloride ER Oral Tablet Extended Release 24 Hour 10 MG 10.0 MG ORAL DAILY Last Dose: October 14, 2024 1:00:0 0 PM [facility] [id number] on October 15, 2024 12:20:00 PM [facility] Active 2335543 08454 13045 3 Ozempic (0.25 or 0.5 MG/DOSE) Subcutaneous Solution Pen-injector 2 MG/3ML 2.0 MG SUBCUT ANEOUS QWEEK Last Dose: October 08, 2024 1:00:0 0 AM [facility] pt knows not to use until after surgery [id number] on October 15, 2024 12:20:17 PM [facility] Active 478733 11639 35830 0 Potassium Chloride ER Oral Capsule Extended Release 10 MEQ 10.0 MEQ ORAL DAILY Last Dose: October 15, 2024 1:00:0 0 AM [facility] [id number] on October 15, 2024 12:20:28 PM [facility] Active 287650 56198 95835 0 Pramipexole Dihydrochlor ricardo Oral Tablet 0.25 MG 1.0 TAB ORAL BEDTIME Last Dose: October 15, 2024 1:00:0 0 AM [facility] [id number] on October 15, 2024 12:20:45 PM [facility] Active 439884 68750 50032 1 Rosuvastatin Calcium Oral Tablet 20 MG 20.0 MG ORAL DAILY Last Dose: October 14, 2024 1:00:0 0 PM [facility] [id number] on October 15, 2024 12:20:57 PM [facility] Active 465159 51264 61495 1 Spironolacto ne Oral Tablet 50 MG 50.0 MG ORAL DAILY Last Dose: October 14, 2024 1:00:0 0 PM [facility] [id number] on October 15, 2024 12:21:11 PM [facility] Active 1404451 96982 20367 0 Symbicort Inhalation Aerosol 80-4.5 MCG/ACT 1.0 PUF INHALA TION DAILY Last Dose: October 14, 2024 1:00:0 0 PM [facility] [id number] on October 15, 2024 12:21:35 PM [facility] Active 018930 94663 31665 1 Tamsulosin HCl Oral Capsule 0.4 MG 0.4 MG ORAL DAILY Last Dose: October 14, 2024 1:00:0 0 PM [facility] [id number] on October 15, 2024 12:21:47 PM UT Active 7472506 90642 12319 2 Ray Loera SoloStar Subcutaneous Solution Pen-injector 300 UNIT/ML 40.0 UNT SUBCUT ANEOUS BEDTIME Last Dose: October 15, 2024 1:00:0 0 AM [facility] [id number] on October 15, 2024 12:21:59 PM [place] DISCHARGE MEDICATIONS Status RXNORM [facility] Medication Dose Route Frequency Dates Comments Physician Updated By Continue d 439172 4173 5011 832 Omeprazole Oral Capsule Delayed Release 20 MG 20.0 MG ORAL ONCE DAILY Prescr ibed: October 15, 2024 3:46:4 1 PM [facility] ART AMBERLY Arguelles PHY [id number] on October 15, 2024 3:46:41 PM [facility] Continue d 114683 9140 8010 920 Methocarbam ol Oral Tablet 500 MG 2.0 TAB ORAL NEEDED Prescr ibed: October 15, 2024 3:46:4 1 PM [facility] ART AMBERLY Arguelles PHY [id number] on October 15, 2024 3:46:41 PM [facility] Continue d 3886000 0016 9418 113 Ozempic (0.25 or 0.5 MG/DOSE) Subcutaneou s Solution Pen-injecto r 2 MG/3ML 2.0 MG SUBCUT ANEOUS ONCE EACH WEEK Prescr ibed: October 15, 2024 3:46:4 1 PM UT pt knows not to use until after surgery ART AMBERLY Arguelles PHY [id number] on October 15, 2024 3:46:41 PM UT Continue d 3377922 6699 3001 968 Albuterol Sulfate HFA Inhalation Aerosol Solution 108 (90 Base) MCG/ACT 2.0 PUF INHALE D NEEDED Prescr ibed: October 15, 2024 3:46:4 1 PM [place] ART AMBERLY Arguelles PHY [id number] on October 15, 2024 3:46:41 PM [facility] Continue d 418862 9059 9021 830 Potassium Chloride ER Oral Capsule Extended Release 10 MEQ 10.0 MEQ ORAL ONCE DAILY Prescr ibed: October 15, 2024 3:46:4 1 PM [place] ART AMBERLY Arguelles PHY [id number] on October 15, 2024 3:46:41 PM UTC Continue d 273445 6923 2032 190 Pramipexole Dihydrochlo ride Oral Tablet 0.25 MG 1.0 TAB ORAL AT BEDTIME Prescr ibed: October 15, 2024 3:46:4 1 PM [place] ART AMBERLY Arguelles PHY [id number] on October 15, 2024 3:46:41 PM UTC Continue d 883258 1594 4037 708 traMADol HCl Oral Tablet 50 MG 1.0 TAB ORAL EVERY SIX HOURS NEEDED Prescr ibed: October 15, 2024 3:46:4 1 PM [place] ART AMBERLY Arguelles PHY [id number] on October 15, 2024 3:46:41 PM UTC Continue d 293212 6628 5058 481 Rosuvastati n Calcium Oral Tablet 20 MG 20.0 MG ORAL ONCE DAILY Prescr ibed: October 15, 2024 3:46:4 1 PM [facility] ART AMBERLY Arguelles PHY [id number] on October 15, 2024 3:46:41 PM UTC Continue d 828036 1353 7001 431 Aspirin 81 Oral Tablet Delayed Release 81 MG 81.0 MG ORAL ONCE DAILY Prescr ibed: October 15, 2024 3:46:4 1 PM [place] ART AMBERLY Arguelles PHY [id number] on October 15, 2024 3:46:41 PM UTC Continue d 243291 7205 1371 319 Ezetimibe Oral Tablet 10 MG 10.0 MG ORAL ONCE DAILY Prescr ibed: October 15, 2024 3:46:4 1 PM [facility] ART AMBERLY Arguelles PHY [id number] on October 15, 2024 3:46:41 PM UTC Continue d 640635 2302 9032 801 Spironolact one Oral Tablet 50 MG 50.0 MG ORAL ONCE DAILY Prescr ibed: October 15, 2024 3:46:4 1 PM [place] ART AMBERLY Arguelles PHY [id number] on October 15, 2024 3:46:41 PM UTC Continue d 2497624 7596 6037 220 Symbicort Inhalation Aerosol 80-4.5 MCG/ACT 1.0 PUF INHALE D ONCE DAILY Prescr ibed: October 15, 2024 3:46:4 1 PM [place] ART AMBERLY Arguelles PHY [id number] on October 15, 2024 3:46:41 PM UTC Continue d 7527195 0228 0620 530 Farxiga Oral Tablet 5 MG 5.0 MG ORAL ONCE DAILY Prescr ibed: October 15, 2024 3:46:4 1 PM [facility] ART AMBERLY Arguelles PHY [id number] on October 15, 2024 3:46:41 PM UTC Continue d 220059 9051 0071 160 Cefdinir Oral Capsule 300 MG 1.0 TAB ORAL TWICE A DAY Prescr ibed: October 15, 2024 3:46:4 1 PM [facility] ART AMBERLY Arguelles PHY [id number] on October 15, 2024 3:46:41 PM UTC Continue d 809737 4157 3735 556 Finasteride Oral Tablet 5 MG 5.0 MG ORAL ONCE DAILY Prescr ibed: October 15, 2024 3:46:4 1 PM [facility] ART AMBERLY Arguelles PHY [id number] on October 15, 2024 3:46:41 PM UT Continue d 017889 0922 1207 601 Tamsulosin HCl Oral Capsule 0.4 MG 0.4 MG ORAL ONCE DAILY Prescr ibed: October 15, 2024 3:46:4 1 PM [facility] ART AMBERLY Arguelles PHY [id number] on October 15, 2024 3:46:41 PM UTC Continue d 014656 4620 4429 925 Furosemide Oral Tablet 40 MG 40.0 MG ORAL ONCE DAILY Prescr ibed: October 15, 2024 3:46:4 1 PM [facility] ART AMBERLY Arguelles PHY [id number] on October 15, 2024 3:46:41 PM UTC Continue d 0474007 0002 4587 102 Toujeo Max SoloStar Subcutaneou s Solution Pen-injecto r 300 UNIT/ML 40.0 UNT SUBCUT ANEOUS AT BEDTIME Prescr ibed: October 15, 2024 3:46:4 1 PM [place] ART AMBERLY Arguelles PHY [id number] on October 15, 2024 3:46:41 PM UTC Continue d 6246614 0182 0033 909 metFORMIN HCl ER (MOD) Oral Tablet Extended Release 24 Hour 1000 MG 1000. 0 MG ORAL ONCE DAILY Prescr ibed: October 15, 2024 3:46:4 1 PM [facility] ART AMBERLY Arguelles PHY [id number] on October 15, 2024 3:46:41 PM UTC Continue d 582035 7441 2020 190 Losartan Potassium Oral Tablet 25 MG 25.0 MG ORAL ONCE DAILY Prescr ibed: October 15, 2024 3:46:4 1 PM UT ART AMBERLY FISCHER [id number] on October 15, 2024 3:46:41 PM [facility] Continue fred 867752 6556 8459 677 Metoprolol Succinate ER Oral Tablet Extended Release 24 Hour 50 MG 50.0 MG ORAL ONCE DAILY Prescr ibed: October 15, 2024 3:46:4 1 PM UT ART AMBERLY FISCHER [id number] on October 15, 2024 3:46:41 PM [facility] INPATIENT MEDICATIONS Status RXNORM [facility] Medication Dose Route Frequency Rat e Quantity Dates Comments Physician Updated By Maury inued [id number] 0186 7084 001 ceFAZolin (ANCEF) 2 GM SOLR 2.0 GM INTRAV ENOUS ONE TIME ADMINISTRA TION (UNSCHEDUL ED) Start: October 15, 2024 11:00: 00 AM UT End: October 15, 2024 12:15: 02 PM [facility] KASIE TESHA [id number] on October 15, 2024 12:15:00 PM [facility] Disccristi inued 440294 1591 8011 704 LACTATED RINGERS SOLN 1000. 0 ML INTRAV ENOUS ONE TIME ADMINISTRA TION (UNSCHEDUL ED) 25.0 ML/HR Start: October 12, 2024 5:33:0 0 PM UT End: October 15, 2024 12:15: 01 PM [facility] RONNIE Portillo [id number] on October 15, 2024 12:15:00 PM [facility] 1427[facility] 8285 8011 704 LACTATED RINGERS SOLN 1000. 0 ML INTRAV ENOUS ONE TIME ONLY (PACU) 25.0 ML/HR Start: October 12, 2024 5:33:0 0 PM UT End: October 15, 2024 3:46:4 1 PM [facility] RONNIE Portillo [id number] on October 12, 2024 5:33:00 PM [facility] Disccristi inued 4798486 0040 9117 630 meperidine (DEMEROL) 25 MG/ML SOLN 12.5 MG INTRAV ENOUS NEEDED (PACU) Start: October 12, 2024 5:33:0 0 PM UT End: October 15, 2024 3:46:4 1 PM [facility] RONNIE Portillo [id number] on October 12, 2024 5:33:00 PM UTC Discont inued 6060545 0040 9117 630 meperidine (DEMEROL) 25 MG/ML SOLN 25.0 MG INTRAV ENOUS NEEDED (PACU) Start: October 12, 2024 5:33:0 0 PM UTC End: October 15, 2024 3:46:4 1 PM UTC RONNIE JIMENEZ Fred [id number] on October 12, 2024 5:33:00 PM UTC Discont inued 2388539 0064 1624 725 fentaNYL (SUBLIMAZE) 50 MGC/ML SOLN 25.0 MCG INTRAV ENOUS EVERY 5 MINUTES NEEDED (PACU) Start: October 12, 2024 5:33:0 0 PM UTC End: October 15, 2024 3:46:4 1 PM UTC TRUJILLO TONY Fred [id number] on October 12, 2024 5:33:00 PM UTC Discont inued 6269110 0064 1624 725 fentaNYL (SUBLIMAZE) 50 MGC/ML SOLN 50.0 MCG INTRAV ENOUS EVERY 5 MINUTES NEEDED (PACU) Start: October 12, 2024 5:33:0 0 PM UTC End: October 15, 2024 3:46:4 1 PM UTC RONNIE JIMENEZ Fred [id number] on October 12, 2024 5:33:00 PM UTC Discont inued 7648770 9845 9426 401 HYDROmorpho ne (DILAUDID) 0.5 MG/0.5ML SOLN 0.5 MG INTRAV ENOUS EVERY 10 MINUTES NEEDED (PACU) Start: October 12, 2024 5:33:0 0 PM UTC End: October 15, 2024 3:46:4 1 PM UTC RONNIE JIMENEZ Fred [id number] on October 12, 2024 5:33:00 PM UTC Discont inued 5285658 3454 9128 331 HYDROmorpho ne (DILAUDID) 1 MG/ML SOLN 1.0 MG INTRAV ENOUS EVERY 10 MINUTES NEEDED (PACU) Start: October 12, 2024 5:33:0 0 PM UTC End: October 15, 2024 3:46:4 1 PM UTC TRUJILLOYUE Portillo [id number] on October 12, 2024 5:33:00 PM UTC Active 3197289 3618 8010 250 PERCOCET 5-325 MG TABS 1.0 TAB ORAL ONE TIME ADMINISTRA TION (UNSCHEDUL ED) Start: October 12, 2024 5:33:0 0 PM UTC End: October 14, 2024 5:33:0 0 PM UTC RONNIE JIMENEZ Fred [id number] on October 12, 2024 5:33:00 PM UTC Active 1181703 8285 8010 250 PERCOCET 5-325 MG TABS 2.0 TAB ORAL ONE TIME ADMINISTRA TION (UNSCHEDUL ED) Start: October 12, 2024 5:33:0 0 PM UTC End: October 14, 2024 5:33:0 0 PM UTC RONNIE Portillo [id number] on October 12, 2024 5:33:00 PM UTC Discont inued 1048337 7550 5613 000 ondansetron (ZOFRAN) INJ 4 MG/2 ML SOLN 4.0 MG INTRAV ENOUS NEEDED (PACU) Start: October 12, 2024 5:33:0 0 PM UTC End: October 15, 2024 3:46:4 1 PM UTC RONNIE Portillo [id number] on October 12, 2024 5:33:00 PM UTC Discont inued 7655100 0051 7970 201 droperidol (INAPSINE) 2.5 MG/ML SOLN 0.625 MG INTRAV ENOUS NEEDED (PACU) Start: October 12, 2024 5:33:0 0 PM UTC End: October 15, 2024 3:46:4 1 PM UTC RONNIE Portillo [id number] on October 12, 2024 5:33:00 PM UTC Discont inued 3732470 8177 3041 112 midazolam (VERSED) 2 MG/2 ML SOLN 1.0 MG INTRAV ENOUS EVERY FIVE MINUTES NEEDED Start: October 12, 2024 5:33:0 0 PM UTC End: October 15, 2024 3:46:4 1 PM UTC RNONIE Portillo [id number] on October 12, 2024 5:33:00 PM UTC Discont inued 4789426 1943 3041 112 midazolam (VERSED) 2 MG/2 ML SOLN 2.0 MG INTRAV ENOUS NEEDED (PACU) Start: October 12, 2024 5:33:0 0 PM UTC End: October 15, 2024 3:46:4 1 PM UTC RONNIE Portillo [id number] on October 12, 2024 5:33:00 PM UTC Discont inued 597620 4204 1092 825 promethazin e (PHENERGAN) 25 MG/ML SOLN 12.5 MG INTRAV ENOUS NEEDED (PACU) Start: October 12, 2024 5:33:0 0 PM UTC End: October 15, 2024 3:46:4 1 PM UTC RONNIE Portillo [id number] on October 12, 2024 5:33:00 PM UTC Discont inued XXXX [id number] 011 promethazin e (PHENERGAN) 12.5 MG GEL 12.5 MG TOPICA L NEEDED (PACU) Start: October 12, 2024 5:33:0 0 PM UTC End: October 15, 2024 3:46:4 1 PM UTC RONNIE Portillo [id number] on October 12, 2024 5:33:00 PM UTC Discont inued 9200358 2832 5623 105 ceFAZolin (ANCEF) 2 GM SOLR 2.0 GM INTRAV ENOUS ONE TIME ONLY (SCHEDULED DOSE) Start: October 15, 2024 12:07: 00 PM UTC End: October 15, 2024 12:07: 00 PM UTC ART AMBERLY S INTERFAC ED on October 15, 2024 12:06:00 PM UTC Discont inued [id number] 8671 9909 332 PACU - fentaNYL (SUBLIMAZE) 100 MCG/2ML SOLN 100.0 MCG INTRAV ENOUS ONE TIME ONLY (SCHEDULED DOSE) Start: October 15, 2024 2:40:0 0 PM UTC End: October 15, 2024 2:40:0 0 PM UTC ART AMBERLY S INTERFAC ED on October 15, 2024 2:39:00 PM UTC Discont inued 0750962 9221 9301 305 lidocaine (XYLOCAINE) 2% UROJET GEL 10.0 ML ONE TIME ONLY (SCHEDULED DOSE) Start: October 15, 2024 2:42:0 0 PM UTC End: October 15, 2024 2:42:0 0 PM UTC ART AMBERLY S INTERFAC ED on October 15, 2024 2:40:00 PM UTC Discont inued [id number] 6332 3087 811 fentaNYL (SUBLIMAZE) 50 MCG/ML SOSY 50.0 MCG INTRAV ENOUS ONE TIME ONLY (SCHEDULED DOSE) Start: October 15, 2024 4:10:0 0 PM UT End: October 15, 2024 4:10:0 0 PM UT ART AMBERLY Arguelles INTERFAC ED on October 15, 2024 4:10:00 PM UT Discont inued 9228140 0002 9020 901 PROPOFOL 200 MG/20ML EMUL 200.0 MG INTRAV ENOUS ONE TIME ONLY (SCHEDULED DOSE) 8.333 MG/HR Start: October 15, 2024 6:01:0 0 PM UT End: October 15, 2024 6:01:2 6 PM UT ART AMBERLY Arguelles [id number] on October 15, 2024 6:01:00 PM UT Discont inued 2954595 3271 3016 505 DEXAMETHASO NE SODIUM PHOSPHATE 20.0 MG INTRAV ENOUS ONE TIME ONLY (SCHEDULED DOSE) 0.833 MG/HR Start: October 15, 2024 6:01:0 0 PM UT End: October 15, 2024 6:01:2 6 PM UT ART AMBERLY Arguelles [id number] on October 15, 2024 6:01:00 PM UT Discont inued 3416063 3108 5613 000 ONDANSETRON HCL 4 MG/2ML SOLN 4.0 MG INTRAV ENOUS ONE TIME ONLY (SCHEDULED DOSE) 0.167 MG/HR Start: October 15, 2024 6:01:0 0 PM UTC End: October 15, 2024 6:01:2 7 PM [place] ART AMBERLY Arguelles [id number] on October 15, 2024 6:01:00 PM [facility] SOCIAL HISTORY SOCIAL HISTORY SNOMED-CT Social History Element Description Effective Dates Offered Cessation Comment UpdatedBy [id number] Current Tobacco smoking status Former Smoker End: September 25, 1997 5:00:00 AM [facility] [id number] on October 15, 2024 12:16:52 PM [facility] SOCIAL HISTORY - Gender Sex: Male SOCIAL HISTORY - Status : status i nformation is not available Intention in Next Year: intention information is not available SOCIAL HISTORY - Sexual Behavior Sexual Orientation Gender Identity SNOMED-CT Description SNO MED -CT Description Activity Level No of Partners Partner Type UpdatedBy Information is not available VITAL SIGNS PATIENT VITAL SIGNS This section displays the mo st recent value for each vital sign as of October 16, 2024 4:13:50 AM [place] Code Vital Sign Activity Date Result Updated By 8302-2 Body height October 15, 2024 12:05:55 PM UTC 167.64 cm (66.0 in) [id number] on October 15, 2024 12:05:[place] [address]-8 Body mass index (BMI) [Ratio] October 15, 2024 12:05:55 PM UTC 34.939 kg/m2 [id number] on October 15, 2024 12:05:55 PM UT 3140-1 Body Surface Area Derived From Formula October 15, 2024 12:05:55 PM UTC 2.0687 m2 [id number] on October 15, 2024 12:05:[place] [address]-5 Body weight Measured October 15 025 12:05:55 PM [place] 98.2 kg (216.0 lb) [id number] on October 15, 2024 12:05:55 PM [facility] PEDIATRIC GROWTH CHART - VITAL SIGNS This section displays Head C ircumference Percentile, Weight for Length Percentile and BMI Percentile Loinc Code Pediatric Measure Age (Months) Result Updat ed By No Pediatric Growth Chart Pe rcentile Information Available. PROCEDURES PATIENT PROCEDURES Procedure information is not available. PROCEDURE NOTE Note Title Operative/Procedure Note Date Of Service October 15, 2024 3:41: 44 PM UTC Created By [id number] on October 15, 2024 3:41:44 PM UTC Signed By [id number] on October 15, 2024 3:44:13 PM UTC Pre-Procedure Diagnosis Urinary retention, prostate cancer Post- Procedure Diagnosis Same Procedure / Surgery None Cystoscopy with bipolar plasma button electrode vaporization of the prostate (CPT 69615) Anesthesia Type General anesthesia Estimated Blood Loss Minimal Complications None Procedure Description / Findings After informed consent was obtained from the patient, he was taken the operating room where he was placed in a comfortable supine position on the procedure table. Time-out was performed confirming correct patient, correct procedure, and correct operative site. General anesthesia was induced and preoperative IV antibiotics were administered. He was then placed in dorsal lithotomy position genitals were prepped and draped in usual sterile fashion. We inserted the rigid cystoscope in the bladder and visualized the entire mucosa. Both left and right ureteral orifices were identified. We then withdrew the scope to the level of the veru. We then inserted the plasma button and scored the lateral lobes of the prostate it either side at the level of the veru to serve as the distal limit of our electrode vaporization. We then advanced the scope to the bladder neck and began electrode vaporization of the floor of the prostate. This was carried down to the surgical capsule. We then systematically electrode vaporized the left and right lateral lobes. We attempted to vaporized anterior tissue, however, due to the floppiness of the tissue the plasma button would not make good contact. We therefore exchanged the plasma button for the traditional bipolar loop. We then resected the anterior tissue and used the [employer] evacuator to remove these pieces prostate. These were then passed off the field and sent to pathology. We then reinserted the plasma button and fulgurated the resection site to achieve hemostasis throughout. We then advanced the scope in the bladder lumen and visualized the left and right ureteral orifices which were well away from the area of electrode vaporization. The scope was then withdrawn and a 24 Swedish three-way Guadarrama catheter was inserted with 30 cc of sterile water placed in the balloon. The procedure was terminated, the patient was awoken and transferred to the PACU in stable condition Specimens Prostate chips Tubes/Drains 24 Swedish three-way Guadarrama catheter Implants None Disposition of Patient Stable to PACU. DC home with Guadarrama catheter bag, leg bags Electronically signed by KYLE FISCHER on 1144 [facility] Problems Concern Status Health Concern problem infor mation not available. Smoking Status Status Years Used Consumed packs p er day Health Concern smoking histo ry information not available. Family History Concern Status Health Concern family histor y information not available. ENCOUNTERS ENCOUNTER INFORMATION Reason for Visit TRANSURETHERAL RESEC TION OF PROSTATE PLASMA BUTTON Admission October 15, 2024 11:29:00 AM [facility] [address] [address] Discharge October 15, 2024 7:29:00 PM [facility] DI SCHARGED TO HOME OR SELF CARE ENCOUNTER DIAGNOSES Notes information is not freddy ilable. Code System Diagnosis Onset Date Diagnosis information is not available. ABSTRACT DIAGNOSES Code System Diagnosis Updated By R33.9 ICD10 RETENTION OF URINE, UNSPECIF IED [id number] on October 11, 2024 12:47:57 PM [facility] CARE TEAM Care Loss Prevention Guard Role AMBERLY WRIGHT Primary Attending DEFINED NO Primary Care AMBERLY WRIGHT Referring AMBERLY WRIGHT Admitting HOSPITAL DISCHARGE INSTRUCTION DISCHARGE INSTRUCTION Encounter [id number] Admit Date October 15, 2024 11:29 :00 AM [facility] Discharge Date October 15, 2024 7:29: 00 PM [facility] PATIENT EDUCATION SUMMARY Patient/Visit Information: Patient Name: VELIA QURESHI Diag: Attending Caregiver: KYLE Arguelles Discharge Instruction Sheets Provided: BEFAST-Stroke Warning Signs COVID-19 CDC-EN Discharge Information Fall Prevention in Hospitals and in the Home [facility] Pain and Responsible Opioid (Pain Medication) Management KYNECT- HELP Medication Side Effects Suicide - Managing your Feelings Transurethral Resection of the Prostate, Care After Patient Instructions: Followup Appointments/Instructions: CARE TEAM CARE level designer Role on Team Status Start Date End Date Update d By NO DEFINED PRIMARY C PCP normal October 15, 2024 11:31:06 AM [facility] October 15, 2024 7:29:00 PM [facility] [id number] on October 15, 2024 11:31:06 AM [facility] ART AMBERLY FISCHER Referring normal October 15 11:31:06 AM [facility] October 15, 2024 7:29:00 PM [facility] [id number] on October 15, 2024 11:31:06 AM [facility] KYLE AMBERLY Arguelles AALIYAH PCP normal October 11 12:47:58 PM [facility] October 15, 2024 11:31:06 AM [facility] [id number] on October 15, 2024 11:31:06 AM [facility] ART AMBERLY Arguelles AALIYAH Attending normal October 11 12:47:58 PM [facility] October 15, 2024 7:29:00 PM [facility] [id number] on October 15, 2024 11:31:06 AM [facility] ART AMBERLY Arguelles AALIYAH Admitting normal October 11 12:47:58 PM [facility] October 15, 2024 7:29:00 PM [facility] [id number] on October 15, 2024 11:31:06 AM [facility]
--- OUTSIDE RECORDS SUMMARY | 2024-10-18 03:30 | XMS_ITS | Continuity of Care Document ---
Author Organization [facility] Address [address] [place] [address] Care Team Providers Care Fusion Operator Name Role Phone MADISONJANELLE AMPARO Primary Care Provider Assessment No assessment recorded. Plan of Treatment Reminders Order Date Submit Date Provider Last Modified By Organization Details Last Modified Time Details Appointments New Patient Visit 30 min 2024 01:00P M Merritt Del Valle MD Not available Not available Not available FOLLOW UP 15 2024 10:15A M AMBERLY WRIGHT MD Not available Not available Not available CT SIMULATIO N 2024 01:00P M SOFIA ZAIDI MD Not available Not available Not available Lab None recorded. Referral None recorded. Procedures None recorded. Surgeries None recorded. Imaging None recorded. Medication Orders None recorded. Patient TargetsNo targets recorded. Patient InstructionsNo instructions recorded. Reason for Referral None Reported. Problems Name Problem SNOMED Code Status Onset Date Resolution Date Notes Provider Name and Address Organization Details Recorded Time Retention of urine 017082230 Active [place], [address] , [facility] & [place] 5 15:05:27 Prostate specific antigen above reference range 711509535 Active [place], [address] , [facility] & [place] 5 15:05:21 Malignant tumor of prostate 045260261 [place], [address] , [facility] [place] 5 12:04:35 Problem Notes None recorded. Procedures Surgical History Date Name Laterality Status Provider Name and Address Organization Details Recorded Time 5 Prostate Biopsy completed AMBERLY WRIGHT MD [address], [place], [address], [facility] [place] 09/28/2024 09:57:43 5 Cystoscopy-Ma le completed MD [address], [place] [address], [facility] & [place] 09/28/2024 09:58:50 5 TRUS completed MD [address], [address] [facility] & [place] 09/28/2024 09:58:17 5 ANIMAL SKINNER Test [facility] [place] 09/13/2024 14:45:35 5 ANIMAL SKINNER Test completed Christina Asher NP, [address], [place], [address], [facility] [place] 07/30/2024 14:57:54 Imaging Results None recorded. Procedure [...] SNOMED-CT Code Diagnosis ICD10 Code Diagnosis Note [id number] AMBERLY WRIGHT MD [facility]-[address] [facility] [address] [address] [place] [address] 09/13/2024 14:06:21 09/13/2024 15:34:40 Prostate specific antigen above reference range 499730967 R97.20 Retention of urine 90912 4002 R33.9 we will schedule for cystoscopy and prostate biopsy in office. Assuming no cancer is present, we will likely need to proceed with surgical interventi on as he was failed multiple voiding trials. Beasley catheter will be exchanged today. [id number] AMBERLY WRIGHT MD [facility]-[address] [place] [address] 09/28/2024 09:15:18 09/28/2024 10:25:23 Prostate specific antigen above reference range 757160430 R97.20 Patient tolerated procedure well. He will follow up in 1 week for results. He was reminded to complete oral antibiotic therapy. He was instructed to contact our office or go to the ER if he experience s fever greater than 100.5?? F or chills. Retention of urine 67337 4002 R33.9 A Beasley catheter replaced after procedure. Health Concerns Section Related Observation LastModified by Organization Detai ls LastModified Time None Recorded Concern Status LastModified by Organization Details LastModified Time None Recorded Payers Encounter Date Sequence Insurance Name Policy Number Policy Rose Covered Member ID Rose Member ID Guarantor Name 09/28/2024 1 [facility] (MEDICARE REPLACEMENT/A DVANTAGE - HMO) GUILLE Reyna [id number] Thierno Reyna Notes Date Note Type Note Provider Name and Address Organization Details Recorded Time 09/28/2024 text/html 09/28/24 13-mlyz-noi-male returns to my office for cystoscopy, TRUS Bx. -- 09/14/25710949-nnke-xzo- male returns to clinic for voiding trail --------08/02/2571-y [id number]-[id number] returns to clinic for voiding trail. 250 mL was placed in the bladder today and was unsuccessful-------- 5Pt here for ANIMAL SKINNER test ---------07/24/2571 renata presents to clinic for evaluation of urinary retention. Patient reports he went to [facility] last with inability to urinate. [...] AAA surgery, DM, HTN, and HLD. Pts residential living assistant is Dr Marcos. 08/24/24 PSA 10.2 (beasley catheter in place)07/30/24: ANIMAL SKINNER- Pressure over basline 73amG3e, Peak detrusor pressure 73ktW98, Peak Vaslsalva pressure [id number]/19/2024: CT scan of abd/pelvis with contrast revealed [...] a total endoscopy done last Tuesday at [facility] and was cleared by Dr. Marcos's office for the procedure. Thierno has a history of almost becoming septic and was treated with antibiotics. He is also taking finasteride, which was prescribed to shrink his prostate. AMBERLY WRIGHT MD [address], [place], [address], [facility] 09/28/2024 09:59:54
[2024-10-18 03:38] VITALS: BP 111/64; PULSE 70; RESP 20; TEMP 36.8; O2SAT 94; BMI 38.2
[2024-10-18 04:02] LABS: WBC,Urine Occasional #/hpf (0-3)
[2024-10-18 04:23] VITALS: BP 104/52; PULSE 65; RESP 18; TEMP 36.7; O2SAT 96
== END 2024-10-18 04:31 | disposition home or self-care (01) ==
PROVIDERS: Emergency Provider Emergency Medicine; PCP Nurse Practitioner
DX: R10.30 Lower abdominal pain, unspecified (principal); R33.8 Other retention of urine
CPT/HCPCS: 51702; 81001; 99283

== ENCOUNTER 2024-11-01 16:00 | Emergency (ER) | payer MEDICARE, MEDICAID, SELFPAY ==
[2024-11-01 16:31] VITALS: BP 140/52; PULSE 94; RESP 17; TEMP 36.7; O2SAT 95; BMI 35.2
--- NOTE | 2024-11-01 16:46 | PC.NURSE ---
pt bladder scanned at this time with a volume of 786ml. aware and gave order to anchor besaley
--- OUTSIDE RECORDS SUMMARY | 2024-11-01 16:53 | XMS_ITS | Continuity of Care Document ---
Author Organization [facility] Address [address] [place] [address] Care Team Providers Care Ground Support Agent Name Role Phone AMPARO HARMON Primary Care Provider [phone] Assessment No assessment recorded. Plan of Treatment Reminders Order Date Submit Date Provider Last Modified By Organization Details Last Modified Time Details Appointments FOLLOW UP 15 2024 10:15A Scott WRIGHT MD Not available Not available Not available OV EST 15 2024 10:15A Scott WRIGHT MD Not available Not available Not available CT SIMULATIO N 2024 01:00P Scott ZAIDI MD Not available Not available Not available Lab None recorded. Referral None recorded. Procedures None recorded. Surgeries None recorded. Imaging None recorded. Medication Orders None recorded. Patient TargetsNo targets recorded. Patient InstructionsNo instructions recorded. Reason for Referral None Reported. Results Created Date Observation Date Name Description Value Unit Range Abnormal Flag Note LastModifiedBy Organization Detail LastModifiedTime 11/01/19 25 PET-C T, skull base to mid-t high scan No observ ation record ed. [email or web address] Not Available 2024 09:27:48 Result Notes None recorded. Problems Name Problem SNOMED Code Status Onset Date Resolution Date Notes Provider Name and Address Organization Details Recorded Time Retention of urine 160614861 Active Julius WRIGHT MD [address], [place], [address] , [facility] 15:05:27 Prostate specific antigen above reference range 405835484 Active Julius WRIGHT MD [address], [place], [address] , [place] [facility] & [place] 15:05:21 Malignant neoplasm of prostate 623141587 Active 025 AMBERLY WRIGHT MD [address], [facility] [address] , [place] - [facility] & [place] 12:04:35 Problem Notes None recorded. Procedures Surgical History Date Name Laterality Status Provider Name and Address Organization Details Recorded Time 09/29/19 25 Prostate Biopsy completed AMBERLY WRIGHT MD [address], [facility] [address], [place] - [facility] & [place] 09/28/2024 09:57:43 09/29/19 25 Cystoscopy-Male completed AMBERLY WRIGHT MD [address], [facility] [address], [place] - [facility] & [place] 09/28/2024 09:58:50 09/29/19 25 TRUS completed AMBERLY WRIGHT MD [address], [facility] [address], [place] - [facility] & [place] 09/28/2024 09:58:17 09/14/19 25 EXHIBITOR SALES Test completed Liyah Garcia [place] - [facility] & [place] 09/13/2024 14:45:35 07/30/19 25 EXHIBITOR SALES Test completed Christina Asher NP, [address], [facility] [address], [place] - [facility] & [place] 07/30/2024 14:57:54 cholecystectomy completed Chanda De Jesus [place] - [facility] & [place] 10/24/2024 13:09:14 Imaging Results None recorded. Procedure Notes None [...] IN AM WITH FOOD FOR 6 DAYS 10/24 completed Not Available Not Available Not Available ciproflox acin 500 mg tablet TAKE 1 TABLET BY MOUTH EVERY 12 HOURS FOR 7 DAYS 10/24 completed Not Available Not Available Not Available sulfameth oxazole 800 mg-trimet hoprim 160 mg tablet TAKE 1 TABLET BY MOUTH EVERY 12 HOURS FOR 3 DAYS 10/24 completed Not Available Not Available Not Available tramadol 50 mg tablet TAKE 1 TABLET BY MOUTH EVERY 6 HOURS NEEDED FOR MODERATE PAIN 10/24 completed Not Available Not Available Not Available tamsulosi n 0.4 mg capsule TAKE [...] 1 CAPSULE BY MOUTH TWICE DAILY FOR 3 DAYS 10/24 completed Not Available Not Available Not Available fluticaso ne propionat e 50 mcg/actua [...] BY MOUTH ONCE DAILY FOR 5 DAYS 10/24 completed Not Available Not Available Not Available ezetimibe 10 mg tablet TAKE 1 TABLET BY MOUTH DAILY 10/24 completed Not Available Not Available Not Available rosuvasta tin 20 mg tablet TAKE [...] TAKE 1 TABLET BY MOUTH EVERY DAY 10/24 completed Not Available Not Available Not Available Farxiga 5 mg tablet TAKE 1 TABLET BY MOUTH DAILY active Not Available Not Available No t Available Accu-Chek Guide test strips USE DIRECTED TO TEST ONCE DAILY active Not Available Not Available No t Available Toujeo Max U-300 SoloStar 300 unit/mL (3 mL) subcutane ous insulin pen INJECT 40 UNITS UNDER THE SKIN AT BEDTIME active Not Available Not Available [...] No t Available Vitals Date Recorded Body height Body mass index (BMI) Body weight Body temperature Oxygen saturation Oxygen saturation in Arterial blood by Pulse oximetry Heart rate Systolic blood pressure Diastolic blood pressure Provider Name and Address Organization Details Last Updated DateTime 5 167.64 cm 35.1 kg/m2 63205.3 4 g 97.5 [degF] 96 % 96 % 100 /min 118 mm[Hg] 59 mm[Hg] Chanda CHOWDHURY [facility] & [place] 5 13:13:47 Social History Question Answer Notes LastModified by Organizat ion Details LastModified Time Tobacco Smoking Status Former Smoker IRLANDA Benavides [place] & [place] 10/24/2024 13:08:36 What Is Your Level Of Alcohol Consumption? None [email or web address] Information not available 10/24/2024 When Did You Quit Smoking? 18+yearssin celastcigar ette 27 Years Ago Quit 06/1994 [email or web address] Information not available 10/24/2024 At What Age Did You Start Smoking Tobacco? 17 [email or web address] Information not available 10/24/2024 Do You Use Any Illicit Or Recreational Drugs? No Information not available 10/24/2024 Sex: Unknown Functional Status None recorded. Mental Status None recorded. Family History Nothing Reported. Medical History No medical history recorded. Immunizations Vaccine Type Date Status Note Provider Nam e and Address Organization Details Recorded Time zoster recombinant 4 completed IRLANDA Benavides [place] [facility] [place] 10/24/2024 13:04:23 zoster recombinant 4 completed IRLANDA Benavides [place] [facility] [place] 10/24/2024 13:04:23 Influenza, high-dose, quadrivalent, PF 2 completed IRLANDA Benavides [facility] & [place] 10/24/2024 13:04:23 Influenza, high-dose, quadrivalent, PF 1 completed [facility] [place] 10/24/2024 13:04:23 Influenza, high-dose, quadrivalent, PF [address] [facility], [facility] & [place] 10/24/2024 13:04:23 Influenza, high-dose, quadrivalent, PF [address] [facility] null, [facility] & [place] 10/24/2024 13:04:23 COVID-19, mRNA, LNP-S, PF, 100 mcg/0.5mL dose or 50 mcg/0.25mL dose [facility] & [place] 10/24/2024 13:04:23 COVID-19 vaccine, vector-nr, rS-Ad26, PF, 0.5 mL 1 completed Chanda Liza [facility], [facility] & [place] 10/24/2024 13:04:23 RSV, recombinant, protein subunit RSVpreF, adjuvant reconstituted, 0.5 mL, PF 4 [facility] & [place] 10/24/2024 13:04:23 pneumococcal polysaccharide PPV23 3 [facility] & [place] 10/24/2024 13:04:23 Influenza, split virus, quadrivalent, PF 7 [facility] & [place] 10/24/2024 13:04:23 Past Encounters Encounter ID Performer Location Encounter Start Date Encounter Closed Date Diagnosis/Indication Diagnosis SNOMED-CT Code Diagnosis ICD10 Code Diagnosis Note [id number] AMBERLY WRIGHT MD [facility] [place] [address] 09/28/2024 09:15:18 09/28/2024 10:25:23 Prostate specific antigen above reference range 468157409 R97.20 Patient tolerated procedure well. He will follow up in 1 week for results. He was reminded to complete oral antibiotic therapy. He was instructed to contact our office or go to the ER if he experience s fever greater than 100.5?? F or chills. Retention of urine 17763 4002 R33.9 A [place] catheter replaced after procedure. [id number] AMBERLY WRIGHT MD [facility] [place] [address] 10/09/2024 11:18:09 10/09/2024 12:26:02 Retention of urine 909891744 R33.9 Malignant neoplasm of prostate 742249343 C61 [id number] Merritt Del Valle MD [facility] [address] [place] [address] 10/24/2024 12:59:21 10/24/2024 13:47:59 Malignant neoplasm of prostate 462474413 C61 Patient initially presented to Urology for evaluation of elevated PSA. Labs on August 24, 2024 with PSA 10.2. Patient had prostate biopsy performed on September 28, 2024. With pathology demonstrat ing prostate adenocarci noma 4+4=8 in 11/12 cores. Prostate cancer involving both right and left side of prostate gland. Clinically pT2c N0 M0 which is stage IIA prostate adenocarci noma. Patient seen by radiation and discussion of definitive radiation therapy. PSA PET scan ordered and pending completion at this time. Recommende d treatment by Radiation Medicine was 70 Gy radiation over the course of 28 fractions. Recommenda tion of concurrent androgen deprivatio n therapy. Patient has had CT simulation . Based on NCCN guidelines for risk stratifica tion patient falls in the intermedia te unfavorabl e risk group due to number of cores positive and PSA > 10. Patient has more than 50% cores positive. Patient presents for evaluation October 24, 2024. Discussed NCCN guidelines and recommenda tion for androgen deprivatio n therapy during the course of prostate radiation. Discussed side effect profile of androgen deprivatio n therapy in usual treatment is with Lupron or Eligard. Usually starting with monthly dosing to assess for tolerabili ty. Will follow-up as patient starts androgen deprivatio n therapy.Re commendati on from NCCN guidelines is for 4-6 months of androgen deprivatio n therapy. Planning for 6 months of androgen deprivatio n therapy. Will follow-up on day of starting therapy. Will check labs on 1st day injection. Urinary ou tflow obstruction 750723420 N13.9 Patient with urinary catheter in place. Will follow-up obstructiv e uropathy symptoms as patient starts androgen deprivatio n therapy. Health Concerns Section Related Observation LastModified by Organization Detai ls LastModified Time None Recorded Concern Status LastModified by Organization Details LastModified Time None Recorded Payers Encounter Date Sequence Insurance Name Policy Number Policy Rose Covered Member ID Rose Member ID Guarantor Name 10/24/2024 1 [facility] (MEDICARE REPLACEMENT/A DVANTAGE - HMO) [employer] Thierno Reyna [id number] Thierno Reyna 10/24/2024 2 MEDICAID-[facility] - FFS/[facility] Thierno Reyna [id number] Thierno Reyna Notes Date Note Type Note Provider Name and Address Organization Details Recorded Time 10/24/2024 text/html 74 yo M presents for evaluation of prostate cancer. Patient initially presented to Urology for evaluation of elevated PSA. Labs on August 24, 2024 with PSA 10.2. Patient had prostate biopsy performed on September 28, 2024. With pathology demonstrating prostate adenocarcinoma 4+4=8 in 11/12 cores. Prostate cancer involving both right and left side of prostate gland. Clinically pT2c N0 M0 which is stage IIA prostate adenocarcinoma. Patient seen by radiation and discussion of definitive radiation therapy. PSA PET scan ordered and pending completion at this time. Recommended treatment by Radiation Medicine was 70 Gy radiation over the course of 28 fractions. Recommendation of concurrent androgen deprivation therapy. Patient has had CT simulation. Based on NCCN guidelines for risk stratification patient falls in the intermediate unfavorable risk group due to number of cores positive and PSA > 10. Patient has more than 50% cores positive. Patient presents for evaluation October 24, 2024. Discussed NCCN guidelines and recommendation for androgen deprivation therapy during the course of prostate radiation. Discussed side effect profile of androgen deprivation therapy in usual treatment is with Lupron or Eligard. Usually starting with monthly dosing to assess for tolerability. Will follow-up as patient starts androgen deprivation therapy.Recommendati on from NCCN guidelines is for 4-6 months of androgen deprivation therapy. Merritt Del Valle MD [address], [place], [address], [facility] & [place] 10/24/2024 14:11:09
--- OUTSIDE RECORDS SUMMARY | 2024-11-01 16:53 | XMS_ITS | Data Portability ---
Author Organization [place] - [facility] - [facility] ADMIN Address [address] [place] [address] Care Team Providers Care Mattress Inspector Name Role Phone AMPARO HARMON Primary Care Provider [phone] Assessment Encounter Date Assessment Date Assessment LastModified [...] and the risk of anesthesia. While his FIRE ALARM TECHNICIAN Test numbers are encouraging, I explained that I can not guarantee that surgery will result in spontaneous voiding. He verbalized his understanding and wishes to proceed. 4. Planned to coordinate the PSMA scan, referral to Dr. Ron, and the TURP procedure simultaneously to address both the cancer and the urinary issues. 5. Informed the patient that the PSMA scan would be done at [facility] in [place] and that the referral to Dr. Ron would be placed immediately. [email or web address] Not available 10/09/2024 12:48:41 11/01/2024 11/01/2024 ASSESSMENT: Thierno Reyna is a 74-year-old male with nonspecific findings on PET scan, including a 1.8 cm area in the lung and several low-density lesions within the right kidney. There is no evidence of prostate cancer metastasis. PLAN: 1. Continue with the scheduled Eligard injection for testosterone management. 2. Follow up with Dr. Del Valle, the oncologist, for further management and coordination of care. 3. Schedule a follow-up appointment in six weeks to ensure the patient is emptying his bladder properly. 4. Educate the patient on timed voiding every two hours and maintaining regular bowel movements. 5. Provide the patient with supplies and instructions for in-and-out catheterization if needed to avoid emergency room visits. 6. Ensure all findings from the PET scan are communicated to the patient's primary care provider (PCP). Please note this report was created using voice recognition/text compilation software with [employer]'s documentation services during the encounter with the patient; Please excuse any errors due to the machine repair person process. [email or web address] Not available 11/01/2024 11:10:56 Plan of Treatment Reminders Order Date Submit Date Provider Last Modified By Organization Details Last Modified Time Details Appointments FOLLOW UP 2024 10:15A Scott WRIGHT MD Not available Not available Not available OV EST 15 2024 10:15A Scott WRIGHT MD Not available Not available Not available CT SIMULATIO N 2024 01:00P Scott ETIENNE MD Not available Not available Not available Lab None recorded. Referral radiation oncologis t referral 2024 025 NOEMI Etienne MD, [address] [facility], [place], [address], 10/18/2024 09:04:44 Procedures None recorded. Surgeries transuret hral resection of prostate (SURG) 2024 025 [email or web address] Not available 10/16/2024 16:33:58 Imaging PET-CT, skull base to mid-thigh scan - Ga 68 PSMA scan 2024 025 [email or web address] [facility], [address] [place] [address] [place], [address], 10/30/2024 11:08:45 Medication Orders Bactrim DS 800 mg-160 mg tablet 2024 025 [id number], [address], [phone], 10/24/2024 13:07:35 Patient TargetsNo targets recorded. Patient InstructionsNo instructions recorded. Reason for Referral Referring Physician: Alfred Wan rt, Urology, Encounter Date: 10/09/2024 Results Created Date Observation Date Name Description Value Unit Range Abnormal Flag Note LastModifiedBy Organization Detail LastModifiedTime 11/01/19 25 PET-C T, skull base to mid-t high scan No observ ation record ed. [email or web address] Not Available 2024 09:27:48 Result Notes None recorded. Problems Name Problem SNOMED Code Status Onset Date Resolution Date Notes Provider Name and Address Organization Details Recorded Time Retention of urine 628464373 Active 025 ALFRED WRIGHT MD [address] [facility], [place], [address] , [facility] [place] 15:05:27 Prostate specific antigen above reference range 977017674 Active 025 ALFRED WRIGHT MD [address], [place], [address] , [place] - [facility] & [place] 15:05:21 Malignant neoplasm of prostate 517677761 Active 025 ALFRED WRIGHT MD [address], [place], [address] , [place] - [facility] & [place] 12:04:35 Problem Notes None recorded. Procedures Surgical History Date Name Laterality Status Provider Name and Address Organization Details Recorded Time 09/29/19 25 Prostate Biopsy completed ALFRED WRIGHT MD [address], [facility] [address], [place] - [facility] & [place] 09/28/2024 09:57:43 09/29/19 25 Cystoscopy-Male completed ALFRED WRIGHT MD [address], [facility] [address], [place] - [facility] & [place] 09/28/2024 09:58:50 09/29/19 25 TRUS completed ALFRED WRIGHT MD [address], [facility] [address], [place] - [facility] & [place] 09/28/2024 09:58:17 09/14/19 25 FIRE ALARM TECHNICIAN Test completed Liyah Garcia [place] - [facility] & [place] 09/13/2024 14:45:35 07/30/19 25 FIRE ALARM TECHNICIAN Test completed Christina Asher NP, S [address], [facility] [address], [place] [facility] [place] 07/30/2024 14:57:54 cholecystectomy completed Chanda De Jesus [place] - [facility] & [place] 10/24/2024 13:09:14 Imaging Results Imaging Date Name Status LastModified by [facility] Details LastModified Time 10/31/2024 PET-CT, skull base to mid-thigh scan completed Information not available 10/31/2024 09:27:48 Procedure Notes None recorded. Medical Equipment None [...] Address Organization Details Last Updated DateTime 09/13/2024 567069.28 g 84 /min 132 mm[Hg] 76 mm[Hg] Liyah FOURNIER - [facility] & [place] 09/13/2024 14:43:07 Date Recorded Body weight Oxygen saturation Oxygen saturation in Arterial blood by Pulse oximetry Heart rate Systolic blood pressure Diastolic blood pressure Provider Name and Address Organization Details Last Updated DateTime 5 110658. 1 g 98 % 98 % 77 /min 134 mm[Hg] 76 mm[Hg] Liyah FOURNIER - LPARACELI [facility] & [place] 5 11:32:29 Date Recorded Body height Body mass index (BMI) Body weight Body temperature Oxygen saturation Oxygen saturation in Arterial blood by Pulse oximetry Heart rate Systolic blood pressure Diastolic blood pressure Provider Name and Address Organization Details Last Updated DateTime 5 167.64 cm 35.1 kg/m2 87640.3 4 g 97.5 [degF] 96 % 96 % 100 /min 118 mm[Hg] 59 mm[Hg] Chandasanjay Blancorobyn FOURNIER - [facility] & [place] 5 13:13:47 Date Recorded Body height Body mass index (BMI) Body weight Oxygen saturation Oxygen saturation in Arterial blood by Pulse oximetry Heart rate Systolic blood pressure Diastolic blood pressure Provider Name and Address Organization Details Last Updated DateTime 5 167.64 cm 35.7 kg/m2 842945. 91 g 96 % 96 % 78 /min 136 mm[Hg] 76 mm[Hg] Liyah FOURNIER - [facility] & [place] 5 10:20:41 Social History Question Answer Notes LastModified by Organizat ion Details LastModified Time Tobacco Smoking Status Former Smoker Chanda ohara, IRLANDA CHOWDHURY [facility] & [place] 10/24/2024 13:08:36 What Is Your Level Of Alcohol Consumption? None [email or web address] Information not available 10/24/2024 When Did You Quit Smoking? 18+yearssin lamberto miranda 27 Years Ago Quit 06/1994 [email or web address] Information not available 10/24/2024 At What Age Did You Start Smoking Tobacco? 17 [email or web address] Information not available 10/24/2024 Do You Use Any Illicit Or Recreational Drugs? No [email or web address] Information not available 10/24/2024 Sex: Unknown Functional Status None recorded. Mental Status None recorded. Family History Nothing Reported. Medical History No medical history recorded. Immunizations Vaccine Type Date Status Note Provider Nam e and Address Organization Details Recorded Time zoster recombinant 4 completed Chanda De Jesus null, IRLANDA - CHERELLENT [facility] & [place] 10/24/2024 13:04:23 zoster recombinant 4 completed Chanda Liza null, IRLANDA - [facility] & [place] 10/24/2024 13:04:23 Influenza, high-dose, quadrivalent, PF 2 completed Chanda De Jesus null, IRLANDA Connolly [facility] & [place] 10/24/2024 13:04:23 Influenza, high-dose, quadrivalent, PF 1 completed Chandasanjay De Jesus null, IRLANDA - [facility] & [place] 10/24/2024 13:04:23 Influenza, high-dose, quadrivalent, PF 0 completed Chanda Workman null, IRLANDA - [facility] & [place] 10/24/2024 13:04:23 Influenza, high-dose, quadrivalent, PF 3 completed Chandasanjay Blancoman null, IRLANDA - [facility] & [place] 10/24/2024 13:04:23 COVID-19, mRNA, LNP-S, PF, 100 mcg/0.5mL dose or 50 mcg/0.25mL dose 2 completed Chanda Workman null, [facility] & [place] 10/24/2024 13:04:23 COVID-19 vaccine, vector-nr, rS-Ad26, PF, 0.5 mL 1 completed [facility], [place] - [facility] & [place] 10/24/2024 13:04:23 RSV, recombinant, protein subunit RSVpreF, adjuvant reconstituted, 0.5 mL, PF 4 completed [facility], [place] [facility] & [place] 10/24/2024 13:04:23 pneumococcal polysaccharide PPV23 3 completed [facility], [facility] & [place] 10/24/2024 13:04:23 Influenza, split virus, quadrivalent, PF 7 completed [facility], [facility] & [place] 10/24/2024 13:04:23 Past Encounters Encounter ID Performer Location Encounter Start Date Encounter Closed Date Diagnosis/Indication Diagnosis SNOMED-CT Code Diagnosis ICD10 Code Diagnosis Note [id number] Christina Asher NP, S [facility] [address] 07/24/2024 13:12:43 07/24/2024 14:54:37 Retention of urine 666002241 R33.9 CT [facility] for FIRE ALARM TECHNICIAN testing on Tuesday. History of diabetes mellitus 680328600 Z86.39 [id number] Christina Asher NP, S [facility] [address] 07/30/2024 13:23:12 07/30/2024 14:51:50 Retention of urine 520109307 R33.9 FIRE ALARM TECHNICIAN test performed [id number] ALFRED WRIGHT MD [facility] [address] 08/02/2024 10:41:00 08/02/2024 12:01:26 Retention of urine 320807683 R33.9 voiding trial unsuccessf ul, catheter replaced. Patient will follow up in 1 week for repeat voiding trial and possible cystoscopy with transrecta l ultrasound of the prostate to evaluate for possible surgical interventi ons. [id number] [facility] [address] [facility] [address] [place] [address] 08/14/2024 13:00:29 08/14/2024 13:38:34 Retention of urine 797843683 R33.9 Patient had successful voiding trial in office today. He will continue tamsulosin . I have instructed him to perform timed voiding at least once every 2 hours during the daytime hours. He will follow up in 6 weeks for re-evaluat ion. We will obtain pressure flow studies with Uroc[facility] prior to his return [id number] [facility] [address] [address] 09/13/2024 14:06:21 09/13/2024 15:34:40 Prostate specific antigen above reference range 431044477 R97.20 Retention of urine 27037 4002 R33.9 we will schedule for cystoscopy and prostate biopsy in office. Assuming no cancer is present, we will likely need to proceed with surgical interventi on as he was failed multiple voiding trials. Beasley catheter will be exchanged today. [id number] ALFRED WRIGHT MD [facility]-[address] [address] 09/28/2024 09:15:18 09/28/2024 10:25:23 Prostate specific antigen above reference range 091263934 R97.20 Patient tolerated procedure well. He will follow up in 1 week for results. He was reminded to complete oral antibiotic therapy. He was instructed to contact our office or go to the ER if he experience s fever greater than 100.5?? F or chills. Retention of urine 42343 4002 R33.9 A Beasley catheter replaced after procedure. [id number] ALFRED WRIGHT MD [facility]-[address] [address] 10/09/2024 11:18:09 10/09/2024 12:26:02 Retention of urine 230934238 R33.9 Malignant neoplasm of prostate 848331581 C61 [id number] ALFRED WRIGHT MD [facility] [place] [address] 11/01/2024 10:00:40 11/01/2024 11:17:32 [id number] Merritt Del Valle MD [facility] [address] [facility] [address] [place] [address] 10/24/2024 12:59:21 10/24/2024 13:47:59 Malignant neoplasm of prostate 544150746 C61 Patient initially presented to Urology for [...] 1st day injection. Urinary ou tflow obstruction 630591621 N13.9 Patient with urinary catheter in place. Will follow-up obstructiv e uropathy symptoms as patient starts androgen deprivatio n therapy. Health Concerns Section Related Observation LastModified by Organization Detai ls LastModified Time None Recorded Concern Status LastModified by Organization Details LastModified Time None Recorded Advance Directives Directive None Recorded Payers Insurance Date Sequence Insurance Name Policy Number Policy Rose Covered Member ID Rose Member ID Guarantor Name 10/29/2024 1 [employer] (MEDICARE REPLACEMENT/A DVANTAGE - HMO) IRLANDADSNP Krunalbianca Beyer Axel [id number] Thierno Reyna 10/29/2024 2 MEDICAID-[facility] - FFS/TRADITION AL Thierno Reyna [id number] Thierno Reyna Notes Date Note Type Note Provider Name and Address Organization Details Recorded Time 09/13/2024 text/html 09/13/24 51-yoqu-aed-male returns to clinic for voiding trail --- 08/02/24 83-tkdi-hzo-male returns to clinic for voiding trail. 250 mL was placed in the bladder today and was unsuccessful-------- 5 Pt here for FIRE ALARM TECHNICIAN test ---------07/24/24 74 yowm presents to clinic for evaluation of urinary retention. Patient reports he went to [facility] last with inability to urinate. Beasley [...] scan of abdomen pelvis with contrast on CT revealed multiple Bosniak 1 renal cystic [...] AAA surgery, DM, HTN, and HLD. Pts tafe lecturer is Dr Marcos. *08/24/24PSA 10.2(beasley catheter in place)07/30/24: FIRE ALARM TECHNICIAN- Pressure over basline 16wmH5o, Peak detrusor pressure 08kxG73, Peak Vaslsalva pressure 9adP1g807/19/2024: CT scan of abd/pelvis with contrast revealed [...] blood, neg leuks, and neg nitrates NovemberSA 7.51Thierno Reyna is a 74-year-old male who [...] a total endoscopy done last Tuesday at [facility] and was cleared by Dr. Marcos's office for the procedure. Thierno has a history of almost becoming septic and was treated with antibiotics. He is also taking finasteride, which was prescribed to shrink his prostate. ALFRED WRIGHT MD [address] [facility], [place], [address], [place] [facility] [place] 09/18/2024 09:37:33 09/28/2024 text/html 09/28/24 98-fmgq-djr-male returns to my office for cystoscopy, TRUS Bx. -- 09/14/25718930-vfrh-ugb- male returns to clinic for voiding trail --------08/02/2571-y pxu-vnc-kswk returns to clinic for voiding trail. 250 mL was placed in the bladder today and was unsuccessful-------- 5Pt here for FIRE ALARM TECHNICIAN test ---------07/24/2571 renata presents to clinic for evaluation of urinary retention. Patient reports he went to [facility] last with inability to urinate. Beasley [...] AAA surgery, DM, HTN, and HLD. Pts tafe lecturer is Dr Marcos. 08/24/24 PSA 10.2 (beasley catheter in place)07/30/24: FIRE ALARM TECHNICIAN- Pressure over basline 79pmS9d, Peak detrusor pressure 78kvV45, Peak Vaslsalva pressure 9xhR9e207/19/2024: CT scan of abd/pelvis with contrast revealed [...] a total endoscopy done last Tuesday at [facility] and was cleared by Dr. Marcos's office for the procedure. Thierno has a history of almost becoming septic and was treated with antibiotics. He is also taking finasteride, which was prescribed to shrink his prostate. ALFRED WRIGHT MD [address], [place], [address], [place] 09/28/2024 09:59:54 10/09/2024 text/html 10/09/24 CC: 30-ofug-wiy-male returns to my office for TRUS Bx [...] prostate cancer is high-volume and high-risk, with Gelacio scores of 4+4 and 4+3, indicating aggressive cancer. The percentage of cancer involvement in the cores was also high, with many cores being 100% cancerous. 09/28/24 20-rpiw-iid-male returns to my office for cystoscopy, TRUS [...] a total endoscopy done last Tuesday at [facility] and was cleared by Dr. Marcos's office for the procedure. Thierno has a history of almost becoming septic and was treated with antibiotics. He is also taking finasteride, which was prescribed to shrink his prostate. 09/14/25716540-jzag-osv- male returns to clinic for voiding trial --------08/02/2571-y woc-vpo-idvs returns to clinic for voiding trail. 250 mL was placed in the bladder today and was unsuccessful -- 07/30/24Pt here for FIRE ALARM TECHNICIAN test ----- 07/24/2571 renata presents to clinic for evaluation of urinary retention. Patient reports he went to [facility] last with inability to urinate. Beasley [...] AAA surgery, DM, HTN, and HLD. Pts tafe lecturer is Dr Marcos. 10/01/24 TRUS Bx: R LB 4+4- 75%, R LA 4+4 100%, RB 4+3 100%, RM 4+3 100%, RA 4+4 100%, LLB 4+3 100%, LLM 4+4 100%, LLA 4+4 50%, L B 4+3 100%, LM 4+4 75%, LA 4+3 100%; vol 25.5 cc 08/24/24 PSA 10.2 (beasley catheter in place)07/30/24: FIRE ALARM TECHNICIAN- Pressure over basline 96wtJ4k, Peak detrusor pressure 03leK95, Peak Vaslsalva pressure 2meI7g507/19/2024: CT scan of abd/pelvis with contrast revealed [...] nitratesJune 2023 PSA 7.51 ALFRED WRIGHT MD [address] [facility], [place], [address], [facility] - [place] 10/09/2024 12:48:53 10/24/2024 text/html 74 yo M presents for [...] androgen deprivation therapy. Merritt Del Valle MD [address], [place], [address], [place] [facility] [place] 10/24/2024 14:11:09 11/01/2024 text/html 11/01/24 90-unuh-bam-male returns to my office for follow up prostate biopsy and PET-CT scan results. Study found no evidence of metastases. There is questionable asymmetrical lesion of the upper pole of the left kidney. Patient had previously had CT scan with IV contrast in June 2024 which identified several Bosniak 1 cysts. ---- 10/09/24CC: 14-rspm-kst-male returns to my office for TRUS Bx resultsThierno Reyna is a 74-year-old male who presents [...] prostate cancer is high-volume and high-risk, with [place] scores of 4+4 and 4+3, indicating aggressive cancer. The percentage of cancer involvement in the cores was also high, with many cores being 100% cancerous. 25718573-gzve-mwc-male returns to my office for cystoscopy, TRUS Bx.Thierno Reyna is a 74-year-old male who presents [...] a total endoscopy done last Tuesday at [facility] and was cleared by Dr. Marcos's office for the procedure. Thierno has a history of almost becoming septic and was treated with antibiotics. He is also taking finasteride, which was prescribed to shrink his prostate. 09/13/24 42-ovzb-yoi-male returns to clinic for voiding trial --- 08/02/24 10-uara-jfd-male returns to clinic for voiding trail. 250 mL was placed in the bladder today and was unsuccessful-------- 5 Pt here for FIRE ALARM TECHNICIAN test ---------07/24/24 74 yowm presents to clinic for evaluation of urinary retention. Patient reports he went to [facility] last with inability to urinate. Beasley [...] scan of abdomen pelvis with contrast on 5CT revealed multiple Bosniak 1 renal cystic lesions [...] AAA surgery, DM, HTN, and HLD. Pts tafe lecturer is Dr Marcos. * 10/30/24 PET-CT ([facility]): No hyperintense lesions to suggest the presence of bone, lymph node, or other metastatic disease in this patient with history of prostate carcinoma, noncalcified 1.8cm nodule within the right upper lobe, lung carcinoma in no way can be excluded in this patient with emphysema, no old films are available for comparison,asymmetri c parenchyma versus soft tissue mass left upper kidney, renal ultrasound is meefppxwfyt45/23/25 FIRE ALARM TECHNICIAN testing: valsalva Peak 21spW5B, void peak 44awj1K97/21/25 Prostate biopsy: prostatic adenocarcinoma, 4+4=8 (grade group 4) with background intraductal carcinoma; tumor involves 60% of lljgxi55/07/25 TRUS Bx: R LB 4+4- 75%, R LA 4+4 100%, RB 4+3 100%, RM 4+3 100%, RA 4+4 100%, LLB 4+3 100%, LLM 4+4 100%, LLA 4+4 50%, L B 4+3 100%, LM 4+4 75%, LA 4+3 100%; vol 25.5 cc08/24/24 PSA 10.2 (beasley catheter in place)07/30/24: FIRE ALARM TECHNICIAN- Pressure over basline 25qfD3n, Peak detrusor pressure 73wxZ79, Peak Valsalva pressure 6kjA0u707/19/2024: CT scan of abd/pelvis with contrast revealed [...] leuks, and neg nitratesJune 2023 PSA 7.51 Thierno Reyna is a 74-year-old male who presents for a follow-up visit. He initially did well in the office but experienced a setback at home, requiring a catheter to be reinserted after approximately ten hours. He has not yet started his treatments but has undergone a PET scan. The PET scan report indicates no worrisome signs of cancer elsewhere in the body. However, there are nonspecific findings, including a 1.8 cm area in the lung, which could be scarring or another benign condition, and several low-density lesions within the right kidney. The patient had a CT scan with contrast in June, which showed no tumors in the kidney. Thierno has been referred to Dr. Del Valle, an oncologist, and has been scheduled for a follow-up appointment on Tuesday at 09: 30. He has also been scheduled to receive an Eligard injection for testosterone management. He has been in contact with various coordinators and nurse navigators, including Mary and Aurea, to manage his treatment plan. Not Available [facility] 11/01/2024 11:48:18
--- OUTSIDE RECORDS SUMMARY | 2024-11-01 16:53 | XMS_ITS ---
Author Organization Unknown Vital Signs BpStanding BpSitting BpSupine Date Temperature HeartRate Weight Hei ght Spo2 Respiration Bmi HeadCircumference FieldCount TimeRecorded NeckCircumferen ce WaistCircumference Pulse 128/68 08/24 00:00 :00 98.7 74 225,0 5,6 98 36.3 1 7 10/18/2024 09:00:00 08/03 00:00 :00 240,0 5,6 38.7 3 3 10/18/2024 14:30:00 126/68 05/28 00:00 :00 98.6 72 238,0 5,6 98 38.4 1 7 10/18/2024 14:00:00 04/04 00:00 :00 234,0 5,6 37.7 6 3 10/18/2024 14:00:00 126/62 02/14 00:00 :00 98.8 244,0 5,6 39.3 8 5 10/18/2024 14:00:00 120/64 12/08 00:00 :00 97.4 244,0 5,6 39.3 8 5 10/18/2024 14:45:00
--- OUTSIDE RECORDS SUMMARY | 2024-11-01 16:53 | XMS_ITS | Continuity of Care Document ---
Author Organization [facility] U[facility]-100 Address [address] [place] [address] Care Team Providers Care Pattern Stamper Name Role Phone AMPARO HARMON Primary Care Provider [phone] Assessment Encounter Date Assessment Date Assessment LastModified [...] and the risk of anesthesia. While his FUSING LINE INSPECTOR Test numbers are encouraging, I explained that I can not guarantee that surgery will result in spontaneous voiding. He verbalized his understanding and wishes to proceed. 4. Planned to coordinate the PSMA scan, referral to Dr. Ron, and the TURP procedure simultaneously to address both the cancer and the urinary issues. 5. Informed the patient that the PSMA scan would be done at [facility] in [place] and that the referral to Dr. Ron would be placed immediately. [email or web address] Not available 10/09/2024 12:48:41 Plan of Treatment Reminders Order Date Submit Date Provider Last Modified By Organization Details Last Modified Time Details Appointments FOLLOW UP 15 2024 10:15A M ALFRED WRIGHT MD Not available Not available Not available OV EST 15 2024 10:15A M ALFRED WRIGHT MD Not available Not available Not available CT SIMULATIO N 2024 01:00P Scott ETIENNE MD Not available Not available Not available Lab None recorded. Referral radiation oncologis t referral 2024 025 NOEMI Etienne MD, [facility] [place], [address], 10/18/2024 09:04:44 Procedures None recorded. Surgeries transuret hral resection of prostate (SURG) 2024 025 [email or web address] Not available 10/16/2024 16:33:58 Imaging PET-CT, skull base to mid-thigh scan - Ga 68 PSMA scan 2024 025 [email or web address] [facility] Radiology, [address] [place] [address] [place], [address], 10/30/2024 11:08:45 Medication Orders None recorded. Patient TargetsNo targets recorded. Patient InstructionsNo instructions recorded. Reason for Referral Referring Physician: Alfred Wan rt, Urology, Encounter Date: 10/09/2024 Results Created Date Observation Date Name Description Value Unit Range Abnormal Flag Note LastModifiedBy Organization Detail LastModifiedTime 11/01/19 25 PET-C T, skull base to mid-t high scan No observ ation record ed. [email or web address] Not Available 2024 09:27:48 Result Notes None recorded. Problems Name Problem SNOMED Code Status Onset Date Resolution Date Notes Provider Name and Address Organization Details Recorded Time Retention of urine 366785124 Active MD Bart [address] , [place], [address] , [facility] - [place] & [place] 15:05:27 Prostate specific antigen above reference range 354766006 Active [address], [place], [address] , [facility] - [facility] & [place] 15:05:21 Malignant neoplasm of prostate 350353561 Active [address], [address] , [place] - [facility] & [place] 12:04:35 Problem Notes None recorded. Procedures Surgical History Date Name Laterality Status Provider Name and Address Organization Details Recorded Time 09/29/19 25 Prostate Biopsy completed MD Bart [address], [place] [address], [facility] - [facility] & [place] 09/28/2024 09:57:43 09/29/19 25 Cystoscopy-Male completed MD Bart [address], [address] [place] - [facility] & [place] 09/28/2024 09:58:50 09/29/19 25 TRUS completed MD Bart [address], [address] [place] - [facility] & [place] 09/28/2024 09:58:17 09/14/19 25 FUSING LINE INSPECTOR Test completed Liyah Burnetteno Radha [facility] & [place] 09/13/2024 14:45:35 07/30/19 25 FUSING LINE INSPECTOR Test completed Christina Asher [employer] SUR[employer]YING ENGINE[employer], [address], [place] [address], [place] - [facility] & [place] 07/30/2024 14:57:54 cholecystectomy completed Chanda De Jesus [place] - [facility] & [place] 10/24/2024 13:09:14 Imaging Results None recorded. Procedure [...] Address Organization Details Last Updated DateTime 5 280741. 1 g 98 % 98 % 77 /min 134 mm[Hg] 76 mm[Hg] Liyah CHOWDHURY [facility] & [place] 5 11:32:29 Social History Question Answer Notes LastModified by Organizat ion Details LastModified Time Tobacco Smoking Status Former Smoker IRLANDA Benavidesarh [facility] & [place] 10/24/2024 13:08:36 What Is Your Level Of Alcohol Consumption? None Information not available 10/24/2024 When Did You Quit Smoking? 18+yearssin celastcipasha ette 27 Years Ago Quit 06/1994 [email or web address] Information not available 10/24/2024 At What Age Did You Start Smoking Tobacco? 17 [email or web address] Information not available 10/24/2024 Do You Use Any Illicit Or Recreational Drugs? No [email or web address] Information not available 10/24/2024 Sex: Unknown Functional Status None recorded. Mental Status None recorded. Family History Nothing Reported. Medical History No medical history recorded. Immunizations Vaccine Type Date Status Note Provider Nam e and Address Organization Details Recorded Time zoster recombinant 4 completed Chanda ohara, IRLANDA Connolly [place] & [place] 10/24/2024 13:04:23 zoster recombinant 4 completed Chanda ohara, IRLANDA [facility]OW[facility]UR[facility] & [place] 10/24/2024 13:04:23 Influenza, high-dose, quadrivalent, PF 2 completed IRLANDA Benavidesarh [facility] & [place] 10/24/2024 13:04:23 Influenza, high-dose, quadrivalent, PF 1 completed IRLANDA Benavidesarh [facility] & [place] 10/24/2024 13:04:23 Influenza, high-dose, quadrivalent, PF 0 completed [facility], [facility] & [place] 10/24/2024 13:04:23 Influenza, high-dose, quadrivalent, PF 3 completed [facility], [facility] & [place] 10/24/2024 13:04:23 COVID-19, mRNA, LNP-S, PF, 100 mcg/0.5mL dose or 50 mcg/0.25mL dose 2 completed [facility], [facility] & [place] 10/24/2024 13:04:23 COVID-19 vaccine, vector-nr, rS-Ad26, PF, 0.5 mL 1 completed [facility], [facility] & [place] 10/24/2024 13:04:23 RSV, recombinant, protein subunit RSVpreF, adjuvant reconstituted, 0.5 mL, PF 4 completed [facility], [facility] & [place] 10/24/2024 13:04:23 pneumococcal polysaccharide PPV23 3 completed [facility], [facility] & [place] 10/24/2024 13:04:23 Influenza, split virus, quadrivalent, PF 7 completed [facility] & [place] 10/24/2024 13:04:23 Past Encounters Encounter ID Performer Location Encounter Start Date Encounter Closed Date Diagnosis/Indication Diagnosis SNOMED-CT Code Diagnosis ICD10 Code Diagnosis Note [id number] ALFRED WRIGHT MD [facility] Urology-[address] [place] [address] 09/13/2024 14:06:21 09/13/2024 15:34:40 Prostate specific antigen above reference range 224551638 R97.20 Retention of urine 78616 4002 R33.9 we will schedule for cystoscopy and prostate biopsy in office. Assuming no cancer is present, we will likely need to proceed with surgical interventi on as he was failed multiple voiding trials. Beasley catheter will be exchanged today. [id number] ALFRED WRIGHT MD [facility] Urology-1 [address] [place] [address] 09/28/2024 09:15:18 09/28/2024 10:25:23 Prostate specific antigen above reference range 810098054 R97.20 Patient tolerated procedure well. He will follow up in 1 week for results. He was reminded to complete oral antibiotic therapy. He was instructed to contact our office or go to the ER if he experience s fever greater than 100.5?? F or chills. Retention of urine 93676 4002 R33.9 A Beasley catheter replaced after procedure. [id number] ALFRED WRIGHT MD [facility]-1 [address] [place] [address] 10/09/2024 11:18:09 10/09/2024 12:26:02 Retention of urine 004145891 R33.9 Malignant neoplasm of prostate 721970203 C61 Health Concerns Section Related Observation LastModified by Organization Detai ls LastModified Time None Recorded Concern Status LastModified by Organization Details LastModified Time None Recorded Payers Encounter Date Sequence Insurance Name Policy Number Policy Rose Covered Member ID Rose Member ID Guarantor Name 10/09/2024 1 [facility] (MEDICARE REPLACEMENT/A DVANTAGE - HMO) [id number] Thierno Reyna [id number] Thierno Reyna Notes Date Note Type Note Provider Name and Address Organization Details Recorded Time 10/09/2024 text/html 10/09/24 CC: 21-urtm-eir-male returns to my office for TRUS Bx results hTierno Reyna is a 74-year-old male who presents [...] prostate cancer is high-volume and high-risk, with [place] scores of 4+4 and 4+3, indicating aggressive cancer. The percentage of cancer involvement in the cores was also high, with many cores being 100% cancerous. 09/28/24 27-poyl-rys-male returns to my office for cystoscopy, TRUS [...] a total endoscopy done last Tuesday at [facility] and was cleared by Dr. Marcos's office for the procedure. Thierno has a history of almost becoming septic and was treated with antibiotics. He is also taking finasteride, which was prescribed to shrink his prostate. 09/14/25714808-jsth-esh- male returns to clinic for voiding trial --------08/02/2571-y cbz-jtk-jlud returns to clinic for voiding trail. 250 mL was placed in the bladder today and was unsuccessful -- 07/30/24Yonathan here for FUSING LINE INSPECTOR test ----- 07/24/2571 yowm presents to clinic for evaluation of urinary retention. Patient reports he went to [facility] last with inability to urinate. Beasley [...] AAA surgery, DM, HTN, and HLD. Pts thread reeler is Dr Marcos. 10/01/24 TRUS Bx: R LB 4+4- 75%, R LA 4+4 100%, RB 4+3 100%, RM 4+3 100%, RA 4+4 100%, LLB 4+3 100%, LLM 4+4 100%, LLA 4+4 50%, L B 4+3 100%, LM 4+4 75%, LA 4+3 100%; vol 25.5 cc 08/24/24 PSA 10.2 (beasley catheter in place)07/30/24: FUSING LINE INSPECTOR- Pressure over basline 03cqC9r, Peak detrusor pressure 96axU39, Peak Vaslsalva pressure 2jhA0o507/19/2024: CT scan of abd/pelvis with contrast revealed [...] nitratesJune 2023 PSA 7.51 ALFRED WRIGHT MD [address], [place], [address], [place] - [facility] - [place] & [place] 10/09/2024 12:48:53
--- OUTSIDE RECORDS SUMMARY | 2024-11-01 16:53 | XMS_ITS | Continuity of Care Document ---
Author Organization [facility] Urology-100 Address [address] [place] [address] Care Team Providers Care Transportation Maintenance Operator Name Role Phone AMPARO HARMON Primary Care Provider [phone] Assessment Encounter Date Assessment Date Assessment LastModified [...] DS 800 mg-160 mg tablet 2024 025 [employer] [id number], [address] [place], [place], [id number], 10/24/2024 13:07:35 Patient TargetsNo targets recorded. Patient InstructionsNo instructions recorded. Reason for Referral None Reported. Results Created Date Observation Date Name Description Value Unit Range Abnormal Flag Note LastModifiedBy Organization Detail LastModifiedTime 11/01/19 25 PET-C T, skull base to mid-t high scan No observ ation record ed. [email or web address] Not Available 2024 09:27:48 Result Notes None recorded. Problems Name Problem SNOMED Code Status Onset Date Resolution Date Notes Provider Name and Address Organization Details Recorded Time Retention of urine 049269425 Active 025 AMBERLY WRIGHT MD [address], [place], [address] , [place] - [facility] & [place] 15:05:27 Prostate specific antigen above reference range 553332596 Active 025 AMBERLY WRIGHT MD [address], [place], [address] , [place] - [facility] & [place] 5 15:05:21 Malignant neoplasm of prostate 113082718 Active [address], [place], [address] , [place] - [facility] & [place] 5 12:04:35 Problem Notes None recorded. Procedures Surgical History Date Name Laterality Status Provider Name and Address Organization Details Recorded Time 09/29/19 25 Prostate Biopsy completed MD Bart [address], [place], [address], [place] - [facility] & [place] 09/28/2024 09:57:43 09/29/19 25 Cystoscopy-Male completed AMBERLY WRIGHT MD [address], [place], [address], [facility] - [facility] & [place] 09/28/2024 09:58:50 09/29/19 25 TRUS completed AMBERLY WRIGHT MD [address], [place], [address], [facility] - [facility] & [place] 09/28/2024 09:58:17 09/14/19 25 TRAVEL PHYSICAL THERAPIST Test completed Liyah Garcia CT - [facility] & [place] 09/13/2024 14:45:35 07/30/19 25 TRAVEL PHYSICAL THERAPIST Test completed Christina Asher NP, [address], [place], [address], [facility] - [facility] & [place] 07/30/2024 14:57:54 cholecystectomy completed Chanda De Jesus [facility] & [place] 10/24/2024 13:09:14 Imaging Results None recorded. Procedure [...] Address Organization Details Last Updated DateTime 09/13/2024 685319.28 g 84 /min 132 mm[Hg] 76 mm[Hg] Liyah Garcia [facility] & [place] 09/13/2024 14:43:07 Social History Question Answer Notes LastModified by Organizat ion Details LastModified Time Tobacco Smoking Status Former Smoker Chanda ohara, IRLANDA CHOWDHURY [facility] & [place] 10/24/2024 13:08:36 What Is Your Level Of Alcohol Consumption? None [email or web address] Information not available 10/24/2024 When Did You Quit Smoking? 18+yearssin lamberto miranda 27 Years Ago Quit 06/1994 [email or web address] Information not available 10/24/2024 At What Age Did You Start Smoking Tobacco? 17 [email or web address] Information not available 10/24/2024 Do You Use Any Illicit Or Recreational Drugs? No [email or web address] Information not available 10/24/2024 Sex: Unknown Functional Status None recorded. Mental Status None recorded. Family History Nothing Reported. Medical History No medical history recorded. Immunizations Vaccine Type Date Status Note Provider Nam e and Address Organization Details Recorded Time zoster recombinant 4 completed Chanda Workman null, [place] - [facility] - [place] & [place] 10/24/2024 13:04:23 zoster recombinant 4 completed Chanda Workman null, [place] - [facility] - [place] & [place] 10/24/2024 13:04:23 Influenza, high-dose, quadrivalent, PF 2 completed Chanda Workman null, [place] - [facility] - [place] & [place] 10/24/2024 13:04:23 Influenza, high-dose, quadrivalent, PF 1 completed Chanda Workman null, [place] - [facility] - [place] & [place] 10/24/2024 13:04:23 Influenza, high-dose, quadrivalent, PF 0 completed Chanda Workman null, [place] - [facility] - [place] & [place] 10/24/2024 13:04:23 Influenza, high-dose, quadrivalent, PF 3 completed Chanda Workman null, [place] - [facility] - [place] & [place] 10/24/2024 13:04:23 COVID-19, mRNA, LNP-S, PF, 100 mcg/0.5mL dose or 50 mcg/0.25mL dose 2 completed Chanda Workman null, [place] - [facility] - [place] & [place] 10/24/2024 13:04:23 COVID-19 vaccine, vector-nr, rS-Ad26, PF, 0.5 mL 1 completed Chanda Workman null, [place] - [facility] - [place] & [place] 10/24/2024 13:04:23 RSV, recombinant, protein subunit RSVpreF, adjuvant reconstituted, 0.5 mL, PF 4 completed Chanda ohara, IRLANDA CHOWDHURY [facility] & [place] 10/24/2024 13:04:23 pneumococcal polysaccharide PPV23 3 completed Chanda ohara, IRLANDA - [facility] - [place] & [place] 10/24/2024 13:04:23 Influenza, split virus, quadrivalent, PF 7 completed Chanda De Jesus null, IRLANDA - [facility] - [place] & [place] 10/24/2024 13:04:23 Past Encounters Encounter ID Performer Location Encounter Start Date Encounter Closed Date Diagnosis/Indication Diagnosis SNOMED-CT Code Diagnosis ICD10 Code Diagnosis Note [id number] AMBERLY WRIGHT MD [facility] Urology-[address] [place] [address] 09/13/2024 14:06:21 09/13/2024 15:34:40 Prostate specific antigen above reference range 825512353 R97.20 Retention of urine 81092 4002 R33.9 we will schedule for cystoscopy [...] Rose Member ID Guarantor Name 09/13/2024 1 [facility] (MEDICARE REPLACEMENT/A DVANTAGE - HMO) [id number] Thierno Reyna [id number] Thierno Reyna Notes Date Note Type Note Provider Name and Address Organization Details Recorded Time 09/13/2024 text/html 09/13/24 41-gamq-ijx-male returns to clinic for voiding trail --- 08/02/24 31-rdcq-hfr-male returns to clinic for voiding trail. 250 mL was placed in the bladder today and was unsuccessful-------- 5 Pt here for TRAVEL PHYSICAL THERAPIST test ---------07/24/24 74 yowm presents to clinic for evaluation of urinary retention. Patient reports he went to [facility] last with inability to urinate. [...] AAA surgery, DM, HTN, and HLD. Pts paper pattern inspector is Dr Marcos. *08/24/24PSA 10.2(beasley catheter in place)07/30/24: TRAVEL PHYSICAL THERAPIST- Pressure over basline 30laB5m, Peak detrusor pressure 02gqA57, Peak Vaslsalva pressure 2daJ4v707/19/2024: CT scan of abd/pelvis with contrast revealed [...] a total endoscopy done last Tuesday at [facility] and was cleared by Dr. Marcos's office for the procedure. Thierno has a history of almost becoming septic and was treated with antibiotics. He is also taking finasteride, which was prescribed to shrink his prostate. AMBERLY WRIGHT MD [address], [place], [address], [facility] 09/18/2024 09:37:33
--- OUTSIDE RECORDS SUMMARY | 2024-11-01 16:53 | XMS_ITS | Continuity of Care Document ---
Author Organization [facility] Phone Care Team Providers Care Flame Annealing Machine Operator Name Role Phone AMBERLY WRIGHT Primary Attending AMBERLY WRIGHT Unavailable UNKNOWN, DR Snyder Primary Care Unavailable AMBERLY WRIGHT Admitting RESULTS MEDICATIONS SOCIAL HISTORY HEALTH CONCERNS ENCOUNTERS CARE TEAM
--- OUTSIDE RECORDS SUMMARY | 2024-11-01 16:54 | XMS_ITS | Continuity of Care Document ---
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 [email or web address] Not available 11/01/2024 11:10:56 Plan [...] high scan No observ ation record ed. [email or web address] Not Available 2024 09:27:48 Result Notes None recorded. Problems Name Problem SNOMED Code Status Onset Date Resolution Date Notes Provider Name and Address Organization Details Recorded Time Retention of urine 345375504 Active [address], [place], [address] , [place] [facility] & [place] 5 15:05:27 Prostate specific antigen above reference range 530639814 Active [address], [place], [address] , [place] [facility] & [place] 5 15:05:21 Malignant neoplasm of prostate 045184864 Active [address], [place], [address] , [place] [facility] & [place] 5 12:04:35 Problem Notes None recorded. Procedures Surgical History Date Name Laterality Status Provider Name and Address Organization Details Recorded Time 09/29/19 25 Prostate Biopsy completed MD [address], [place], [address], [place] [facility] & [place] 09/28/2024 09:57:43 09/29/19 25 Cystoscopy-Male completed MD [address], [place], [address], [place] [facility] & [place] 09/28/2024 09:58:50 09/29/19 25 TRUS completed MD [address], [place], [address], [facility] & [place] 09/28/2024 09:58:17 09/14/19 25 IMPORT CUSTOMER SERVICE MANAGER Test completed Liyah Garcia [facility] & [place] 09/13/2024 14:45:35 07/30/19 25 IMPORT CUSTOMER SERVICE MANAGER Test completed Christina Asher NP, [address], [place], [address], [facility] & [place] 07/30/2024 14:57:54 cholecystectomy completed Chanda De Jesus [facility] & [place] 10/24/2024 13:09:14 Imaging Results None recorded. Procedure [...] Updated DateTime 5 167.64 cm 35.7 kg/m2 624487. 91 g 96 % 96 % 78 /min 136 mm[Hg] 76 mm[Hg] Liyah Bui Radha [facility] & [place] 10:20:41 Social History Question Answer Notes LastModified by Organizat ion Details LastModified Time Tobacco Smoking Status Former Smoker Chanda De Jesus IRLANDA ohara ARACELI [facility] & [place] 10/24/2024 13:08:36 What Is Your Level Of Alcohol Consumption? None Information not available 10/24/2024 When Did You Quit Smoking? 18+yearssin [email or web address] 27 Years Ago Quit 06/1994 [email or web address] Information not available 10/24/2024 At What Age Did You Start Smoking Tobacco? 17 [email or web address] Information not available 10/24/2024 Do You Use Any Illicit Or Recreational Drugs? No [email or web address] Information not available 10/24/2024 Sex: Unknown Functional Status None recorded. Mental Status None recorded. Family History Nothing Reported. Medical History No medical history recorded. Immunizations Vaccine Type Date Status Note Provider Nam e and Address Organization Details Recorded Time zoster recombinant 4 completed Chanda Workman null, [place] [facility] & [place] 10/24/2024 13:04:23 zoster recombinant 4 completed Chanda Workman null, [place] [facility] [place] [facility] [place] 10/24/2024 13:04:23 Influenza, high-dose, quadrivalent, PF 2 completed Chanda Workman null, [place] [facility] [place] 10/24/2024 13:04:23 Influenza, high-dose, quadrivalent, PF 1 completed Chanda Workman null, [place] [facility] [place] 10/24/2024 13:04:23 Influenza, high-dose, quadrivalent, PF 0 completed Chanda Work[place] null, [place] [facility] [place] 10/24/2024 13:04:23 Influenza, high-dose, quadrivalent, PF 3 completed Chanda Workman null, [place] [facility] [place] 10/24/2024 13:04:23 COVID-19, mRNA, LNP-S, PF, 100 mcg/0.5mL dose or 50 mcg/0.25mL dose 2 completed Chanda Workman null, [place] [facility] & [place] 10/24/2024 13:04:23 COVID-19 vaccine, vector-nr, rS-Ad26, PF, 0.5 mL 1 completed Chanda Workman null, [place] [facility] & [place] 10/24/2024 13:04:23 RSV, recombinant, protein subunit RSVpreF, adjuvant reconstituted, 0.5 mL, PF 4 completed Chanda ohara, IRLANDA - [facility] - [place] & [place] 10/24/2024 13:04:23 pneumococcal polysaccharide PPV23 3 completed Chanda ohara, IRLANDA - [facility] - [place] & [place] 10/24/2024 13:04:23 Influenza, split virus, quadrivalent, PF 7 completed Chanda ohara, IRLANDA - [facility] - [place] & [place] 10/24/2024 13:04:23 Past Encounters Encounter ID Performer Location Encounter Start Date Encounter Closed Date Diagnosis/Indication Diagnosis SNOMED-CT Code Diagnosis ICD10 Code Diagnosis Note [id number] AMBERLY WRIGHT MD [facility]1 [address] [place] [address] 10/09/2024 11:18:09 10/09/2024 12:26:02 Retention of urine 862276346 R33.9 Malignant neoplasm of prostate 823672585 C61 [id number] AMBERLY WRIGHT MD [facility] [address] [place] [address] 11/01/2024 10:00:40 11/01/2024 11:17:32 [id number] Merritt Del Valle MD [facility] [address] [place] [address] 10/24/2024 12:59:21 10/24/2024 13:47:59 Malignant neoplasm of prostate 406232413 C61 Patient initially presented to Urology for evaluation of elevated PSA. Labs on August 24, 2024 with PSA 10.2. Patient had prostate biopsy performed on September 28, 2024. With pathology demonstrat ing prostate adenocarci noma 4+4=8 in 05/08 cores. Prostate cancer involving both right and [...] 1st day injection. Urinary ou tflow obstruction 253029700 N13.9 Patient with urinary catheter in place. Will follow-up obstructiv e uropathy symptoms as patient starts androgen deprivatio n therapy. Health Concerns Section Related Observation LastModified by Organization Detai ls LastModified Time None Recorded Concern Status LastModified by Organization Details LastModified Time None Recorded Payers Encounter Date Sequence Insurance Name Policy Number Policy Rose Covered Member ID Rose Member ID Guarantor Name 11/01/[address] [facility] (MEDICARE REPLACEMENT/A DVANTAGE - HMO) GUILLE Reyna [id number] Thierno Reyna 11/01/2024 2 [facility] - FFS/TRADITION AL Thierno Reyna [id number] Thierno Reyna Notes Date Note Type Note Provider Name and Address Organization Details Recorded Time 11/01/2024 text/html 11/01/24 35-wgka-aqn-male returns to my office for follow up prostate biopsy and PET-CT scan results. Study found no evidence of metastases. There is questionable asymmetrical lesion of the upper pole of the left kidney. Patient had previously had CT scan with IV contrast in June 2024 which identified several Bosniak 1 cysts. ---- 10/09/24CC: 59-yfgg-vuf-male returns to my office for TRUS Bx [...] prostate cancer is high-volume and high-risk, with [place] scores of 4+4 and 4+3, indicating aggressive cancer. The percentage of cancer involvement in the cores was also high, with many cores being 100% cancerous. [id number]-male returns to my office for cystoscopy, TRUS [...] a total endoscopy done last Tuesday at [facility] and was cleared by Dr. Marcos's office for the procedure. Thierno has a history of almost becoming septic and was treated with antibiotics. He is also taking finasteride, which was prescribed to shrink his prostate. 09/13/24 64-fkdm-qhn-male returns to clinic for voiding trial --- 08/02/24 35-rwrh-tix-male returns to clinic for voiding trail. 250 mL was placed in the bladder today and was unsuccessful-------- 5 Pt here for IMPORT CUSTOMER SERVICE MANAGER test ---------07/24/24 74 yowm presents to clinic for evaluation of urinary retention. Patient reports he went to [facility] with inability to urinate. Beasley [...] AAA surgery, DM, HTN, and HLD. Pts dealership manager is Dr Marcos. * 10/30/24 [facility] No hyperintense lesions to suggest the presence of bone, lymph node, or other metastatic disease in this patient with history of prostate carcinoma, noncalcified 1.8cm nodule within the right upper lobe, lung carcinoma in no way can be excluded in this patient with emphysema, no old films are available for comparison,asymmetri c parenchyma versus soft tissue mass left upper kidney, renal ultrasound is yogccywvxub93/23/25 IMPORT CUSTOMER SERVICE MANAGER testing: valsalva Peak 50cyZ8P, void peak 28tii5J90/21/25 Prostate biopsy: prostatic adenocarcinoma, 4+4=8 (grade group 4) with background intraductal carcinoma; tumor involves 60% of jlviux11/07/25 TRUS Bx: R LB 4+4- 75%, R LA 4+4 100%, RB 4+3 100%, RM 4+3 100%, RA 4+4 100%, LLB 4+3 100%, LLM 4+4 100%, LLA 4+4 50%, L B 4+3 100%, LM 4+4 75%, LA 4+3 100%; vol 25.5 cc08/24/24 PSA 10.2 (beasley catheter in place)07/30/24: IMPORT CUSTOMER SERVICE MANAGER- Pressure over basline 47nhE4v, Peak detrusor pressure 50syM91, Peak Valsalva pressure 0gjT1w307/19/2024: CT scan of abd/pelvis with contrast revealed [...] to manage his treatment plan. Not Available [facility] 11/01/2024 11:48:18
--- OUTSIDE RECORDS SUMMARY | 2024-11-01 16:54 | XMS_ITS | Continuity of Care Document ---
Author Organization [facility] Phone Care Team Providers Care Bricklayer'S Assistant Name Role Phone KYLEAMBERLY Blane Primary Attending ART AMBERLY S Surgeon NO, DEFINED P Primary Care Unavailable AMBERLY WRIGHT Unavailable AMBERLY WRIGHT Admitting ALLERGIES AND ADVERSE REACTIONS ALLERGIES AND ADVERSE REACTIONS Code System Allergy Substance Adverse Reaction Date Reaction (Severity) Comment Status Reported By Updated By No Known Allergies [id number] on October 11, 2024 4:42:32 PM UTC ASSESSMENTS Retention of urine ; FAMILY HISTORY RELATION: Father Status: Cause of : Unknown Age at : Unknown SNOMED-CT Diagnosis Age At Onset Information not available RELATION: Mother Status: Cause of : Unknown Age at : Unknown SNOMED-CT Diagnosis Age At Onset Information not available PROBLEMS PATIENT PROBLEMS Code Description/Comments Category Status Upda erik By [id number] Retention of urine active [email or web address] on October 15, 2024 3:47:40 PM UTC RESULTS Patient: KIERA Beyer Date of : 1950 11 LABORATORY RESULTS ORDER 500: GLUCOSE BEDSIDE T ESTING (LOINC: 98126-9) ORDER DATE: October 15, 2024 12:16:00 PM UTC Specimen Source: WHOLE BLOOD Specimen Type: Whole blood s ample PERFORMING LAB: [facility] [address] [facility] [id number] Result Comment: October 15 12:17:00 PM UTC Test performed by: [id number] ; Instrument: [id number] Final Result Date: October 15, 2024 12:17:00 PM UTC LOINC TEST FLAG [place] [address]-2 Glucose [Mass/volume ] in Capillary blood by Glucometer H 140 mg/dl 70 mg/dl - 105 mg/dl October 15 12:17:00 PM [place] LABORATORY NARRATIVE RESULTS Information is not available RADIOLOGY RESULTS Information is not available PATHOLOGY NARRATIVE RESULTS ORDER 800: PATHOLOGY SHENA Gruber ([facility]: 91944-2) ORDER DATE: October 15, 2024 10:06:00 PM [place] Specimen Source: PATH Specimen Type: Refer to path ology laboratory PERFORMING LAB: [address] [id number] Final Result Date: October 18, 2024 10:21:00 PM [place] (TECH: [facility]) TEST: PATHOLOGY SPECIMEN SEE SCANNED RPT MICROBIOLOGY RESULTS No Micro Labs/Results Exist for Patient BLOOD ADMIN RESULTS Information is not available TREATMENT PLAN DISCHARGE MEDICATIONS Status RXNORM Medication Dose Route Frequency Dates Comments U pdated By Continued [id number] Omeprazole Oral Capsule Delayed Release 20 MG 20 MG ORAL ONCE DAILY Prescr ibed: October 15, 2024 3:46:4 1 PM UT [id number] on October 15, 2024 3:46:41 PM UT Continued [id number] Methocarbamol Oral Tablet 500 MG 2 TAB ORAL NEEDED Prescr ibed: October 15, 2024 3:46:4 1 PM UT [id number] on October 15, 2024 3:46:41 PM UT Continued [id number] Ozempic (0.25 or 0.5 MG/DOSE) Subcutaneous Solution Pen-injector 2 MG/3ML 2 MG SUBCUTANEOUS ONCE EACH WEEK Prescr ibed: October 15, 2024 3:46:4 1 PM UT pt knows not to use until after surgery [id number] on October 15, 2024 3:46:41 PM [facility] Continued [id number] Albuterol Sulfate HFA Inhalation Aerosol Solution 108 (90 Base) MCG/ACT 2 PUF INHALED NEEDED Prescr ibed: October 15, 2024 3:46:4 1 PM UT [id number] on October 15, 2024 3:46:41 PM UT Continued [id number] Potassium Chloride ER Oral Capsule Extended Release 10 MEQ 10 MEQ ORAL ONCE DAILY Prescr ibed: October 15, 2024 3:46:4 1 PM UT [id number] on October 15, 2024 3:46:41 PM UT Continued [id number] Pramipexole Dihydrochlorid e Oral Tablet 0.25 MG 1 TAB ORAL AT BEDTIME Prescr ibed: October 15, 2024 3:46:4 1 PM UT [id number] on October 15, 2024 3:46:41 PM UT Continued [id number] traMADol HCl Oral Tablet 50 MG 1 TAB ORAL EVERY SIX HOURS NEEDED Prescr ibed: October 15, 2024 3:46:4 1 PM UT [id number] on October 15, 2024 3:46:41 PM UT Continued [id number] Rosuvastatin Calcium Oral Tablet 20 MG 20 MG ORAL ONCE DAILY Prescr ibed: October 15, 2024 3:46:4 1 PM UT [id number] on October 15, 2024 3:46:41 PM UT Continued [id number] Aspirin 81 Oral Tablet Delayed Release 81 MG 81 MG ORAL ONCE DAILY Prescr ibed: October 15, 2024 3:46:4 1 PM UT [id number] on October 15, 2024 3:46:41 PM UT Continued [id number] Ezetimibe Oral Tablet 10 MG 10 MG ORAL ONCE DAILY Prescr ibed: October 15, 2024 3:46:4 1 PM [facility] [id number] on October 15, 2024 3:46:41 PM UT Continued [id number] Spironolactone Oral Tablet 50 MG 50 MG ORAL ONCE DAILY Prescr ibed: October 15, 2024 3:46:4 1 PM UT [id number] on October 15, 2024 3:46:41 PM UT Continued [id number] Symbicort Inhalation Aerosol 80-4.5 MCG/ACT 1 PUF INHALED ONCE DAILY Prescr ibed: October 15, 2024 3:46:4 1 PM UT [id number] on October 15, 2024 3:46:41 PM UT Continued [id number] Farxiga Oral Tablet 5 MG 5 MG ORAL ONCE DAILY Prescr ibed: October 15, 2024 3:46:4 1 PM UT [id number] on October 15, 2024 3:46:41 PM UT Continued [id number] Cefdinir Oral Capsule 300 MG 1 TAB ORAL TWICE A DAY Prescr ibed: October 15, 2024 3:46:4 1 PM UT [id number] on October 15, 2024 3:46:41 PM UT Continued [id number] Finasteride Oral Tablet 5 MG 5 MG ORAL ONCE DAILY Prescr ibed: October 15, 2024 3:46:4 1 PM UT [id number] on October 15, 2024 3:46:41 PM [facility] Continued [id number] Tamsulosin HCl Oral Capsule 0.4 MG 0.4 MG ORAL ONCE DAILY Prescr ibed: October 15, 2024 3:46:4 1 PM [facility] [id number] on October 15, 2024 3:46:41 PM [facility] Continued [id number] Furosemide Oral Tablet 40 MG 40 MG ORAL ONCE DAILY Prescr ibed: October 15, 2024 3:46:4 1 PM [facility] [id number] on October 15, 2024 3:46:41 PM [facility] Continued [id number] Ray Loera SoloStar Subcutaneous Solution Pen-injector 300 UNIT/ML 40 UNT SUBCUTANEOUS AT BEDTIME Prescr ibed: October 15, 2024 3:46:4 1 PM [facility] [id number] on October 15, 2024 3:46:41 PM [facility] Continued [id number] metFORMIN HCl ER (MOD) Oral Tablet Extended Release 24 Hour 1000 MG 1000 MG ORAL ONCE DAILY Prescr ibed: October 15, 2024 3:46:4 1 PM [facility] [id number] on October 15, 2024 3:46:41 PM [facility] Continued [id number] Losartan Potassium Oral Tablet 25 MG 25 MG ORAL ONCE DAILY Prescr ibed: October 15, 2024 3:46:4 1 PM [facility] [id number] on October 15, 2024 3:46:41 PM [facility] Continued [id number] Metoprolol Succinate ER Oral Tablet Extended Release 24 Hour 50 MG 50 MG ORAL ONCE DAILY Prescr ibed: October 15, 2024 3:46:4 1 PM [facility] [id number] on October 15, 2024 3:46:41 PM [facility] PATIENT OPEN ORDERS Code System Description Frequency Occurrences Priority Start Date Ordering Physician Updated By Patient open order informati on is not available. SCHEDULED PROCEDURES Code System Description Status Scheduled Date Upd ated By Patient scheduled procedure information is not available. MEDICATIONS HOME MEDICATIONS Status RXNORM NDC Medication Dose Route Frequency Dates Comments Reported By Updated By Active [id number] 65956 8 Albuterol Sulfate HFA Inhalation Aerosol Solution 108 (90 Base) MCG/ACT 2.0 PUF INHALA TION PRN Last Dose: October 14, 2024 1:00:0 0 PM [facility] [id number] on October 15, 2024 3:46:17 PM [facility] Active 72933 01927 1 Aspirin 81 Oral Tablet Delayed Release 81 MG 81.0 MG ORAL DAILY Last Dose: October 11, 2024 1:00:0 0 PM UT [id number] on October 15, 2024 12:17:49 PM UTC Active 139307 50892 59123 9 Ezetimibe Oral Tablet 10 MG 10.0 MG ORAL DAILY Last Dose: October 14, 2024 1:00:0 0 PM UT [id number] on October 15, 2024 12:18:01 PM UTC Active 4193402 76272 48705 0 Farxiga Oral Tablet 5 MG 5.0 MG ORAL DAILY Last Dose: October 14, 2024 1:00:0 0 PM UT [id number] on October 15, 2024 12:18:15 PM UTC Active 559504 41780 14310 6 Finasteride Oral Tablet 5 MG 5.0 MG ORAL DAILY Last Dose: October 14, 2024 1:00:0 0 PM [facility] [id number] on October 15, 2024 12:18:26 PM UTC Active 432936 77285 38433 5 Furosemide Oral Tablet 40 MG 40.0 MG ORAL DAILY Last Dose: October 14, 2024 1:00:0 0 PM [facility] [id number] on October 15, 2024 12:18:36 PM UTC Active 245286 20491 07667 0 Losartan Potassium Oral Tablet 25 MG 25.0 MG ORAL DAILY Last Dose: October 14, 2024 1:00:0 0 PM [facility] [id number] on October 15, 2024 12:18:46 PM UTC Active 6470580 72400 15370 9 metFORMIN HCl ER (MOD) Oral Tablet Extended Release 24 Hour 1000 MG 1000. 0 MG ORAL DAILY Last Dose: October 14, 2024 1:00:0 0 PM [facility] [id number] on October 15, 2024 12:18:56 PM UTC Active 536395 60173 26594 0 Methocarbamo l Oral Tablet 500 MG 2.0 TAB ORAL PRN Last Dose: October 14, 2024 1:00:0 0 PM UT [id number] on October 15, 2024 3:44:49 PM UT Active 722384 60339 20280 7 Metoprolol Succinate ER Oral Tablet Extended Release 24 Hour 50 MG 50.0 MG ORAL DAILY Last Dose: October 15, 2024 1:00:0 0 AM UT [id number] on October 15, 2024 12:19:25 PM [facility] Active 530928 15021 68392 2 Omeprazole Oral Capsule Delayed Release 20 MG 20.0 MG ORAL DAILY Last Dose: October 15, 2024 1:00:0 0 AM [facility] [id number] on October 15, 2024 12:19:46 PM [facility] Active 894307 68751 05397 7 oxyBUTYnin Chloride ER Oral Tablet Extended Release 24 Hour 10 MG 10.0 MG ORAL DAILY Last Dose: October 14, 2024 1:00:0 0 PM [facility] [id number] on October 15, 2024 12:20:00 PM [facility] Active 4965509 44034 63270 3 Ozempic (0.25 or 0.5 MG/DOSE) Subcutaneous Solution Pen-injector 2 MG/3ML 2.0 MG SUBCUT ANEOUS QWEEK Last Dose: October 08, 2024 1:00:0 0 AM [facility] pt knows not to use until after surgery [id number] on October 15, 2024 12:20:17 PM [facility] Active 529646 33223 01720 0 Potassium Chloride ER Oral Capsule Extended Release 10 MEQ 10.0 MEQ ORAL DAILY Last Dose: October 15, 2024 1:00:0 0 AM [facility] [id number] on October 15, 2024 12:20:28 PM [facility] Active 232450 46675 49148 0 Pramipexole Dihydrochlor ricardo Oral Tablet 0.25 MG 1.0 TAB ORAL BEDTIME Last Dose: October 15, 2024 1:00:0 0 AM [facility] [id number] on October 15, 2024 12:20:45 PM [facility] Active 759005 23296 60907 1 Rosuvastatin Calcium Oral Tablet 20 MG 20.0 MG ORAL DAILY Last Dose: October 14, 2024 1:00:0 0 PM [facility] [id number] on October 15, 2024 12:20:57 PM [facility] Active 778509 70968 34010 1 Spironolacto ne Oral Tablet 50 MG 50.0 MG ORAL DAILY Last Dose: October 14, 2024 1:00:0 0 PM [facility] [id number] on October 15, 2024 12:21:11 PM [facility] Active 8739136 57543 20571 0 Symbicort Inhalation Aerosol 80-4.5 MCG/ACT 1.0 PUF INHALA TION DAILY Last Dose: October 14, 2024 1:00:0 0 PM UT [id number] on October 15, 2024 12:21:35 PM UT Active 340157 85019 88224 1 Tamsulosin HCl Oral Capsule 0.4 MG 0.4 MG ORAL DAILY Last Dose: October 14, 2024 1:00:0 0 PM UT [id number] on October 15, 2024 12:21:47 PM UT Active 2716852 12954 66092 2 Ray Loera SoloStar Subcutaneous Solution Pen-injector 300 UNIT/ML 40.0 UNT SUBCUT ANEOUS BEDTIME Last Dose: October 15, 2024 1:00:0 0 AM UT [id number] on October 15, 2024 12:21:59 PM [facility] DISCHARGE MEDICATIONS Status RXNORM [facility] Medication Dose Route Frequency Dates Comments Physician Updated By Continue d [id number] 3354 5015 832 Omeprazole Oral Capsule Delayed Release 20 MG 20.0 MG ORAL ONCE DAILY Prescr ibed: October 15, 2024 3:46:4 1 PM UT ART AMBERLY Arguelles PHY [id number] on October 15, 2024 3:46:41 PM [facility] Continue d 356577 4663 8010 920 Methocarbam ol Oral Tablet 500 MG 2.0 TAB ORAL NEEDED Prescr ibed: October 15, 2024 3:46:4 1 PM UT ART AMBERLY Arguelles PHY [id number] on October 15, 2024 3:46:41 PM UT Continue d 7361197 0016 9418 113 Ozempic (0.25 or 0.5 MG/DOSE) Subcutaneou s Solution Pen-injecto r 2 MG/3ML 2.0 MG SUBCUT ANEOUS ONCE EACH WEEK Prescr ibed: October 15, 2024 3:46:4 1 PM UT pt knows not to use until after surgery ART AMBERLY Arguelles PHY [id number] on October 15, 2024 3:46:41 PM UT Continue d 8887402 6699 3001 968 Albuterol Sulfate HFA Inhalation Aerosol Solution 108 (90 Base) MCG/ACT 2.0 PUF INHALE D NEEDED Prescr ibed: October 15, 2024 3:46:4 1 PM UT ART AMBERLY Arguelles PHY [id number] on October 15, 2024 3:46:41 PM UTC Continue d 363788 0678 9021 830 Potassium Chloride ER Oral Capsule Extended Release 10 MEQ 10.0 MEQ ORAL ONCE DAILY Prescr ibed: October 15, 2024 3:46:4 1 PM UT ART AMBERLY Arguelles PHY [id number] on October 15, 2024 3:46:41 PM UTC Continue d 014210 6379 2032 190 Pramipexole Dihydrochlo ride Oral Tablet 0.25 MG 1.0 TAB ORAL AT BEDTIME Prescr ibed: October 15, 2024 3:46:4 1 PM [facility] ART AMBERLY Arguelles PHY [id number] on October 15, 2024 3:46:41 PM UTC Continue d 434622 0906 4037 708 traMADol HCl Oral Tablet 50 MG 1.0 TAB ORAL EVERY SIX HOURS NEEDED Prescr ibed: October 15, 2024 3:46:4 1 PM [facility] ART AMBERLY Arguelles PHY [id number] on October 15, 2024 3:46:41 PM UTC Continue d 783554 3268 5058 481 Rosuvastati n Calcium Oral Tablet 20 MG 20.0 MG ORAL ONCE DAILY Prescr ibed: October 15, 2024 3:46:4 1 PM UT ART AMBERLY Arguelles PHY [id number] on October 15, 2024 3:46:41 PM UTC Continue d 556439 0614 7001 431 Aspirin 81 Oral Tablet Delayed Release 81 MG 81.0 MG ORAL ONCE DAILY Prescr ibed: October 15, 2024 3:46:4 1 PM [facility] ART AMBERLY Arguelles PHY [id number] on October 15, 2024 3:46:41 PM UTC Continue d 117828 1804 1371 319 Ezetimibe Oral Tablet 10 MG 10.0 MG ORAL ONCE DAILY Prescr ibed: October 15, 2024 3:46:4 1 PM UT ART AMBERLY Arguelles PHY [id number] on October 15, 2024 3:46:41 PM UTC Continue d 905285 0642 9032 801 Spironolact one Oral Tablet 50 MG 50.0 MG ORAL ONCE DAILY Prescr ibed: October 15, 2024 3:46:4 1 PM [facility] ART AMBERLY Arguelles PHY [id number] on October 15, 2024 3:46:41 PM UTC Continue d 6945436 5966 6037 220 Symbicort Inhalation Aerosol 80-4.5 MCG/ACT 1.0 PUF INHALE D ONCE DAILY Prescr ibed: October 15, 2024 3:46:4 1 PM UT ART AMBERLY Arguelles PHY [id number] on October 15, 2024 3:46:41 PM UTC Continue d 8849995 7068 0620 530 Farxiga Oral Tablet 5 MG 5.0 MG ORAL ONCE DAILY Prescr ibed: October 15, 2024 3:46:4 1 PM UT ART AMBERLY Arguelles PHY [id number] on October 15, 2024 3:46:41 PM UTC Continue d 974149 3025 0071 160 Cefdinir Oral Capsule 300 MG 1.0 TAB ORAL TWICE A DAY Prescr ibed: October 15, 2024 3:46:4 1 PM UT ART AMBERLY Arguelles PHY [id number] on October 15, 2024 3:46:41 PM UTC Continue d 483275 6418 3735 556 Finasteride Oral Tablet 5 MG 5.0 MG ORAL ONCE DAILY Prescr ibed: October 15, 2024 3:46:4 1 PM UT ART AMBERLY Arguelles PHY [id number] on October 15, 2024 3:46:41 PM UTC Continue d 322351 2014 1207 601 Tamsulosin HCl Oral Capsule 0.4 MG 0.4 MG ORAL ONCE DAILY Prescr ibed: October 15, 2024 3:46:4 1 PM UT ART AMBERLY Arguelles PHY [id number] on October 15, 2024 3:46:41 PM UTC Continue d 545696 9168 4429 925 Furosemide Oral Tablet 40 MG 40.0 MG ORAL ONCE DAILY Prescr ibed: October 15, 2024 3:46:4 1 PM UT ART AMBERLY Arguelles PHY [id number] on October 15, 2024 3:46:41 PM UTC Continue d 6294707 0002 4587 102 Toujeo Max SoloStar Subcutaneou s Solution Pen-injecto r 300 UNIT/ML 40.0 UNT SUBCUT ANEOUS AT BEDTIME Prescr ibed: October 15, 2024 3:46:4 1 PM UT ART AMBERLY Arguelles PHY [id number] on October 15, 2024 3:46:41 PM UTC Continue d 7061299 0624 0033 909 metFORMIN HCl ER (MOD) Oral Tablet Extended Release 24 Hour 1000 MG 1000. 0 MG ORAL ONCE DAILY Prescr ibed: October 15, 2024 3:46:4 1 PM UT ART AMBERLY FISCHER [id number] on October 15, 2024 3:46:41 PM [facility] Continue d 435944 6208 2020 190 Losartan Potassium Oral Tablet 25 MG 25.0 MG ORAL ONCE DAILY Prescr ibed: October 15, 2024 3:46:4 1 PM UT ART AMBERLY FISCHER [id number] on October 15, 2024 3:46:41 PM [facility] Continue d 871043 1260 8459 677 Metoprolol Succinate ER Oral Tablet Extended Release 24 Hour 50 MG 50.0 MG ORAL ONCE DAILY Prescr ibed: October 15, 2024 3:46:4 1 PM UT ART AMBERLY Arguelles PHY [id number] on October 15, 2024 3:46:41 PM [facility] INPATIENT MEDICATIONS Status RXNORM [facility] Medication Dose Route Frequency Rat e Quantity Dates Comments Physician Updated By Ma[place] inued [id number] 4824 7098 001 ceFAZolin (ANCEF) 2 GM SOLR 2.0 GM INTRAV ENOUS ONE TIME ADMINISTRA TION (UNSCHEDUL ED) Start: October 15, 2024 11:00: 00 AM UT End: October 15, 2024 12:15: 02 PM [facility] KASIE PARKINSON [id number] on October 15, 2024 12:15:00 PM [facility] Discont inued 955000 0897 8011 704 LACTATED RINGERS SOLN 1000. 0 ML INTRAV ENOUS ONE TIME ADMINISTRA TION (UNSCHEDUL ED) 25.0 ML/HR Start: October 12, 2024 5:33:0 0 PM UTC End: October 15, 2024 12:15: 01 PM [facility] RONNIE Portillo [id number] on October 15, 2024 12:15:00 PM UT Discont inued 017484 4006 8011 704 LACTATED RINGERS SOLN 1000. 0 ML INTRAV ENOUS ONE TIME ONLY (PACU) 25.0 ML/HR Start: October 12, 2024 5:33:0 0 PM UT End: October 15, 2024 3:46:4 1 PM UT RONNIE Portillo [id number] on October 16, 2024 4:25:00 AM UT Discont inued 1260543 0040 9117 630 meperidine (DEMEROL) 25 MG/ML SOLN 12.5 MG INTRAV ENOUS NEEDED (PACU) Start: October 12, 2024 5:33:0 0 PM UTC End: October 15, 2024 3:46:4 1 PM UTC RONNIE Portillo [id number] on October 16, 2024 4:25:00 AM UTC Discont inued 9283392 0040 9117 630 meperidine (DEMEROL) 25 MG/ML SOLN 25.0 MG INTRAV ENOUS NEEDED (PACU) Start: October 12, 2024 5:33:0 0 PM UTC End: October 15, 2024 3:46:4 1 PM UTC RONNIE Portillo [id number] on October 16, 2024 4:25:00 AM UTC Discont inued 1920439 0064 1624 725 fentaNYL (SUBLIMAZE) 50 MGC/ML SOLN 25.0 MCG INTRAV ENOUS EVERY 5 MINUTES NEEDED (PACU) Start: October 12, 2024 5:33:0 0 PM UTC End: October 15, 2024 3:46:4 1 PM UTC RONNIE Portillo [id number] on October 16, 2024 4:25:00 AM UTC Discont inued 7292343 0064 1624 725 fentaNYL (SUBLIMAZE) 50 MGC/ML SOLN 50.0 MCG INTRAV ENOUS EVERY 5 MINUTES NEEDED (PACU) Start: October 12, 2024 5:33:0 0 PM UTC End: October 15, 2024 3:46:4 1 PM UTC RONNIE Portillo [id number] on October 16, 2024 4:25:00 AM UTC Discont inued 7249529 9531 9426 401 HYDROmorpho ne (DILAUDID) 0.5 MG/0.5ML SOLN 0.5 MG INTRAV ENOUS EVERY 10 MINUTES NEEDED (PACU) Start: October 12, 2024 5:33:0 0 PM UTC End: October 15, 2024 3:46:4 1 PM UTC RONNIE Portillo [id number] on October 16, 2024 4:25:00 AM UTC Discont inued 8159096 4809 9128 331 HYDROmorpho ne (DILAUDID) 1 MG/ML SOLN 1.0 MG INTRAV ENOUS EVERY 10 MINUTES NEEDED (PACU) Start: October 12, 2024 5:33:0 0 PM UTC End: October 15, 2024 3:46:4 1 PM UTC RONNIE Portillo [id number] on October 16, 2024 4:25:00 AM UTC Discont inued 9004089 8016 8010 250 PERCOCET 5-325 MG TABS 1.0 TAB ORAL ONE TIME ADMINISTRA TION (UNSCHEDUL ED) Start: October 12, 2024 5:33:0 0 PM UTC End: October 15, 2024 7:29:0 0 PM UTC RONNIE Portillo [id number] on October 16, 2024 4:25:00 AM UTC Discont inued 3179463 5228 8010 250 PERCOCET 5-325 MG TABS 2.0 TAB ORAL ONE TIME ADMINISTRA TION (UNSCHEDUL ED) Start: October 12, 2024 5:33:0 0 PM UTC End: October 15, 2024 7:29:0 0 PM UTC RONNIE Portillo [id number] on October 16, 2024 4:25:00 AM UTC Discont inued 8448599 3028 5613 000 ondansetron (ZOFRAN) INJ 4 MG/2 ML SOLN 4.0 MG INTRAV ENOUS NEEDED (PACU) Start: October 12, 2024 5:33:0 0 PM UTC End: October 15, 2024 3:46:4 1 PM UTC RONNIE Portillo [id number] on October 16, 2024 4:25:00 AM UTC Discont inued 6088710 0051 7970 201 droperidol (INAPSINE) 2.5 MG/ML SOLN 0.625 MG INTRAV ENOUS NEEDED (PACU) Start: October 12, 2024 5:33:0 0 PM UTC End: October 15, 2024 3:46:4 1 PM UTC RONNIE Portillo [id number] on October 16, 2024 4:25:00 AM UTC Discont inued 4447147 0587 3041 112 midazolam (VERSED) 2 MG/2 ML SOLN 1.0 MG INTRAV ENOUS EVERY FIVE MINUTES NEEDED Start: October 12, 2024 5:33:0 0 PM UTC End: October 15, 2024 3:46:4 1 PM UTC TRUJILLOYUE Portillo [id number] on October 16, 2024 4:25:00 AM UTC Discont inued 8325966 8292 3041 112 midazolam (VERSED) 2 MG/2 ML SOLN 2.0 MG INTRAV ENOUS NEEDED (PACU) Start: October 12, 2024 5:33:0 0 PM UTC End: October 15, 2024 3:46:4 1 PM UTC RONNIE Portillo [id number] on October 16, 2024 4:25:00 AM UTC Discont inued 780146 5702 1092 825 promethazin e (PHENERGAN) 25 MG/ML SOLN 12.5 MG INTRAV ENOUS NEEDED (PACU) Start: October 12, 2024 5:33:0 0 PM UTC End: October 15, 2024 3:46:4 1 PM UTC RONNIE Portillo [id number] on October 16, 2024 4:25:00 AM UTC Discont inued XXXX [id number] 011 promethazin e (PHENERGAN) 12.5 MG GEL 12.5 MG TOPICA L NEEDED (PACU) Start: October 12, 2024 5:33:0 0 PM UTC End: October 15, 2024 3:46:4 1 PM UTC RONNIE Portillo [id number] on October 16, 2024 4:25:00 AM UTC Discont inued 0027326 9732 5623 105 ceFAZolin (ANCEF) 2 GM SOLR 2.0 GM INTRAV ENOUS ONE TIME ONLY (SCHEDULED DOSE) Start: October 15, 2024 12:07: 00 PM UTC End: October 15, 2024 12:07: 00 PM UTC ART AMBERLY S INTERFAC ED on October 15, 2024 12:06:00 PM UTC Discont inued [id number] 7033 9909 332 PACU - fentaNYL (SUBLIMAZE) 100 MCG/2ML SOLN 100.0 MCG INTRAV ENOUS ONE TIME ONLY (SCHEDULED DOSE) Start: October 15, 2024 2:40:0 0 PM UTC End: October 15, 2024 2:40:0 0 PM UTC ART AMBERLY S INTERFAC ED on October 15, 2024 2:39:00 PM UTC Discont inued [id number] 0345 9301 305 lidocaine (XYLOCAINE) 2% UROJET GEL 10.0 ML ONE TIME ONLY (SCHEDULED DOSE) Start: October 15, 2024 2:42:0 0 PM UTC End: October 15, 2024 2:42:0 0 PM UT ART AMBERLY Arguelles [facility] ED on October 15, 2024 2:40:00 PM UTC Discont inued 9259122 6332 308 811 fentaNYL (SUBLIMAZE) 50 MCG/ML SOSY 50.0 MCG INTRAV ENOUS ONE TIME ONLY (SCHEDULED DOSE) Start: October 15, 2024 4:10:0 0 PM UTC End: October 15, 2024 4:10:0 0 PM UT ART AMBERLY [facility] ED on October 15, 2024 4:10:00 PM UTC Discont inued [id number] 7185 9020 901 PROPOFOL 200 MG/20ML EMUL 200.0 MG INTRAV ENOUS ONE TIME ONLY (SCHEDULED DOSE) 8.333 MG/HR Start: October 15, 2024 6:01:0 0 PM UTC End: October 15, 2024 6:01:2 6 PM UT ART AMBERLY Arguelles [id number] on October 15, 2024 6:01:00 PM UTC Discont inued [id number] 4103 3016 505 DEXAMETHASO NE SODIUM PHOSPHATE 20.0 MG INTRAV ENOUS ONE TIME ONLY (SCHEDULED DOSE) 0.833 MG/HR Start: October 15, 2024 6:01:0 0 PM UTC End: October 15, 2024 6:01:2 6 PM UT ART AMBERLY Arguelles [id number] on October 15, 2024 6:01:00 PM UTC Discont inued [id number] 7889 5613 000 ONDANSETRON HCL 4 MG/2ML SOLN 4.0 MG INTRAV ENOUS ONE TIME ONLY (SCHEDULED DOSE) 0.167 MG/HR Start: October 15, 2024 6:01:0 0 PM UTC End: October 15, 2024 6:01:2 7 PM UT ART AMBERLY Arguelles [id number] on October 15, 2024 6:01:00 PM UTC Discont inued [id number] 2832 8011 704 LACTATED RINGERS SOLN 1000. 0 ML IV CONTIN UOUS ONE TIME ONLY (SCHEDULED DOSE) Start: October 15, 2024 12:25: 00 PM UTC End: October 15, 2024 12:25: 00 PM [facility] ART AMBERLY Arguelles INTERFAC ED on October 15, 2024 4:00:00 AM UT SOCIAL HISTORY SOCIAL HISTORY SNOMED-CT Social History Element Description Effective Dates Offered Cessation Comment UpdatedBy [id number] Current Tobacco smoking status Former Smoker End: September 25, 1997 5:00:00 AM UT [id number] on October 15, 2024 12:16:52 PM UT SOCIAL HISTORY - Gender Sex: Male SOCIAL [...] for each vital sign as of October 19, 2024 2:34:15 AM UT Loinc Code Vital Sign Activity Date Result Updated By 8302-2 Body height October 15, 2024 12:05:55 PM UT 167.64 cm (66.0 in) [id number] on October 15, 2024 12:05:55 PM [facility] 56845-0 Body mass index (BMI) [Ratio] October 15, 2024 12:05:55 PM [place] 34.939 kg/m2 [id number] on October 15, 2024 12:05:55 PM [facility] 3140-1 Body Surface Area Derived From Formula October 15, 2024 12:05:55 PM [facility] 2.0687 m2 [id number] on October 15, 2024 12:05:55 PM [facility] 22625-2 Body weight Measured October 15 025 12:05:55 PM [place] 98.2 kg (216.0 lb) [id number] on October 15, 2024 12:05:55 PM [facility] PEDIATRIC GROWTH CHART - VITAL SIGNS This section displays Head C ircumference Percentile, Weight for Length Percentile and BMI Percentile Loinc Code Pediatric Measure Age (Months) Result Updat ed By No Pediatric Growth Chart Pe rcentile Information Available. PROCEDURES PATIENT PROCEDURES Procedure information is not available. PROCEDURE NOTE Note Title Operative/Procedure Note Date Of Service October 15, 2024 3:41: 44 PM [place] Created By [id number] on October 15, 2024 3:41:44 PM [facility] Signed By [id number] on October 15, 2024 3:44:13 PM [facility] Pre-Procedure Diagnosis Urinary retention, prostate cancer Post- Procedure Diagnosis Same Procedure / Surgery None Cystoscopy with bipolar plasma button electrode vaporization of the prostate (CPT 15827) Anesthesia Type General anesthesia Estimated Blood Loss [...] resected the anterior tissue and used the [employer] evacuator to remove these pieces prostate. These [...] scope was then withdrawn and a 24 Cuban three-way Guadarrama catheter was inserted with 30 cc of sterile water placed in the balloon. The procedure was terminated, the patient was awoken and transferred to the PACU in stable condition Specimens Prostate chips Tubes/Drains 24 Cuban three-way Guadarrama catheter Implants None Disposition of [...] BUTTON Admission October 15, 2024 11:29:00 AM [facility] [place] [id number] [facility] [address] Discharge October 15, 2024 7:29:00 PM [facility] DI SCHARGED TO HOME OR SELF CARE ENCOUNTER DIAGNOSES Notes information is not freddy ilable. Code System Diagnosis Onset Date Diagnosis information is not available. ABSTRACT DIAGNOSES Code System Diagnosis Updated By R33.9 ICD10 RETENTION OF URINE, UNSPECIF IED [id number] on October 18, 2024 2:07:00 PM [facility] C61 ICD10 MALIGNANT NEOPLASM OF PROSTA TE [id number] on October 18, 2024 2:07:00 PM [facility] R33.9 ICD10 RETENTION OF URINE, UNSPECIF IED [id number] on October 18, 2024 2:07:00 PM [facility] C61 ICD10 MALIGNANT NEOPLASM OF PROSTA TE [id number] on October 18, 2024 2:07:00 PM [facility] I10 ICD10 ESSENTIAL (PRIMARY) HYPERTEN HUSEYIN [id number] on October 18, 2024 2:07:00 PM [facility] E78.5 ICD10 HYPERLIPIDEMIA, UNSPECIFIED [id number] on October 18, 2024 2:07:00 PM [facility] I25.10 ICD10 ATHEROSCLEROTIC HEART DISEASE OF [place] CORONARY ARTERY WITHOUT ANGINA PECTORIS [id number] on October 18, 2024 2:07:00 PM [facility] R06.00 ICD10 DYSPNEA, UNSPECIFIED [id number] on October 18, 2024 2:07:00 PM [facility] G47.30 ICD10 SLEEP APNEA, UNSPECIFIED AAD [id number] on October 18, 2024 2:07:00 PM [facility] E66.9 ICD10 OBESITY, UNSPECIFIED [id number] on October 18, 2024 2:07:00 PM [facility] Z68.35 ICD10 BODY MASS INDEX [BMI] 35.0-3 5.9, ADULT [id number] on October 18, 2024 2:07:00 PM [facility] E11.9 ICD10 TYPE 2 DIABETES MELLITUS WITHOUT COMPLICATIONS [id number] on October 18, 2024 2:07:00 PM [facility] Z79.84 ICD10 COUNSELING SPECIALIST (CURRE NT) USE OF ORAL HYPOGLYCEMIC DRUGS [id number] on October 18, 2024 2:07:00 PM [facility] Z95.1 ICD10 PRESENCE OF AORTOCORONARY BY PASS GRAFT [id number] on October 18, 2024 2:07:00 PM [facility] Z90.49 ICD10 ACQUIRED ABSENCE OF OTHER SPECIFIED PARTS OF DIGESTIVE TRACT [id number] on October 18, 2024 2:07:00 PM [facility] Z79.82 ICD10 COUNSELING SPECIALIST (CURRENT) USE OF A SPIRIN [id number] on October 18, 2024 2:07:00 PM [facility] Z79.899 ICD10 OTHER SENIOR LIVING (CURRENT) DR DMITRY THERAPY [id number] on October 18, 2024 2:07:00 PM [facility] CARE TEAM Care Bricklayer'S Assistant Role AMBERLY WRIGHT Primary Attending AMBERLY WRIGHT Surgeon DEFINED NO Primary Care AMBERLY WRIGHT Referring AMBERLY WRIGHT Admitting HOSPITAL DISCHARGE INSTRUCTION DISCHARGE INSTRUCTION Encounter [id number] Admit Date October 15, 2024 11:29 :00 AM [facility] Discharge Date October 15, 2024 7:29: 00 PM [facility] PATIENT EDUCATION SUMMARY Patient/Visit Information: Patient Name: VELIA QURESHI Diag: Attending Caregiver: KYLE Arguelles Discharge Instruction Sheets Provided: BEFAST-Stroke Warning Signs COVID-19 CDC-EN Discharge Information Fall Prevention in Hospitals and in the Home [facility] Pain and Responsible Opioid (Pain Medication) Management KYNECT- HELP Medication Side Effects Suicide - Managing your Feelings Transurethral Resection of the Prostate, Care After Patient Instructions: Followup Appointments/Instructions: CARE TEAM CARE fundraising director Role on Team Status Start Date End Date Update d By KYLE FISCHER Surgeon normal October 15 11:29:00 AM [facility] October 15, 2024 7:29:00 PM [facility] [id number] on October 18, 2024 2:07:08 PM [facility] NO DEFINED PRIMARY C PCP normal October 15, 2024 11:31:06 AM [facility] October 15, 2024 7:29:00 PM [place] [id number] on October 18, 2024 2:07:08 PM [facility] KYLE FISCHER Referring normal October 15 11:31:06 AM [facility] October 15, 2024 7:29:00 PM [facility] [id number] on October 18, 2024 2:07:08 PM [facility] KYLE FISCHER PCP normal October 11 12:47:58 PM [facility] October 15, 2024 11:31:06 AM [facility] [id number] on October 18, 2024 2:07:08 PM [facility] KYLE FISCHER Attending normal October 11 12:47:58 PM [facility] October 15, 2024 7:29:00 PM [facility] [id number] on October 18, 2024 2:07:08 PM [facility] KYLE FISCHER Admitting normal October 11 12:47:58 PM [facility] October 15, 2024 7:29:00 PM [facility] [id number] on October 18, 2024 2:07:08 PM [facility]
--- OUTSIDE RECORDS SUMMARY | 2024-11-01 16:54 | XMS_ITS | Continuity of Care Document ---
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 Plan of Treatment [...] high scan No observ ation record ed. [email or web address] Not Available 2024 09:27:48 Result Notes None recorded. Problems Name Problem SNOMED Code Status Onset Date Resolution Date Notes Provider Name and Address Organization Details Recorded Time Retention of urine 234321855 Active Julius WRIGHT MD [address], [place], [address] , [facility] 15:05:27 Prostate specific antigen above reference range 616296252 Active Julius WRIGHT MD [address], [place], [address] , [place] - [facility] & [place] 15:05:21 Malignant neoplasm of prostate 037904057 Active 025 AMBERLY WRIGHT MD [address], [facility] [address] , [place] - [facility] & [place] 12:04:35 Problem Notes None recorded. Procedures Surgical History Date Name Laterality Status Provider Name and Address Organization Details Recorded Time 09/29/19 25 Prostate Biopsy completed AMBERLY RWIGHT MD [address], [facility] [address], [place] - [facility] & [place] 09/28/2024 09:57:43 09/29/19 25 Cystoscopy-Male completed AMBERLY WRIGHT MD [address], [facility] [address], [place] - [facility] & [place] 09/28/2024 09:58:50 09/29/19 25 TRUS completed AMBERLY WRIGHT MD [address], [facility] [address], [place] - [facility] & [place] 09/28/2024 09:58:17 09/14/19 25 [employer] Test completed Liyah Garcia [place] - [facility] & [place] 09/13/2024 14:45:35 07/30/19 25 [employer] Test completed Christina Asher NP, [address], [facility] [address], [place] - [facility] & [place] 07/30/2024 14:57:54 cholecystectomy completed Chanda De Jesus [place] - [facility] & [place] 10/24/2024 13:09:14 Imaging [...] t Available Vitals None Recorded Social History Question Answer Notes LastModified by Organizat ion Details LastModified Time Tobacco Smoking Status Former Smoker Chanda ohara, IRLANDA CHOWDHURY [facility] & [place] 10/24/2024 13:08:36 What Is Your Level Of Alcohol Consumption? None [email or web address] Information not available 10/24/2024 When Did You Quit Smoking? 18+yearssin [email or web address] burgerte 27 Years Ago Quit 06/1994 Information not available 10/24/2024 At What Age Did You Start Smoking Tobacco? 17 [email or web address] Information not available 10/24/2024 Do You Use Any Illicit Or Recreational Drugs? No Information not available 10/24/2024 Sex: Unknown Functional Status None recorded. Mental Status None recorded. Family History Nothing Reported. Medical History No medical history recorded. Immunizations Vaccine Type Date Status Note Provider Nam e and Address Organization Details Recorded Time zoster recombinant 4 completed Chanda ohara, IRLANDA CHOWDHURY [facility] & [place] 10/24/2024 13:04:23 zoster recombinant 4 completed Chanda ohara, IRLANDA Connolly [facility] & [place] 10/24/2024 13:04:23 Influenza, high-dose, quadrivalent, PF 2 completed Chanda ohara, IRLANDA Connolly [facility] & [place] 10/24/2024 13:04:23 Influenza, high-dose, quadrivalent, PF 1 completed Chanda ohara, IRLANDA - CHERELLENT [facility] & [place] 10/24/2024 13:04:23 Influenza, high-dose, quadrivalent, PF 0 completed Chanda ohara, IRLANDA Connolly [facility] & [place] 10/24/2024 13:04:23 Influenza, high-dose, quadrivalent, PF 3 completed Chanda ohara, IRLANDA Connolly [facility] & [place] 10/24/2024 13:04:23 COVID-19, mRNA, LNP-S, PF, 100 mcg/0.5mL dose or 50 mcg/0.25mL dose 2 [facility] & [place] 10/24/2024 13:04:23 COVID-19 vaccine, vector-nr, rS-Ad26, PF, 0.5 mL 1 completed [facility] [place] [facility] [place] 10/24/2024 13:04:23 RSV, recombinant, protein subunit RSVpreF, adjuvant reconstituted, 0.5 mL, PF 4 completed [facility], [facility] & [place] 10/24/2024 13:04:23 pneumococcal polysaccharide PPV23 3 completed [facility], [facility] & [place] 10/24/2024 13:04:23 Influenza, split virus, quadrivalent, PF 7 completed [facility], [facility] & [place] 10/24/2024 13:04:23 Past Encounters Encounter ID Performer Location Encounter Start Date Encounter Closed Date Diagnosis/Indication Diagnosis SNOMED-CT Code Diagnosis ICD10 Code Diagnosis Note [id number] AMBERLY WRIGHT MD [facility] Urology-1 [address] [facility] [address] [place] [address] 09/13/2024 14:06:21 09/13/2024 15:34:40 Prostate specific antigen above reference range 903786458 R97.20 Retention of urine 04481 4002 R33.9 we will schedule for cystoscopy and prostate biopsy in office. Assuming no cancer is present, we will likely need to proceed with surgical interventi on as he was failed multiple voiding trials. Beasley catheter will be exchanged today. [id number] AMBERLY WRIGHT MD [facility] Urology-1 [address] [facility] [address] [place] [address] 09/28/2024 09:15:18 09/28/2024 10:25:23 Prostate specific antigen above reference range 305865779 R97.20 Patient tolerated procedure well. He will follow up in 1 week for results. He was reminded to complete oral antibiotic therapy. He was instructed to contact our office or go to the ER if he experience s fever greater than 100.5?? F or chills. Retention of urine 60205 4002 R33.9 A Beasley catheter replaced after procedure. Health Concerns Section Related Observation LastModified by Organization Detai ls LastModified Time None Recorded Concern Status LastModified by Organization Details LastModified Time None Recorded Payers Encounter Date Sequence Insurance Name Policy Number Policy Rose Covered Member ID Rose Member ID Guarantor Name 09/28/2024 1 [employer] (MEDICARE REPLACEMENT/A DVANTAGE - HMO) [id number] Thierno Reyna [id number] Thierno Reyna Notes Date Note Type Note Provider Name and Address Organization Details Recorded Time 09/28/2024 text/html 09/28/24 [id number] returns to my office for cystoscopy, TRUS Bx. -- 09/14/25714167-jdhh-dyb- male returns to clinic for voiding trail --------08/02/2571-y [id number]-enig returns to clinic for voiding trail. 250 mL was placed in the bladder today and was unsuccessful-------- 5Pt here for [employer] test ---------07/24/2571 yowm presents to clinic for evaluation of urinary retention. Patient reports he went to [facility] last with inability to urinate. Beasley [...] AAA surgery, DM, HTN, and HLD. 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 08/24/24 PSA 10.2 (beasley catheter in place)07/30/24: [employer]- Pressure over basline 27bxT3x, Peak detrusor pressure 92ceL00, Peak Vaslsalva pressure 2hgV0l207/19/2024: CT scan of abd/pelvis with contrast revealed [...] a total endoscopy done last Tuesday at [facility] and was cleared by Dr. Marcos's office for the procedure. Thierno has a history of almost becoming septic and was treated with antibiotics. He is also taking finasteride, which was prescribed to shrink his prostate. AMBERLY WRIGHT MD [address], [place], [address], [facility] [place] [facility] [place] 09/28/2024 09:59:54
--- NOTE | 2024-11-01 16:56 | ED_ITS ---
<Statement entered by Nelly Riggs MD - 11/01/24 19:15> I was consulted by the KHUSHI, and we discussed the complexity of problems being addressed. I approved the treatment and management plan for this patient's care in the emergency department, thus performing a substantive portion of the medical decision making. Nelly Riggs MD Discharge Plan Disposition Patient Disposition: Home, Self-Care Prescriptions Prescriptions: No Action omeprazole 20 mg capsule,delayed release(DR/EC) 20 mg PO BID tamsulosin [Flomax] 0.4 mg capsule 0.4 mg PO DAILY aspirin [Adult Low Dose Aspirin] 81 mg tablet,delayed release (DR/EC) 81 mg PO DAILY Symbicort 80-4.5 mcg/actuation HFA aerosol inhaler 2 puff INHALATION BID fluticasone propionate 50 mcg/actuation spray,suspension 2 spray intranasal DAILY pramipexole 0.25 mg tablet 0.25 mg PO HS Qty: 90 3RF metformin 1,000 mg tablet 1,000 mg PO BIDWMEAL Patient Comments: TAKE 1 TABLET BY MOUTH TWICE DAILY WITH MEALS Rx Instructions: With meals (DME) pen needle, diabetic 31 gauge x 3/16 needle See Rx Instructions .ROUTE .MEDSUPPLY Qty: 1200 Patient Comments: USE 1 NEEDLE DAILY DIRECTED Rx Instructions: As directed sulfamethoxazole-trimethoprim 800-160 mg tablet 1 tab PO metoprolol succinate [Toprol XL] 50 mg tablet extended release 24 hr 50 mg PO DAILY spironolactone 50 mg tablet 50 mg PO DAILY Rx Instructions: TAKE 1 TABLET BY MOUTH DAILY rosuvastatin [Crestor] 20 mg tablet 20 mg PO DAILY potassium chloride 10 mEq capsule, extended release 10 meq PO BID dapagliflozin propanediol [Farxiga] 5 mg tablet 5 mg PO DAILY Patient Comments: TAKE 1 TABLET BY MOUTH DAILY insulin glargine U-300 conc [Toujeo Max U-300 SoloStar] 300 unit/mL (3 mL) insulin pen 40 unit SQ HS Patient Comments: ADMINISTER 40 UNITS UNDER THE SKIN AT BEDTIME Ozempic 0.25 mg or 0.5 mg (2 mg/3 mL) pen injector 0.5 mg SQ WEEKLY Patient Comments: INJECT 0.5 MG UNDER THE SKIN ONCE WEEKLY ON THE SAME DAY EACH WEEK losartan 25 mg tablet 50 mg PO DAILY Patient Comments: TAKE 1 TABLET BY MOUTH DAILY finasteride 5 mg Tablet 5 mg PO DAILY 30 Days Qty: 30 0RF furosemide [Lasix] 40 mg tablet 40 mg PO DAILY Referrals Follow up/Referrals: Va Short APRN [Primary Care Provider] - See instructions Activity Restrictions/Add. Instructions Additional Instructions/Restrictions: Today you were evaluated in the emergency department, your workup today was overall unremarkable. Please keep the Guadarrama catheter in place. Please follow- up with urology tomorrow. Please call your PCP for follow-up. Please return to the ED for any worsening of your condition peer Clinical Impressions Clinical Impression: Guadarrama catheter in place Instructions Patient Instructions: DI for Urinary Tract Infection (UTI) Print Language Print Language: Hebrew Discharge ED Provider: Nelly Riggs Adult HPI General Chief complaint: Urogenital-Male Stated complaint: Unable to Urinate Time Seen by Provider: 11/01/24 16:55 Mode of Arrival: Ambulatory Source of Information: Patient and Spouse Description of Symptoms (Recalled from ER Triage Doc. by RN): pt to the ED with abd tightness and urinary pain since noon. pt reports he went to his follow up with Dr. Anne with urology who removed his urinary catheter he has had in for the past 3 months. pt was able to void for about an hour after but since hasnt been able to void at all. History of Present Illness HPI narrative: patient is a 74-year-old male PMHx history of UTIs, history of Guadarrama catheter, recent diagnosis of prostate cancer, BPH, obesity, diastolic heart failure, KALYN, coronary aneurysm, hypertension, HLD, status post CABG x 5, coronary artery disease, who presents to the ED for complaints of urinary retention, shortness of breath, episode of diaphoresis earlier today. Related Data Home Medications ?Medication ?Instructions ?Recorded ?Confirmed aspirin 81 mg tablet,delayed 81 mg PO DAILY 04/12/19 09/18/24 release (Adult Low Dose Aspirin) budesonide-formoterol HFA 80 2 puff inhalation BID 04/12/19 09/18/24 mcg-4.5 mcg/actuation aerosol inhaler (Symbicort) omeprazole 20 mg capsule,delayed 20 mg PO BID 04/12/19 09/18/24 release tamsulosin 0.4 mg capsule (Flomax) 0.4 mg PO DAILY 04/12/19 09/18/24 metformin 1,000 mg tablet 1,000 mg PO BIDWMEAL 07/15/21 09/18/24 metoprolol succinate 50 mg 50 mg PO DAILY 09/20/22 09/18/24 tablet,extended release 24 hr (Toprol XL) rosuvastatin 20 mg tablet (Crestor) 20 mg PO DAILY 09/20/22 09/18/24 spironolactone 50 mg tablet 50 mg PO DAILY 09/20/22 09/18/24 fluticasone propionate 50 2 spray intranasal DAILY 06/15/23 09/18/24 mcg/actuation nasal spray,suspension dapagliflozin propanediol 5 mg 5 mg PO DAILY 08/16/24 09/18/24 tablet (Farxiga) insulin glargine U-300 conc 300 40 unit SQ HS 08/16/24 09/18/24 unit/mL (3 mL) subcutaneous pen (Toujeo Max U-300 SoloStar) potassium chloride 10 mEq 10 meq PO BID 08/16/24 09/18/24 capsule,extended release semaglutide 0.25 mg or 0.5 mg (2 0.5 mg SQ WEEKLY 08/16/24 09/18/24 mg/3 mL) subcutaneous pen injector (Ozempic) losartan 25 mg tablet 50 mg PO DAILY 08/17/24 09/18/24 furosemide 40 mg tablet (Lasix) 40 mg PO DAILY 09/06/24 09/18/24 pen needle, diabetic 31 gauge x #1,200 ea 09/06/24 09/18/24 3/16 sulfamethoxazole 800 1 tab PO 09/18/24 09/18/24 mg-trimethoprim 160 mg tablet Previous Rx's ?Medication ?Instructions ?Recorded pramipexole 0.25 mg tablet 0.25 mg PO HS RLS #90 tabs 12/21/23 finasteride 5 mg tablet 5 mg PO DAILY 30 days #30 tabs 08/17/24 Allergies Allergy/AdvReac Type Severity Reaction Status Date / Time No Known Allergies Allergy Verified 09/18/24 10:10 [facility] Disclaimer: The information contained in this section may have been updated after the patient was seen, as this information can be updated by other users. Medical History Pre-op evaluation Guadarrama catheter in place Diabetes History of gastroesophageal reflux (GERD) Chest pain Stenosis of carotid artery History of coronary angiogram Coronary aneurysm Myxoma of heart Cardiac mass KALYN (obstructive sleep apnea) 12/21/2023 severe KALYN currently doing well on CPAP 14 cm, nasal mask, SAIGE Chew Body mass index (BMI) of 40.1 to 44.9 in adult Advised to work lifestyle modification specifically weight loss. Dyspnea Fatigue Abnormal stress test Typical angina HLD (hyperlipidemia) HTN (hypertension) CAD (coronary artery disease) AAA (abdominal aortic aneurysm) Surgical History S/P AAA repair History of cardiac cath History of cholecystectomy Hx of CABG S/P CABG x 5 Family History Other Cancer Coronary artery disease Diabetes Hypertension Social History Smoking Status: Never smoker alcohol intake: current alcohol intake frequency: 3 or more drinks per day substance use type: denies use current occupational status: retired Travel in the last 8 weeks?: Inside the [place] household members: spouse housing: house Have you lived/traveled outside US in past 30 days?: No Contact w/someone who lives/traveled outside US past 30 days?: No Exposure to someone with infectious disease in past 14 days?: No Do you have a fever (greater than 100.4 F or 38 C)?: No Have you tested positive for COVID-19?: No Exposed to someone with COVID-19 in past 14 days?: No Do you have a sore throat?: No Do you have a cough?: No Do you have any weakness?: No Do you have any diarrhea?: No Are you experiencing any unusual bleeding?: No Do you have any muscle aches/pain?: No Do you have any abdominal pain?: No Are you experiencing loss of taste or smell?: No Other Medical History Have you received the Flu Vaccine for this season: No Have you received the Pneumonia Vaccine: Yes ROS Obtained: Yes Systems reviewed as appropriate & no additional complaints except as documented Physical Exam General General appearance: alert and in no apparent distress Head Head exam: atraumatic and normocephalic Eye Eye exam: Present normal appearance and PERRL ENT ENT exam: Present normal exam Neck Neck exam: Present normal inspection Chest Chest inspection: Present normal inspection and symmetric chest wall rise; Absent tenderness Respiratory Respiratory exam: Present normal lung sounds bilaterally Cardiovascular Cardiovascular exam: Present regular rate Abdominal Exam Abdominal exam: Present soft, tenderness (suprapubic) and normal bowel sounds Extremities Exam Extremities exam: Present normal inspection and full ROM Back Exam Back exam: Present normal inspection and full ROM Neurological Exam Neurological exam: Present alert and oriented X3 Psychiatric Psychiatric exam: Present normal affect and normal mood Skin Skin exam: Present warm and dry Medical Decision Making Medical Records Screening: Per USPSTF and CDC recommendations, given the prevalence of disease in our region, it is our hospital?s policy to screen for HIV and viral Hepatitis for all patients aged 18 and over and those with ongoing risk factors. Robert Inquiry Pt receiving controlled substance: No Vital Signs: 11/01/24 16:31 11/01/24 17:01 11/01/24 18:00 Temperature 98.1 F Temperature Source Oral Pulse Rate 78 Pulse Rate [Left Radial] 94 H Respiratory Rate 17 19 Blood Pressure 109/57 L 100/54 L Blood Pressure [Right Arm] 140/52 L Blood Pressure Mean 74 66 Blood Pressure Mean [Right Arm] 81 Blood Pressure Source [Right Arm] Automatic Cuff Blood Pressure Position [Right Arm] Sitting 02 Sat by Pulse Oximetry 95 93 L 94 L Oxygen Delivery Method Room Air 11/01/24 18:45 Temperature Temperature Source Pulse Rate 79 Pulse Rate [Left Radial] Respiratory Rate 16 Blood Pressure 100/54 L Blood Pressure [Right Arm] Blood Pressure Mean Blood Pressure Mean [Right Arm] Blood Pressure Source [Right Arm] Blood Pressure Position [Right Arm] 02 Sat by Pulse Oximetry 95 Oxygen Delivery Method Lab Data Lab Results 11/01/24 17:52: WBC 11.2 H, RBC 4.05 L, Hgb 12.5 L, Hct 37.4 L, MCV 92.3, MCH 30.9, MCHC 33.4, RDW 13.3, Plt Count 301, MPV 9.7, Neut % (Auto) 77.9, Lymph % (Auto) 12.5, [place] % (Auto) 7.0, Eos % (Auto) 1.8, Baso % (Auto) 0.4, Neut # (Auto) 8.7 H, Lymph # (Auto) 1.4, [place] # (Auto) 0.8, Eos # (Auto) 0.2, Baso # (Auto) 0.1, Sodium 132 L, Potassium 4.4, Chloride 102, Carbon Dioxide 24, Anion Gap 10.4, BUN 27 H, Creatinine 0.80, Estimated Creat Clear 93, Estimated GFR 95, Est GFR ( Amer) 115, Glucose 191 H, Calcium 9.5, Troponin I < 0.01, Urine Color Yellow, Urine Appearance Slightly cloudy, Urine pH 6.0, Ur Specific [place] 1.010, Urine Protein Negative, Urine Glucose (UA) 3+, Urine Ketones Negative, Urine Blood 2+ A, Urine Nitrate Negative, Urine Bilirubin Negative, Urine Urobilinogen 0.2, Ur Leukocyte Esterase 1+ A, Urine RBC 5-10, Urine WBC 10-20, Ur Squamous Epith Cells Occasional, Urine Bacteria 3+, Urine Yeast 2+ 11/01/24 17:52 11/01/24 17:52 Orders (Tests/Meds): ORDERS Category Date Time Status CXR --portable [XR chest portable] Stat Exams 11/01/24 17:32 Completed BMP [Basic Metabolic Panel] Stat Lab 11/01/24 17:52 Completed CBC w/Auto Diff [Complete Blood Count Auto Diff] Stat Lab 11/01/24 17:52 Completed Trop I [Troponin I] Stat Lab 11/01/24 17:52 Completed Troponin I Q3H Lab 11/01/24 20:45 Ordered Troponin I Q3H Lab 11/01/24 23:45 Ordered UA [Urinalysis and Microscopic] Stat Lab 11/01/24 17:52 Completed Urine Culture Stat Micro 11/01/24 17:52 Received Medical Decision Narrative: In summary, patient is a 74-year-old male PMHx history of UTIs, history of Guadarrama catheter, recent diagnosis of prostate cancer, BPH, obesity, diastolic heart failure, KALYN, coronary aneurysm, hypertension, HLD, status post CABG x 5, coronary artery disease, who presents to the ED for complaints of urinary retention, shortness of breath, episode of diaphoresis earlier today. Patient states that he had recent Guadarrama catheter removed by urologist, he is scheduled to start radiation for his prostate cancer this week. He states that he has had a Guadarrama catheter for several months. He states that today he has been unable to urinate, is having lower abdominal pain and back pain. Denies any other medical complaints at this time. Denies fever, headache, visual disturbances, chest pain, nausea, vomiting, diarrhea, dysuria. Upon initial evaluation patient is alert, oriented and cooperative. He is hemodynamically stable. His physical exam is remarkable for suprapubic tenderness. Bladder scan remarkable for over 700 mL, once Guadarrama was placed patient had appropriate output. He states that most of his symptoms resolved after the Guadarrama catheter was placed. Hematologic labs reviewed. CBC remarkable for WBC 11.2, stable H&H. CMP unremarkable for any actionable abnormalities. First troponin < 0.01. Urinalysis remarkable for blood, 1+ leuks, occasional squames, 3+ bacteria, yeast. Most likely colonized, will send urine culture. Chest x-ray unremarkable for any acute findings. Upon reassessment, patient's symptoms have improved. He remains hemodynamically stable. Discussed with patient that he will need to follow-up with urology tomorrow. Patient being discharged home with Guadarrama cath. We discussed following up with PCP. We discussed return precautions to the ED. Critical Care Critical Care Time Critical Care Time: No
[2024-11-01 17:01] VITALS: BP 109/57; O2SAT 93
--- NOTE | 2024-11-01 17:32 | XR_ITS ---
PROCEDURE INFORMATION: Exam: XR Chest Exam date and time: 11/01/2024 5:37 PM Age: 74 years old Clinical indication: Dyspnea; Additional info: Cp SOA TECHNIQUE: Imaging protocol: Radiologic exam of the chest. Views: 1 view. COMPARISON: CT ABDOMEN PELVIS W CON 04/05/2019 10:31 PM FINDINGS: Tubes, catheters and devices: Multiple sternal cerclage wires overlie the sternum. Lungs: Pleuroparenchymal scarring of the lung bases with subsegmental atelectasis is present without consolidations or pleural effusions that project above the diaphragm. Pleural spaces: Unremarkable. No pleural effusion. No pneumothorax. Heart/Mediastinum: Unremarkable. No cardiomegaly. Bones/joints: Unremarkable. IMPRESSION: Pleuroparenchymal scarring of the lung bases with subsegmental atelectasis is present without consolidations or pleural effusions that project above the diaphragm.
--- NOTE | 2024-11-01 17:33 | PC.NURSE ---
rounded on patient, no needs voiced at this time.
--- NOTE | 2024-11-01 17:47 | ECG_ITS ---
APPROVED REPORT Exam: Resting ECG HR:80 bpm ECG Measurements Heart Rate 80 AXES SC 193 P 28 QRSd 88 QRS 33 QT 339 T -4 QTc 375 Conclusion SINUS RHYTHM NORMAL ECG UNCONFIRMED REPORT Electronically signed by : EMERALD CHEN, 11/04/2024 23:44:59
--- NOTE | 2024-11-01 17:50 | PC.NURSE ---
Patients FSBS is 195.
[2024-11-01 18:00] VITALS: BP 100/54; PULSE 78; RESP 19; O2SAT 94
[2024-11-01 18:02] LABS: Microscopic, Urine URINE MICROSCOPIC (MICROSCOPIC)
[2024-11-01 18:03] LABS: Basophils # 0.1 K/mm3 (0-0.2); Basophils % 0.4 % (0.1-2.0); Eosinophils # 0.2 Kmm3 (0.0-0.4); Eosinophils % 1.8 % (0.1-12.0); Hematocrit 37.4 % (42.0-52.0); Hemoglobin 12.5 g/dL (14.1-18.0); Immature Granulocytes # 0.04 10^3uL; Immature Granulocytes % 0.4 %; Lymphocytes # 1.4 K/mm3 (0.7-4.5); Lymphocytes % 12.5 % (10-50); Mean Corpuscular HGB Conc 33.4 g/dL (31.8-35.4); Mean Corpuscular Hemoglobin 30.9 pg (27.0-31.2); Mean Corpuscular Volume 92.3 fl (80-94); Mean Platelet Volume 9.7 fl (7.4-10.4); Monocytes # 0.8 K/mm3 (0.1-1.0); Neutrophils # 8.7 K/mm3 (1.8-7.8); Neutrophils % 77.9 % (37.0-80.0); Nucleated Red Blood Cells # 0 10^3/uL; Nucleated Red Blood Cells % 0 %; Platelet Count 301 K/mm3 (142-424); Red Blood Count 4.05 M/mm3 (4.60-6.20); Red Cell Distribution Width 13.3 % (11.5-17.5); Red Cell Distribution Width-SD 45.2 fL; White Blood Count 11.2 K/mm3 (4.8-10.8)
--- NOTE | 2024-11-01 18:04 | PC.NURSE ---
pt rounded on no needs at this time
[2024-11-01 18:12] LABS: Bilirubin,Urine Negative (Negative); Blood, Urine 2+ (Negative); Color,Urine YELLOW (Yellow); Glucose,Urine (UA) 3+ (Negative); Ketones,Urine Negative (Negative); Leukocyte Esterase,Urine 1+ (Negative); Nitrate,Urine Negative (Negative); Protein,Urine Negative (Negative); Urobilinogen,Urine 0.2 EU/dl (0.2)
[2024-11-01 18:15] LABS: Anion Gap 10.4 mEq/L (5-15); Blood Urea Nitrogen 27 mg/dl (9-20); Calcium 9.5 mg/dl (8.4-10.2); Carbon Dioxide 24 mmol/L (22.0-30.0); Chloride 102 mmol/L (98-107); Creatinine Clearance Estimated 93 mL/min (50-200); Estimated Glomerular Filt Rate 95 ml/min (>60); GFR (African American) 115 ML/MIN (>60); Glucose 191 mg/dl (74-100); Potassium 4.4 mmoL/L (3.5-5.1); Sodium 132 mmol/L (136-145)
[2024-11-01 18:23] LABS: Appearance,Urine Slightly Cloudy (Clear)
[2024-11-01 18:33] LABS: Troponin I < 0.01 ng/ml (0.00-0.034)
[2024-11-01 18:44] LABS: Bacteria,Urine 3+ /lpf; Squamous Epithelial Cell,Urine Occasional #/hpf (0-5); Yeast,Urine 2+ /lpf
[2024-11-01 18:45] VITALS: BP 100/54; PULSE 79; RESP 16; O2SAT 95
[2024-11-01 19:01] VITALS: BP 110/58; PULSE 78; RESP 17; O2SAT 93
[2024-11-01 19:41] VITALS: BP 110/58; PULSE 76; RESP 18; TEMP 36.6; O2SAT 93
--- NOTE | 2024-11-02 17:23 | PC.NURSE ---
I consulted about the pts prelim urine culture results. sent in cefdinir for the pt to [facility]. I called and notified the pt of the findings and the cefdinir. He states he will pick it up.
--- NOTE | 2024-11-03 14:28 | PC.NURSE ---
I spoke with regarding the pts urine cultures. No change needed to treatment plan.
== END 2024-11-01 19:44 | disposition home or self-care (01) ==
PROVIDERS: Nurse Practitioner; Emergency Provider Student in an Organized Health Care Education/Training Program; PCP Nurse Practitioner
DX: R10.30 Lower abdominal pain, unspecified (principal); R33.8 Other retention of urine; M54.59 Other low back pain; E87.1 Hypo-osmolality and hyponatremia
CPT/HCPCS: 51702; 71045; 80048; 81001; 84484; 85025; 87086; 87088; 87186; 93005; 99284

== ENCOUNTER 2024-12-11 14:45 | Outpatient (CLI) | payer MEDICARE, MEDICAID, SELFPAY ==
--- OUTSIDE RECORDS SUMMARY | 2024-12-11 14:48 | XMS_ITS | Clinical Summary ---
Author Organization [facility] Address [address] [place] [address] Care Team Providers Care Property Appraiser Name Role Phone Mckenna Hernández MITRA Primary Care Provider [phone] Allergies No known active allergies Medications aspirin 81 MG EC tablet TAKE 1 TABLET DAILY. 04/15/2015 Active budesonide-form oterol (Symbicort) 80-4.5 MCG/ACT inhaler Inhale 2 puffs 2 (two) times a day. 11/21/2014 Active furosemide (Lasix) 40 MG tablet TAKE 1 TABLET DAILY. 04/15/2015 Active metoprolol succinate XL (Toprol-XL) 50 MG 24 hr tablet Take 50 mg by mouth 1 (one) time each day. 04/15/2015 Active omeprazole (PriLOSEC) [address] capsule TAKE 1 CAPSULE DAILY. 04/15/2015 Active potassium chloride CR (Klor-Con) 10 MEQ ER tablet Take 10 mEq by mouth 1 (one) time each day. 04/15/2015 Active metFORMIN (Glucophage) 1000 MG tabletIndicatio ns:ok to resume on Friday 11/17 Take 1,000 mg by mouth 2 (two) times a day with meals. Active rosuvastatin (Crestor) 20 MG tablet Take 20 mg by mouth every night. Active Semaglutide (OZEMPIC, 0.25 OR 0.5 MG/DOSE, SC) Inject 0.5 mg under the skin 1 (one) time per week. On Tuesday Active tamsulosin (Flomax) 0.4 MG 24 hr capsule Take 0.4 mg by mouth 1 (one) time each day. Active spironolactone (Aldactone) 50 MG tablet Take 50 mg by mouth 1 (one) time each day. Active losartan (Cozaar) 25 MG tablet Take 25 mg by mouth 1 (one) time each day. Active pramipexole (Mirapex) 0.25 MG tablet Take 0.25 mg by mouth 1 (one) time each day. Active dapagliflozin (Farxiga) 10 MG tablet Take 10 mg by mouth 1 (one) time each day. Active Insulin Glargine, 2 Unit Dial, (Toujeo Max SoloStar) 300 UNIT/ML injection pen Inject 40 Units under the skin every night. 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 10/12/2022 Essential hypertension 10/12/2022 HLD (hyperlipidemia) 10/12/2022 Edema 10/12/2022 AAA (abdominal aortic aneurysm) 10/12/2022 Diastolic heart failure 10/12/2022 KALYN (obstructive sleep apnea) 10/12/2022 Trimalleolar fracture 04/28/2015 Resolved Problems Problem Noted Date Diagnosed Date Resolved Date Cardiac mass 10/12/2022 11/16/2022 Social History Tobacco Use Types Packs/Day Years Used Date Smoking Tobacco: Never Alcohol Use Standard Drinks/Week Comments No 0 (1 standard drink = 0.6 oz pur e alcohol) CAGE ASSESSMENT Answer Date Recorded Cage unable to access Not on file 11/15/2022 Cage max number of drinks Not on file 2022 Cage Beverages a week Not on file 11/15/2022 Have you ever felt you should CUT down on your d rinking? 0 11/15/2022 Have you been ANNOYED by people criticizing your drinking? 0 11/15/2022 Have you felt GUILTY about your drinking? 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 0 11/15/2022 CAGE Questionnaire Score 0 023 Sex and Gender Information Value Date Recorded Sex Assigned at Not on file Legal Sex Male 6:06 PM EDT Gender Identity Not on file Sexual Orientation Not on file Last Filed Vital Signs Vital Sign Reading Time Taken Comments Blood Pressure 124/76 12/15/2022 11:28 AM EDT Pulse 82 12/15/2022 11:28 AM EDT Temperature 36.6 C (97.8 F) 11/16/2022 7:52 AM EDT Respiratory Rate 18 11/16/2022 7:52 AM EDT Oxygen Saturation 95% 11/16/2022 7:52 AM EDT Inhaled Oxygen Concentration - - Weight 116 kg (255 lb) 12/15/2022 10:01 AM EDT Height 170.2 cm (5' 7 ) 12/15/2022 10:01 AM EDT Body Mass Index 39.94 12/15/2022 10:01 AM EDT Plan of Treatment Health Maintenance Due Date Last Done Comments [facility]-Depression Screening 1950 [facility]-Hepatitis C Screening 1950 [facility]-Medicare Annual Wellness (AWV) 1950 [facility]-Infant/Child/Adol SDOH Screenings 1950 [facility]- SDOH Screenings 1970 [facility]-Adult SDOH Screenings 1970 [facility]-DTaP,Tdap,and Td Vaccines (1 - Tdap) 1971 CT Colonography 1997 Colonoscopy 1997 FIT-DNA 1997 FIT 1997 FOBT 1997 Sigmoidoscopy 1997 [facility]-Colorectal Cancer Screening 1997 [facility]-Pneumococcal Vaccine: 50+ Years (1 of 1 - PCV) 2002 [facility]-Zoster Vaccines (1 of 2) 2002 [facility]-RSV Vaccine: 60+ Years or (1 - Risk 60-74 years 1-dose series) 2012 [id number] Vaccine ( - season) 2024 08/26/2021, 09/03/2020 [facility]-Influenza Vaccine (Season Ended) 2025 02/17/2022, 02/20/2021, 04/16/2020, Additional history exists [facility]-Obesity Intervention Completed 10/13/2022 HPV Vaccines Aged Out No longer eligi ble based on patient's age to complete this topic [facility]-HIB Vaccines Aged Out No longer e ligible based on patient's age to complete this topic [facility]-Hepatitis A Vaccines Aged Out No longer eligible based on patient's age to complete this topic [facility]-IPV Vaccines Aged Out No longer e ligible based on patient's age to complete this topic [facility]-Rotavirus Vaccines Aged Out No lo nger eligible based on patient's age to complete this topic Medical Devices Implanted Type Area Medical Chemist Device Identifier Shelf Expiration Date Model / Serial / Lot Plug [facility] Vasc 5mm - [id number] Implanted:Qty: 1 on 11/15/2022 by Orlando Pedro MD at [facility]-[id number] 03/26/2027 [id number] Insurance [employer] [facility] MEDICAID [place] MEDICARE Care Teams Property Appraiser Relationship Specialty Start Date End Date Mckenna Hernández, SHOT PEENING OPERATOR [address] [place] [address] PCP - General 10/13/22
--- OUTSIDE RECORDS SUMMARY | 2024-12-11 14:48 | XMS_ITS | Encounter Summary ---
Author Organization [place] [address] Care Team Providers Care Certified Medical Asst Name Role Phone Rajendra Parker Primary Care Provider Encounter Details Date Type Department Care Team (Late st Contact Info) Description 08/31/2017 Orders Only SEP Gastro [facility] [address] [facility] [address] [place] [address] Juancho Stuart MD PHD [address] [place] [address] Social History Tobacco Use Types Packs/Day Years Used Date Smoking Tobacco: Former Cigarettes Smokeless Tobacco: Never Alcohol Use Standard Drinks/Week Comments Yes 0 (1 standard drink = 0.6 oz pur e alcohol) lSmoke about 15 years Sex and Gender Information Value Date Recorded Sex Assigned at Not on file Legal Sex Male 8:23 AM EDT Gender Identity Not on file Sexual Orientation Not on file documented as of this encounter Plan of Treatment Not on file documented as of this encounter Procedures Procedure Name Priority Date/Time Associated Diagnosis Comments [facility] EGD Routine 08/31/2017 9:40 AM EST documented in this encounter Results * [facility] EGD (08/31/2017 9:40 AM EST) 08/31/2017 9:40 AM EST Impressions [facility] - 08/31/2017 11:32 AM EST Normal stomach. Normal duodenum. Mucosa suggestive of Hassan's esophagus (Biopsy). Normal mucosa in the remainder of the esophagus. Plan: Follow up pathology results. If you do not receive pathology results within 2 weeks, please call our office for findings and final recommendations. Repeat EGD in 3 years for Hassan's surveillance if no dysplasia on biopsies; sooner if dysplasia present. This section is an excerpt of the full report. us Juancho Stuart MD PHD GI PROCEDURE ORDERABLES Fin al Result [facility] [address] [place] [address] documented in this encounter Visit Diagnoses Not on filedocumented in this encounter Care Teams Certified Medical Asst Relationship Specialty Start Date End Date Rajendra Parker [address] [place] [address] PCP - General 03/03/10 documented as of this encounter
--- OUTSIDE RECORDS SUMMARY | 2024-12-11 14:48 | XMS_ITS | Encounter Summary ---
Author Organization 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 Social History Tobacco Use Types Packs/Day Years [...] Procedure Name Priority Date/Time Associated Diagnosis Comments PATHOLOGY TISSUE REQUEST Today 08/31/2017 9:40 AM EST 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 09/01/2017 11:29 AM EST [facility] FINAL DIAGNOSIS Gastroesophage al Junction Biopsy: - Hassan's Esophagus, Negative For Dysplasia. 09/01/2017 11:29 AM EST [facility] at 1129 EST GROSS DESCRIPTION Received in formalin and labeled with the patient's name and designated GE junction biopsy are six portions of pearson soft tissue, 0.2 to 0.4 cm in greatest dimension. Entirely submitted in one cassette./CDM 09/01/2017 11:29 AM EST [facility] MICROSCOPIC DESCRIPTION Microscopic examination is performed and the findings corroborate the diagnosis. 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
--- OUTSIDE RECORDS SUMMARY | 2024-12-11 14:48 | XMS_ITS | Continuity of Care Document ---
Author Organization [facility] Address [address] [place] [address] Care Team Providers Care Pocketbook Maker Name Role Phone AMPARO HARMON Primary Care Provider Assessment Encounter Date Assessment Date Assessment LastModified by Organization Details LastModified Time 11/29/2024 11/29/2024 ASSESSMENT: Thierno Reyna is a 74-year-old male with stage II prostate cancer and persistent bladder dysfunction requiring catheterization. PLAN: 1. The patient was counseled on the benefits and risks of suprapubic catheter placement, including reduced infection risk, improved comfort, and ease of maintenance. 2. The provider discussed the potential for intermittent catheterization as an alternative, but the patient expressed reluctance due to its invasiveness and frequency of use. 3. The provider recommended replacing the current catheter in the short term to prevent further episodes of urinary retention and emergency visits. 4. Coordination with Dr. Ron and Dr. Del Valle was planned to determine the timeline for initiating radiation therapy and to discuss the possibility of performing the Baragel procedure to minimize radiation side effects on the rectum. 5. The patient was informed that the suprapubic catheter could be removed in the office if bladder function improves, with the incision healing quickly. 6. The provider emphasized the importance of maintaining open communication with the radiation oncology team and nurse coordinators to ensure timely treatment progression. [email or web address] Not available 11/29/2024 13:30:25 Plan of Treatment Reminders Order Date Submit Date Provider Last Modified By Organization Details Last Modified Time Details Appointments SURGERY 2024 07:30A Nohemi WRIGHT MD Not available Not available Not available FOLLOW UP 2024 01:00P Nohemi ZAIDI MD Not available Not available Not available CT SIMULATIO N 2024 01:30P M SOFIA ZAIDI MD Not available Not available Not available OV EST 30 2024 11:00A M Abiola Ruiz PA-C Not available Not available Not available Lab None recorded. Referral None recorded. Procedures None recorded. Surgeries transperi thea placement of biodegrad able material, red-pros tatic, single or multiple injection (s), including image guidance, when performed (SURG) 2024 025 Not available 12/10/2024 14:24:15 aspiratio n, bladder, insertion of suprapubi c catheter (SURG) 2024 025 [email or web address] Not available 12/10/2024 14:24:15 Imaging None recorded. Medication Orders None recorded. Patient TargetsNo targets recorded. Patient InstructionsNo instructions recorded. Reason for Referral None Reported. Results Created Date Observation Date Name Description Value Unit Range Abnormal Flag Note LastModifiedBy Organization Detail LastModifiedTime 11/01/19 25 PET-C T, skull base to mid-t high scan No observ ation record ed. [email or web address] Not Available 2024 09:27:48 Result Notes None recorded. Problems Name Problem SNOMED Code Status Onset Date Resolution Date Notes Provider Name and Address Organization Details Recorded Time Retention of urine 455818800 Active MD [address], [place], [address] , [place] - [facility] & [place] 5 15:05:27 Prostate specific antigen above reference range 625362640 Active MD [address], [place], [address] , [place] - [facility] - [place] & [place] 5 15:05:21 Malignant neoplasm of prostate 462500617 Active MD [address], [place], [address] , [place] - [facility] [place] 5 12:04:35 Problem Notes None recorded. Procedures Surgical History Date Name Laterality Status Provider Name and Address Organization Details Recorded Time 09/29/19 25 Prostate Biopsy completed AMBERLY WRIGHT MD [address], [place], [address], [facility] - [facility] [place] 09/28/2024 09:57:43 09/29/19 25 Cystoscopy-Male completed MD [address], [place], [place], [address] [place] [address], [place] - [facility] & [place] 09/28/2024 09:58:50 09/29/19 25 TRUS completed MD [address], [place], [address], [facility] - [facility] [place] 09/28/2024 09:58:17 09/14/19 25 RECHECKER Test completed [facility] [place] 09/13/2024 14:45:35 07/30/19 25 RECHECKER Test completed Christina Asher NP, [address], [place], [address], [facility] - [facility] [place] 07/30/2024 14:57:54 cholecystectomy completed Chanda De Jesus [facility] & [place] 10/24/2024 13:09:14 Imaging Results None recorded. Procedure [...] tablet TAKE 1 TABLET BY MOUTH DAILY 12/07 completed Not Available Not Available Not Available pramipexo le 0.25 mg tablet TAKE 1 TABLET BY MOUTH EVERY NIGHT AT BEDTIME FOR RESTLESS LEG SYNDROME active Not Available Not Available No t Available omeprazol e 20 mg capsule,d elayed release TAKE 2 CAPSULES BY MOUTH ONCE DAILY active Not Available Not Available [...] BY MOUTH TWICE DAILY FOR 10 DAYS 12/07 completed Not Available Not Available Not Available [...] ous insulin pen INJECT 40 UNITS UNDER SKIN AT BEDTIME DIRECTED active Not Available Not Available No [...] Time Tobacco Smoking Status Former Smoker Chanda Workman null, [place] - [facility] - [place] & [place] 10/24/2024 13:08:36 When Did You Quit Smoking? 18+yearssin lamberto miranda 27 Years Ago Quit 06/1994 [email or web address] Information not available 10/24/2024 At What Age Did You Start Smoking Tobacco? 17 [email or web address] Information not available 10/24/2024 Sex: Unknown Functional Status Question Answer Note LastModified by Organizat ion Details LastModified Time Do you use any illicit or recreational drugs? No [email or web address] Information not available 10/24/2024 What is your level of alcohol consumption? None [email or web address] Information not available 10/24/2024 Mental Status None recorded. Family History Nothing Reported. Medical History No medical history recorded. Immunizations Vaccine Type Date Status Note Provider Nam e and Address Organization Details Recorded Time zoster recombinant 4 completed Chanda Workman null, [place] - [facility] [place] 10/24/2024 13:04:23 zoster recombinant 4 completed Chanda Workman null, [place] [facility] [place] & [place] 10/24/2024 13:04:23 Influenza, high-dose, quadrivalent, PF 2 completed Chanda Workman null, [place] [facility] [place] [facility] [place] 10/24/2024 13:04:23 Influenza, high-dose, quadrivalent, PF 1 completed Chanda Workman null, [place] [facility] [place] & [place] 10/24/2024 13:04:23 Influenza, high-dose, quadrivalent, PF 0 completed Chanda Workman null, [place] [facility] [place] 10/24/2024 13:04:23 Influenza, high-dose, quadrivalent, PF 3 completed Chanda Workman null, [place] [facility] [place] 10/24/2024 13:04:23 COVID-19, mRNA, LNP-S, PF, 100 mcg/0.5mL dose or 50 mcg/0.25mL dose 2 completed Chanda Workman null, [place] - [facility] [place] 10/24/2024 13:04:23 COVID-19 vaccine, vector-nr, rS-Ad26, PF, 0.5 mL 1 completed Chanda Workman null, [place] - [facility] [place] 10/24/2024 13:04:23 RSV, recombinant, protein subunit RSVpreF, adjuvant reconstituted, 0.5 mL, PF 4 [facility], [place] - [facility] [place] 10/24/2024 13:04:23 pneumococcal polysaccharide PPV23 3 completed Chanda Bellaman null, [place] - [facility] [place] 10/24/2024 13:04:23 Influenza, split virus, quadrivalent, PF 7 completed [facility], [place] - [facility] [place] 10/24/2024 13:04:23 [facility] [place] 12/07/2024 09:41:13 Pneumococcal conjugate PCV20, polysaccharide ILL956 conjugate, adjuvant, PF 5 [facility] [place] [facility] [place] 12/07/2024 09:41:13 Past Encounters Encounter ID Performer Location Encounter Start Date Encounter Closed Date Diagnosis/Indication Diagnosis SNOMED-CT Code Diagnosis ICD10 Code Diagnosis Note [id number] AMBERLY WRIGHT MD [facility] Urology-1 [address] [facility] [address] [place] [address] 11/01/2024 10:00:40 11/01/2024 11:17:32 [id number] AMBERLY WRIGHT MD [facility] Urology-1 [address] [facility] [address] [place] [address] 11/29/2024 12:59:21 11/29/2024 13:56:15 Retention of urine 634305950 R33.9 Malignant neoplasm of prostate 615488969 C61 Health Concerns Section Related Observation LastModified by Organization Detai ls LastModified Time None Recorded Concern Status LastModified by Organization Details LastModified Time None Recorded Payers Encounter Date Sequence Insurance Name Policy Number Policy Rose Covered Member ID Rose Member ID Guarantor Name 11/29/2024 1 [facility] (MEDICARE REPLACEMENT/A DVANTAGE - HMO) GUILLE Reyna [id number] Thierno Reyna 11/29/2024 2 MEDICAID-[facility] CHOICES - FFS/TRADITION AL Thierno Reyna [id number] Thierno Reyna Notes Date Note Type Note Provider Name and Address Organization Details Recorded Time 11/29/2024 text/html 11/29/24 Patient returns to my office to access emptying of urinary bladder. Thierno Reyna is a 74-year-old male who presents for a follow-up visit. He has a history of stage II prostate cancer and has received Eligard treatment. Radiation therapy is pending, and coordination with Dr. Del Valle and Dr. Ron is ongoing. The patient reports persistent issues with bladder function despite prior interventions, including catheter placement. He describes difficulty emptying his bladder and has experienced episodes of urinary retention requiring emergency catheterization. He has undergone multiple catheter placements, including one in the first week of October, which provided temporary relief but was followed by recurrent retention. The patient expresses frustration with his current condition, describing it as a nightmare. He has been informed of alternative options for bladder management, including intermittent catheterization and suprapubic catheter placement. He is considering the suprapubic catheter due to its potential benefits, such as reduced infection risk, improved comfort, and ease of maintenance. Additionally, the patient reports soreness in the pelvic region and difficulty with bowel movements, which he describes as feeling like sandpaper. He has not been informed about a procedure called Baragel, which may be considered to minimize radiation side effects on the rectum. 11/02/[id number]-yemu-pcejon pearce returns to my office for follow up prostate biopsy and PET-CT scan results. Study found no evidence of metastases. There is questionable asymmetrical lesion of the upper pole of the left kidney. Patient had previously had CT scan with IV contrast in June 2024 which identified several Bosniak 1 cysts. Thierno Reyna is a 74-year-old male who [...] for a follow-up appointment on Tuesday at 09:30. He has also been scheduled to receive an Eligard injection for testosterone management. He has been in contact with various coordinators and nurse navigators, including Mary and Aurea, to manage his treatment plan. -------10/09/24 CC: 19-ynon-djo-male returns to my office for TRUS Bx [...] high, with many cores being 100% cancerous. -- 09/28/24 83-sbvv-jkj-male returns to my office for cystoscopy, TRUS [...] total endoscopy done last Tuesday at [facility] and was cleared by Dr. Marcos's office for the procedure. Thierno has a history of almost becoming septic and was treated with antibiotics. He is also taking finasteride, which was prescribed to shrink his prostate. 09/14/25717177-boox-pyu-nohemi pearce returns to clinic for voiding trial ------[birth year]73-year -old-male returns to clinic for voiding trail. 250 mL was placed in the bladder today and was unsuccessful 07/30/24Pt here for RECHECKER test --- 07/24/2571 renata presents to clinic for evaluation of urinary retention. Patient [facility] to [facility]. Beasley catheter [...] AAA surgery, DM, HTN, and HLD. Pts driver examiner is Dr Marcos. 11/06/24 PSA 10.705 Hgb 12.8, Hct 38.9, Cr 1.1, GFR PET-CT ([facility]): No hyperintense lesions to suggest the presence of bone, lymph node, or other metastatic disease in this patient with history of prostate carcinoma, noncalcified 1.8cm nodule within the right upper lobe, lung carcinoma in no way can be excluded in this patient with emphysema, no old films are available for comparison, asymmetric parenchyma versus soft tissue mass left upper kidney, renal ultrasound is fuquhdairzc30/23/25 RECHECKER testing: valsalva Peak 80dnF6J, void peak 84czg3E03/21/25 Prostate biopsy: prostatic adenocarcinoma, 4+4=8 (grade group 4) with background intraductal carcinoma; tumor involves 60% of wazfvf15/07/25 TRUS Bx: R LB 4+4- 75%, R LA 4+4 100%, RB 4+3 100%, RM 4+3 100%, RA 4+4 100%, LLB 4+3 100%, LLM 4+4 100%, LLA 4+4 50%, L B 4+3 100%, LM 4+4 75%, LA 4+3 100%; vol 25.5 cc08/24/24 PSA 10.2 (beasley catheter in place)07/30/24: RECHECKER- Pressure over basline 02qeW3s, Peak detrusor pressure 37gkY40, Peak Valsalva pressure 5yiU3b407/19/2024: CT scan of abd/pelvis with contrast revealed [...] leuks, and neg nitratesJune 2023 PSA 7.51 AMBERLY WRIGHT MD [address], [place], [address], [facility] - [place] & [place] 11/30/2024 09:18:21
--- OUTSIDE RECORDS SUMMARY | 2024-12-11 14:48 | XMS_ITS | Encounter Summary ---
Author Organization [facility] [place] [address] Care Team Providers Care Washery Engineer Name Role Phone Rajendra Parker Primary Care Provider Encounter Details Date Type Department Care Team (Late st Contact Info) Description 09/24/2014 Orders Only SEP Gastro [facility] [address] [facility] Building [address] [place] [phone] [place] [address] [place] [address] Social History Tobacco Use Types Packs/Day Years [...] Name Priority Date/Time Associated Diagnosis Comments [facility]ED COLONOSCOPY Routine 09/24/2014 2:00 PM EDT documented in this encounter Results * [facility]ED COLONOSCOPY (09/24/2014 2:00 PM EDT) 09/24/2014 2:00 PM EDT Impressions [facility] - 09/24/2014 3:04 PM EDT Internal hemorrhoids. Polyp (3 mm) in the ascending colon. (Polypectomy). Plan: Await pathology results Colonoscopy in 3-5 years depending on pathology results. This section is an excerpt of the full report. us Vinnie Soria MD GI PROCEDURE ORDERABLES Edit ed Result - Final Performing Organization Address City/State/[facility] Co de Phone Number [facility] [address] [place] [address] documented in this encounter Visit Diagnoses Not on filedocumented in this encounter Care Teams Washery Engineer Relationship Specialty Start Date End Date Rajendra Parker [address] [place] [address] PCP - General 03/03/10 documented as of this encounter
--- OUTSIDE RECORDS SUMMARY | 2024-12-11 14:48 | XMS_ITS | Continuity of Care Document ---
Author Organization [facility] Address [address] [facility] [address] [place] [address] Care Team Providers Care Epic Manager Name Role Phone FAUSTINO AMPARO Primary Care Provider Assessment No assessment recorded. Plan of Treatment Reminders Order Date Submit Date Provider Last Modified By Organization Details Last Modified Time Details Appointments SURGERY 30 2024 07:30A M AMBERLY WRIGHT MD Not available Not available Not available FOLLOW UP 2024 01:00P M SOFIA ZAIDI MD Not [...] high scan No observ ation record ed. [email or web address] Not Available 2024 09:27:48 Result Notes None recorded. Problems Name Problem SNOMED Code Status Onset Date Resolution Date Notes Provider Name and Address Organization Details Recorded Time Retention of urine 354629948 Active 025 AMBERLY WRIGHT MD [address] [facility], [place], [address] , [facility] 03/20/202 5 15:05:27 Prostate specific antigen above reference range 222529043 Active [address], [place], [address] , [place] - [facility] & [place] 5 15:05:21 Malignant neoplasm of prostate 455457608 Active [address], [place], [address] , [place] [facility] [facility] & [place] 5 12:04:35 Problem Notes Documentation Provider Name and Address Organization Details Recorded Time Scroll Saw Operator Consult Note : SW met with pt and and pt . SW provided education on SW role in oncology and provided contact information. Pt and spouse provided information that they needed financial resources. SW encouraged the pt and spouse to gather all the utility and bills in the home and we could submit to [employer]. Additionally, we could submit to [employer] to help with transportation cost to and from appointments to treatment. SW provided [facility] cards to pt for transportation cost for today. Pt and spouse provided intent to bring required paper work and discussed their supports would help with providing assistance, transportation, etc. Pt and spouse reported that they would meet with the SW on 11/01/24 when he was finished with an already schedule appointment. [facility] & [place] 10/25/2024 13:04:36 Procedures Surgical History Date Name Laterality Status Provider Name and Address Organization Details Recorded Time 09/29/19 25 Prostate Biopsy completed MD [address], [place], [address], [place] [facility] [facility] & [place] 09/28/2024 09:57:43 09/29/19 25 Cystoscopy-Male completed MD [address], [place], [address], [place] [facility] [facility] & [place] 09/28/2024 09:58:50 09/29/19 25 TRUS completed MD [address], [place], [address], [place] [facility] [facility] & [place] 09/28/2024 09:58:17 09/14/19 25 LADLE BUILDER Test completed Liyah Garcia [place] - [facility] & [place] 09/13/2024 14:45:35 07/30/19 25 LADLE BUILDER Test completed Christina Asher, LYNDA, S [address] [facility], [place], [address], [facility] - [facility] & [place] 07/30/2024 14:57:54 cholecystectomy completed [facility] [place] [facility] [place] 10/24/2024 13:09:14 Imaging Results None recorded. Procedure [...] and Address Organization Details Last Updated DateTime 167.64 cm 35.1 kg/m2 75705.3 4 g 97.5 [degF] 96 % 96 % 100 /min 118 mm[Hg] 59 mm[Hg] Chanda De Jesus IRLANDA CHOWDHURY [facility] & [place] 13:13:47 Social History Question Answer Notes LastModified by Organizat ion Details LastModified Time Tobacco Smoking Status Former Smoker Chanda De Jesus mayda IRLANDA Mohsen CHOWDHURY [facility] & [place] 10/24/2024 13:08:36 When Did You Quit Smoking? 18+yearssin celastcigar ette 27 Years Ago Quit 06/1994 [email or web address] Information not available 10/24/2024 At What Age Did You Start Smoking Tobacco? 17 [email or web address] Information not available 10/24/2024 Sex: Unknown Functional Status Question Answer Note LastModified by Organizat ion Details LastModified Time Do you use any illicit or recreational drugs? No [email or web address] Information not available 10/24/2024 What is your level of alcohol consumption? None [email or web address] Information not available 10/24/2024 Mental Status None recorded. Family History Nothing Reported. Medical History No medical history recorded. Immunizations Vaccine Type Date Status Note Provider Nam e and Address Organization Details Recorded Time zoster recombinant 4 completed Chanda Workman null, [place] [facility] & [place] 10/24/2024 13:04:23 zoster recombinant 4 completed Chanda Workman [place], [place] [facility] [place] 10/24/2024 13:04:23 Influenza, high-dose, quadrivalent, PF 2 completed Chanda Workman [place], [place] [facility] & [place] 10/24/2024 13:04:23 Influenza, high-dose, quadrivalent, PF 1 completed Chanda Workman [place], [place] 10/24/2024 13:04:23 Influenza, high-dose, quadrivalent, PF 0 completed Chanda Workman [place], [place] 10/24/2024 13:04:23 Influenza, high-dose, quadrivalent, PF 3 completed Chanda Workman [place], [place] 10/24/2024 13:04:23 COVID-19, mRNA, LNP-S, PF, 100 mcg/0.5mL dose or 50 mcg/0.25mL dose 2 completed Chanda Workman null, [place] [facility] & [place] 10/24/2024 13:04:23 COVID-19 vaccine, vector-nr, rS-Ad26, PF, 0.5 mL 1 completed Chanda Workman [place], [place] 10/24/2024 13:04:23 RSV, recombinant, protein subunit RSVpreF, adjuvant reconstituted, 0.5 mL, PF 4 completed Chanda Workman null, IRLANDA - [facility] - [place] & [place] 10/24/2024 13:04:23 pneumococcal polysaccharide PPV23 3 completed Chanda Workman [place], [place] 10/24/2024 13:04:23 Influenza, split virus, quadrivalent, PF 7 completed Chanda Workman null, IRLANDA - [facility] - [place] & [place] 10/24/2024 13:04:23 zoster recombinant 5 completed Chanda Workman null, IRLANDA - [facility] - [place] & [place] 12/07/2024 09:41:13 Pneumococcal conjugate PCV20, polysaccharide RGV166 conjugate, adjuvant, PF 5 completed Chanda Blancoman null, IRLANDA - [facility] - [place] & [place] 12/07/2024 09:41:13 Past Encounters Encounter ID Performer Location Encounter Start Date Encounter Closed Date Diagnosis/Indication Diagnosis SNOMED-CT Code Diagnosis ICD10 Code Diagnosis Note [id number] AMBERLY WRIGHT MD [facility] [address] [facility] [address] [place] [address] 09/28/2024 09:15:18 09/28/2024 10:25:23 Prostate specific antigen above reference range 496075900 R97.20 Patient tolerated procedure well. He will follow up in 1 week for results. He was reminded to complete oral antibiotic therapy. He was instructed to contact our office or go to the ER if he experience s fever greater than 100.5 F or chills. Retention of urine 04954 4002 R33.9 A Guadarrama catheter replaced after procedure. [id number] AMBERLY WRIGHT MD [facility] [address] [facility] [address] [place] [address] 10/09/2024 11:18:09 10/09/2024 12:26:02 Retention of urine 717481653 R33.9 Malignant neoplasm of prostate 136837846 C61 [id number] Merritt Del Valle MD [facility] [address] [facility] [address] [place] [address] 10/24/2024 12:59:21 10/24/2024 13:47:59 Malignant neoplasm of prostate 992047346 C61 Patient initially presented to Urology for [...] 1st day injection. Urinary ou tflow obstruction 804076450 N13.9 Patient with urinary catheter in place. [...] Rose Member ID Guarantor Name 10/24/2024 1 [facility] (MEDICARE REPLACEMENT/A DVANTAGE - HMO) GUILLE Reyna [id number] Thierno Reyna 10/24/2024 2 MEDICAID-[facility] - FFS/TRADITION AL Thierno Reyna [id number] Krunalbianca Axel Notes Date Note Type Note Provider Name [...] for 4-6 months of androgen deprivation therapy. Merirtt Del Valle MD [address], [place], [address], [place] 10/24/2024 14:11:09
--- OUTSIDE RECORDS SUMMARY | 2024-12-11 14:48 | XMS_ITS | Clinical Summary ---
Author Organization [facility] Address [address] [facility] [place] [address] Phone Care Team Providers Care Microfilm Camera Operator Name Role Phone Rajendra Parker Primary Care Provider Allergies No known active allergies Medications amlodipine-elton zepril (LOTREL) 10-20 mg per capsule Take 1 Cap by mouth daily. Active MULTIVITAMIN ORAL Take by mouth. Active clopidogrel (PLAVIX) 75 mg tablet Take by mouth daily. Hold until 06/27/2010 Active metoprolol (LOPRESSOR) 25 mg tablet Take by mouth 2 times daily. Active simvastatin (ZOCOR) 20 mg tablet Take by mouth nightly. Active ranitidine (ZANTAC) 150 mg tablet Take 150 mg by mouth 2 times daily. Active furosemide (LASIX) 40 mg tablet Take 40 mg by mouth daily. Active potassium chloride (K-DUR) 10 mEq tablet Take 10 mEq by mouth 2 times daily. Active oxycodone-aceta minophen (PERCOCET) 5-325 mg per tablet Take 5-325 mg by mouth every 4 hours as needed for Pain. Take every 4-6 hours as needed for pain Active aspirin 81 mg tablet Take 81 mg by mouth daily. Hold until 06/27/2010 Active moxifloxacin (AVELOX) 400 mg tablet Take 400 mg by mouth every 24 hours. Take for 7 days Active magnesium hydroxide (MILK OF MAGNESIA) 400 mg/5 mL suspension Take 30 mL by mouth daily as needed. Over the counter as needed Active omeprazole (PRILOSEC) 40 mg capsule Take 1 Cap by mouth daily. Patient needs an appointment. 30 Cap 0 12/20/2012 Active Active Problems Problem Noted Date Diagnosed Date Pseudocyst, pancreas 10/04/2013 Coronary artery disease 11/12/2011 S/P CABG (coronary artery bypass graft) 11/12/19 12 History of tobacco use 11/12/2011 Hypertension 10/19/2011 AAA (abdominal aortic aneurysm) 10/19/2011 Surgical History Surgery Date Site/Laterality Comments CHOLECYSTECTOMY HERNIA REPAIR yunier ABDOMINAL AORTIC ANEURYSM REPAIR LITHOTRIPSY CARDIAC SURGERY 06/01/2010 N/A CORONARY ARTERY BYPASS GRAFT - SCIP performed by ANGELA CAMPBELL at [facility] OR VASCULAR SURGERY Abdominal aortic aneurysm repair with grafting UPPER GASTROINTESTINAL ENDOSCOPY Medical History Medical History Date Comments Hypertension Hyperlipidemia Heartburn Headache(784.0) Chronic kidney disease Hx of kid gustavo stones Blood circulation, collateral St ents both legs Family History Medical History Relation Name Comments Heart Disease Father High Blood Pressure Father Stroke Father Cancer Mother Diabetes Mother Heart Disease Sister High Blood Pressure Sister Relation Name Status Comments Father Mother Sister Social History Tobacco Use Types Packs/Day Years [...] on file Sexual Orientation Not on file Obstetrics History Last Filed Vital Signs Vital Sign Reading Time Taken Comments Blood Pressure 128/80 10/10/2014 10:01 AM EDT ri ght Pulse 88 10/19/2011 10:49 AM EDT Temperature 36.9 C (98.4 F) 06/23/2010 3:41 PM EST Respiratory Rate 18 06/23/2010 3:41 PM EST Oxygen Saturation 98% 06/23/2010 3:41 PM EST Inhaled Oxygen Concentration - - Weight 121.6 kg (268 lb) 10/10/2014 10:01 AM EDT Height 167.6 cm (5' 6 ) 10/10/2014 10:01 AM EDT Body Mass Index 43.26 10/10/2014 10:01 AM EDT Plan of Treatment Health Maintenance Due Date Last Done Comments Wellness Exam Medicare 1953 Hepatitis C Screening 1970 DTaP/TDaP/Td (1 - Tdap) 1971 Cologuard 1997 FIT 1997 Sigmoidoscopy 1997 Virtual Colonography 1997 Pneumococcal Vaccine 50+ (1 of 1 - PCV) 2002 Zoster (1 of 2) 2002 Colon Cancer Screening 09/25/2019 Colonoscopy 09/25/2019 09/24/2014, 09/02/2010 COVID-19 Vaccine (1 - 2023-2 5 season) 2024 Influenza Vaccine (Season Ended) 2025 Hepatitis B Vaccine Aged Out No longe r eligible based on patient's age to complete this topic Meningococcal B Vaccine Aged Out No l onger eligible based on patient's age to complete this topic Procedures Procedure Name Priority Date/Time Associated Diagnosis Comments [facility]ED COLONOSCOPY Routine 09/24/2014 2:00 PM EDT from Last 3 Months or Most Recently Relevant to Health Maintenance Results * [facility]ED COLONOSCOPY (09/24/2014 2:00 PM EDT) 09/24/2014 2:00 PM EDT Impressions [facility] - 09/24/2014 3:04 PM EDT Internal hemorrhoids. Polyp (3 mm) in the ascending colon. (Polypectomy). Plan: Await pathology results Colonoscopy in 3-5 years depending on pathology results. This section is an excerpt of the full report. Vinnie Soria MD GI PROCEDURE ORDERABLES Edit ed Result - Final [facility] [address] [place] [address] from Last 3 Months or Most Recently Relevant to Health Maintenance Insurance MEDICARE [place] PART A AND B Advance Directives For more information, please contact: [phone] Documents on File Type Date Recorded Patient Sight Effects Specialist Expl anation Advance Directives/DNR 06/08/2010 1:11 AM Advance Directives/DNR 03/14/2010 3:00 PM Advance Directives/DNR 02/14/2010 10:05 PM Care Teams Microfilm Camera Operator Relationship Specialty Start Date End Date Rajendra Parker [address] [place] [address] PCP - General 03/03/10
--- OUTSIDE RECORDS SUMMARY | 2024-12-11 14:48 | XMS_ITS | Encounter Summary ---
Author Organization [facility] [place] [address] Care Team Providers Care Sample Tester Grinder Name Role Phone Rajendra Parker Primary Care Provider Encounter Details Date Type Department Care Team (Late st Contact Info) Description 09/24/2014 Orders Only SEP Gastro [facility] [address] [facility] [address] [place] [address] [place] [address] [place] [address] Social History Tobacco Use Types [...] Date/Time Associated Diagnosis Comments GMED EGD Routine 09/24/2014 1:45 PM EDT documented in this encounter Results * [facility]ED EGD (09/24/2014 1:45 PM EDT) 09/24/2014 1:45 PM EDT Impressions [facility] - 09/24/2014 2:07 PM EDT Normal stomach. Normal duodenum. Mucosa suggestive of Hassan's esophagus (Biopsy). Esophageal hiatal hernia. Plan: Acid Reflux diet and Education Await pathology results Continue current medication for acid suppression 30 minutes before a meal. Colonoscopy today. This section is an excerpt of the full report. us Vinnie Soria MD GI PROCEDURE ORDERABLES Kasandra velazquez Result Performing Organization Address City/State/[facility] Co de Phone Number [facility] [address] [place] [address] documented in this encounter Visit Diagnoses Not on filedocumented in this encounter Care Teams Sample Tester Grinder Relationship Specialty Start Date End Date Rajendra Parker [address] [place] [address] PCP - General 03/03/10 documented as of this encounter
--- OUTSIDE RECORDS SUMMARY | 2024-12-11 14:48 | XMS_ITS | Continuity of Care Document ---
Author Organization [facility] Address [address] [place] [address] Care Team Providers Care Organic Chemistry Professor Name Role Phone AMPARO HARMON Primary Care [...] created using voice recognition/text compilation software with [employer]'s documentation services during the encounter with the patient; Please excuse any errors due to the standards analyst process. [email or web address] Not available 11/01/2024 11:10:56 Plan of Treatment Reminders Order Date Submit Date Provider Last Modified By Organization Details Last Modified Time Details Appointments SURGERY 2024 07:30A Scott WRIGHT MD Not available Not available Not available FOLLOW UP 2024 01:00P Scott ZAIDI MD Not available [...] high scan No observ ation record ed. [email or web address] Not Available 2024 09:27:48 Result Notes None recorded. Problems Name Problem SNOMED Code Status Onset Date Resolution Date Notes Provider Name and Address Organization Details Recorded Time Retention of urine 873101633 Active 025 AMBERLY WRIGHT MD [address] [facility] [address] , [facility] & [place] 5 15:05:27 Prostate specific antigen above reference range 852781089 Active 025 AMBERLY WRIGHT MD [address] [facility] [address] , [facility] & [place] 5 15:05:21 Malignant neoplasm of prostate 805838447 Active 025 MD [address] [facility] [facility] [address] , [facility] & [place] 5 12:04:35 Problem Notes Documentation Provider Name and Address Organization Details Recorded Time Dialysis Registered Nurse Consult Note : FIDEL met with the pt and spouse to complete documentation for [employer] application. Additionally, the pt shared that [facility] whom FIDEL had referred the pt to for co-payment assistance had been unable to help the pt. FIDEL sent the pt bills and application to [employer] for consideration. The pt assisted the pt in calling [facility] and after the pt begins treatment he is able to call and determine eligibility and may be more successful, as this is one of the requirements for assistance. Pt provided Living Will in addition to paperwork for financial assistance and uploaded this to the pts chart. The pt discussed they have a lot of financial stress, SW encouraged the pt and spouse to be proactive with discussing needs with the SW and we will work to find resources and funds as successfully as we can. The pt reported that [facility] reached out to them and spoke with them recently for assistance. The pt was overwhelmed with documentation today, but had brought what is required to submit to [facility] for ground transportation assistance consideration. FIDEL has reached out to [facility] for a tentative schedule for the pt to submit with their application, as this is a requirement. SW will refer the pt to apply for Medicare part D to determine eligibility for assistance with co-payments, assistance with medications, and insurance premiums, etc. Aurea ohara, [place] [facility] [place] 11/02/2024 10:13:37 Procedures Surgical History Date Name Laterality Status Provider Name and Address Organization Details Recorded Time 09/29/19 25 Prostate Biopsy completed AMBERLY WRIGHT MD [address], [place], [address], [place] [facility] [place] 09/28/2024 09:57:43 09/29/19 25 Cystoscopy-Male completed AMBERLY WRIGHT MD [address], [place], [address], [place] [facility] [place] 09/28/2024 09:58:50 09/29/19 25 TRUS completed AMBERLY WRIGHT [place] [address], [address], [place] [facility] [place] [facility] [place] 09/28/2024 09:58:17 09/14/19 25 WARRANTY COORDINATOR Test completed Liyah Garcia [place] [facility] [place] 09/13/2024 14:45:35 07/30/19 25 WARRANTY COORDINATOR Test completed Christina Asher NP, [address], [place], [address], [place] [facility] [place] [facility] [place] 07/30/2024 14:57:54 cholecystectomy completed Chanda De Jesus [place] [facility] [place] 10/24/2024 13:09:14 Imaging [...] Not Available Not Available No t Available Ray Loera U-300 SoloStar 300 unit/mL (3 mL) subcutane [...] Updated DateTime 5 167.64 cm 35.7 kg/m2 545525. 91 g 96 % 96 % 78 /min 136 mm[Hg] 76 mm[Hg] Liyah Burnetteno Radhachasity CHOWDHURY [facility] [place] 5 10:20:41 Social History Question Answer Notes LastModified by Organizat ion Details LastModified Time Tobacco Smoking Status Former Smoker IRLANDA Benavides [facility] [place] 10/24/2024 13:08:36 When Did You Quit Smoking? 18+yearssin celastcigar ette 27 Years Ago Quit 06/1994 [email or web address] Information not available 10/24/2024 At What Age Did You Start Smoking Tobacco? 17 [email or web address] Information not available 10/24/2024 Sex: Unknown Functional Status Question Answer Note LastModified by Organizat ion Details LastModified Time Do you use any illicit or recreational drugs? No [email or web address] Information not available 10/24/2024 What is your level of alcohol consumption? None [email or web address] Information not available 10/24/2024 Mental Status None recorded. Family History Nothing Reported. Medical History No medical history recorded. Immunizations Vaccine Type Date Status Note Provider Nam e and Address Organization Details Recorded Time zoster recombinant 4 completed IRLANDA Benavides [facility] [place] 10/24/2024 13:04:23 zoster recombinant 4 [facility] [place] 10/24/2024 13:04:23 Influenza, high-dose, quadrivalent, PF 2 completed [facility] null[facility] [place] 10/24/2024 13:04:23 Influenza, high-dose, quadrivalent, PF 1 completed Chanda Workman null, [facility] [place] 10/24/2024 13:04:23 Influenza, high-dose, quadrivalent, PF 0 completed Chanda Workman null, [facility] & [place] 10/24/2024 13:04:23 Influenza, high-dose, quadrivalent, PF 3 completed Chanda Workman null, [facility] & [place] 10/24/2024 13:04:23 COVID-19, mRNA, LNP-S, PF, 100 mcg/0.5mL dose or 50 mcg/0.25mL dose 2 completed Chanda Workman null, [facility] & [place] 10/24/2024 13:04:23 COVID-19 vaccine, vector-nr, rS-Ad26, PF, 0.5 mL 1 completed Chanda Workman null, [facility] & [place] 10/24/2024 13:04:23 RSV, recombinant, protein subunit RSVpreF, adjuvant reconstituted, 0.5 mL, PF 4 completed Chanda Workman null, [place] [facility] & [place] 10/24/2024 13:04:23 pneumococcal polysaccharide PPV23 3 completed Chanda Workman null, [facility] & [place] 10/24/2024 13:04:23 Influenza, split virus, quadrivalent, PF 7 completed [facility] null[facility] [place] 10/24/2024 13:04:23 zoster recombinant 5 completed [facility] null[facility] [place] 12/07/2024 09:41:13 Pneumococcal conjugate PCV20, polysaccharide XFN162 conjugate, adjuvant, PF 5 completed IRLANDA Benavides [facility] [place] 12/07/2024 09:41:13 Past Encounters Encounter ID Performer Location Encounter Start Date Encounter Closed Date Diagnosis/Indication Diagnosis SNOMED-CT Code Diagnosis ICD10 Code Diagnosis Note [id number] AMBERLY WRIGHT MD [facility] [place] [address] 10/09/2024 11:18:09 10/09/2024 12:26:02 Retention of urine 000820988 R33.9 Malignant neoplasm of prostate 770443758 C61 [id number] AMBERLY WRIGHT MD [facility] [place] [address] 11/01/2024 10:00:40 11/01/2024 11:17:32 [id number] Merritt Del Valle MD [facility]olog [facility] [address] [place] [address] 10/24/2024 12:59:21 10/24/2024 13:47:59 Malignant neoplasm of prostate [id number] C61 Patient initially presented to Urology for [...] 1st day injection. Urinary ou tflow obstruction 923765955 N13.9 Patient with urinary catheter in place. [...] Rose Member ID Guarantor Name 11/01/2024 1 [facility] (MEDICARE REPLACEMENT/A DVANTAGE - HMO) IRLANDALYNDA Pa Kayleen Axel [id number] Thierno Reyna 11/01/2024 2 MEDICAID-[facility] - FFS/TRADITION AL Thierno Reyna [id number] Krunalbianca Axel Notes Date Note Type Note Provider Name and Address Organization Details Recorded Time 11/01/2024 text/html 11/01/24 61-hxsn-fjr-male returns to my office for follow up prostate biopsy and PET-CT scan results. Study found no evidence of metastases. There is questionable asymmetrical lesion of the upper pole of the left kidney. Patient had previously had CT scan with IV contrast in June 2024 which identified several Bosniak 1 cysts. ---- 10/09/24CC: 48-zfon-ntb-male returns to my office for TRUS Bx [...] prostate cancer is high-volume and high-risk, with Clifton scores of 4+4 and 4+3, indicating aggressive cancer. The percentage of cancer involvement in the cores was also high, with many cores being 100% cancerous. [id number]-rlt-male returns to my office for cystoscopy, TRUS [...] last Tuesday at [facility] and was cleared by Dr. Marcos's office for the procedure. Thierno has a history of almost becoming septic and was treated with antibiotics. He is also taking finasteride, which was prescribed to shrink his prostate. 09/13/24 89-twho-bgc-male returns to clinic for voiding trial --- 08/02/24 04-hlgt-via-male returns to clinic for voiding trail. 250 mL was placed in the bladder today and was unsuccessful-------- 5 Pt here for WARRANTY COORDINATOR test ---------07/24/24 74 yowm presents to clinic for evaluation of urinary retention. Patient reports he went to [facility] last with inability to urinate. Beasley [...] AAA surgery, DM, HTN, and HLD. Pts goat herder is Dr Marcos. * 10/30/24 PET-CT ([facility]): No hyperintense lesions to suggest the [...] mass left upper kidney, renal ultrasound is fkxbqqzzple20/23/25 WARRANTY COORDINATOR testing: valsalva Peak [id number], void peak 05axl1N35/21/25 Prostate biopsy: prostatic adenocarcinoma, 4+4=8 (grade group 4) with background intraductal carcinoma; tumor involves 60% of zzodki74/07/25 TRUS Bx: R LB 4+4- 75%, R LA 4+4 100%, RB 4+3 100%, RM 4+3 100%, RA 4+4 100%, LLB 4+3 100%, LLM 4+4 100%, LLA 4+4 50%, L B 4+3 100%, LM 4+4 75%, LA 4+3 100%; vol 25.5 cc08/24/24 PSA 10.2 (beasley catheter in place)07/30/24: WARRANTY COORDINATOR- Pressure over basline 62pgY7i, Peak detrusor pressure 25jkY86, Peak Valsalva pressure 4hoQ7i407/19/2024: CT scan of abd/pelvis with contrast revealed [...] his treatment plan. Not Available [facility] 11/01/2024 11:48:18
--- OUTSIDE RECORDS SUMMARY | 2024-12-11 14:48 | XMS_ITS | Data Portability ---
Author Organization MD - [facility] - [facility] TRENTON Collier ADMIN Address [address] [place] [id number] Care Team Providers Care Aircraft Load Controller Name Role Phone AMPARO HARMON Primary Care Provider [phone] Assessment Encounter Date Assessment Date Assessment LastModified [...] and the risk of anesthesia. While his PROGRAM DIRECTOR GROUP WORK Test numbers are encouraging, I explained that I can not guarantee that surgery will result in spontaneous voiding. He verbalized his understanding and wishes to proceed. 4. Planned to coordinate the PSMA scan, referral to Dr. Ron, and the TURP procedure simultaneously to address both the cancer and the urinary issues. 5. Informed the patient that the PSMA scan would be done at [facility] in [place] and that the referral to Dr. Ron [...] created using voice recognition/text compilation software with [employer] documentation services during the encounter with the patient; Please excuse any errors due to the education rep process. [email or web address] Not available 11/01/2024 11:10:56 11/29/2024 11/29/2024 ASSESSMENT: Thierno Reyna is a [...] Not available FOLLOW UP 2024 01:00P Nohemi ETIENNE MD Not available Not available Not available CT SIMULATIO N 2024 01:30P M SOFIA ETIENNE MD Not available Not available Not available OV EST 30 2024 11:00A M Abiola Ruiz PA-C Not available Not available Not available Lab PSA, serum or plasma 2024 025 [facility], [address] [facility], [place], [address], 12/07/2024 11:40:56 CMP, serum or plasma 2024 025 [facility], [address] [facility], [place], [address], 12/07/2024 11:40:53 testoster one, free + total, serum 2024 025 [email or web address] [facility], [address] [place], [address], 12/07/2024 09:54:24 CBC w/ auto diff 2024 025 [facility], [address] [place], [address], 12/07/2024 12:12:30 Referral radiation oncologis t referral 2024 025 [email or web address] Sofia Etienne MD, [address] [place], [address], 12/07/2024 09:08:24 Procedures None recorded. Surgeries transperi thea placement of biodegrad able material, red-pros tatic, single or multiple injection (s), including image guidance, when performed (SURG) 2024 025 [email or web address] Not available 12/10/2024 14:24:15 aspiratio n, bladder, insertion of suprapubi c catheter (SURG) 2024 025 [email or web address] Not available 12/10/2024 14:24:15 transuret hral resection of prostate (SURG) 2024 025 [email or web address] Not available 10/16/2024 16:33:58 Imaging PET-CT, skull base to mid-thigh scan - Ga 68 PSMA scan 2024 025 [email or web address] [facility], [address] [place] [address] [place], [address], 11/06/2024 09:03:30 Medication Orders None recorded. Patient TargetsNo targets recorded. Patient InstructionsNo instructions recorded. Reason for Referral Referring Physician: Alfred zepeda, Urology, Encounter Date: 10/09/2024 Results Created Date Observation Date Name Description Value Unit Range Abnormal Flag Note LastModifiedBy Organization Detail LastModifiedTime 11/07/1911/06/2024 CBC AUTO W DIFF WBC 11.2 K/uL 4.0-10 .5 high Not Available [facility] ([facility]) [address] [place], [address], 11/06/2024 11:07:08 11/07/19 25 11/06/2024 CBC AUTO W DIFF RBC 4.2 M/mm3 4.7-6. 1 low Not Available [facility] ([facility]) [address] , [place], [address], 11/06/2024 11:07:08 11/07/19 25 11/06/2024 CBC AUTO W DIFF HGB 12.8 gm/dL 13.5-1 8.0 low Not Available [facility] ([facility]) [address] [place], [address], 11/06/2024 11:07:08 11/07/19 25 11/06/2024 CBC AUTO W DIFF HCT 38.9 % 42.0-5 2.0 low Not Available [facility] ([facility]) [address] [place], [address], 11/06/2024 11:07:08 11/07/19 25 11/06/2024 CBC AUTO W DIFF MCV 93.5 fL 78-100 Not Available [facility] ([facility]) [address], [place], [address], 11/06/2024 11:07:08 11/07/19 25 11/06/2024 CBC AUTO W DIFF MCH 30.8 pg 27-31 Not Available [facility] ([facility]) [address], [place], [address], 11/06/2024 11:07:08 11/07/19 25 11/06/2024 CBC AUTO W DIFF MCHC 32.9 g/dL 32-36 Not Available [facility] ([facility]) [address] , [place], [address], 11/06/2024 11:07:08 11/07/19 25 11/06/2024 CBC AUTO W DIFF RDW 13.3 % 11.5-1 4.0 Not Available [facility] ([facility]) [address] , [place], [address], 11/06/2024 11:07:08 11/07/19 25 11/06/2024 CBC AUTO W DIFF platelet count 299 K/uL 150-45 0 Not Available [facility] ([facility]) [address] , [place], [address], 11/06/2024 11:07:08 11/07/19 25 11/06/2024 CBC AUTO W DIFF MPV 10.6 fL 6-9.5 high Not Available [facility] ([facility]) [address] , [place], [address], 11/06/2024 11:07:08 11/07/19 25 11/06/2024 CBC AUTO W DIFF neutrophil% 68.0 % 43-65 high Not Available [facility] ([facility]) [address] , [place], [address], 11/06/2024 11:07:08 11/07/19 25 11/06/2024 CBC AUTO W DIFF lymphocyte% 19.9 % 20.5-4 5.5 low Not Available [facility] ([facility]) [address] [place], [address], 11/06/2024 11:07:08 11/07/19 25 11/06/2024 CBC AUTO W DIFF monocyte% 7.7 % 5.5-11 .7 Not Available [facility] ([facility]) [address] [place], [address], 11/06/2024 11:07:08 11/07/19 25 11/06/2024 CBC AUTO W DIFF eosinophil% 3.3 % 0.9-2. 9 high Not Available [facility] ([facility]) [address] [place], [address], 11/06/2024 11:07:08 11/07/19 25 11/06/2024 CBC AUTO W DIFF basophil% 0.7 % 0.2-1. 0 Not Available [facility] ([facility]) [address] [place], [address], 11/06/2024 11:07:08 11/07/19 25 11/06/2024 CBC AUTO W DIFF immature granulocytes % 0.4 % 0.0-0. 8 Not Available [facility] ([facility]) [address] [place], [address], 11/06/2024 11:07:08 11/07/19 25 11/06/2024 CBC AUTO W DIFF nucleated red blood cells % 0.0 % Not Available [facility] ([facility]) [address] [place], [address], 11/06/2024 11:07:08 11/07/19 25 11/06/2024 CBC AUTO W DIFF neutrophil# 7.6 K/uL 2.2-4. 8 high Not Available [facility] ([facility]) [address], [place], [address], 11/06/2024 11:07:08 11/07/19 25 11/06/2024 CBC AUTO W DIFF lymphocyte# 2.2 cell/ mcL 1.3-2. 9 Not Available [facility] ([facility]) [address] [facility], [place], [address], 11/06/2024 11:07:08 11/07/19 25 11/06/2024 CBC AUTO W DIFF monocyte# 0.9 cell/ mcL 0.3-0. 8 high Not Available [facility] ([facility]) [address], [place], [address], 11/06/2024 11:07:08 11/07/19 25 11/06/2024 CBC AUTO W DIFF eosinophil# 0.4 cell/ mcL 0-0.2 high Not Available [facility] ([facility]) [address] [place], [address], 11/06/2024 11:07:08 11/07/19 25 11/06/2024 CBC AUTO W DIFF basophil# 0.1 cell/ mcL 0.0-1. 0 Not Available [facility] ([facility]) [address] [facility], [place], [address], 11/06/2024 11:07:08 11/07/19 25 11/06/2024 CBC AUTO W DIFF immature gramulocytes # 0.04 K/uL Not Available [facility] ([facility]) [address] [place], [address], 11/06/2024 11:07:08 11/07/19 25 11/06/2024 CBC AUTO W DIFF nucleated red blood cells # 0.00 K/uL Not Available [facility] ([facility]) [address] [place], [address], 11/06/2024 11:07:08 11/07/19 25 11/06/2024 CBC AUTO W DIFF manual differential NO Not Available [facility] ([facility]) [address], [place], [address], 11/06/2024 11:07:08 11/07/19 25 11/06/2024 COMP METAB OLIC PANEL sodium 134 mmol/ L 136-14 5 low Not Available [facility] ([facility]) [address], [place], [address], 11/06/2024 11:36:38 11/07/19 25 11/06/2024 COMP METAB OLIC PANEL potassium 3.9 mmol/ L 3.6-5. 0 Not Available [facility] ([facility]) [address] , [place], [address], 11/06/2024 11:36:38 11/07/19 25 11/06/2024 COMP METAB OLIC PANEL chloride 101 mmol/ L 98-107 Not Available [facility] ([facility]) [address] , [place], [address], 11/06/2024 11:36:38 11/07/19 25 11/06/2024 COMP METAB OLIC PANEL carbon dioxide 24.7 mmol/ L 21.0-3 2.0 Not Available [facility] ([facility]) [address] [place], [address], 11/06/2024 11:36:38 11/07/19 25 11/06/2024 COMP METAB OLIC PANEL anion gap 12.2 Not Available [facility] ([facility]) [address] [place], [address], 11/06/2024 11:36:38 11/07/19 25 11/06/2024 COMP METAB OLIC PANEL glucose 179 mg/dL 70-120 high Not Available [facility] ([facility]) [address], [place], [address], 11/06/2024 11:36:38 11/07/19 25 11/06/2024 COMP METAB OLIC PANEL BUN 20 mg/dL 7-18 high Not Available [facility] ([facility]) [address], [place], [address], 11/06/2024 11:36:38 11/07/19 25 11/06/2024 COMP METAB OLIC PANEL creatinine 1.1 mg/dL 0.6-1. 3 Not Available [facility] ([facility]) [address], [place], [address], 11/06/2024 11:36:38 11/07/19 25 11/06/2024 COMP METAB OLIC PANEL glomerular filtration rate 71 mlper min 60- GFR LIMIT ATION : The eGFR equat ion CKD-E PI 2020 is not appli cable for pedia tric patie nts or great er than 90 years of age. The follo wing condi tions may alter the GFR resul t: extre mes in body size, malnu triti on or obesi ty, skele norah muscl e disea se, parap legia or quadr ipleg ia, veget rylee diet or rapid ly batista ing kiney funct ion. Not Available [facility] ([facility]) [address], [place], [address], 11/06/2024 11:36:38 11/07/19 25 11/06/2024 COMP METAB OLIC PANEL osmolality (calculated) 286 mOsm/ kg 275-30 1 OSMOL ALITY IS A CALCU LATIO N UTILI ZING THE SERUM /PLAS MA SODIU M, GLUCO SE AND UREA NITRO GEN (BUN) LEVEL S. FOR THE MOST ACCUR ATE RESUL T A MEASU RED SERUM OSMOL ALITY IS SUGGE STED. Not Available [facility] ([facility]) [address], [place], [address], 11/06/2024 11:36:38 11/07/19 25 11/06/2024 COMP METAB OLIC PANEL total protein 7.2 g/dL 6.4-8. 2 Not Available [facility] ([facility]) [address] , [place], [address], 11/06/2024 11:36:38 11/07/19 25 11/06/2024 COMP METAB OLIC PANEL albumin 3.1 g/dL 3.4-5. 0 low Not Available [facility] ([facility]) [address] , [place], [address], 11/06/2024 11:36:38 11/07/19 25 11/06/2024 COMP METAB OLIC PANEL globulin 4.1 Not Available [facility] ([facility]) [address], [place], [address], 11/06/2024 11:36:38 11/07/19 25 11/06/2024 COMP METAB OLIC PANEL alb/glob ratio 0.8 0.7-2 Not Available [facility] ([facility]) [address], [place], [address], 11/06/2024 11:36:38 11/07/19 25 11/06/2024 COMP METAB OLIC PANEL calcium 9.8 mg/dL 8.5-10 .5 Not Available [facility] ([facility]) [address], [place], [address], 11/06/2024 11:36:38 11/07/19 25 11/06/2024 COMP METAB OLIC PANEL bilirubin total 0.40 mg/dL 0.10-1 .00 Not Available [facility] ([facility]) [address] [place], [address], 11/06/2024 11:36:38 11/07/19 25 11/06/2024 COMP METAB OLIC PANEL AST (SGOT) 14 U/L 0-37 Not Available [facility] ([facility]) [address] , [place], [address], 11/06/2024 11:36:38 11/07/19 25 11/06/2024 COMP METAB OLIC PANEL ALT (SGPT) 20 U/L 0-65 Not Available [facility] ([facility]) [address], [place], [address], 11/06/2024 11:36:38 11/07/19 25 11/06/2024 COMP METAB OLIC PANEL alk phosphatase 86 U/L 46-116 Not Available [facility] ([facility]) [address] , [place], [address], 11/06/2024 11:36:38 11/07/19 25 11/06/2024 PROST ATE SPECI FIC AG (PSA) prostate specific Ag (PSA) 10.7 NG/mL 0-4.0 high Not Available [facility] ([facility]) [address] , [place], [address], 11/06/2024 11:36:39 12/08/19 25 12/07/2024 COMP METAB OLIC PANEL sodium 133 mmol/ L 136-14 5 low Not Available [facility] ([facility]) [address], [place], [address], 12/07/2024 11:40:53 12/08/19 25 12/07/2024 COMP METAB OLIC PANEL potassium 4.2 mmol/ L 3.6-5. 0 Not Available [facility] ([facility]) [address] , [place], [address], 12/07/2024 11:40:53 12/08/19 25 12/07/2024 COMP METAB OLIC PANEL chloride 99 mmol/ L 98-107 Not Available [facility] ([facility]) [address] , [place], [address], 12/07/2024 11:40:53 12/08/19 25 12/07/2024 COMP METAB OLIC PANEL carbon dioxide 23.7 mmol/ L 21.0-3 2.0 Not Available [facility] ([facility]) [address], [place], [address], 12/07/2024 11:40:53 12/08/19 25 12/07/2024 COMP METAB OLIC PANEL anion gap 14.5 Not Available [facility] ([facility]) [address], [place], [address], 12/07/2024 11:40:53 12/08/19 25 12/07/2024 COMP METAB OLIC PANEL glucose 124 mg/dL 70-120 high Not Available [facility] ([facility]) [address], [place], [address], 12/07/2024 11:40:53 12/08/19 25 12/07/2024 COMP METAB OLIC PANEL BUN 36 mg/dL 7-18 high Not Available [facility] ([facility]) [address], [place], [address], 12/07/2024 11:40:53 12/08/19 25 12/07/2024 COMP METAB OLIC PANEL creatinine 1.3 mg/dL 0.6-1. 3 Not Available [facility] ([facility]) [address], [place], [address], 12/07/2024 11:40:53 12/08/19 25 12/07/2024 COMP METAB OLIC PANEL glomerular filtration rate 58 mlper min 60- low GFR LIMIT ATION : The eGFR equat ion CKD-E PI 2020 is not appli cable for pedia tric patie nts or great er than 90 years of age. The follo wing condi tions may alter the GFR resul t: extre mes in body size, malnu triti on or obesi ty, skele norah muscl e disea se, parap legia or quadr ipleg ia, veget rylee diet or rapid ly batista ing kiney funct ion. Not Available [facility] ([facility]) [address], [place], [address], 12/07/2024 11:40:53 12/08/19 25 12/07/2024 COMP METAB OLIC PANEL osmolality (calculated) 287 mOsm/ kg 275-30 1 OSMOL ALITY IS A CALCU LATIO N UTILI ZING THE SERUM /PLAS MA SODIU M, GLUCO SE AND UREA NITRO GEN (BUN) LEVEL S. FOR THE MOST ACCUR ATE RESUL T A MEASU RED SERUM OSMOL ALITY IS SUGGE STED. Not Available [facility] ([facility]) [address] [facility], [place], [address], 12/07/2024 11:40:53 12/08/19 25 12/07/2024 COMP METAB OLIC PANEL total protein 7.5 g/dL 6.4-8. 2 Not Available [facility] ([facility]) [address] [facility], [place], [address], 12/07/2024 11:40:53 12/08/19 25 12/07/2024 COMP METAB OLIC PANEL albumin 3.3 g/dL 3.4-5. 0 low Not Available [facility] ([facility]) [address] [facility], [place], [address], 12/07/2024 11:40:53 12/08/19 25 12/07/2024 COMP METAB OLIC PANEL globulin 4.2 Not Available [facility] ([facility]) [address] [facility], [place], [address], 12/07/2024 11:40:53 12/08/19 25 12/07/2024 COMP METAB OLIC PANEL alb/glob ratio 0.8 0.7-2 Not Available [facility] ([facility]) [address] [facility], [place], [address], 12/07/2024 11:40:53 12/08/19 25 12/07/2024 COMP METAB OLIC PANEL calcium 9.7 mg/dL 8.5-10 .5 Not Available [facility] ([facility]) [address], [place], [address], 12/07/2024 11:40:53 12/08/19 25 12/07/2024 COMP METAB OLIC PANEL bilirubin total 0.60 mg/dL 0.10-1 .00 Not Available [facility] ([facility]) [address], [place], [address], 12/07/2024 11:40:53 12/08/19 25 12/07/2024 COMP METAB OLIC PANEL AST (SGOT) 15 U/L 0-37 Not Available [facility] ([facility]) [address] , [place], [address], 12/07/2024 11:40:53 12/08/19 25 12/07/2024 COMP METAB OLIC PANEL ALT (SGPT) 18 U/L 0-65 Not Available [facility] ([facility]) [address] , [place], [address], 12/07/2024 11:40:53 12/08/19 25 12/07/2024 COMP METAB OLIC PANEL alk phosphatase 65 U/L 46-116 Not Available [facility] ([facility]) [address] , [place], [address], 12/07/2024 11:40:53 12/08/19 25 12/07/2024 PROST ATE SPECI FIC AG (PSA) prostate specific Ag (PSA) 1.1 NG/mL 0-4.0 Not Available [facility] ([facility]) [address] , [place], [address], 12/07/2024 11:40:56 12/08/19 25 12/07/2024 CBC AUTO W DIFF WBC 10.0 K/uL 4.0-10 .5 Not Available [facility] ([facility]) [address], [place], [address], 12/07/2024 12:12:30 12/08/19 25 12/07/2024 CBC AUTO W DIFF RBC 4.2 M/mm3 4.7-6. 1 low Not Available [facility] ([facility]) [address] , [place], [address], 12/07/2024 12:12:30 12/08/19 25 12/07/2024 CBC AUTO W DIFF HGB 12.9 gm/dL 13.5-1 8.0 low Not Available [facility] ([facility]) [address] , [place], [address], 12/07/2024 12:12:30 12/08/19 25 12/07/2024 CBC AUTO W DIFF HCT 38.6 % 42.0-5 2.0 low Not Available [facility] ([facility]) [address], [place], [address], 12/07/2024 12:12:30 12/08/19 25 12/07/2024 CBC AUTO W DIFF MCV 92.1 fL 78-100 Not Available [facility] ([facility]) [address], [place], [address], 12/07/2024 12:12:30 12/08/19 25 12/07/2024 CBC AUTO W DIFF MCH 30.8 pg 27-31 Not Available [facility] ([facility]) [address] , [place], [address], 12/07/2024 12:12:30 12/08/19 25 12/07/2024 CBC AUTO W DIFF MCHC 33.4 g/dL 32-36 Not Available [facility] ([facility]) [address], [place], [address], 12/07/2024 12:12:30 12/08/19 25 12/07/2024 CBC AUTO W DIFF RDW 13.1 % 11.5-1 4.0 Not Available [facility] ([facility]) [address] , [place], [address], 12/07/2024 12:12:30 12/08/19 25 12/07/2024 CBC AUTO W DIFF platelet count TNP K/uL 150-45 0 TEST NOT PERFO RMED Not Available [facility] ([facility]) [address], [place], [address], 12/07/2024 12:12:30 12/08/19 25 12/07/2024 CBC AUTO W DIFF MPV 10.8 fL 6-9.5 high Not Available [facility] ([facility]) [address], [place], [address], 12/07/2024 12:12:30 12/08/19 25 12/07/2024 CBC AUTO W DIFF neutrophil% 57.5 % 43-65 Not Available [facility] ([facility]) [address], [place], [address], 12/07/2024 12:12:30 12/08/19 25 12/07/2024 CBC AUTO W DIFF lymphocyte% 26.3 % 20.5-4 5.5 Not Available [facility] ([facility]) [address], [place], [address], 12/07/2024 12:12:30 12/08/19 25 12/07/2024 CBC AUTO W DIFF monocyte% 10.8 % 5.5-11 .7 Not Available [facility] ([facility]) [address] [place], [address], 12/07/2024 12:12:30 12/08/19 25 12/07/2024 CBC AUTO W DIFF eosinophil% 4.5 % 0.9-2. 9 high Not Available [facility] ([facility]) [address] [place], [address], 12/07/2024 12:12:30 12/08/19 25 12/07/2024 CBC AUTO W DIFF basophil% 0.6 % 0.2-1. 0 Not Available [facility] ([facility]) [address] [place], [address], 12/07/2024 12:12:30 12/08/19 25 12/07/2024 CBC AUTO W DIFF immature granulocytes % 0.3 % 0.0-0. 8 Not Available [facility] ([facility]) [address] [place], [address], 12/07/2024 12:12:30 12/08/19 25 12/07/2024 CBC AUTO W DIFF nucleated red blood cells % 0.0 % Not Available [facility] ([facility]) [address] [place], [address], 12/07/2024 12:12:30 12/08/19 25 12/07/2024 CBC AUTO W DIFF neutrophil# 5.8 K/uL 2.2-4. 8 high Not Available [facility] ([facility]) [address] [place], [address], 12/07/2024 12:12:30 12/08/19 25 12/07/2024 CBC AUTO W DIFF lymphocyte# 2.6 cell/ mcL 1.3-2. 9 Not Available [facility] ([facility]) [address] [place], [address], 12/07/2024 12:12:30 12/08/19 25 12/07/2024 CBC AUTO W DIFF monocyte# 1.1 cell/ mcL 0.3-0. 8 high Not Available [facility] ([facility]) [address] [place], [address], 12/07/2024 12:12:30 12/08/19 25 12/07/2024 CBC AUTO W DIFF eosinophil# 0.5 cell/ mcL 0-0.2 high Not Available [facility] ([facility]) [address] [place], [address], 12/07/2024 12:12:30 12/08/19 25 12/07/2024 CBC AUTO W DIFF basophil# 0.1 cell/ mcL 0.0-1. 0 Not Available [facility] ([facility]) [address], [place], [address], 12/07/2024 12:12:30 12/08/1912/07/2024 CBC AUTO W DIFF immature gramulocytes # 0.03 K/uL Not Available [facility] ([facility]) [address], [place], [address], 12/07/2024 12:12:30 12/08/19 25 12/07/2024 CBC AUTO W DIFF nucleated red blood cells # 0.00 K/uL Not Available [facility] ([facility]) [address] , [place], [address], 12/07/2024 12:12:30 12/08/1912/07/2024 CBC AUTO W DIFF manual differential NO Not Available [facility] ([facility]) [address], [place], [address], 12/07/2024 12:12:30 12/08/19 25 12/07/2024 CBC AUTO W DIFF platelet estimate ADEQUA TE adequa te Not Available [facility] ([facility]) [address] , [place], [address], 12/07/2024 12:12:30 12/08/19 25 12/07/2024 CBC AUTO W DIFF RBC morphology NORMAL normal Not Available [facility] ([facility]) [address] , [place], [address], 12/07/2024 12:12:30 11/01/19 25 PET-C T, skull base to mid-t high scan No observ ation record ed. [email or web address] Not Available 2024 09:27:48 Result Notes None recorded. Problems Name Problem SNOMED Code Status Onset Date Resolution Date Notes Provider Name and Address Organization Details Recorded Time Retention of urine [id number] Active 025 ALFRED WRIGHT MD [address], [place], [address] , [facility] [place] 5 15:05:27 Prostate specific antigen above reference range [id number] Active 025 ALFRED WRIGHT MD [address], [place], [address] , [facility] & [place] 5 15:05:21 Malignant neoplasm of prostate 389458001 Active 025 ALFRED WRIGHT MD [address], [place], [address] , [facility] & [place] 12:04:35 Problem Notes Documentation Provider Name and Address Organization Details Recorded Time Risk Specialist Consult Note : SW met with pt and and pt . SW provided education on SW role in oncology and provided contact information. Pt and spouse provided information that they needed financial resources. SW encouraged the pt and spouse to gather all the utility and bills in the home and we could submit to [employer]. Additionally, we could submit to [employer] to help with transportation cost to and [...] finished with an already schedule appointment. [facility] [place] 10/25/2024 13:04:36 Oncology Patient Navigator : ONN contacted pt. after recent visit with medical oncology. ONN gave an introduction and contact information. Pt. did not express any barriers to care at this time. Pt. did not have any questions/concerns. ONN encouraged pt. to reach out should any needs arise. ONN will continue to f/u. IRLANDA Singh [facility] 10/25/2024 14:39:29 Risk Specialist Consult Note : SW met with the pt and spouse to complete documentation for [employer] application. Additionally, the pt shared that [facility] whom FIDEL had referred the pt to for co-payment assistance had been unable to help the pt. SW sent the pt bills and application to [employer] for consideration. The pt assisted the pt [...] brought what is required to submit to [facility] for ground transportation assistance consideration. FIDEL has reached out to [facility] for a tentative schedule for the pt to submit with their application, as this is a requirement. SW will refer the pt to apply for Medicare part D to determine eligibility for assistance with co-payments, assistance with medications, and insurance premiums, etc. Aurea ohara IRLANDA CHOWDHURY [facility] 11/02/2024 10:13:37 Risk Specialist Consult Note : Pt and pt spouse stopped by after pt immunotherapy shot. Pt asked if the financial assistance program was just one time. SW provided that the program was just for the one time and if other programs were needed following that we could look for additional resources. Pt and spouse reported appreciation and provided intent to reach out PRN. Aurea ohara IRLANDA Connolly LPARACELI Mohsen [facility] 11/07/2024 09:25:32 Oncology Patient Navigator : ONN met with pt. in person at visit with medical oncology. ONN provided pt. education for ADT. ONN provided education on at home Beasley care and provided pt. with Beasley care wipes. Pt. did not have any questions/concerns. ONN encouraged pt. to reach out should any needs arise. ONN will continue to f/u. JENNIFER ALEMANASYA ohara, [facility] & [place] 11/07/2024 11:46:14 Procedures Surgical History Date Name Laterality Status Provider Name and Address Organization Details Recorded Time 09/29/19 25 Prostate Biopsy completed ALFRED WRIGHT MD [address], [place], [address], [facility] - [facility] & [place] 09/28/2024 09:57:43 09/29/19 25 Cystoscopy-Male completed MD [address], [place], [address], [facility] - [facility] & [place] 09/28/2024 09:58:50 09/29/19 25 TRUS completed MD [address], [facility] [address], [place] - [facility] & [place] 09/28/2024 09:58:17 09/14/19 25 PROGRAM DIRECTOR GROUP WORK Test completed Liyah Burnetteno Radha [facility] & [place] 09/13/2024 14:45:35 07/30/19 25 PROGRAM DIRECTOR GROUP WORK Test completed Christina Asher NP, [address] , [place], [address], [facility] - [facility] & [place] 07/30/2024 14:57:54 cholecystectomy completed [facility] & [place] 10/24/2024 13:09:14 Imaging Results [...] Address Organization Details Last Updated DateTime 5 198988. 1 g 98 % 98 % 77 /min 134 mm[Hg] 76 mm[Hg] Liyah Connolly [facility] & [place] 5 11:32:29 Date Recorded Body height Body mass index (BMI) Body weight Body temperature Oxygen saturation Oxygen saturation in Arterial blood by Pulse oximetry Heart rate Systolic blood pressure Diastolic blood pressure Provider Name and Address Organization Details Last Updated DateTime 5 167.64 cm 35.1 kg/m2 65225.3 4 g 97.5 [degF] 96 % 96 % 100 /min 118 mm[Hg] 59 mm[Hg] Chanda CHOWDHURY [facility] & [place] 5 13:13:47 Date Recorded Body height Body mass index (BMI) Body weight Oxygen saturation Oxygen saturation in Arterial blood by Pulse oximetry Heart rate Systolic blood pressure Diastolic blood pressure Provider Name and Address Organization Details Last Updated DateTime 5 167.64 cm 35.7 kg/m2 871695. 91 g 96 % 96 % 78 /min 136 mm[Hg] 76 mm[Hg] Liyah CHOWDHURY [facility] & [place] 5 10:20:41 Date Recorded Body height Body mass index (BMI) Body weight Body temperature Oxygen saturation Oxygen saturation in Arterial blood by Pulse oximetry Heart rate Systolic blood pressure Diastolic blood pressure Provider Name and Address Organization Details Last Updated DateTime 5 167.64 cm 35.3 kg/m2 05329.3 7 g 97.4 [degF] 100 % 100 % 76 /min 85 mm[Hg] 50 mm[Hg] Chanda Connolly [facility] & [place] 5 09:44:25 Social History Question Answer Notes LastModified by Organizat ion Details LastModified Time Tobacco Smoking Status Former Smoker Chanda De Jesus mayda, I[place]ANDA - [facility] & [place] 10/24/2024 13:08:36 When Did You Quit Smoking? 18+yearssin celastcigar ette 27 Years Ago Quit 06/1994 [email or web address] Information not available 10/24/2024 At What Age Did You Start Smoking Tobacco? 17 [email or web address] Information not available 10/24/2024 Sex: Unknown Functional Status Question Answer Note LastModified by Organizat ion Details LastModified Time Do you use any illicit or recreational drugs? No [email or web address] Information not available 10/24/2024 What is your level of alcohol consumption? None [email or web address] Information not available 10/24/2024 Mental Status None recorded. Family History Nothing Reported. Medical History No medical history recorded. Immunizations Vaccine Type Date Status Note Provider Nam e and Address Organization Details Recorded Time zoster recombinant 4 completed Chanda Workman null, [place] - [facility] - [place] & [place] 10/24/2024 13:04:23 zoster recombinant 4 completed Chanda Workman null, [place] - [facility] [place] & [place] 10/24/2024 13:04:23 Influenza, high-dose, quadrivalent, PF 2 completed Chanda Workman null, [place] - [facility] [place] & [place] 10/24/2024 13:04:23 Influenza, high-dose, quadrivalent, PF 1 completed Chanda Workman null, [place] - [facility] [place] & [place] 10/24/2024 13:04:23 Influenza, high-dose, quadrivalent, PF 0 completed Chanda Workman null, [place] - [facility] [place] & [place] 10/24/2024 13:04:23 Influenza, high-dose, quadrivalent, PF 3 completed Chanda Workman null, [place] - [facility] [place] & [place] 10/24/2024 13:04:23 COVID-19, mRNA, LNP-S, PF, 100 mcg/0.5mL dose or 50 mcg/0.25mL dose 2 completed Chanda Workman null, [place] - [facility] [place] & [place] 10/24/2024 13:04:23 COVID-19 vaccine, vector-nr, rS-Ad26, PF, 0.5 mL 1 completed Chanda Workman null, [place] - [facility] [place] & [place] 10/24/2024 13:04:23 RSV, recombinant, protein subunit RSVpreF, adjuvant reconstituted, 0.5 mL, PF 4 completed Chanda De Jesus [facility], [facility] & [place] 10/24/2024 13:04:23 pneumococcal polysaccharide PPV23 3 [facility] & [place] 10/24/2024 13:04:23 Influenza, split virus, quadrivalent, PF 7 completed Chanda De Jesus [facility], IRLANDA [facility] & [place] 10/24/2024 13:04:23 zoster recombinant 5 completed [facility], [facility] & [place] 12/07/2024 09:41:13 Pneumococcal conjugate PCV20, polysaccharide GDG161 conjugate, adjuvant, PF 5 [facility] & [place] 12/07/2024 09:41:13 Past Encounters Encounter ID Performer Location Encounter Start Date Encounter Closed Date Diagnosis/Indication Diagnosis SNOMED-CT Code Diagnosis ICD10 Code Diagnosis Note [id number] Christina Asher NP, S [facility]-1 00 [address] [facility] [address] [place] [address] 07/24/2024 13:12:43 07/24/2024 14:54:37 Retention of urine 037432035 R33.9 CT [facility] for PROGRAM DIRECTOR GROUP WORK testing on Tuesday. History of diabetes mellitus 355096213 Z86.39 [id number] Christina Asher NP, S [facility]-1 00 [address] [facility] [address] [place] [address] 07/30/2024 13:23:12 07/30/2024 14:51:50 Retention of urine 216250210 R33.9 PROGRAM DIRECTOR GROUP WORK test performed [id number] ALFRED WRIGHT MD [facility]-1 00 [address] [facility] [address] [place] [address] 08/02/2024 10:41:00 08/02/2024 12:01:26 Retention of urine 068637766 R33.9 voiding trial unsuccessf ul, catheter replaced. Patient will follow up in 1 week for repeat voiding trial and possible cystoscopy with transrecta l ultrasound of the prostate to evaluate for possible surgical interventi ons. [id number] ALFRED WRIGHT MD [facility]-1 00 [address] [facility] [address] [place] [address] 08/14/2024 13:00:29 08/14/2024 13:38:34 Retention of urine 553188445 R33.9 Patient had successful voiding trial in office today. He will continue tamsulosin . I have instructed him to perform timed voiding at least once every 2 hours during the daytime hours. He will follow up in 6 weeks for re-evaluat ion. We will obtain pressure flow studies with [facility] prior to his return [id number] [facility] WRIGHT [facility] [address] [facility] [address] [place] [address] 09/13/2024 14:06:21 09/13/2024 15:34:40 Prostate specific antigen above reference range 077479882 R97.20 Retention of urine 47354 4002 R33.9 we will schedule for cystoscopy and prostate biopsy in office. Assuming no cancer is present, we will likely need to proceed with surgical interventi on as he was failed multiple voiding trials. Beasley catheter will be exchanged today. [id number] ALFRED WRIGHT MD [facility]-1 00 [address] [facility] [address] [place] [address] 09/28/2024 09:15:18 09/28/2024 10:25:23 Prostate specific antigen above reference range 266807746 R97.20 Patient tolerated procedure well. He will follow up in 1 week for results. He was reminded to complete oral antibiotic therapy. He was instructed to contact our office or go to the ER if he experience s fever greater than 100.5 F or chills. Retention of urine 87532 4002 R33.9 A Beasley catheter replaced after procedure. [id number] ALFRED WRIGHT MD [facility]-1 00 [address] [facility] [address] [place] [address] 10/09/2024 11:18:09 10/09/2024 12:26:02 Retention of urine 094476475 R33.9 Malignant neoplasm of prostate 047225061 C61 [id number] ALFRED WRIGHT MD [facility]-1 [address] [place] [address] 11/01/2024 10:00:40 11/01/2024 11:17:32 [id number] Merritt Del Valle MD [facility] [address] [place] [address] 10/24/2024 12:59:21 10/24/2024 13:47:59 Malignant neoplasm of prostate 241840021 C61 Patient initially presented to Urology for [...] 1st day injection. Urinary ou tflow obstruction 045377696 N13.9 Patient with urinary catheter in place. Will follow-up obstructiv e uropathy symptoms as patient starts androgen deprivatio n therapy. [id number] ALFRED WRIGHT MD [facility]-1 [address] [place] [address] 11/29/2024 12:59:21 11/29/2024 13:56:15 Retention of urine 667001088 R33.9 Malignant neoplasm of prostate 334295156 C61 [id number] Abiola Ruiz PA-C [facility] [address] [place] [address] 12/07/2024 09:25:02 12/07/2024 09:49:44 Malignant neoplasm of prostate 382679622 C61 Patient initially presented to Urology for [...] Patient has more than 50% cores positive. Discussed NCCN guidelines and recommenda tion for [...] Will check labs on 1st day injection. Patient returns for evaluation on December 07, 2024. Patient starting monthly Eligard today. Will follow up labs today. Urinary ou tflow obstruction 539130003 N13.9 Patient with urinary catheter in place. Will follow-up obstructiv e uropathy symptoms as patient starts androgen deprivatio n therapy. Drug therapy finding 309 805148 Z79.818 Planning for 6 months of androgen deprivatio n therapy. Patient started monthly Eligard on November 06, 2024. He tolerated his first dose without trouble. He will receive Eligard today. Prostate s pecific antigen above reference range 315899032 R97.20 Labs on November 06, 2024 with PSA 10.7. Will follow up labs today. Low blood pressure 69015 003 I95.9 Patient with asymptomat ic hypotensio n today. Blood pressure is 85/50. Patient already took his medication s for hypertensi on this morning. Patient states he had a follow up with his cardiologi st yesterday. Discussed with patient monitoring blood pressure at home and to hold on his blood pressure medication if blood pressure is still really low. Patient instructed to keep a log of his blood pressure and follow up with Cardiology Health Concerns Section Related Observation LastModified by Organization Detai ls LastModified Time None Recorded Concern Status LastModified by Organization Details LastModified Time None Recorded Advance Directives Directive None Recorded Payers Insurance Date Sequence Insurance Name Policy Number Policy Rose Covered Member ID Rose Member ID Guarantor Name 12/05/2024 1 [facility] (MEDICARE REPLACEMENT/A DVANTAGE - HMO) GUILLE Thierno Reyna [id number] Thierno Reyna 11/26/2024 2 MEDICAID-[facility] - FFS/TRADITION AL Thierno Reyna [id number] Thierno Reyna Notes Date Note Type Note Provider Name and Address Organization Details Recorded Time 10/09/2024 text/html 10/09/24 CC: 37-wpgo-kzb-male returns to my office for TRUS Bx [...] prostate cancer is high-volume and high-risk, with [place] scores of 4+4 and 4+3, indicating aggressive cancer. The percentage of cancer involvement in the cores was also high, with many cores being 100% cancerous. 09/28/24 02-mvsw-qbj-male returns to my office for cystoscopy, TRUS [...] a total endoscopy done last Tuesday at [facility] and was cleared by Dr. Marcos's office for the procedure. Thierno has a history of almost becoming septic and was treated with antibiotics. He is also taking finasteride, which was prescribed to shrink his prostate. --------- 09/14/25719120-sjrx-zzr-nohemi pearce returns to clinic for voiding trial ------[birth year]02/[birth year]73-year -old-male returns to clinic for voiding trail. 250 mL was placed in the bladder today and was unsuccessful 07/30/24Pt here for PROGRAM DIRECTOR GROUP WORK test --- 07/24/2571 renata presents to clinic for evaluation of urinary retention. Patient reports he went to [facility] last with inability to [...] AAA surgery, DM, HTN, and HLD. 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 10/01/24 TRUS Bx: R LB 4+4- 75%, R LA 4+4 100%, RB 4+3 100%, RM 4+3 100%, RA 4+4 100%, LLB 4+3 100%, LLM 4+4 100%, LLA 4+4 50%, L B 4+3 100%, LM 4+4 75%, LA 4+3 100%; vol 25.5 cc 08/24/24 PSA 10.2 (beasley catheter in place)07/30/24: PROGRAM DIRECTOR GROUP WORK- Pressure over basline 27ayT4e, Peak detrusor pressure 91qlJ90, Peak Vaslsalva pressure 4tyD7a807/19/2024: CT scan of abd/pelvis with contrast revealed [...] nitratesJune 2023 PSA 7.51 ALFRED WRIGHT MD [address] [facility], [place], [address], [facility] & [place] 10/09/2024 12:48:53 10/15/2024 text/plain Operative/Proced ure Note [facility] Name Thierno Reyna Date of Service 1141 [id number] (M) Attending KYLE Arguelles PHY Admitted [id number] Discharged Primary NO DEFINED PRIMARY C - Pre-Procedure Diagnosis Urinary retention, prostate cancer Post- Procedure Diagnosis Same Procedure / Surgery None Cystoscopy with bipolar plasma button electrode vaporization of the prostate (CPT 21992) Anesthesia Type General anesthesia Estimated Blood Loss [...] resected the anterior tissue and used the FL3XX evacuator to remove these pieces prostate. These [...] scope was then withdrawn and a 24 Jamaican three-way Beasley catheter was inserted with 30 cc of sterile water placed in the balloon. The procedure was terminated, the patient was awoken and transferred to the PACU in stable condition Specimens Prostate chips Tubes/Drains 24 Jamaican three-way Beasley catheter 1 of 2 Operative/Procedure Note [facility] Name Thierno Reyna Date of Service 1141 [id number] (M) Attending KYLE FISCHER Admitted [id number] Discharged Primary NO DEFINED PRIMARY C - Implants None Disposition of Patient Stable to PACU. DC home with Beasley catheter bag, leg bags Electronically signed by KYLE FISCHER on 1144 2 of 2 CC'ed Logic: Ordering Provider: KYLE GAMING Attending Provider: KYLE GAMING Referring Provider: KYLE GAMING Admitting Provider: KYLE Asher, LYNDA, [address], [place], [address], [place] - [facility] & [place] 10/17/2024 11:17:54 10/24/2024 text/html 74 yo M presents for [...] Will follow-up as patient starts androgen deprivation therapy.Recommendatio n from NCCN guidelines is for 4-6 months of androgen deprivation therapy. Merritt Del Valle MD [address], [place], [address], [place] - [facility] & [place] 10/24/2024 14:11:09 11/01/2024 text/html 11/01/24 31-lrhr-nwt-male returns to my office for follow up prostate biopsy and PET-CT scan results. Study found no evidence of metastases. There is questionable asymmetrical lesion of the upper pole of the left kidney. Patient had previously had CT scan with IV contrast in June 2024 which identified several Bosniak 1 cysts. -- 10/09/24CC: 98-gwzf-tud-male returns to my office for TRUS Bx [...] prostate cancer is high-volume and high-risk, with [place] scores of 4+4 and 4+3, indicating aggressive cancer. The percentage of cancer involvement in the cores was also high, with many cores being 100% cancerous. 8-gerc-mic-male returns to my office for cystoscopy, TRUS [...] a total endoscopy done last Tuesday at [facility] and was cleared by Dr. Marcos's office for the procedure. Thierno has a history of almost becoming septic and was treated with antibiotics. He is also taking finasteride, which was prescribed to shrink his prostate. ---------09/13/24 16-pard-uik-male returns to clinic for voiding trial - 08/02/24 24-annm-ieo-male returns to clinic for voiding trail. 250 mL was placed in the bladder today and was unsuccessful--------- 07/30/24 Pt here for PROGRAM DIRECTOR GROUP WORK test -------07/24/24 74 yowm presents to clinic for evaluation of urinary retention. Patient reports he went to [facility] last with inability to [...] scan of abdomen pelvis with contrast on ---------07/19/2024T revealed multiple Bosniak 1 renal cystic lesions [...] AAA surgery, DM, HTN, and HLD. 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 10/30/24 PET-CT ([facility]): No hyperintense lesions to suggest the presence of bone, lymph node, or other metastatic disease in this patient with history of prostate carcinoma, noncalcified 1.8cm nodule within the right upper lobe, lung carcinoma in no way can be excluded in this patient with emphysema, no old films are available for comparison,asymmetric parenchyma versus soft tissue mass left upper kidney, renal ultrasound is ialtvztsgqt89/23/25 PROGRAM DIRECTOR GROUP WORK testing: valsalva Peak 93zdE9R, void peak 27osg8P76/21/25 Prostate biopsy: prostatic adenocarcinoma, 4+4=8 (grade group 4) with background intraductal carcinoma; tumor involves 60% of /07/25 TRUS Bx: R LB 4+4- 75%, R LA 4+4 100%, RB 4+3 100%, RM 4+3 100%, RA 4+4 100%, LLB 4+3 100%, LLM 4+4 100%, LLA 4+4 50%, L B 4+3 100%, LM 4+4 75%, LA 4+3 100%; vol 25.5 cc08/24/24 PSA 10.2 (beasley catheter in place)07/30/24: PROGRAM DIRECTOR GROUP WORK- Pressure over basline 63bsP8l, Peak detrusor pressure 18msC62, Peak Valsalva pressure 1bkU7e507/19/2024: CT scan of abd/pelvis with contrast revealed [...] to manage his treatment plan. Not Available Counts include [facility] beds at the [facility] 11/01/2024 11:48:18 11/29/2024 text/html 11/29/24 Patient returns to my [...] minimize radiation side effects on the rectum. 11/02/25715299-goga-aez-nohemi pearce returns to my office for follow [...] to manage his treatment plan. -------10/09/24 CC: 77-qlmn-ubs-male returns to my office for TRUS Bx [...] many cores being 100% cancerous. -- 09/28/24 65-lssd-udc-male returns to my office for cystoscopy, TRUS [...] a total endoscopy done last Tuesday at [facility] and was cleared by Dr. Marcos's office for the procedure. Thierno has a history of almost becoming septic and was treated with antibiotics. He is also taking finasteride, which was prescribed to shrink his prostate. 09/14/25719729-qedm-ccc-nohemi pearce returns to clinic for voiding trial ------08/02/2573-year -old-male returns to clinic for voiding trail. 250 mL was placed in the bladder today and was unsuccessful 07/30/24Pt here for PROGRAM DIRECTOR GROUP WORK test --- 07/24/2571 renata presents to clinic for evaluation of urinary retention. Patient reports he went to [facility] last with inability to [...] AAA surgery, DM, HTN, and HLD. 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 11/06/24 PSA 10.705 Hgb 12.8, Hct 38.9, Cr 1.1, GFR PET-CT ([facility]): No hyperintense lesions to suggest the [...] mass left upper kidney, renal ultrasound is vzqnjyhcnna23/23/25 PROGRAM DIRECTOR GROUP WORK testing: valsalva Peak 85qeZ4F, void peak 87usn2P67/21/25 Prostate biopsy: prostatic adenocarcinoma, 4+4=8 (grade group 4) with background intraductal carcinoma; tumor involves 60% of jolztd72/07/25 TRUS Bx: R LB 4+4- 75%, R LA 4+4 100%, RB 4+3 100%, RM 4+3 100%, RA 4+4 100%, LLB 4+3 100%, LLM 4+4 100%, LLA 4+4 50%, L B 4+3 100%, LM 4+4 75%, LA 4+3 100%; vol 25.5 cc08/24/24 PSA 10.2 (beasley catheter in place)07/30/24: PROGRAM DIRECTOR GROUP WORK- Pressure over basline 62fuY4t, Peak detrusor pressure 45rwX42, Peak Valsalva pressure 6tpS2z707/19/2024: CT scan of abd/pelvis with contrast revealed [...] nitratesJune 2023 PSA 7.51 ALFRED WRIGHT MD [address], [place], [address], [facility] & [place] 11/30/2024 09:18:21 12/07/2024 text/html 74 yo M presents for evaluation [...] Patient has more than 50% cores positive. Discussed NCCN guidelines and recommendation for androgen deprivation therapy during the course of prostate radiation. Discussed side effect profile of androgen deprivation therapy in usual treatment is with Lupron or Eligard. Usually starting with monthly dosing to assess for tolerability. Will follow-up as patient starts androgen deprivation therapy. Recommendation from NCCN guidelines is for 4-6 months of androgen deprivation therapy. Patient returns for evaluation on December 07, 2024. Patient started monthly Eligard on November 06, 2024. He tolerated his first dose without trouble. He will receive Eligard today. Will follow up labs today. Patient with asymptomatic hypotension today. Blood pressure is 85/50. Patient already took his medications for hypertension this morning. Patient states he had a follow up with his pre algebra teacher yesterday. Discussed with patient monitoring blood pressure at home and to hold on his blood pressure medication if blood pressure is still really low. Patient instructed to keep a log of his blood pressure and follow up with Cardiology Abiola Ruiz PA-C [address], [place], [address], [facility] & [place] 12/07/2024 10:44:05
--- OUTSIDE RECORDS SUMMARY | 2024-12-11 14:49 | XMS_ITS | Continuity of Care Document ---
Author Organization [facility] Address [address] [place] [address] Care Team Providers Care Disaster Response Director Name Role Phone AMPARO HARMON Primary Care Provider [phone] Assessment No assessment recorded. Plan of Treatment Reminders Order Date Submit Date Provider Last Modified By Organization Details Last Modified Time Details Appointments SURGERY 2024 07:30A M AMBERLY WRIGHT MD Not available Not available Not available FOLLOW UP 2024 01:00P M SOFIA ZAIDI MD Not available Not available Not available CT SIMULATIO N 2024 01:30P M SOFIA ZAIDI MD Not available Not available Not available OV EST 2024 11:00A M Abiola Ruiz PA-C Not available Not available Not available Lab PSA, serum or plasma 2024 025 [facility], [address] [place], [address], 12/07/2024 11:40:56 CMP, serum or plasma 2024 025 [facility], [address] [facility], [place], [address], 12/07/2024 11:40:53 testoster one, free + total, serum 2024 025 [facility], [address] [place], [address], 12/07/2024 09:54:24 CBC w/ auto diff 2024 025 NOEMI [facility], [address], [place], [address], 12/07/2024 12:12:30 Referral None recorded. Procedures None recorded. Surgeries None recorded. Imaging None recorded. Medication Orders None recorded. Patient TargetsNo targets recorded. Patient InstructionsNo instructions recorded. Reason for Referral None Reported. Problems Name Problem SNOMED Code Status Onset Date Resolution Date Notes Provider Name and Address Organization Details Recorded Time Retention of urine 120213645 Active [address], [place], [address] , [place] - [facility] - [place] & [place] 5 15:05:27 Prostate specific antigen above reference range 100135356 Active [address], [place], [address] , [place] [facility] [place] 5 15:05:21 Malignant neoplasm of prostate 914163848 Active [address], [place], [address] , [place] [facility] [place] 5 12:04:35 Problem Notes None recorded. Procedures Surgical History Date Name Laterality Status Provider Name and Address Organization Details Recorded Time 09/29/19 25 Prostate Biopsy completed MD [address], [place], [address], [place] [facility] [place] 09/28/2024 09:57:43 09/29/19 25 Cystoscopy-Male completed MD [address], [place], [address], [place] [facility] [place] 09/28/2024 09:58:50 09/29/19 25 TRUS completed MD [address], [place], [address], [place] [facility] [place] 09/28/2024 09:58:17 09/14/19 25 BOTTLING EQUIPMENT SALES REPRESENTATIVE Test completed [facility] & [place] 09/13/2024 14:45:35 07/30/19 25 BOTTLING EQUIPMENT SALES REPRESENTATIVE Test completed Christina Asher NP, [address] [facility], [place], [address], [facility] & [place] 07/30/2024 14:57:54 cholecystectomy completed Chanda [facility] & [place] 10/24/2024 13:09:14 Imaging Results None recorded. Procedure [...] Organization Details Last Updated DateTime 167.64 cm 35.3 kg/m2 37686.3 7 g 97.4 [degF] 100 % 100 % 76 /min 85 mm[Hg] 50 mm[Hg] Chanda De Jesus IRLANDA CHOWDHRUY [facility] & [place] 09:44:25 Social History Question Answer Notes LastModified by Organizat ion Details LastModified Time Tobacco Smoking Status Former Smoker Chanda De Jesus mayda, IRLANDA Mohsen CHOWDHURY [facility] & [place] 10/24/2024 13:08:36 When Did You Quit Smoking? 18+yearssin lamberto miranda 27 Years Ago Quit 06/1994 [email or web address] Information not available 10/24/2024 At What Age Did You Start Smoking Tobacco? 17 [email or web address] Information not available 10/24/2024 Sex: Unknown Functional Status Question Answer Note LastModified by Organizat ion Details LastModified Time Do you use any illicit or recreational drugs? No [email or web address] Information not available 10/24/2024 What is your level of alcohol consumption? None [email or web address] Information not available 10/24/2024 Mental Status None recorded. Family History Nothing Reported. Medical History No medical history recorded. Immunizations Vaccine Type Date Status Note Provider Nam e and Address Organization Details Recorded Time zoster recombinant 4 completed Chanda Workman null, [place] [facility] [place] 10/24/2024 13:04:23 zoster recombinant 4 completed Chanda Workman null, [place] [facility] [place] 10/24/2024 13:04:23 Influenza, high-dose, quadrivalent, PF 2 completed Chanda Workman null, [place] [facility] & [place] 10/24/2024 13:04:23 Influenza, high-dose, quadrivalent, PF 1 completed Chanda Workman null, [place] [facility] & [place] 10/24/2024 13:04:23 Influenza, high-dose, quadrivalent, PF 0 completed Chanda Workman null, [place] - [facility] & [place] 10/24/2024 13:04:23 Influenza, high-dose, quadrivalent, PF 3 completed Chanda Workman null, [place] [facility] & [place] 10/24/2024 13:04:23 COVID-19, mRNA, LNP-S, PF, 100 mcg/0.5mL dose or 50 mcg/0.25mL dose 2 completed Chanda Workman null, [place] [facility] & [place] 10/24/2024 13:04:23 COVID-19 vaccine, vector-nr, rS-Ad26, PF, 0.5 mL 1 [facility], [place] [facility] [place] 10/24/2024 13:04:23 RSV, recombinant, protein subunit RSVpreF, adjuvant reconstituted, 0.5 mL, PF 4 completed Chanda Workman null, [place] [facility] [place] 10/24/2024 13:04:23 pneumococcal polysaccharide PPV23 3 completed Chanda ohara, IRLANDA TRENTON [facility] & [place] 10/24/2024 13:04:23 Influenza, split virus, quadrivalent, PF 7 completed Chanda De Jesus null, IRLANDA TRENTON [facility] & [place] 10/24/2024 13:04:23 zoster recombinant 5 completed Chanda ohara, IRLANDA CHOWDHURY [facility] & [place] 12/07/2024 09:41:13 Pneumococcal conjugate PCV20, polysaccharide [id number] conjugate, adjuvant, PF 5 completed Chanda ohara, IRLANDA [facility] & [place] 12/07/2024 09:41:13 Past Encounters Encounter ID Performer Location Encounter Start Date Encounter Closed Date Diagnosis/Indication Diagnosis SNOMED-CT Code Diagnosis ICD10 Code Diagnosis Note [id number] AMBERLY WRIGHT MD [facility] Urology-1 00 [address] [facility] [address] [place] [address] 11/29/2024 12:59:21 11/29/2024 13:56:15 Retention of urine 723232548 R33.9 Malignant neoplasm of prostate 392595071 C61 [id number] Abiola Ruiz PA-C [facility] [address] [facility] [address] [place] [address] 12/07/2024 09:25:02 12/07/2024 09:49:44 Malignant neoplasm of prostate 509226250 C61 Patient initially presented to Urology for [...] up labs today. Urinary ou tflow obstruction 982035747 N13.9 Patient with urinary catheter in place. Will follow-up obstructiv e uropathy symptoms as patient starts androgen deprivatio n therapy. Drug therapy finding [id number] 024144 Z79.818 Planning for 6 months of androgen deprivatio n therapy. Patient started monthly Eligard on November 06, 2024. He tolerated his first dose without trouble. He will receive Eligard today. Prostate s pecific antigen above reference range 481626992 R97.20 Labs on November 06, 2024 with PSA 10.7. Will follow up labs today. Low blood pressure 98979 003 I95.9 Patient with asymptomat ic hypotensio [...] Member ID Rose Member ID Guarantor Name 12/07/2024 1 [employer] (MEDICARE REPLACEMENT/A DVANTAGE - HMO) [id number] Thierno Reyna [id number] Thierno Reyna 12/07/2024 2 MEDICAID-[facility] - FFS/TRADITION AL Thierno Reyna [id number] Thierno Reyna Notes Date Note Type Note Provider Name and Address Organization Details Recorded Time 12/07/2024 text/html 74 yo M presents for [...] he had a follow up with his office messenger yesterday. Discussed with patient monitoring blood pressure at home and to hold on his blood pressure medication if blood pressure is still really low. Patient instructed to keep a log of his blood pressure and follow up with Cardiology Abiola Ruiz PA-C [address], [place], [address], [facility] - [place] - [place] & [place] 12/07/2024 10:44:05
--- OUTSIDE RECORDS SUMMARY | 2024-12-11 14:49 | XMS_ITS | Encounter Summary ---
Author Organization [place] [address] Care Team Providers Care Tool Planer Set Up Operator Name Role Phone Rajendra Parker Primary Care Provider Encounter Details Date Type Department Care Team (Late st Contact Info) Description 09/08/2011 Orders Only SEP Gastro [facility] [address] [facility] Building [address] [place] [address] [place] [address] [place] [address] Social History Tobacco Use Types [...] Date/Time Associated Diagnosis Comments GMED EGD Routine 09/08/2011 12:00 AM EDT documented in this encounter Results * GMED EGD (09/08/2011 12:00 AM EDT) 09/08/2011 Impressions [facility] - 09/08/2011 9:40 AM EDT LA A (single erosion or ulceration) esophagitis Mucosa suggestive of short segment Hassan's esophagus (biopsy) Normal mucosa in the whole stomach Normal mucosa in the whole duodenum N[facility]ative [facility] 09/08/2011 9:40 AM EDT Performing Provider: Vinnie Soria MD Referring Provider: Arnold Riggins MD us Vinnie Soria MD GI PROCEDURE ORDERABLES Kasandra l Result Performing Organization Address City/State/[facility] Co de Phone Number [facility] [address] [place] [address] documented in this encounter Visit Diagnoses Not on filedocumented in this encounter Care Teams Tool Planer Set Up Operator Relationship Specialty Start Date End Date Rajendra Parker [address] [place] [address] PCP - General 03/03/10 documented as of this encounter
--- NOTE | 2024-12-11 15:00 | CT_ITS ---
FINAL REPORT TECHNIQUE: Thin section axial CT images of the facial bones and sinuses were obtained without contrast. Coronal and sagittal reformatted images were also obtained. This study was performed with techniques to keep radiation doses as low as reasonably achievable, (ALARA). Individualized dose reduction techniques using automated exposure control or adjustment of mA and/or kV according to the patient's size were employed. CLINICAL HISTORY: Sinus COMPARISON: None FINDINGS: There is minimal right ethmoid mucoperiosteal thickening. The remainder of the paranasal sinuses are unremarkable. No fluid levels are identified. The ostiomeatal units have an unremarkable appearance. The nasal septum is in the midline. No fracture or acute bony abnormality is identified. IMPRESSION: Minimal right ethmoid mucoperiosteal thickening. Otherwise, no focal abnormality identified of the sinuses. Reviewed, Interpreted and Dictated by Trenton Goncalves MD Transcribed by Junie Levy Authenticated and [facility]
== END 2024-12-11 23:59 | disposition home or self-care (01) ==
LOC: RAD 14:46
PROVIDERS: PCP Nurse Practitioner; Visit Provider Specialist
DX: J34.89 Other specified disorders of nose and nasal sinuses (principal); R09.81 Nasal congestion
CPT/HCPCS: 70486

== ENCOUNTER 2025-03-15 03:09 | Emergency (ER) | payer MEDICARE, MEDICAID, SELFPAY ==
[2025-03-15 03:24] VITALS: BP 82/63; PULSE 94; RESP 16; TEMP 36.3; O2SAT 98; BMI 34.2
[2025-03-15 03:25] VITALS: PULSE 92; O2SAT 97
[2025-03-15 03:30] VITALS: BP 100/58; PULSE 89; O2SAT 96
--- OUTSIDE RECORDS SUMMARY | 2025-03-15 03:33 | XMS_ITS | Encounter Summary ---
Author Organization [place] [place] [address] Care Team Providers Care Varnishing Unit Operator Name Role Phone Rajendra Parker Primary Care Provider Encounter Details Date Type Department Care Team (Late st Contact Info) Description 09/08/2011 Orders Only SEP Gastro [facility] [address] [facility] [address] [place] [address] [place] [address] [place] [address] Social History Tobacco Use Types [...] Normal mucosa in the whole duodenum [facility]ative [facility] 09/08/2011 9:40 AM EDT Performing Provider: Vinnie Soria MD Referring Provider: Arnold Riggins MD us Vinnie Soria MD GI PROCEDURE ORDERABLES Kasandra l Result Performing Organization Address City/State/[facility] Co de Phone Number [facility] [address] [place], [place] [id number] documented in this encounter Visit Diagnoses Not on filedocumented in this encounter Care Teams Varnishing Unit Operator Relationship Specialty Start Date End Date Rajendra Parker [address] [place] [address] PCP - General 03/03/10 documented as of this encounter
--- OUTSIDE RECORDS SUMMARY | 2025-03-15 03:33 | XMS_ITS | Encounter Summary ---
Author Organization [facility] [place] [address] Care Team Providers Care Handbag Designer Name Role Phone Rajendra Parker Primary Care Provider Encounter Details Date Type Department Care Team (Late st Contact Info) Description 08/31/2017 Orders Only SEP Gastro [facility] [address] [facility] [address] [place] [address] Juancho Stuart MD PHD [address] [place] [address] Social History Tobacco Use Types Packs/Day Years [...] AM EST) 08/31/2017 9:40 AM EST Impressions [facility] - 08/31/2017 11:32 AM EST [...] PHD GI PROCEDURE ORDERABLES Fin al Result [facility] [address] [place] [address] documented in this encounter Visit Diagnoses Not on filedocumented in this encounter Care Teams Handbag Designer Relationship Specialty Start Date End Date Rajendra Parker [address] [place] [address] PCP - General 03/03/10 documented as of this encounter
--- OUTSIDE RECORDS SUMMARY | 2025-03-15 03:33 | XMS_ITS | Encounter Summary ---
Author Organization [place] [address] Care Team Providers Care Cisco Administrator Name Role Phone Rajendra Parker Primary Care Provider Encounter Details Date Type Department Care Team (Late st Contact Info) Description 09/24/2014 Orders Only SEP Gastro [facility] [address] [facility] [address] [place] [address] [place] [address] [place] [address] Social History Tobacco Use Types [...] PM EDT) 09/24/2014 2:00 PM EDT Impressions [facility] - 09/24/2014 3:04 PM EDT Internal hemorrhoids. Polyp (3 mm) in the ascending colon. (Polypectomy). Plan: Await pathology results Colonoscopy in 3-5 years depending on pathology results. This section is an excerpt of the full report. us Vinnie Soria MD GI PROCEDURE ORDERABLES Edit ed Result - Final Performing Organization Address City/State/[facility] Co de Phone Number [facility] [address] [place] [address] documented in this encounter Visit Diagnoses Not on filedocumented in this encounter Care Teams Cisco Administrator Relationship Specialty Start Date End Date Rajendra Parker [address] [place] [address] PCP - General 03/03/10 documented as of this encounter
--- OUTSIDE RECORDS SUMMARY | 2025-03-15 03:33 | XMS_ITS | Clinical Summary ---
Author Organization [facility] Address [address] [facility] [address] [place] [address] Care Team Providers Care Hooker Operator Name Role Phone Unavailable Primary Care Provider Unavailabl e Social History Tobacco Use Types Packs/Day Years Used Date Smoking Tobacco: Never Assessed Sex and Gender Information Value Date Recorded Sex Assigned at Not on file Legal Sex Male 2:20 PM EDT Gender Identity Not on file Sexual Orientation Not on file Plan of Treatment Health Maintenance Due Date Last Done Comments CT Colonography 1952 Colonoscopy 1952 Colorectal Cancer Screening 1952 FIT-DNA (Cologuard) 1950 FIT 1950 FOBT 1952 Hepatitis C Screening 1952 Lipid Panel 1950 Medicare Annual Wellness (AWV) 1952 Sigmoidoscopy 1952 Hepatitis B Screening 1970 DTaP/Tdap/Td Vaccines (1 - Tdap) 1971 Pneumococcal Vaccine: 50+ Ye ars (1 of 1 - PCV) 2002 Zoster Vaccines (1 of 2) 2002 Depression Risk Screening 06/27/2024 Fall Risk Screening 06/27/2024 SDOH Screening 06/27/2024 COVID-19 Vaccine (1 - 2023-2 5 season) 2025 Influenza Vaccine (#1) 2025 HIB Vaccines Aged Out No longer eligi ble based on patient's age to complete this topic HPV Vaccines Aged Out No longer eligi ble based on patient's age to complete this topic Hepatitis A Vaccines Aged Out No long er eligible based on patient's age to complete this topic Hepatitis B Vaccines Aged Out No long er eligible based on patient's age to complete this topic IPV Vaccines Aged Out No longer eligi ble based on patient's age to complete this topic Meningococcal B Vaccine Aged Out No l onger eligible based on patient's age to complete this topic Meningococcal Vaccine Aged Out No andrew linnette eligible based on patient's age to complete this topic Rotavirus Vaccines Aged Out No longer eligible based on patient's age to complete this topic Insurance [employer] MEDICARE ADVANTAGE
--- OUTSIDE RECORDS SUMMARY | 2025-03-15 03:33 | XMS_ITS | Clinical Summary ---
Author Organization [facility] Address [address] [place] [address] Care Team Providers Care Hand Scraper Name Role Phone Mckenna Hernández MITRA Primary Care Provider [phone] Allergies No known active allergies Medications aspirin [...] drink first t paty in the morning (EYE-ASSET MANAGEMENT ANALYST) to steady your nerves or to get [...] - Risk 60-74 years 1-dose series) 2012 [id number] Vaccine (3 - season) 2025 08/26/2021, 09/03/2020 [facility]-Influenza Vaccine (#1) 02/25/202502/17, 02/20/2021, 04/16/2020, Additional history exists [facility]-Obesity Intervention [...] this topic Medical Devices Implanted Type Area Electrical Technician Instructor Device Identifier Shelf Expiration Date Model / Serial / Lot Plug [facility] Vasc 5mm - [id number] Implanted:Qty: 1 on 11/15/2022 by Orlando Pedro MD at [facility]-[id number] 03/26/2027 [id number] Insurance [employer] [facility] MEDICAID [employer] MEDICARE Care Teams Hand Scraper Relationship Specialty Start Date End Date Mckenna Hernández, CASH CONTROL SPECIALIST [address] [place] [address] PCP - General 10/13/22
--- OUTSIDE RECORDS SUMMARY | 2025-03-15 03:33 | XMS_ITS | Clinical Summary ---
Author Organization [facility] Address [address] [facility] [place] [address] Phone Care Team Providers Care Senior Gamemaster Name Role Phone Rajendra Parker Primary Care [...] - SCIP performed by ANGELA CAMPBELL at [facility] MAIN OR VASCULAR SURGERY Abdominal aortic aneurysm [...] 5 season) 2025 Influenza Vaccine (#1) 2025 Hepatitis B Vaccine Aged Out No [...] PM EDT) 09/24/2014 2:00 PM EDT Impressions [facility] - 09/24/2014 3:04 PM EDT Internal hemorrhoids. Polyp (3 mm) in the ascending colon. (Polypectomy). Plan: Await pathology results Colonoscopy in 3-5 years depending on pathology results. This section is an excerpt of the full report. Vinnie Soria MD GI PROCEDURE ORDERABLES Edit ed Result - Final [facility] [address] [place] [address] from Last 3 Months or Most Recently Relevant to Health Maintenance Insurance MEDICARE [place] PART A AND B Advance Directives For more information, please contact: [phone] Documents on File Type Date Recorded Patient Infrastructure Engineer Expl anation Advance Directives/DNR 06/08/2010 1:11 AM Advance Directives/DNR 03/14/2010 3:00 PM Advance Directives/DNR 02/14/2010 10:05 PM Care Teams Senior Gamemaster Relationship Specialty Start Date End Date Rajendra Parker [address] [place] [address] PCP - General 03/03/10
--- OUTSIDE RECORDS SUMMARY | 2025-03-15 03:33 | XMS_ITS | Encounter Summary ---
Author Organization 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 09/01/2017 11:29 AM EST [facility] FINAL DIAGNOSIS Gastroesophage al Junction Biopsy: - Hassan's Esophagus, Negative For Dysplasia. 09/01/2017 11:29 AM EST [facility] at 1129 EST GROSS DESCRIPTION Received in formalin and labeled with the patient's name and designated GE junction biopsy are six portions of pearson soft tissue, 0.2 to 0.4 cm in greatest dimension. Entirely submitted in one cassette./CDM 09/01/2017 11:29 AM EST [facility] MICROSCOPIC DESCRIPTION Microscopic examination is performed and the findings corroborate the diagnosis. 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
--- OUTSIDE RECORDS SUMMARY | 2025-03-15 03:33 | XMS_ITS | Encounter Summary ---
Author Organization [place] [address] Care Team Providers Care Leasing Property Manager Name Role Phone Rajendra Parker Primary Care Provider Encounter Details Date Type Department Care Team (Late st Contact Info) Description 09/24/2014 Orders Only SEP Gastro [facility] [address] [facility] [address] [place] [address] [place] [address] [place] [address] Social History Tobacco Use Types [...] PM EDT) 09/24/2014 1:45 PM EDT Impressions [facility] - 09/24/2014 2:07 PM EDT Normal stomach. Normal duodenum. Mucosa suggestive of Hassan's esophagus (Biopsy). Esophageal hiatal hernia. Plan: Acid Reflux diet and Education Await pathology results Continue current medication for acid suppression 30 minutes before a meal. Colonoscopy today. This section is an excerpt of the full report. us Vinnie Soria MD GI PROCEDURE ORDERABLES Kasandra velazquez Result Performing Organization Address City/State/[facility] Co de Phone Number [facility] [address] [place] [address] documented in this encounter Visit Diagnoses Not on filedocumented in this encounter Care Teams Leasing Property Manager Relationship Specialty Start Date End Date Rajendra Parker [address] [place] [address] PCP - General 03/03/10 documented as of this encounter
[2025-03-15 03:43] VITALS: BP 92/62; PULSE 91; O2SAT 98
[2025-03-15 03:47] LABS: Microscopic, Urine URINE MICROSCOPIC (MICROSCOPIC)
[2025-03-15 03:48] LABS: Bilirubin,Urine Negative (Negative); Color,Urine YELLOW (Yellow); Glucose,Urine (UA) 3+ (Negative); Ketones,Urine Negative (Negative); Leukocyte Esterase,Urine 2+ (Negative); PH,Urine 6.0 (5.0-8.5); Protein,Urine 2+ (Negative); Specific Gravity, Urine 1.010 (1.005-1.030); Urobilinogen,Urine 0.2 EU/dl (0.2)
[2025-03-15 03:50] LABS: Hematocrit 30.1 % (42.0-52.0); Hemoglobin 10.4 g/dL (14.1-18.0); Immature Granulocytes % 0.4 %; Mean Corpuscular HGB Conc 34.6 g/dL (31.8-35.4); Mean Corpuscular Hemoglobin 32.3 pg (27.0-31.2); Mean Corpuscular Volume 93.5 fl (80-94); Nucleated Red Blood Cells % 0 %; Platelet Count 275 K/mm3 (142-424); Red Blood Count 3.22 M/mm3 (4.60-6.20); Red Cell Distribution Width-SD 49.9 fL; White Blood Count 9.0 K/mm3 (4.8-10.8)
--- NOTE | 2025-03-15 03:53 | HMH.EDGENADL ---
Discharge Plan Disposition Patient Disposition: Home, Self-Care Condition: Good Prescriptions Prescriptions: New cefdinir 300 mg capsule 300 mg PO BID 10 Days Qty: 20 0RF No Action omeprazole 20 mg capsule,delayed release(DR/EC) 20 mg PO BID tamsulosin [Flomax] 0.4 mg capsule 0.4 mg PO DAILY aspirin [Adult Low Dose Aspirin] 81 mg tablet,delayed release (DR/EC) 81 mg PO DAILY Symbicort 80-4.5 mcg/actuation HFA aerosol inhaler 2 puff INHALATION BID metoprolol succinate 25 mg tablet extended release 24 hr PO Patient Comments: TAKE 1 TABLET BY MOUTH ONCE DAILYT metformin 1,000 mg tablet 1,000 mg PO BIDWMEAL Patient Comments: TAKE 1 TABLET BY MOUTH TWICE DAILY WITH MEALS Rx Instructions: With meals (DME) pen needle, diabetic 31 gauge x 3/16 needle See Rx Instructions .ROUTE .MEDSUPPLY Qty: 1200 Patient Comments: USE 1 NEEDLE DAILY DIRECTED Rx Instructions: As directed fluticasone propionate [Flonase Allergy Relief] 50 mcg/actuation spray,suspension 2 spray intranasal BID Qty: 16 6RF Rx Instructions: administer into each nostril furosemide [Lasix] 40 mg tablet 40 mg PO DAILY Qty: 90 3RF pramipexole 0.25 mg tablet See Rx Instructions .ROUTE .COMPLEX Qty: 90 11RF Dose Instruction: TAKE 1 TABLET BY MOUTH EVERY NIGHT AT BEDTIME FOR RESTLESS LEG SYNDROME *NEW PRESCRIPTION REQUEST* Rx Instructions: TAKE 1 TABLET BY MOUTH EVERY NIGHT AT BEDTIME FOR RESTLESS LEG SYNDROME *NEW PRESCRIPTION REQUEST* levocetirizine 5 mg tablet See Rx Instructions .ROUTE .COMPLEX Qty: 90 4RF Dose Instruction: TAKE 1 TABLET BY MOUTH DAILY *NEW PRESCRIPTION REQUEST* Rx Instructions: TAKE 1 TABLET BY MOUTH DAILY *NEW PRESCRIPTION REQUEST* spironolactone 50 mg tablet 50 mg PO DAILY Rx Instructions: TAKE 1 TABLET BY MOUTH DAILY rosuvastatin [Crestor] 20 mg tablet 20 mg PO DAILY potassium chloride 10 mEq capsule, extended release 10 meq PO BID dapagliflozin propanediol [Farxiga] 5 mg tablet 5 mg PO DAILY Patient Comments: TAKE 1 TABLET BY MOUTH DAILY insulin glargine U-300 conc [Toujeo Max U-300 SoloStar] 300 unit/mL (3 mL) insulin pen 40 unit SQ HS Patient Comments: ADMINISTER 40 UNITS UNDER THE SKIN AT BEDTIME Ozempic 0.25 mg or 0.5 mg (2 mg/3 mL) pen injector 0.5 mg SQ WEEKLY Patient Comments: INJECT 0.5 MG UNDER THE SKIN ONCE WEEKLY ON THE SAME DAY EACH WEEK losartan 25 mg tablet 50 mg PO DAILY Patient Comments: TAKE 1 TABLET BY MOUTH DAILY Referrals Follow up/Referrals: Va Short APRN [Primary Care Provider, Medical] - See instructions Activity Restrictions/Add. Instructions Additional Instructions/Restrictions: You were evaluated in the ER and are believed to be appropriate for discharge at this time. Take the prescribed cefdinir as directed, do not skip doses, do not stop taking it early. Continue your home medications as previously prescribed. Please increase your hydration. Drink water, Gatorade, Pedialyte to stay well-hydrated. Continue monitoring your urine output. Follow-up with Dr. Anne's office for reevaluation, he specifically stated to call on Tuesday if you are not feeling improved. Return to the ER with any new, worsening, or otherwise concerning symptoms as discussed. Clinical Impressions Clinical Impression: Suprapubic catheter dysfunction, Urinary tract infection Instructions Patient Instructions: DI for Urinary Tract Infection (UTI), DI for Urinary Tract Infection in Children Print Language Print Language: Kittitian Discharge ED Provider: Bhargav Maza Adult HPI General Chief complaint: Urogenital-Male Stated complaint: cathater, unable to urinate Time Seen by Provider: 03/15/25 03:41 Mode of Arrival: Ambulatory Source of Information: Patient Description of Symptoms (Recalled from ER Triage Doc. by RN): Pt reports having lower abdominal pressure, and that he does not think his cath is draining urine the way it should. Pt states he has HX of prostrate CA and is seen in [place], had cath replaced 03/14/2025 at 1500. Upon arrival pt has approx 100 ml. Bladder scan performed and showed 106ml. History of Present Illness HPI narrative: 74-year-old male who has a history of prostate cancer and recently completed radiation, has suprapubic catheter in place, presents to the ER with lower abdominal pressure, sensation of needing to urinate, and concerns that his catheter is not draining urine the way it should. Patient reports he was seen at his urologist office in [place] within the last 24 hours and had his catheter replaced. Since that time he was able to pass some urine but last emptied his leg bag around 9 PM and has only had minimal urine output into the leg bag, whereas he is passing some urine through his penis which is abnormal for him. He is also having suprapubic pressure and feels like he needs to urinate. He reports no fevers, chills, nausea, vomiting, blood in the urine, but he also reports he has never had symptoms like this before. Related Data Home Medications ?Medication ?Instructions ?Recorded ?Confirmed aspirin 81 mg tablet,delayed 81 mg PO DAILY 04/12/19 03/13/25 release (Adult Low Dose Aspirin) budesonide-formoterol HFA 80 2 puff inhalation BID 04/12/19 03/13/25 mcg-4.5 mcg/actuation aerosol inhaler (Symbicort) omeprazole 20 mg capsule,delayed 20 mg PO BID 04/12/19 03/13/25 release tamsulosin 0.4 mg capsule (Flomax) 0.4 mg PO DAILY 04/12/19 03/13/25 metformin 1,000 mg tablet 1,000 mg PO BIDWMEAL 07/15/21 03/13/25 rosuvastatin 20 mg tablet (Crestor) 20 mg PO DAILY 09/20/22 03/13/25 spironolactone 50 mg tablet 50 mg PO DAILY 09/20/22 03/13/25 dapagliflozin propanediol 5 mg 5 mg PO DAILY 08/16/24 03/13/25 tablet (Farxiga) insulin glargine U-300 conc 300 40 unit SQ HS 08/16/24 03/13/25 unit/mL (3 mL) subcutaneous pen (Toujeo Max U-300 SoloStar) potassium chloride 10 mEq 10 meq PO BID 08/16/24 03/13/25 capsule,extended release semaglutide 0.25 mg or 0.5 mg (2 0.5 mg SQ WEEKLY 08/16/24 03/13/25 mg/3 mL) subcutaneous pen injector (Ozempic) losartan 25 mg tablet 50 mg PO DAILY 08/17/24 03/13/25 pen needle, diabetic 31 gauge x #1,200 ea 09/06/24 12/06/2409/09 metoprolol succinate 25 mg mg PO 12/17/24 03/13/25 tablet,extended release 24 hr Previous Rx's ?Medication ?Instructions ?Recorded furosemide 40 mg tablet (Lasix) 40 mg PO DAILY #90 tabs 12/21/24 fluticasone propionate 50 2 spray intranasal BID #16 grams 02/27/25 mcg/actuation nasal spray,suspension (Flonase Allergy Relief) levocetirizine 5 mg tablet See Rx Instructions .Route 03/14/25 .COMPLEX #90 tabs pramipexole 0.25 mg tablet See Rx Instructions .Route 03/14/25 .COMPLEX #90 tabs cefdinir 300 mg capsule 300 mg PO BID 10 days #20 caps 03/15/25 Allergies Allergy/AdvReac Type Severity Reaction Status Date / Time No Known Allergies Allergy Verified 03/12/25 16:26 [facility] Disclaimer: The information contained in this section may have been updated after the patient was seen, as this information can be updated by other users. Medical History Post-nasal drainage Allergies Pt states he has been better and was encouraged to continue his allergy regimen and follow up back up roughly 1 year to monitor and get refills if needed. 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 Dyspnea Fatigue Abnormal stress test Typical angina HLD (hyperlipidemia) HTN (hypertension) CAD (coronary artery disease) AAA (abdominal aortic aneurysm) Surgical History S/P AAA repair History of cardiac cath History of cholecystectomy Hx of CABG S/P CABG x 5 Family History Other Cancer Coronary artery disease Diabetes Hypertension Social History Smoking Status: Never smoker alcohol intake: current alcohol intake frequency: 3 or more drinks per day substance use type: denies use current occupational status: retired Travel in the last 8 weeks?: Inside the [place] household members: spouse housing: house Have you lived/traveled outside [place] in past 30 days?: No Contact w/someone who lives/traveled outside [place] past 30 days?: No Exposure to someone with infectious disease in past 14 days?: No Do you have a fever (greater than 100.4 F or 38 C)?: No Have you tested positive for COVID-19?: No Exposed to someone with COVID-19 in past 14 days?: No Do you have a sore throat?: No Do you have a cough?: No Do you have any weakness?: No Do you have any diarrhea?: No Are you experiencing any unusual bleeding?: No Do you have any muscle aches/pain?: No Do you have any abdominal pain?: No Are you experiencing loss of taste or smell?: No Other Medical History Have you received the Flu Vaccine for this season: No Have you received the Pneumonia Vaccine: Yes ROS Obtained: Yes Systems reviewed as appropriate & no additional complaints except as documented Per HPI Physical Exam General General appearance: alert, in no apparent distress and obese Head Head exam: atraumatic and normocephalic Eye Eye exam: Present PERRL and EOMI ENT ENT exam: Present mucous membranes moist Neck Neck exam: Present normal inspection and full ROM Chest Chest inspection: Present symmetric chest wall rise Respiratory Respiratory exam: Present normal lung sounds bilaterally; Absent respiratory distress, wheezes or stridor Cardiovascular Cardiovascular exam: Present regular rate and normal rhythm Abdominal Exam Abdominal exam: Present soft and tenderness (Very mild suprapubic with no palpable mass); Absent distention, guarding or rebound Comment: Suprapubic catheter site with small purulent appearing material but only trace erythema and no induration or fluctuance Extremities Exam Extremities exam: Present full ROM Neurological Exam Neurological exam: Present alert and oriented X3; Absent motor sensory deficit Psychiatric Psychiatric exam: Present normal affect and normal mood Skin Skin exam: Present warm and dry Medical Decision Making Medical Records Medical records reviewed: Yes I reviewed the patient's medical records. Screening: Per USPSTF and CDC recommendations, given the prevalence of disease in our region, it is our hospital?s policy to screen for HIV and viral Hepatitis for all patients aged 18 and over and those with ongoing risk factors. Robert Inquiry Pt receiving controlled substance: No Vital Signs: 03/15/25 03:24 03/15/25 03:25 03/15/25 03:30 Temperature 97.4 F L Temperature Source Oral Pulse Rate 92 H 89 Pulse Rate [Left] 94 H Respiratory Rate 16 Blood Pressure Blood Pressure [Right Arm] 82/63 L Blood Pressure Mean Blood Pressure Mean [Right Arm] 69 Blood Pressure Source [Right Arm] Automatic Cuff Blood Pressure Position [Right Arm] Sitting 02 Sat by Pulse Oximetry 98 97 96 Oxygen Delivery Method Room Air 03/15/25 03:30 03/15/25 03:43 03/15/25 04:36 Temperature 98.6 F Temperature Source Pulse Rate 91 H 75 Pulse Rate [Left] Respiratory Rate 18 Blood Pressure 100/58 L 92/62 L 148/78 H Blood Pressure [Right Arm] Blood Pressure Mean 67 Blood Pressure Mean [Right Arm] Blood Pressure Source [Right Arm] Blood Pressure Position [Right Arm] 02 Sat by Pulse Oximetry 98 Oxygen Delivery Method Room Air Lab Data Lab Results 03/15/25 03:29: Urine Color Yellow, Urine Appearance Cloudy, Urine pH 6.0, Ur Specific [place] 1.010, Urine Protein 2+ A, Urine Glucose (UA) 3+, Urine Ketones Negative, Urine Blood 3+ A, Urine Nitrate Negative, Urine Bilirubin Negative, Urine Urobilinogen 0.2, Ur Leukocyte Esterase 2+ A, Urine RBC Tntc, Urine WBC Tntc, Ur Squamous Epith Cells None, Urine Bacteria 4+ 03/15/25 03:43: WBC 9.0, RBC 3.22 L, Hgb 10.4 L, Hct 30.1 L, MCV 93.5, MCH 32.3 H, MCHC 34.6, RDW 14.5, Plt Count 275, MPV 9.0, Neut % (Auto) 70.6, Lymph % (Auto) 12.5, [place] % (Auto) 12.5 H, Eos % (Auto) 3.6, Baso % (Auto) 0.4, Neut # (Auto) 6.3, Lymph # (Auto) 1.1, [place] # (Auto) 1.1 H, Eos # (Auto) 0.3, Baso # (Auto) 0.0, Sodium 132 L, Potassium 3.8, Chloride 98, Carbon Dioxide 25, Anion Gap 12.8, BUN 22 H, Creatinine 1.20, Estimated Creat Clear 76, Estimated GFR 60, Est GFR ( Amer) 72, Glucose 180 H, Calcium 9.2, Total Bilirubin 0.7, AST 25, ALT 17, Alkaline Phosphatase 92, Total Protein 6.8, Albumin 3.8, Globulin 3.0, Albumin/Globulin Ratio 1.3 03/15/25 03:43 03/15/25 03:43 Orders (Tests/Meds): ED MEDICATIONS Generic Name Dose Route Start Last Admin Trade Name Freq PRN Reason Stop Dose Admin Cefdinir 300 mg 03/15/25 04:34 Cefdinir 300mg Capsule PO 03/15/25 04:35 ONCE ONE ORDERS Category Date Time Status CBC w/Auto Diff [Complete Blood Count Auto Diff] Stat Lab 03/15/25 03:43 Completed CMP [Comprehensive Metabolic Panel] Stat Lab 03/15/25 03:43 Completed Urinalysis and Microscopic Stat Lab 03/15/25 03:29 Completed Urine Culture Stat Micro 03/15/25 03:29 Received Medical Decision Narrative: In summary, this 74-year-old male with comorbidities described in the HPI presents to the emergency department today with concerns of urinary retention in the setting of suprapubic catheter due to prostate cancer. On initial evaluation patient is hemodynamically stable, afebrile, independently ambulatory into the ER, physical exam is notable for the presence of suprapubic catheter with scant purulent material at the catheter site with only trace erythema and no induration or fluctuance, only very slight suprapubic tenderness to palpation, leg bag with 100 mL yellow urine present. Bladder scan performed by nursing 106 mL present in the bladder. Differential diagnosis includes but is not limited to urinary tract infection which will be difficult to assess due to the presence of percutaneous catheter, also considered displaced catheter though catheter is actively draining urine so this is very unlikely, catheter malfunction, kidney dysfunction, among others. Based on these concerns, I ordered basic hematologic and serum labs as well as urinalysis from the leg bag initially. Urinalysis is positive for blood and leukocyte esterase. With the presence of blood, it is possible there is small occlusion of the catheter. RBCs and WBCs too numerous to count. After leg bag was emptied, patient is producing more urine into the leg bag so to potentially clear any clots or other blockage. Catheter flushed easily, patient is passing urine through it freely and states he has none of the symptoms at this time that brought him into the ER. Additional labs reviewed demonstrating no leukocytosis, anemia with hemoglobin 10.4 is nonspecific and nonactionable at this time, normal platelets, CMP with mild hyponatremia stable from prior, borderline prerenal azotemia but patient is tolerating oral intake and actively drinking water in the ER, I do not believe he requires IV fluid resuscitation at this time. I reach out to Dr. Anne, the patient's urologist, by phone. We discussed this patient's presentation to the ER, improved symptoms since catheter flushing and free-flowing urine at this time. We also discussed his lab results including his urinalysis with too numerous to count red and white blood cells. Dr. Anne and I agree that the suprapubic catheters are commonly contaminated so it is difficult to delineate active infection versus chronic contamination, however with the patient's symptoms he does think antibiotic treatment is reasonable. He states the patient does not have a known history of multidrug-resistant organisms and that he was recently treated with cefdinir and he believes cefdinir would be an appropriate selection at this time. He also recommended follow-up on Tuesday with his office if the patient is not feeling improved, otherwise follow-up with them as scheduled. I appreciate his recommendations. Patient received cefdinir in the ER and this was prescribed for outpatient management as well to the patient's pharmacy of choice. Patient was given instructions on symptomatic monitoring and management, follow up instructions, and return precautions for the emergency department including worsening pain, signs of infection, catheter obstruction. Patient indicated understanding and was discharged in stable condition. Critical Care Critical Care Time Critical Care Time: No
[2025-03-15 04:00] LABS: Chloride 98 mmol/L (98-107)
[2025-03-15 04:01] LABS: Albumin Level 3.8 g/dl (3.5-5.0); Potassium 3.8 mmoL/L (3.5-5.1); Sodium 132 mmol/L (136-145)
[2025-03-15 04:01] LABS: Bacteria,Urine 4+ /lpf
[2025-03-15 04:02] LABS: WBC,Urine TNTC #/hpf (0-3)
[2025-03-15 04:03] LABS: RBC,Urine TNTC #/hpf (0-3)
[2025-03-15 04:04] LABS: Alanine Aminotransferase 17 U/L (12-78); Albumin/Globulin Ratio 1.3 (1.1-1.8); Alkaline Phosphatase 92 U/L (38-126); Anion Gap 12.8 mEq/L (5-15); Aspartate Amino Transferase 25 U/L (17-59); Bilirubin,Total 0.7 mg/dl (0.2-1.3); Blood Urea Nitrogen 22 mg/dl (9-20); Calcium 9.2 mg/dl (8.4-10.2); Carbon Dioxide 25 mmol/L (22.0-30.0); Creatinine Clearance Estimated 76 mL/min (50-200); Creatinine,Serum 1.20 mg/dl (0.66-1.25); Estimated Glomerular Filt Rate 60 ml/min (>60); GFR (African American) 72 ML/MIN (>60); Globulin 3.0 g/dL (1.3-3.2); Glucose 180 mg/dl (74-100); Total Protein,Serum 6.8 g/dl (6.3-8.2)
--- NOTE | 2025-03-15 04:27 | PC.NURSE ---
Spoke with [facility] to get a consult. Dr. valenzuela speaking with them at this time.
[2025-03-15 04:36] VITALS: BP 148/78; PULSE 75; RESP 18; TEMP 37
[2025-03-15] MEDS: CEFDINIR 300MG CAPSULE 300 MG PO (04:40)
--- NOTE | 2025-03-16 08:37 | PC.NURSE ---
Urine culture results reviewed by Dr. Dodge. No new orders received at this time.
== END 2025-03-15 04:44 | disposition home or self-care (01) ==
PROVIDERS: Emergency Provider Emergency Medicine; PCP Nurse Practitioner
DX: N39.0 Urinary tract infection, site not specified (principal); R10.30 Lower abdominal pain, unspecified; T83.511A Infection and inflammatory reaction due to indwelling urethral catheter, initial encounter; R33.9 Retention of urine, unspecified; Z85.46 Personal history of malignant neoplasm of prostate; Z92.3 Personal history of irradiation; B96.89 Other specified bacterial agents as the cause of diseases classified elsewhere
CPT/HCPCS: 80053; 81001; 85025; 87086; 87088; 99283

== ENCOUNTER 2025-05-18 03:35 | Emergency (ER) | payer MEDICARE, MEDICAID, SELFPAY ==
--- OUTSIDE RECORDS SUMMARY | 2025-03-26 06:42 | XMS_ITS | Continuity of Care Document ---
Author Organization [facility] Phone Care Team Providers Care B2B Managed Service Sales Exec Name Role Phone NO, DEFINED P Primary Care Unavailable DESIRAE VALDES Admitting DESIRAE VALDES Primary Attending ALLERGIES AND ADVERSE REACTIONS ALLERGIES AND ADVERSE REACTIONS Code System Allergy Substance Adverse Reaction Date Reaction (Severity) Comment Status Reported By Updated By No Known Allergies [id number] on February 11, 2025 7:33:11 PM UT FAMILY HISTORY RELATION: Father Status: Cause of : Unknown Age at : Unknown SNOMED-CT Diagnosis Age At Onset Information not available RELATION: Mother Status: Cause of : Unknown Age at : Unknown SNOMED-CT Diagnosis Age At Onset Information not available RESULTS Patient: KIERA Beyer Date of : 1950 11 LABORATORY RESULTS ORDER 100: CBC AUTO W DIFF ( LOINC: 07880-9) ORDER DATE: March 14, 2025 12:14:00 PM [place] Specimen Source: EDTA Specimen Type: Blood specime n with EDTA PERFORMING LAB: [address] [id number] Result Comment: Final Result Date: March 14, 2025 5:45:00 PM UTC (TECH: TH) LOINC TEST FLAG RESULT REFERENCE RANGE UPDA ERIK BY 6690-2 Leukocytes [#/volume] in Blood by Automated count N 7.6 K/ul 4.0 K/ul - 10.5 K/ul March 14, 2025 5:45:00 PM UTC (TECH: TH) 789-8 Erythrocytes [#/volume] in Blood by Automated count L 3.4 M/mm3 4.7 M/mm3 - 6.1 M/mm3 March 14, 2025 5:45:00 PM UTC (TECH: TH) 718-7 Hemoglobin [Mass/volume] in Blood L 10.8 gm/dl 13.5 gm/dl - 18.0 gm/dl March 14, 2025 5:45:00 PM UTC (TECH: TH) 99290-8 Hematocrit [Volume Fraction] of Blood L 32.3 % 42.0 % - 52.0 % March 14, 2025 5:45:00 PM UTC (TECH: TH) 787-2 Erythrocyte mean corpuscular volume [Entitic volume] by Automated count N 93.9 fl 78 fl - 100 fl March 14, 2025 5:45:00 PM UTC (TECH: TH) 785-6 Erythrocyte mean corpuscular hemoglobin [Entitic mass] by Automated count H 31.4 pg 27 pg - 31 pg March 14, 2025 5:45:00 PM UTC (TECH: TH) 786-4 Erythrocyte mean corpuscular hemoglobin concentration [Mass/volume] by Automated count N 33.4 g/dl 32 g/dl - 36 g/dl March 14, 2025 5:45:00 PM UTC (TECH: TH) 14462-4 Erythrocyte distribution width [Ratio] H 14.7 % 11.5 % - 14.0 % March 14, 2025 5:45:00 PM UTC (TECH: TH) 777-3 Platelets [#/volume] in Blood by Automated count N 275 K/ul 150 K/ul - 450 K/ul March 14, 2025 5:45:00 PM UTC (TECH: TH) 62757-7 Platelet mean volume [Entitic volume] in Blood by Automated count N 8.7 fl 6 fl - 9.5 fl March 14, 2025 5:45:00 PM UTC (TECH: TH) 17768-2 Neutrophils/100 leukocytes in Blood H 65.5 % 43 % - 65 % February 5:45:00 PM UTC (TECH: TH) 736-9 Lymphocytes/100 leukocytes in Blood by Automated count L 18.7 % 20.5 % - 45.5 % March 14, 2025 5:45:00 PM UTC (TECH: TH) 5905-5 Monocytes/100 leukocytes in Blood by Automated count N 10.7 % 5.5 % - 11.7 % March 14, 2025 5:45:00 PM UTC (TECH: TH) 713-8 Eosinophils/100 leukocytes in Blood by Automated count H 4.2 % 0.9 % - 2.9 % March 14, 2025 5:45:00 PM UTC (TECH: TH) 706-2 Basophils/100 leukocytes in Blood by Automated count N 0.5 % 0.2 % - 1.0 % March 14, 2025 5:45:00 PM UTC (TECH: TH) 77481-7 Immature granulocytes/100 leukocytes in Blood by Automated count N 0.4 % 0.0 % - 0.8 % March 14, 2025 5:45:00 PM UTC (TECH: TH) 50956-0 Nucleated cells [#/volume] in Blood N 0.0 % February 5:45:00 PM UTC (TECH: TH) 14588-9 Neutrophils [#/volume] in Blood H 5.0 K/uL 2.2 K/uL - 4.8 K/uL March 14, 2025 5:45:00 PM UTC (TECH: TH) 731-0 Lymphocytes [#/volume] in Blood by Automated count N 1.4 CELL/MCL 1.3 CELL/MCL - 2.9 CELL/MCL March 14, 2025 5:45:00 PM UTC (TECH: TH) 742-7 Monocytes [#/volume] in Blood by Automated count N 0.8 CELL/MCL 0.3 CELL/MCL - 0.8 CELL/MCL March 14, 2025 5:45:00 PM UTC (TECH: TH) 711-2 Eosinophils [#/volume] in Blood by Automated count H 0.3 CELL/MCL 0 CELL/MCL - 0.2 CELL/MCL March 14, 2025 5:45:00 PM UTC (TECH: TH) 704-7 Basophils [#/volume] in Blood by Automated count N 0.0 CELL/MCL 0.0 CELL/MCL - 1.0 CELL/MCL March 14, 2025 5:45:00 PM UTC (TECH: TH) 77174-5 Immature granulocytes [#/volume] in Blood N 0.03 K/ul February 5:45:00 PM UTC (TECH: TH) 82206-0 Nucleated cells [#/volume] in Blood N 0.00 K/uL February 5:45:00 PM UTC (TECH: TH) 78906-0 Manual Differential panel - Blood N NO March 14, 2025 5:45:00 PM UTC (TECH: TH) ORDER 200: COMP METABOLIC PA SUKUMAR (LOINC: 38948-1) ORDER DATE: March 14, 2025 12:14:00 PM UTC Specimen Source: PLASMA Specimen Type: Plasma specim en PERFORMING LAB: [address] [id number] Result Comment: Final Result Date: March 14, 2025 6:30:00 PM UTC (TECH: KAC) LOINC TEST FLAG RESULT REFERENCE RANGE UPDA ERIK BY 2951-2 Sodium [Moles/volume ] in Serum or Plasma L 134 mmol/L 136 mmol/L - 145 mmol/L March 14, 2025 6:05:00 PM UTC (TECH: KAC) 2823-3 Potassium [Moles/volume] in Serum or Plasma N 3.7 mmol/L 3.6 mmol/L - 5.0 mmol/L March 14, 2025 6:05:00 PM UTC (TECH: KAC) 2075-0 Chloride [Moles/volume] in Serum or Plasma N 101 mmol/L 98 mmol/L - 107 mmol/L March 14, 2025 6:05:00 PM UTC (TECH: KAC) 8-9 Carbon dioxide, tota l [Moles/volume] in Serum or Plasma N 23.5 mmol/L 21.0 mmol/L - 32.0 mmol/L March 14, 2025 6:05:00 PM UTC (TECH: KAC) 25171-3 Anion gap in Blood N 13.2 S eptember 2024 6:05:00 PM UTC (TECH: KAC) 2345-7 Glucose [Mass/volume ] in Serum or Plasma H 178 mg/dl 70 mg/dl - 120 mg/dl March 14, 2025 6:05:00 PM UTC (TECH: KAC) 6299-2 Urea nitrogen [Mass/volume] in Blood H 24 mg/dL 7 mg/dL - 18 mg/dL March 14, 2025 6:05:00 PM UTC (TECH: KAC) 47524-0 Creatinine [Moles/volume] in Blood H 1.4 mg/dL 0.6 mg/dL - 1.3 mg/dL March 14, 2025 6:05:00 PM [facility] ([employer]) 28772-0 Glomerular filtratio n rate/1.73 sq M.predicted by Creatinine-based formula (MDRD) L 53 mlpermin 60 mlpermin March 14, 2025 6:05:00 PM [facility] ([employer]: [employer]master) 62193-1 Osmolality of Serum or Plasma by calculated by sum of electrolytes N 288 mosm/kg 275 mosm/kg - 301 mosm/kg March 14, 2025 6:05:00 PM UT (Ans[employer]: [employer]master) 2885-2 Protein [Mass/volume ] in Serum or Plasma N 7.0 g/dl 6.4 g/dl - 8.2 g/dl March 14, 2025 6:30:00 PM [facility] ([employer]: [employer]master) 1751-7 Albumin [Mass/volume ] in Serum or Plasma L 3.0 g/dl 3.4 g/dl - 5.0 g/dl March 14, 2025 6:30:00 PM UT (TECH: Postmaster) 2336-6 Globulin [Mass/volum e] in Serum N 4.0 March 14, 2025 6:30:00 PM [facility] ([employer]: [employer]master) 1759-0 Albumin/Globulin [Ma ss Ratio] in Serum or Plasma N 0.8 0.7 - 2 March 14, 2025 6:30:00 PM [place] ([employer]) 54995-0 Calcium [Mass/volume ] in Serum or Plasma N 8.9 mg/dl 8.5 mg/dl - 10.5 mg/dl March 14, 2025 6:05:00 PM UT (TECH: Postmaster) 1975-2 Bilirubin.total [Mass/volume] in Serum or Plasma N 0.50 mg/dL 0.10 mg/dL - 1.00 mg/dL March 14, 2025 6:30:00 PM [facility] ([employer]: [employer]master) 1920-8 Aspartate aminotransferase [Enzymatic activity/volume] in Serum or Plasma N 17 U/L 0 U/L - 37 U/L March 14, 2025 6:30:00 PM UT (TECH: Postmaster) 1742-6 Alanine aminotransferase [Enzymatic activity/volume] in Serum or Plasma N 17 U/L 0 U/L - 65 U/L March 14, 2025 6:30:00 PM UTC (TECH: Postmaster) 6768-6 Alkaline phosphatase [Enzymatic activity/volume] in Serum or Plasma N 78 U/L 46 U/L - 116 U/L March 14, 2025 6:30:00 PM UTC (TECH: Postmaster) ORDER 300: PROSTATE SPECIFIC AG PSA (LOINC: 2857-1) ORDER DATE: March 14, 2025 12:14:00 PM UTC Specimen Source: PLASMA Specimen Type: Plasma specim en PERFORMING LAB: [address] [id number] Result Comment: Final Result Date: March 14, 2025 6:31:00 PM UT (TECH: Postmaster) LOINC TEST FLAG RESULT REFERENCE RANGE UPDA ERIK BY 2857-1 Prostate specific Ag [Mass/volume] in Serum or Plasma N <0.13 ng/mL 0 ng/mL - 4.0 ng/mL March 14, 2025 6:31:00 PM UTC (TECH: Postmaster) ORDER 400: TESTOSTERONE FREE AND TOTAL (LOINC: 2986-8) ORDER DATE: March 14, 2025 12:14:00 PM UTC Specimen Source: SERUM Specimen Type: Serum specime n PERFORMING LAB: [address] [id number] Result Comment: February 10:10:00 AM UTC Performed at: - [facility] Result Comment: March 21, 2025 10:10:00 AM UTC [address], [place] [id number] Result Comment: March 21, 2025 10:10:00 AM UTC Test Driller: Emmett Serrano PhD, Phone: [phone] Result Comment: March 21, 2025 10:10:00 AM UTC Performed at: - [facility] Result Comment: March 21, 2025 10:10:00 AM UTC [address], [place] [id number] Result Comment: March 21, 2025 10:10:00 AM UTC Test Driller: Kal Caro MD, Phone: [phone] Result Comment: March 21, 2025 10:10:00 AM [facility] Final Result Date: March 14, 2025 5:28:00 PM [facility] (TECH: LAB) LOINC TEST FLAG RESULT REFERENCE RANGE UPDA ERIK BY 2986-8 Testosterone [Mass/volume] in Serum or Plasma L 4 ng/dL 264-916 March 14 5:28:00 PM UT (TECH: LAB) 2991-8 Testosterone Free [Mass/volume] in Serum or Plasma L 0.6 pg/mL 6.6-18.1 March 14 5:28:00 PM [facility] (TECH: LAB) LABORATORY NARRATIVE RESULTS Information is not available RADIOLOGY RESULTS Information is not available PATHOLOGY NARRATIVE RESULTS Information is not available MICROBIOLOGY RESULTS No Micro Labs/Results Exist for Patient BLOOD ADMIN RESULTS Information is not available MEDICATIONS HOME MEDICATIONS Status RXNORM [facility] Medication Dose Route Frequency Dates Comments Reported By Updated By Active 85210 51784 1 Aspirin 81 Oral Tablet Delayed Release 81 MG 1.0 TAB ORAL DAILY [facility]: [id number]46 PM [facility] Active 203435 26749 27028 0 Cefdinir Oral Capsule 300 MG 1.0 TAB ORAL BID Last [facility]: [id number] [facility] 6:09:46 PM [facility] Active 1947145 80317 32535 0 Farxiga Oral Tablet 5 MG 1.0 TAB ORAL DAILY Last [facility]: [id number] [facility] 6:09:46 PM [facility] Active 5670577 93480 36780 9 Fluticasone Propionate Nasal Suspension 50 MCG/ACT 1.0 SPR NASAL DAILY Last [facility]: [id number] [facility] 6:09:47 PM [facility] Active 338494 71404 08703 5 Furosemide Oral Tablet 40 MG 40.0 MG ORAL DAILY Last [facility]: [id number] [facility] 6:09:47 PM [facility] Active 200690 34988 46217 0 Losartan Potassium Oral Tablet 50 MG 50.0 MG ORAL DAILY Last [facility]: [id number] [facility] 6:09:47 PM [facility] Active 0253244 00078 85045 9 metFORMIN HCl ER (MOD) Oral Tablet Extended Release 24 Hour 1000 MG 1000. 0 MG ORAL BIDDM Last Dose: [id number] on [facility] 2024 6:09:47 PM [facility] Active 432584 36425 48808 7 Metoprolol Succinate ER Oral Tablet Extended Release 24 Hour 50 MG 25.0 MG ORAL Last Dose: [id number] on [facility] 2024 6:09:47 PM [facility] Active 574721 22267 40771 2 Omeprazole Oral Capsule Delayed Release 20 MG 20.0 MG ORAL DAILY Last Dose: [id number] on [facility] 2024 6:09:47 PM [facility] Active 6258794 37520 69731 3 Ozempic (0.25 or 0.5 MG/DOSE) Subcutaneous Solution Pen-injector 2 MG/3ML 0.0 SUBCUT ANEOUS Last Dose: [id number] on [facility] 2024 6:09:47 PM [facility] Active 2153484 68003 56892 1 Potassium Chloride Janelle ER Oral Tablet Extended Release 10 MEQ 10.0 MEQ ORAL BID Last Dose: [id number] [facility] 2024 6:09:48 PM [facility] Active 898297 34007 63408 0 Pramipexole Dihydrochlor ricardo Oral Tablet 0.25 MG 0.25 MG ORAL DAILY Last Dose: [id number] [facility] 2024 6:09:48 PM [facility] Active 807060 83649 29157 1 Rosuvastatin Calcium Oral Tablet 20 MG 20.0 MG ORAL DAILY Last Dose: [id number] on [facility] 2024 6:09:48 PM [facility] Active 125769 53255 45772 1 Spironolacto ne Oral Tablet 50 MG 50.0 MG ORAL DAILY Last Dose: [id number] on [facility] 2024 6:09:48 PM [facility] Active 8453293 92313 96324 0 Symbicort Inhalation Aerosol 80-4.5 MCG/ACT 2.0 PUF INHALA TION BID Last Dose: [id number] on [facility] 2024 6:09:48 PM [facility] Active 935538 12942 19450 1 Tamsulosin HCl Oral Capsule 0.4 MG 0.4 MG ORAL DAILY Last Dose: [id number] [facility] 2024 6:09:48 PM [facility] Active 3687519 86377 11379 2 Toujeo Max SoloStar Subcutaneous Solution Pen-injector 300 UNIT/ML 40.0 UNT SUBCUT ANEOUS BEDTIME Last Dose: 20 units [id number] on 2024 6:09:48 PM UT Active 426008 33362 90894 8 traMADol HCl Oral Tablet 50 MG 1.0 TAB ORAL Q6HPRN Last Dose: [id number] on 2024 6:09:49 PM UT DISCHARGE MEDICATIONS Status RXNORM NDC Medication Dose Route Frequency Dates Dis pense Data Comments Physician Updated By No Discharge Medication Info rmation Available INPATIENT MEDICATIONS Status RXNORM NDC Medication Dose Route Frequency Rat e Quantity Dates Indication Dispense Data Comments Physician Updated By Discont inued 277838 5607 5075 375 leuprolide (ELIGARD) 7.5 MG KIT 7.5 MG SUBCUT ANEOUS ONE TIME ADMINISTRA TION (UNSCHEDUL ED) Start: 2024 2:51:0 0 PM UT End: 2024 2:51:4 9 PM [place] LUCIO LAUREN on 2024 2:51:00 PM UT Discont inued 128157 1718 5075 375 leuprolide (ELIGARD) 7.5 MG KIT 7.5 MG SUBCUT ANEOUS ONE TIME ADMINISTRA TION (UNSCHEDUL ED) Start: 2024 12:00: 00 PM UT End: 2024 5:59:4 4 PM UT LUCIO Shukla [id number] on 2024 5:59:00 PM UT SOCIAL HISTORY SOCIAL HISTORY - Smoking Status SNOMED-CT Social History Element Description Effective Dates Offered Cessation Comment Updated By [id number] Historical Tobacco smoking status Former Smoker [id number] on December 11, 2024 8:29:45 PM UT SOCIAL HISTORY - Gender Sex: Male SOCIAL HISTORY - Status : status i nformation is not available Intention in Next Year: intention information is not available SOCIAL HISTORY - Assessments Code System Description Status Date Value of Assessment Updated By Comment Assessment Information is no t available SOCIAL HISTORY - [place] Affiliation [place] information is not av ailable SOCIAL HISTORY - Legal Sex Legal Sex information is not available SOCIAL HISTORY - Sexual Behavior Sexual Orientation Gender Identity SNOMED-CT Description SNO MED -CT Description Activity Level No of Partners Partner Type UpdatedBy Information is not available SOCIAL HISTORY - Occupation Occupation information is no t available VITAL SIGNS PATIENT VITAL SIGNS This section displays the mo st recent value for each vital sign as of March 26, 2025 11:42:57 AM UTC Loinc Code Vital Sign Activity Date Result Updated By 8310-5 Body temperature March 14 5:10:00 PM UTC 97.1 [degF] 39889-0 Body weight Measured February 252024 6:09:11 PM UTC 97.3 kg (215.0 lb) [id number] on March 14, 2025 6:09:11 PM UTC 8462-4 Diastolic blood pressure March 14, 2025 5:10:00 PM UTC 55.0 mm[Hg] 8867-4 Heart rate March 14 5:10:00 PM UTC 87 /min 04795-1 Oxygen saturation in Arterial blood by Pulse oximetry March 14, 2025 5:10:00 PM UTC 99.0 % 9279-1 Respiratory rate March 14 5:10:00 PM UTC 20 /min 8480-6 Systolic blood pressure March 14, 2025 5:10:00 PM UTC 107.0 mm[Hg] PEDIATRIC GROWTH CHART - VITAL SIGNS This section displays Head C ircumference Percentile, Weight for Length Percentile and BMI Percentile Loinc Code Pediatric Measure Age (Months) Result Updat ed By No Pediatric Growth Chart Pe rcentile Information Available. HEALTH CONCERNS Problems Concern Status Health Concern problem infor mation not available. Smoking Status Status Years Used Consumed packs p er day Health Concern smoking histo ry information not available. Family History Concern Status Health Concern family histor y information not available. ENCOUNTERS ENCOUNTER INFORMATION Reason for Visit Not Specified Admission March 14, 2025 5:04:00 PM [place] C [address] [id number] Discharge March 25, 2025 3:45:00 PM UT C DISCHARGED TO HOME OR SELF CARE ENCOUNTER DIAGNOSES Notes information is not freddy ilable. Code System Diagnosis Onset Date Diagnosis information is not available. 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 [id number] on March 26, 2025 11:42:36 AM [facility] CARE TEAM Care B2B Managed Service Sales Exec Role DEFINED NO Primary Care DESIRAE VALDES Admitting DESIRAE VALDES Primary Attending CARE TEAM CARE gymnastics coach Role on Team Location Telecom Status Start Date End Kale e Updated By NO DEFINED PRIMARY C PCP normal February 08, 2025 5:15:55 PM UT March 25, 2025 3:45:00 PM [facility] [id number] on February 08, 2025 5:15:55 PM [facility] LUCIO FISCHER Attending normal February 08, 2025 5:15:55 PM [facility] March 25, 2025 3:45:00 PM [facility] [id number] on February 08, 2025 5:15:55 PM [facility] LUCIO FISCHER Admitting normal February 08, 2025 5:15:55 PM [facility] March 25, 2025 3:45:00 PM [facility] [id number] on February 08, 2025 5:15:55 PM [facility]
--- OUTSIDE RECORDS SUMMARY | 2025-04-26 08:16 | XMS_ITS | Continuity of Care Document ---
Author Organization [facility] Phone Care Team Providers Care Manager Medical Affairs Name Role Phone DESIRAE VALDES Admitting DESIRAE VALDES Primary Attending NO, DEFINED P Primary Care Unavailable ALLERGIES AND ADVERSE REACTIONS ALLERGIES AND ADVERSE REACTIONS Code System Allergy Substance Adverse Reaction Date Reaction (Severity) Comment Status Reported By Updated By No Known Allergies [id number] on April 12, 2025 6:00:15 PM UTC FAMILY HISTORY RELATION: Father Status: Cause of : Unknown Age at : Unknown SNOMED-CT Diagnosis Age At Onset Information not available RELATION: Mother Status: Cause of : Unknown Age at : Unknown SNOMED-CT Diagnosis Age At Onset Information not available RESULTS Patient: KIERA Beyer Date of : 1950 11 LABORATORY RESULTS ORDER 100: CBC AUTO W DIFF ( LOINC: 60787-5) ORDER DATE: April 11, 2025 8:20:00 PM UTC Specimen Source: EDTA Specimen Type: Blood specime n with EDTA PERFORMING LAB: [address] [id number] Result Comment: Final Result Date: April 12, 2025 7:12:00 PM UTC (TECH: ADB) LOINC TEST FLAG RESULT REFERENCE RANGE UPDA ERIK BY 6690-2 Leukocytes [#/volume] in Blood by Automated count N 6.3 K/ul 4.0 K/ul - 10.5 K/ul April 12, 2025 7:12:00 PM UTC (TECH: ADB) 789-8 Erythrocytes [#/volume] in Blood by Automated count L 3.4 M/mm3 4.7 M/mm3 - 6.1 M/mm3 April 12, 2025 7:12:00 PM UTC (TECH: ADB) 718-7 Hemoglobin [Mass/volume] in Blood L 10.7 gm/dl 13.5 gm/dl - 18.0 gm/dl April 12, 2025 7:12:00 PM UTC (TECH: ADB) 48963-8 Hematocrit [Volume Fraction] of Blood L 32.9 % 42.0 % - 52.0 % April 12, 2025 7:12:00 PM UTC (TECH: ADB) 787-2 Erythrocyte mean corpuscular volume [Entitic volume] by Automated count N 96.5 fl 78 fl - 100 fl April 12, 2025 7:12:00 PM UTC (TECH: ADB) 785-6 Erythrocyte mean corpuscular hemoglobin [Entitic mass] by Automated count H 31.4 pg 27 pg - 31 pg April 12, 2025 7:12:00 PM UTC (TECH: ADB) 786-4 Erythrocyte mean corpuscular hemoglobin concentration [Mass/volume] by Automated count N 32.5 g/dl 32 g/dl - 36 g/dl April 12, 2025 7:12:00 PM UTC (TECH: ADB) 14703-9 Erythrocyte distribution width [Ratio] H 14.3 % 11.5 % - 14.0 % April 12, 2025 7:12:00 PM UTC (TECH: ADB) 777-3 Platelets [#/volume] in Blood by Automated count N 334 K/ul 150 K/ul - 450 K/ul April 12, 2025 7:12:00 PM UTC (TECH: ADB) 57051-9 Platelet mean volume [Entitic volume] in Blood by Automated count H 9.7 fl 6 fl - 9.5 fl April 12, 2025 7:12:00 PM UTC (TECH: ADB) 83576-8 Neutrophils/100 leukocytes in Blood N 57.3 % 43 % - 65 % April 12, 2025 7:12:00 PM UTC (TECH: ADB) 736-9 Lymphocytes/100 leukocytes in Blood by Automated count N 23.0 % 20.5 % - 45.5 % April 12, 2025 7:12:00 PM UTC (TECH: ADB) 5905-5 Monocytes/100 leukocytes in Blood by Automated count H 14.0 % 5.5 % - 11.7 % April 12, 2025 7:12:00 PM UTC (TECH: ADB) 713-8 Eosinophils/100 leukocytes in Blood by Automated count H 4.8 % 0.9 % - 2.9 % April 12, 2025 7:12:00 PM UTC (TECH: ADB) 706-2 Basophils/100 leukocytes in Blood by Automated count N 0.6 % 0.2 % - 1.0 % April 12, 2025 7:12:00 PM UTC (TECH: ADB) 34548-1 Immature granulocytes/100 leukocytes in Blood by Automated count N 0.3 % 0.0 % - 0.8 % April 12, 2025 7:12:00 PM UTC (TECH: ADB) 77921-7 Nucleated cells [#/volume] in Blood N 0.0 % April 12, 2025 7:12:00 PM UTC (TECH: ADB) 93259-2 Neutrophils [#/volume] in Blood N 3.6 K/uL 2.2 K/uL - 4.8 K/uL April 12, 2025 7:12:00 PM UTC (TECH: ADB) 731-0 Lymphocytes [#/volume] in Blood by Automated count N 1.4 CELL/MCL 1.3 CELL/MCL - 2.9 CELL/MCL April 12, 2025 7:12:00 PM UTC (TECH: ADB) 742-7 Monocytes [#/volume] in Blood by Automated count H 0.9 CELL/MCL 0.3 CELL/MCL - 0.8 CELL/MCL April 12, 2025 7:12:00 PM UTC (TECH: ADB) 711-2 Eosinophils [#/volume] in Blood by Automated count H 0.3 CELL/MCL 0 CELL/MCL - 0.2 CELL/MCL April 12, 2025 7:12:00 PM UTC (TECH: ADB) 704-7 Basophils [#/volume] in Blood by Automated count N 0.0 CELL/MCL 0.0 CELL/MCL - 1.0 CELL/MCL April 12, 2025 7:12:00 PM UTC (TECH: ADB) 45068-1 Immature granulocytes [#/volume] in Blood N 0.02 K/ul April 12, 2025 7:12:00 PM UTC (TECH: ADB) 37199-7 Nucleated cells [#/volume] in Blood N 0.00 K/uL April 12, 2025 7:12:00 PM UTC (TECH: ADB) 16485-0 Manual Differential panel - Blood N NO April 12, 2025 7:12:00 PM UTC (TECH: ADB) ORDER 200: COMP METABOLIC PA SUKUMAR (LOINC: 55549-8) ORDER DATE: April 11, 2025 8:20:00 PM UTC Specimen Source: PLASMA Specimen Type: Plasma specim en PERFORMING LAB: [address] [id number] Result Comment: Final Result Date: April 12, 2025 7:57:00 PM UTC (TECH: TGD) LOINC TEST FLAG RESULT REFERENCE RANGE UPDA ERIK BY 2951-2 Sodium [Moles/volume ] in Serum or Plasma N 139 mmol/L 136 mmol/L - 145 mmol/L April 12, 2025 7:39:00 PM UTC (TECH: RMC) 2823-3 Potassium [Moles/volume] in Serum or Plasma N 4.4 mmol/L 3.6 mmol/L - 5.0 mmol/L April 12, 2025 7:39:00 PM UTC (TECH: RMC) 2075-0 Chloride [Moles/volu me] in Serum or Plasma N 103 mmol/L 98 mmol/L - 107 mmol/L April 12, 2025 7:39:00 PM UTC (TECH: RMC) 2027-9 Carbon dioxide, tota l [Moles/volume] in Serum or Plasma N 24.9 mmol/L 21.0 mmol/L - 32.0 mmol/L April 12, 2025 7:39:00 PM UTC (TECH: RMC) 54178-1 Anion gap in Blood N 15.5 O ct2024 7:39:00 PM UTC (TECH: RMC) 2345-7 Glucose [Mass/volume ] in Serum or Plasma N 109 mg/dl 70 mg/dl - 120 mg/dl April 12, 2025 7:39:00 PM UTC (TECH: RMC) 6299-2 Urea nitrogen [Mass/volume] in Blood H 25 mg/dL 7 mg/dL - 18 mg/dL April 12, 2025 7:39:00 PM [place] (TECH: Likeability) 41076-0 Creatinine [Moles/volume] in Blood N 1.1 mg/dL 0.6 mg/dL - 1.3 mg/dL April 12, 2025 7:39:00 PM [facility] (TECH: Likeability) 91955-8 Glomerular filtratio n rate/1.73 sq M.predicted by Creatinine-based formula (MDRD) N 71 mlpermin 60 mlpermin April 12, 2025 7:39:00 PM [facility] (TECH: Likeability) 29675-4 Osmolality of Serum or Plasma by calculated by sum of electrolytes N 294 mosm/kg 275 mosm/kg - 301 mosm/kg April 12, 2025 7:39:00 PM [facility] (TECH: [employer]) 2885-2 Protein [Mass/volume ] in Serum or Plasma N 7.5 g/dl 6.4 g/dl - 8.2 g/dl April 12, 2025 7:57:00 PM [facility] (TECH: [employer]) 1751-7 Albumin [Mass/volume ] in Serum or Plasma L 3.3 g/dl 3.4 g/dl - 5.0 g/dl April 12, 2025 7:39:00 PM [place] (TECH: [employer]) 2336-6 Globulin [Mass/volum e] in Serum N 4.2 April 12, 2025 7:57:00 PM [facility] (TECH: TGD) 1759-0 Albumin/Globulin [Ma ss Ratio] in Serum or Plasma N 0.8 0.7 - 2 April 12, 2025 7:57:00 PM [facility] (TECH: TGD) 14114-2 Calcium [Mass/volume ] in Serum or Plasma N 10.0 mg/dl 8.5 mg/dl - 10.5 mg/dl April 12, 2025 7:39:00 PM [facility] (TECH: [employer]) 1975-2 Bilirubin.total [Mass/volume] in Serum or Plasma N 0.40 mg/dL 0.10 mg/dL - 1.00 mg/dL April 12, 2025 7:57:00 PM [facility] (TECH: TGD) 1920-8 Aspartate aminotransferase [Enzymatic activity/volume] in Serum or Plasma N 15 U/L 0 U/L - 37 U/L April 12, 2025 7:57:00 PM UTC (TECH: TGD) 1742-6 Alanine aminotransferase [Enzymatic activity/volume] in Serum or Plasma N 20 U/L 0 U/L - 65 U/L April 12, 2025 7:57:00 PM UTC (TECH: TGD) 6768-6 Alkaline phosphatase [Enzymatic activity/volume] in Serum or Plasma N 71 U/L 46 U/L - 116 U/L April 12, 2025 7:57:00 PM UTC (TECH: TGD) ORDER 300: PROSTATE SPECIFIC AG PSA (LOINC: 2857-1) ORDER DATE: April 11, 2025 8:20:00 PM UTC Specimen Source: PLASMA Specimen Type: Plasma specim en PERFORMING LAB: [address] [id number] Result Comment: Final Result Date: April 12, 2025 8:59:00 PM UTC (TECH: TGD) LOINC TEST FLAG RESULT REFERENCE RANGE UPDA ERIK BY 2857-1 Prostate specific Ag [Mass/volume] in Serum or Plasma N <0.13 ng/mL 0 ng/mL - 4.0 ng/mL April 12, 2025 8:59:00 PM UTC (TECH: TGD) ORDER 400: TESTOSTERONE FREE AND TOTAL (LOINC: 2986-8) ORDER DATE: April 11, 2025 8:20:00 PM UTC Specimen Source: SERUM Specimen Type: Serum specime n PERFORMING LAB: [address] [id number] Result Comment: April 16, 2025 7:10:00 PM UTC Performed at: - [facility] Result Comment: April 16, 2025 7:10:00 PM UTC [address] [place], [place] [id number] Result Comment: April 16, 2025 7:10:00 PM UTC Superintendent Refuse Disposal: Emmett Serrano PhD, Phone: [phone] Result Comment: April 16, 2025 7:10:00 PM UTC Performed at: - [facility] Result Comment: April 16, 2025 7:10:00 PM UTC [address] [place], [place] [id number] Result Comment: April 16, 2025 7:10:00 PM UTC Superintendent Refuse Disposal: Kal Caro MD, Phone: [phone] Result Comment: April 16, 2025 7:10:00 PM [facility] Final Result Date: April 12, 2025 5:15:00 PM [facility] (TECH: LAB) LOINC TEST FLAG RESULT REFERENCE RANGE UPDA ERIK BY 2986-8 Testosterone [Mass/v olume] in Serum or Plasma L 23 ng/dL 264-916 April 12 5:15:00 PM [facility] (TECH: LAB) 2991-8 Testosterone Free [Mass/volume] in Serum or Plasma L 4.3 pg/mL 6.6-18.1 April 12, 2025 5:15:00 PM [facility] (TECH: LAB) LABORATORY NARRATIVE RESULTS Information is not available RADIOLOGY RESULTS Information is not available PATHOLOGY NARRATIVE RESULTS Information is not available MICROBIOLOGY RESULTS No Micro Labs/Results Exist for Patient BLOOD ADMIN RESULTS Information is not available MEDICATIONS HOME MEDICATIONS Status RXNORM NDC Medication Dose Route Frequency Dates Comments Reported By Updated By Active 02851 87466 1 Aspirin 81 Oral Tablet Delayed Release 81 MG 1.0 TAB ORAL DAILY Last Dose: [id number] on April 12, 2025 6:03:34 PM [facility] Active 975089 71479 38914 0 Cefdinir Oral Capsule 300 MG 1.0 TAB ORAL BID Last Dose: [id number] on April 12, 2025 6:03:35 PM [facility] Active 5543987 57040 49678 0 Farxiga Oral Tablet 5 MG 1.0 TAB ORAL DAILY Last Dose: [id number] on April 12, 2025 6:03:35 PM [facility] Active 6554539 02132 78235 9 Fluticasone Propionate Nasal Suspension 50 MCG/ACT 1.0 SPR NASAL DAILY Last Dose: [id number] on April 12, 2025 6:03:35 PM [facility] Active 456859 96354 91374 5 Furosemide Oral Tablet 40 MG 40.0 MG ORAL DAILY Last Dose: [id number] on April 12, 2025 6:03:35 PM [facility] Active 542501 78141 85193 0 Losartan Potassium Oral Tablet 50 MG 50.0 MG ORAL DAILY Last Dose: [id number] on April 12, 2025 6:03:35 PM [facility] Active 6688787 60091 61284 9 metFORMIN HCl ER (MOD) Oral Tablet Extended Release 24 Hour 1000 MG 1000. 0 MG ORAL BIDDM Last Dose: [id number] on April 12, 2025 6:03:35 PM [facility] Active 914401 49608 81975 7 Metoprolol Succinate ER Oral Tablet Extended Release 24 Hour 50 MG 25.0 MG ORAL Last Dose: [id number] on April 12, 2025 6:03:35 PM [facility] Active 762629 36715 40958 2 Omeprazole Oral Capsule Delayed Release 20 MG 20.0 MG ORAL DAILY Last Dose: [id number] on April 12, 2025 6:03:35 PM [facility] Active 0693203 01387 51243 3 Ozempic (0.25 or 0.5 MG/DOSE) Subcutaneous Solution Pen-injector 2 MG/3ML 0.0 SUBCUT ANEOUS Last Dose: [id number] on April 12, 2025 6:03:36 PM [facility] Active 6554116 69229 26899 1 Potassium Chloride Janelle ER Oral Tablet Extended Release 10 MEQ 10.0 MEQ ORAL BID Last Dose: [id number] on April 12, 2025 6:03:36 PM [facility] Active 030748 91070 63853 0 Pramipexole Dihydrochlor ricardo Oral Tablet 0.25 MG 0.25 MG ORAL DAILY Last Dose: [id number] on April 12, 2025 6:03:36 PM [facility] Active 078619 63738 14367 1 Rosuvastatin Calcium Oral Tablet 20 MG 20.0 MG ORAL DAILY Last Dose: on April 12, 2025 6:03:36 PM [facility] Active 113753 16371 67403 1 Spironolacto ne Oral Tablet 50 MG 50.0 MG ORAL DAILY Last Dose: [id number] on April 12, 2025 6:03:36 PM [facility] Active 7658150 21508 78071 0 Symbicort Inhalation Aerosol 80-4.5 MCG/ACT 2.0 PUF INHALA TION BID Last Dose: [id number] on April 12, 2025 6:03:36 PM [facility] Active 208087 47893 31591 1 Tamsulosin HCl Oral Capsule 0.4 MG 0.4 MG ORAL DAILY Last Dose: [id number] on April 12, 2025 6:03:36 PM [facility] Active 9389466 59684 52211 2 Toujeo Max SoloStar Subcutaneous Solution Pen-injector 300 UNIT/ML 40.0 UNT SUBCUT ANEOUS BEDTIME Last Dose: 20 units [id number] on April 12, 2025 6:03:37 PM [place] Active 316450 35643 20647 8 traMADol HCl Oral Tablet 50 MG 1.0 TAB ORAL Q6HPRN Last Dose: [id number] on April 12, 2025 6:03:37 PM [place] DISCHARGE MEDICATIONS Status RXNORM NDC Medication Dose Route Frequency Dates Dis pense Data Comments Physician Updated By No Discharge Medication Info rmation Available INPATIENT MEDICATIONS Status RXNORM NDC Medication Dose Route Frequency Rat e Quantity Dates Indication Dispense Data Comments Physician Updated By Discont inued [id number] 4470 5075 375 leuprolide (ELIGARD) 7.5 MG KIT 7.5 MG SUBCUT ANEOUS ONE TIME ADMINISTRA TION (UNSCHEDUL ED) Start: [facility] r 2024 1:30:0 0 PM [place] End: [facility] r 2024 1:30:2 6 PM [place] LUCIO LAUREN on April 06, 2025 1:30:00 PM UT Discont [facility] [id number] 5063 5075 375 leuprolide (ELIGARD) 7.5 MG KIT 7.5 MG SUBCUT ANEOUS ONE TIME ADMINISTRA TION (UNSCHEDUL ED) Start: [facility] r 2024 12:00: 00 PM UT End: [facility] 2024 5:37:0 9 PM UTC LUCIO Shukla [id number] on April 12, 2025 5:37:00 PM UT SOCIAL HISTORY SOCIAL HISTORY - Smoking Status SNOMED-CT Social History Element Description Effective Dates Offered Cessation Comment Updated By [id number] Historical Tobacco smoking status Former Smoker [id number] on December 11, 2024 8:29:45 PM UT SOCIAL HISTORY - Gender Sex: Male SOCIAL HISTORY - Status : status i nformation is not available Intention in Next Year: intention information is not available SOCIAL HISTORY - Assessments Code System Description Status Date Value of Assessment Updated By Comment Assessment Information is no t available SOCIAL HISTORY - [place] Affiliation [place] information is not av ailable SOCIAL HISTORY [...] value for each vital sign as of April 26, 2025 1:16:41 PM [place] Loinc Code Vital Sign Activity Date Result Updated By 8310-5 Body temperature April 12 5:30:00 PM UTC 97.3 [degF] 8462-4 Diastolic blood pressure April 12, 2025 5:30:00 PM UTC 59.0 mm[Hg] 8867-4 Heart rate April 12, 2025 5:30:00 PM UTC 82 /min 39717-6 Oxygen saturation in Arterial blood by Pulse oximetry April 12, 2025 5:30:00 PM UTC 96.0 % 9279-1 Respiratory rate April 12 5:30:00 PM UTC 20 /min 8480-6 Systolic blood pressure April 12, 2025 5:30:00 PM UTC 107.0 mm[Hg] PEDIATRIC GROWTH CHART [...] INFORMATION Reason for Visit Not Specified Admission April 12, 2025 4:58:[address] [address] Discharge April 25, 2025 8:24:00 PM [facility] DISCHARGED TO HOME OR SELF CARE ENCOUNTER DIAGNOSES Notes information is not freddy ilable. Code System Diagnosis Onset Date Diagnosis information is not available. 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 [id number] on April 26, 2025 1:16:23 PM [facility] CARE TEAM Care Manager Medical Affairs Role DESIRAE VALDES Admitting DESIRAE VALDES Primary Attending DEFINED NO Primary Care CARE TEAM CARE information specialist Role on Team Location Telecom Status Start Date End Kale e Updated By NO DEFINED PRIMARY C PCP normal March 14, 2025 12:54:44 PM [facility] April 25, 2025 8:24:00 PM [facility] [id number] on March 14, 2025 12:54:44 PM [facility] LUCIO FISCHER Attending normal March 14, 2025 12:54:44 PM [facility] April 25, 2025 8:24:00 PM [facility] [id number] on March 14, 2025 12:54:44 PM [facility] LUCOI FISCHER Admitting normal March 14, 2025 12:54:44 PM [facility] April 25, 2025 8:24:00 PM [facility] [id number] on March 14, 2025 12:54:44 PM [facility]
--- OUTSIDE RECORDS SUMMARY | 2025-05-18 03:39 | XMS_ITS | Encounter Summary ---
Author Organization [place] [address] Care Team Providers Care Bundle Person Name Role Phone Rajendra Parker Primary Care Provider [phone] Encounter Details Date Type Department Care Team (Late st Contact Info) Description 08/31/2017 Orders Only SEP Gastro [facility] [address] [facility] [address] [place] [address] StuartJuancho sharp MD PHD [address] [place] [address] Social History Tobacco Use Types Packs/Day Years [...] AM EST) 08/31/2017 9:40 AM EST Impressions [facility] - 08/31/2017 11:32 AM EST [...] PHD GI PROCEDURE ORDERABLES Fin al Result [facility] [address] [place] [address] documented in this encounter Visit Diagnoses Not on filedocumented in this encounter Care Teams Bundle Person Relationship Specialty Start Date End Date Rajendra Parker [address] [place] [address] PCP - General 03/03/10 documented as of this encounter
--- OUTSIDE RECORDS SUMMARY | 2025-05-18 03:40 | XMS_ITS | Clinical Summary ---
Author Organization [facility] Address [address] [facility] [address] [facility] [place] [address] Phone Care Team Providers Care Retail Store Clerk Name Role Phone Rajendra Parker Primary [...] - SCIP performed by ANGELA CAMPBELL at [facility] MAIN OR VASCULAR SURGERY Abdominal aortic aneurysm [...] 09/25/2019 09/24/2014, 09/02/2010 COVID-19 Vaccine (1 - 2024-2 6 season) 2025 Influenza Vaccine (#1) 2025 Hepatitis [...] PM EDT) 09/24/2014 2:00 PM EDT Impressions [facility] - 09/24/2014 3:04 PM EDT Internal hemorrhoids. Polyp (3 mm) in the ascending colon. (Polypectomy). Plan: Await pathology results Colonoscopy in 3-5 years depending on pathology results. This section is an excerpt of the full report. 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
--- OUTSIDE RECORDS SUMMARY | 2025-05-18 03:40 | XMS_ITS | Clinical Summary ---
Author Organization [facility] Address [address] [facility] [address] [place] [address] Care Team Providers Care Market Research Lead Name Role Phone Unavailable Primary Care Provider [...] SDOH Screening 06/27/2024 COVID-19 Vaccine (1 - 2024-2 6 season) 2025 Influenza Vaccine (#1) 2025 HIB [...]
--- OUTSIDE RECORDS SUMMARY | 2025-05-18 03:40 | XMS_ITS | Encounter Summary ---
Author Organization 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 09/01/2017 11:29 AM EST [facility] FINAL DIAGNOSIS Gastroesophage al Junction Biopsy: - Hassan's Esophagus, Negative For Dysplasia. 09/01/2017 11:29 AM EST [facility] at 1129 EST GROSS DESCRIPTION Received in formalin and labeled with the patient's name and designated GE junction biopsy are six portions of pearson soft tissue, 0.2 to 0.4 cm in greatest dimension. Entirely submitted in one cassette./CDM 09/01/2017 11:29 AM EST [email or web address] MICROSCOPIC DESCRIPTION Microscopic examination is performed and the findings corroborate the diagnosis. 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
--- OUTSIDE RECORDS SUMMARY | 2025-05-18 03:40 | XMS_ITS | Encounter Summary ---
Author Organization [place] [address] Care Team Providers Care Business Project Analyst Name Role Phone Rajendra Parker Primary Care Provider Encounter Details Date Type Department Care Team (Late st Contact Info) Description 09/24/2014 Orders Only SEP Gastro [facility] [address] [facility] [address] [place] [address] [place] [address] [place] [address] Social History Tobacco Use Types [...] PM EDT) 09/24/2014 1:45 PM EDT Impressions [facility] - 09/24/2014 2:07 PM EDT Normal stomach. Normal duodenum. Mucosa suggestive of Hassan's esophagus (Biopsy). Esophageal hiatal hernia. Plan: Acid Reflux diet and Education Await pathology results Continue current medication for acid suppression 30 minutes before a meal. Colonoscopy today. This section is an excerpt of the full report. us Vinnie Soria MD GI PROCEDURE ORDERABLES Kasandra velazquez Result Performing Organization Address City/State/[facility] Co de Phone Number [facility] [address] [place] [address] documented in this encounter Visit Diagnoses Not on filedocumented in this encounter Care Teams Business Project Analyst Relationship Specialty Start Date End Date Rajendra Parker [address] [place] [address] PCP - General 03/03/10 documented as of this encounter
--- OUTSIDE RECORDS SUMMARY | 2025-05-18 03:40 | XMS_ITS | Clinical Summary ---
Author Organization [facility] Address [address] 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 10/12/2022 Essential hypertension 10/12/2022 HLD (hyperlipidemia) 10/12/2022 Edema 10/12/2022 AAA (abdominal aortic aneurysm) 10/12/2022 Diastolic heart failure 10/12/2022 KALYN (obstructive sleep apnea) 10/12/2022 Trimalleolar fracture 04/28/2015 Resolved Problems Problem Noted Date Diagnosed Date Resolved Date Shortness of breath 10/12/2022 03/17/20 25 Fatigue 10/12/2022 03/17/2025 Left-sided chest pain 10/12/20222024 Cardiac mass 10/12/2022 11/16/2022 Social History Tobacco [...] drink first t paty in the morning ([employer]) to steady your nerves or to get [...] Screening 1950 [facility]-Medicare Annual Wellness (AWV) 1950 [facility]-/Child/Adol SDOH Screenings 1950 [facility]- SDOH Screenings 1970 [...] - Risk 60-74 years 1-dose series) 2012 [id number] Vaccine (3 - season) 2025 08/26/2021, 09/03/2020 [...] this topic Medical Devices Implanted Type Area Dramatic Art Teacher Device Identifier Shelf Expiration Date Model / Serial / Lot Plug Amplatzer Vasc 5mm - [id number] Implanted:Qty: 1 on 11/15/2022 by Orlando Pedro MD at [id number] 03/26/2027 [id number] Insurance [facility] MEDICAID [place] MEDICARE Care Teams Patrol Supervisor Relationship Specialty Start Date End Date Mckenna Hernández APRN [address] [place] [address] PCP - General 10/13/22
--- OUTSIDE RECORDS SUMMARY | 2025-05-18 03:40 | XMS_ITS | Encounter Summary ---
Author Organization [facility] [place] [address] Care Team Providers Care Scrap Piler Name Role Phone Rajendra Parker Primary Care Provider Encounter Details Date Type Department Care Team (Late st Contact Info) Description 09/24/2014 Orders Only SEP Gastro [facility] [address] [facility] [address] [place] [address] [place] [address] [place] [address] Social History Tobacco Use Types [...] PM EDT) 09/24/2014 2:00 PM EDT Impressions [facility] - 09/24/2014 3:04 PM EDT Internal hemorrhoids. Polyp (3 mm) in the ascending colon. (Polypectomy). Plan: Await pathology results Colonoscopy in 3-5 years depending on pathology results. This section is an excerpt of the full report. us Vinnie Soria MD GI PROCEDURE ORDERABLES Edit ed Result - Final Performing Organization Address City/State/[facility] Co de Phone Number [facility] [address] [place] [address] documented in this encounter Visit Diagnoses Not on filedocumented in this encounter Care Teams Scrap Piler Relationship Specialty Start Date End Date Rajendra Parker [address] [place] [address] PCP - General 03/03/10 documented as of this encounter
--- OUTSIDE RECORDS SUMMARY | 2025-05-18 03:40 | XMS_ITS | Encounter Summary ---
Author Organization [facility] [place] [address] Care Team Providers Care Machinist Linotype Name Role Phone Rajendra Parker Primary Care Provider Encounter Details Date Type Department Care Team (Late st Contact Info) Description 09/08/2011 Orders Only SEP Gastro [facility] [address] [facility] [address] [place] [address] [place] [address] [place] [address] Social History Tobacco Use Types [...] Normal mucosa in the whole duodenum Narrative [facility] - 09/08/2011 9:40 AM EDT Performing Provider: Vinnie Soria MD Referring Provider: Arnold Riggins MD us Vinnie Soria MD GI PROCEDURE ORDERABLES Kasandra l Result Performing Organization Address City/State/[facility] Co de Phone Number [facility] [address] [place], [place] [id number] documented in this encounter Visit Diagnoses Not on filedocumented in this encounter Care Teams Machinist Linotype Relationship Specialty Start Date End Date Rajendra Parker [address] [place] [address] PCP - General 03/03/10 documented as of this encounter
--- NOTE | 2025-05-18 03:42 | XR_ITS ---
PROCEDURE INFORMATION: Exam: XR Chest Exam date and time: 05/18/2025 4:13 AM Age: 74 years old Clinical indication: Injury or trauma; Fall; Blunt trauma (contusions or hematomas) TECHNIQUE: Imaging protocol: Radiologic exam of the chest. Views: 1 view. COMPARISON: CR XR CHEST PORTABLE 11/01/2024 5:37 PM FINDINGS: Lungs: Unremarkable. No consolidation. Pleural spaces: Unremarkable. No pleural effusion. No pneumothorax. Heart/Mediastinum: Unremarkable. No cardiomegaly. Bones/joints: Patient is post sternotomy. IMPRESSION: No acute cardiopulmonary disease.
--- NOTE | 2025-05-18 03:42 | XR_ITS ---
PROCEDURE INFORMATION: Exam: XR Pelvis Exam date and time: 05/18/2025 4:13 AM Age: 74 years old Clinical indication: Injury or trauma; Fall; Blunt trauma (contusions or hematomas); Bilateral; Pelvic region TECHNIQUE: Imaging protocol: Radiologic exam of the pelvis. Views: 1 or 2 view. COMPARISON: CT ABDOMEN PELVIS WO CON 08/16/2024 7:22 PM FINDINGS: Bones/joints: No acute fracture. Soft tissues: Vascular calcification is noted.. IMPRESSION: No acute findings.
--- NOTE | 2025-05-18 03:43 | CT_ITS ---
PROCEDURE INFORMATION: Exam: CT Head Without Contrast Exam date and time: 05/18/2025 3:59 AM Age: 74 years old Clinical indication: Injury or trauma; Fall; Blunt trauma (contusions or hematomas); Additional info: Trauma, critical injury suspected TECHNIQUE: Imaging protocol: Computed tomography of the head without contrast. Radiation optimization: All CT scans at this facility use at least one of these dose optimization techniques: automated exposure control; mA and/or kV adjustment per patient size (includes targeted exams where dose is matched to clinical indication); or iterative reconstruction. COMPARISON: CT HEAD/BRAIN WO CON 04/05/2019 10:22 PM FINDINGS: Brain: There is diffuse prominence of the cerebral sulci, cisterns, and ventricles consistent with atrophy. No intra or extra-axial fluid collections are noted. No mass or mass effect is seen. Periventricular white matter hypoattenuation is seen consistent with chronic small vessel disease. Cerebral ventricles: No ventriculomegaly. Paranasal sinuses: Visualized sinuses are unremarkable. No fluid levels. Mastoid air cells: Visualized mastoid air cells are well aerated. Bones: Unremarkable. No acute fracture. Soft tissues: Unremarkable. IMPRESSION: No acute process noted.
--- NOTE | 2025-05-18 03:43 | CT_ITS ---
PROCEDURE INFORMATION: Exam: CT Cervical Spine Without Contrast Exam date and time: 05/18/2025 4:04 AM Age: 74 years old Clinical indication: Injury or trauma; Fall; Blunt trauma; Additional info: Fall, ttp through c, t, l-spine TECHNIQUE: Imaging protocol: Computed tomography of the cervical spine without contrast. Radiation optimization: All CT scans at this facility use at least one of these dose optimization techniques: automated exposure control; mA and/or kV adjustment per patient size (includes targeted exams where dose is matched to clinical indication); or iterative reconstruction. COMPARISON: CT CERVICAL SPINE WO CON 04/05/2019 10:25 PM FINDINGS: Bones/joints: There is motion artifact most prominently at the level of C1-C2. This gives a artifact that is most prominent at the base of the dens. Diffuse cervical spondylosis is noted. Hypertrophic changes of the facet present bilaterally. Discs/Spinal canal/Neural foramina: Narrowing of multiple intervertebral disc spaces are seen. Moderate neural foraminal narrowing is also noted. Lungs: Lung apices are normal. Vasculature: No obvious traumatic injury is seen. Carotid atherosclerosis is present. Soft tissues: Unremarkable. IMPRESSION: 1. No definite evidence of acute traumatic injury. There is motion related artifact in the upper C-spine which is seen prominently at the base of the dens, consider repeat scan to exclude fracture in this location. However on the concurrently performed head CT no fracture seen in this location. 2. Diffuse cervical spondylosis. 3. Carotid atherosclerosis is present.
--- NOTE | 2025-05-18 03:43 | CT_ITS ---
PROCEDURE INFORMATION: Exam: CT Maxillofacial Without Contrast Exam date and time: 05/18/2025 4:01 AM Age: 74 years old Clinical indication: Injury or trauma; Fall; Blunt trauma (contusions or hematomas); Other: Face, left cheek; Additional info: Fall, ttp left cheek TECHNIQUE: Imaging protocol: Computed tomography of the face without contrast. Radiation optimization: All CT scans at this facility use at least one of these dose optimization techniques: automated exposure control; mA and/or kV adjustment per patient size (includes targeted exams where dose is matched to clinical indication); or iterative reconstruction. COMPARISON: CT SINUS WO CON 12/11/2024 2:57 PM FINDINGS: Paranasal sinuses: No air-fluid levels. Orbital cavities: Orbits are normal. Globes are unremarkable. Bones: No acute fracture. Soft tissues: Unremarkable. IMPRESSION: No acute findings.
--- NOTE | 2025-05-18 03:43 | CT_ITS ---
PROCEDURE INFORMATION: Exam: CT Lumbar Spine Without Contrast Exam date and time: 05/18/2025 4:09 AM Age: 74 years old Clinical indication: Injury or trauma; Fall; Blunt trauma (contusions or hematomas); Additional info: Fall, ttp through c, t, l-spine TECHNIQUE: Imaging protocol: Computed tomography of the lumbar spine without contrast. Radiation optimization: All CT scans at this facility use at least one of these dose optimization techniques: automated exposure control; mA and/or kV adjustment per patient size (includes targeted exams where dose is matched to clinical indication); or iterative reconstruction. COMPARISON: 1. CT THORACIC SPINE WO CON 05/18/2025 4:[address] ABDOMEN PELVIS WO CON 08/16/2024 7:22 PM FINDINGS: Bones/joints: There is no evidence for acute lumbar fracture. Alignment is overall within normal limits with a 6 degree levoconvex curvature centered at L5. Spondylosis is noted disc bulging and facet arthropathy. There is no severe canal narrowing. Uncovertebral spurring and facet arthropathy causes neural foraminal stenosis at L5-S1. Urinary bladder: A [place] catheter is incompletely imaged in the urinary bladder. Vasculature: Incidental note is made of an incompletely imaged infrarenal abdominal aortic aneurysm which has been treated endovascularly with an aorto bi-iliac stent graft. Please correlate clinically and with dedicated follow-up imaging, the configuration is not significantly different when compared with prior CT of the abdomen and pelvis. Soft tissues: Unremarkable. IMPRESSION: There is no evidence for acute lumbar fracture. Spondylosis as noted.
--- NOTE | 2025-05-18 03:43 | ECG_ITS ---
APPROVED REPORT Exam: Resting ECG HR:86 bpm ECG Measurements Heart Rate 86 AXES DE 167 P 26 QRSd 90 QRS 45 QT 355 T 72 QTc 398 Conclusion SINUS RHYTHM NORMAL ECG Electronically signed by : MALI ANTUNEZ, 05/18/2025 07:24:51
--- NOTE | 2025-05-18 03:43 | CT_ITS ---
PROCEDURE INFORMATION: Exam: CT Thoracic Spine Without Contrast Exam date and time: 05/18/2025 4:06 AM Age: 74 years old Clinical indication: Injury or trauma; Additional info: Fall, ttp through c, t, l-spine TECHNIQUE: Imaging protocol: Computed tomography of the thoracic spine without contrast. Radiation optimization: All CT scans at this facility use at least one of these dose optimization techniques: automated exposure control; mA and/or kV adjustment per patient size (includes targeted exams where dose is matched to clinical indication); or iterative reconstruction. COMPARISON: CT THORACIC SPINE WO CON 05/18/2025 4:06 AM; CT of the abdomen and pelvis 08/16/2024. FINDINGS: Bones/joints: There is slight wedge deformity of T and loss of height of T7, T9 and T10, age indeterminate. There is a 10 degree dextroconvex curvature centered at T7. Mineralization is within normal limits. There are notable flowing anterior and lateral osteophytes on the right. There is significant thoracic canal or foraminal narrowing. Soft tissues: Incidental note is made of a suprarenal abdominal aortic aneurysm measuring 4.5 cm in maximum dimension, unchanged from prior imaging.. Pleural spaces: Calcified granulomas are noted in the right costophrenic sulcus. Emphysematous change and blebs are noted in the visualized portions of the lungs. IMPRESSION: No evidence for acute fracture in the thoracic spine.
--- NOTE | 2025-05-18 03:44 | HMH.EDGENADL ---
Discharge Plan Disposition Patient Disposition: Home, Self-Care Condition: Good Prescriptions Prescriptions: No Action omeprazole 20 mg capsule,delayed release(DR/EC) 20 mg PO BID tamsulosin [Flomax] 0.4 mg capsule 0.4 mg PO DAILY aspirin [Adult Low Dose Aspirin] 81 mg tablet,delayed release (DR/EC) 81 mg PO DAILY Symbicort 80-4.5 mcg/actuation HFA aerosol inhaler 2 puff INHALATION BID metoprolol succinate 25 mg tablet extended release 24 hr PO Patient Comments: TAKE 1 TABLET BY MOUTH ONCE DAILYT metformin 1,000 mg tablet 1,000 mg PO BIDWMEAL Patient Comments: TAKE 1 TABLET BY MOUTH TWICE DAILY WITH MEALS Rx Instructions: With meals (DME) pen needle, diabetic 31 gauge x 3/16 needle See Rx Instructions .ROUTE .MEDSUPPLY Qty: 1200 Patient Comments: USE 1 NEEDLE DAILY DIRECTED Rx Instructions: As directed levocetirizine 5 mg tablet See Rx Instructions .ROUTE .COMPLEX Qty: 90 4RF Dose Instruction: TAKE 1 TABLET BY MOUTH DAILY *NEW PRESCRIPTION REQUEST* Rx Instructions: TAKE 1 TABLET BY MOUTH DAILY *NEW PRESCRIPTION REQUEST* furosemide [Lasix] 40 mg tablet 40 mg PO DAILY Qty: 90 3RF fluticasone propionate [Flonase Allergy Relief] 50 mcg/actuation spray,suspension 2 spray intranasal BID Qty: 16 6RF Rx Instructions: administer into each nostril pramipexole 0.25 mg tablet See Rx Instructions .ROUTE .COMPLEX Qty: 90 11RF Dose Instruction: TAKE 1 TABLET BY MOUTH EVERY NIGHT AT BEDTIME FOR RESTLESS LEG SYNDROME *NEW PRESCRIPTION REQUEST* Rx Instructions: TAKE 1 TABLET BY MOUTH EVERY NIGHT AT BEDTIME FOR RESTLESS LEG SYNDROME *NEW PRESCRIPTION REQUEST* spironolactone 50 mg tablet 50 mg PO DAILY Rx Instructions: TAKE 1 TABLET BY MOUTH DAILY rosuvastatin [Crestor] 20 mg tablet 20 mg PO DAILY potassium chloride 10 mEq capsule, extended release 10 meq PO BID dapagliflozin propanediol [Farxiga] 5 mg tablet 5 mg PO DAILY Patient Comments: TAKE 1 TABLET BY MOUTH DAILY insulin glargine U-300 conc [Toujeo Max U-300 SoloStar] 300 unit/mL (3 mL) insulin pen 40 unit SQ HS Patient Comments: ADMINISTER 40 UNITS UNDER THE SKIN AT BEDTIME Ozempic 0.25 mg or 0.5 mg (2 mg/3 mL) pen injector 0.5 mg SQ WEEKLY Patient Comments: INJECT 0.5 MG UNDER THE SKIN ONCE WEEKLY ON THE SAME DAY EACH WEEK losartan 25 mg tablet 50 mg PO DAILY Patient Comments: TAKE 1 TABLET BY MOUTH DAILY cefdinir 300 mg capsule 300 mg PO BID 10 Days Qty: 20 0RF Referrals Follow up/Referrals: Va Short APRN [Primary Care Provider, Medical] - See instructions Activity Restrictions/Add. Instructions Additional Instructions/Restrictions: You were evaluated in the ER and are believed to be appropriate for discharge at this time. Make an appointment with your primary care doctor for reevaluation in 2 to 3 days. Return to the ER with any new, worsening, or otherwise concerning symptoms. Clinical Impressions Clinical Impression: Fall, Facial bruising Print Language Print Language: Italian Discharge ED Provider: Bhargav Maza General Adult HPI General Chief complaint: Fall Stated complaint: Fall Time Seen by Provider: 05/18/25 03:38 History of Present Illness HPI narrative: 74-year-old male on aspirin but no other blood thinners with a history of prostate cancer status post radiation who currently has an indwelling Guadarrama catheter as they are transitioning from suprapubic back to the patient being able to urinate independently presents to the ER after fall. He states he got up to use the restroom and empty his leg bag but got tripped up over his legs and fell. He struck the left cheek on the back of the commode but denies losing consciousness. Reportedly his attempted to help him up but they were unable to get him up off the floor so 911 was called. Patient is complaining of pain in the left cheek as well as pain throughout the back. No numbness, tingling, or weakness. Denies chest pain or difficulty breathing, denies abdominal pain, nausea, vomiting. Patient has a history of hypertension, hyperlipidemia, CABG x 5, abdominal aortic aneurysm status postrepair. Related Data Home Medications ?Medication ?Instructions ?Recorded ?Confirmed aspirin 81 mg tablet,delayed 81 mg PO DAILY 04/12/19 03/13/25 release (Adult Low Dose Aspirin) budesonide-formoterol HFA 80 2 puff inhalation BID 04/12/19 03/13/25 mcg-4.5 mcg/actuation aerosol inhaler (Symbicort) omeprazole 20 mg capsule,delayed 20 mg PO BID 04/12/19 03/13/25 release tamsulosin 0.4 mg capsule (Flomax) 0.4 mg PO DAILY 04/12/19 03/13/25 metformin 1,000 mg tablet 1,000 mg PO BIDWMEAL 07/15/21 03/13/25 rosuvastatin 20 mg tablet (Crestor) 20 mg PO DAILY 09/20/22 03/13/25 spironolactone 50 mg tablet 50 mg PO DAILY 09/20/22 03/13/25 dapagliflozin propanediol 5 mg 5 mg PO DAILY 08/16/24 03/13/25 tablet (Farxiga) insulin glargine U-300 conc 300 40 unit SQ HS 08/16/24 03/13/25 unit/mL (3 mL) subcutaneous pen (Toujeo Max U-300 SoloStar) potassium chloride 10 mEq 10 meq PO BID 08/16/24 03/13/25 capsule,extended release semaglutide 0.25 mg or 0.5 mg (2 0.5 mg SQ WEEKLY 08/16/24 03/13/25 mg/3 mL) subcutaneous pen injector (Ozempic) losartan 25 mg tablet 50 mg PO DAILY 08/17/24 03/13/25 pen needle, diabetic 31 gauge x #1,200 ea 09/06/24 12/06/2409/09 metoprolol succinate 25 mg mg PO 12/17/24 03/13/25 tablet,extended release 24 hr Previous Rx's ?Medication ?Instructions ?Recorded levocetirizine 5 mg tablet See Rx Instructions .Route 03/14/25 .COMPLEX #90 tabs cefdinir 300 mg capsule 300 mg PO BID 10 days #20 caps 03/15/25 fluticasone propionate 50 2 spray intranasal BID #16 grams 03/15/25 mcg/actuation nasal spray,suspension (Flonase Allergy Relief) furosemide 40 mg tablet (Lasix) 40 mg PO DAILY #90 tabs 03/15/25 pramipexole 0.25 mg tablet See Rx Instructions .Route 03/26/25 .COMPLEX #90 tabs Allergies Allergy/AdvReac Type Severity Reaction Status Date / Time No Known Allergies Allergy Verified 05/14/25 07:23 [facility] Disclaimer: The information contained in this section may have been updated after the patient was seen, as this information can be updated by other users. Medical History Post-nasal drainage Allergies Pt states he has been better and was encouraged to continue his allergy regimen and follow up back up roughly 1 year to monitor and get refills if needed. Pre-op evaluation Guadarrama catheter in place Diabetes History of gastroesophageal reflux (GERD) Chest pain Stenosis of carotid artery History of coronary angiogram Coronary aneurysm Myxoma of heart Cardiac mass KALYN (obstructive sleep apnea) Body mass index (BMI) of 40.1 to 44.9 in adult Advised to work lifestyle modification specifically weight loss. Dyspnea Fatigue Abnormal stress test Typical angina HLD (hyperlipidemia) HTN (hypertension) CAD (coronary artery disease) AAA (abdominal aortic aneurysm) Surgical History S/P AAA repair History of cardiac cath History of cholecystectomy Hx of CABG S/P CABG x 5 Family History Other Cancer Coronary artery disease Diabetes Hypertension Social History Smoking Status: Never smoker alcohol intake: current alcohol intake frequency: 3 or more drinks per day substance use type: denies use current occupational status: retired Travel in the last 8 weeks?: Inside the [place] household members: spouse housing: house Other Medical History Have you received the Flu Vaccine for this season: No Have you received the Pneumonia Vaccine: Yes ROS Obtained: Yes Systems reviewed as appropriate & no additional complaints except as documented Per HPI Physical Exam General General appearance: alert, in no apparent distress and obese Head Head exam: normocephalic and other (Ecchymosis left cheek with mild tenderness, no deformity, extraocular movements intact) Eye Eye exam: Present PERRL and EOMI; Absent jaundice or conjunctival injection ENT ENT exam: Present mucous membranes moist Neck Neck exam: Present normal inspection and tenderness (Mild diffuse cervical spine tenderness with no focal tenderness, deformity, or step-off); Absent meningismus Chest Chest inspection: Present symmetric chest wall rise; Absent tenderness Respiratory Respiratory exam: Present normal lung sounds bilaterally; Absent respiratory distress, wheezes or stridor Cardiovascular Cardiovascular exam: Present regular rate and normal rhythm Abdominal Exam Abdominal exam: Present soft; Absent distention, tenderness, guarding or rebound Extremities Exam Extremities exam: Present full ROM and edema (Mild +1 bilateral lower extremity pitting edema); Absent tenderness or calf tenderness Back Exam Back exam: Present tenderness (Thoracolumbar and diffuse lumbar with no focal tenderness, deformity, or step-off); Absent CVA tenderness (R) or CVA tenderness (L) Neurological Exam Neurological exam: Present alert, oriented X3 and other (GCS 15); Absent motor sensory deficit Psychiatric Psychiatric exam: Present normal affect and normal mood Skin Skin exam: Present warm and dry Medical Decision Making Medical Records Medical records reviewed: Yes I reviewed the patient's medical records. Screening: Per USPSTF and CDC recommendations, given the prevalence of disease in our region, it is our hospital?s policy to screen for HIV and viral Hepatitis for all patients aged 18 and over and those with ongoing risk factors. Robert Inquiry Pt receiving controlled substance: No Vital Signs: 05/18/25 03:53 05/18/25 04:20 05/18/25 04:23 Temperature 98.5 F 98.9 F Temperature Source Oral Pulse Rate 85 Pulse Rate [Right] 89 Respiratory Rate 16 12 Blood Pressure 111/64 Blood Pressure [Right Arm] 188/157 H Blood Pressure Mean [Right Arm] 167 02 Sat by Pulse Oximetry 100 97 99 Oxygen Delivery Method Room Air Room Air 05/18/25 05:10 Temperature 98.2 F Temperature Source Pulse Rate 82 Pulse Rate [Right] Respiratory Rate 14 Blood Pressure 120/61 Blood Pressure [Right Arm] Blood Pressure Mean [Right Arm] 02 Sat by Pulse Oximetry Oxygen Delivery Method Room Air Lab Data Lab Results 05/18/25 03:49: WBC 15.5 H, RBC 3.04 L, Hgb 9.5 L, Hct 27.9 L, MCV 91.8, MCH 31.3 H, MCHC 34.1, RDW 13.2, Plt Count 343, MPV 8.8, Neut % (Auto) 85.1 H, Lymph % (Auto) 4.7 L, Bollinger % (Auto) 9.2, Eos % (Auto) 0.1, Baso % (Auto) 0.2, Neut # (Auto) 13.2 H, Lymph # (Auto) 0.7, Bollinger # (Auto) 1.4 H, Eos # (Auto) 0.0, Baso # (Auto) 0.0, PT 12.6 H, INR 1.15 H, APTT 29.3, Sodium 130 L, Potassium 4.1, Chloride 100, Carbon Dioxide 21 L, Anion Gap 13.1, BUN 32 H, Creatinine 1.50 H, Estimated Creat Clear 40, Estimated GFR 46 L, Est GFR ( Amer) 56 L, Glucose 152 H, Calcium 9.1, Total Bilirubin 0.7, AST 33, ALT 29, Alkaline Phosphatase 73, Troponin I 0.02, NT-Pro-B Natriuret Pep 1480 H, Total Protein 7.1, Albumin 3.6, Globulin 3.5 H, Albumin/Globulin Ratio 1.0 L 05/18/25 03:49 05/18/25 03:49 Orders (Tests/Meds): ED MEDICATIONS Discontinued Medications Generic Name Dose Route Start Last Admin Trade Name Freq PRN Reason Stop Dose Admin Sodium Chloride 10 ml 05/18/25 03:42 Sodium Chloride 0.9% 10ml Flush Syringe IV 06/17/25 03:41 NEEDED PRN Maintain IV Site ORDERS Category Date Time Status CT cervical spine wo con Stat Cat Scan 05/18/25 03:[address] facial bones wo con Stat Cat Scan 05/18/25 03:[address] head/brain wo con Stat Cat Scan 05/18/25 03:[address] lumbar spine wo con Stat Cat Scan 05/18/25 03:[address] thoracic spine wo con Stat Cat Scan 05/18/25 03:43 Completed POCUS Point of Care (ER Only) Stat Exams 05/18/25 03:38 Completed XR chest portable Stat Exams 05/18/25 03:42 Completed XR pelvis 1-2V Stat Exams 05/18/25 03:42 Completed Activated Partial Thrombo Time Stat Lab 05/18/25 03:49 Completed BNP [NT Pro Brain Natriuretic Pep.] Stat Lab 05/18/25 03:49 Completed Complete Blood Count Auto Diff Stat Lab 05/18/25 03:49 Completed Comprehensive Metabolic Panel Stat Lab 05/18/25 03:49 Completed Prothrombin Time INR Stat Lab 05/18/25 03:49 Completed Troponin I Stat Lab 05/18/25 03:49 Completed Medical Decision Narrative: In summary, this 74-year-old male with comorbidities described in the HPI presents to the emergency department today with concerns of possible injury after fall at home. Per EMS report patient fell in the bathroom striking his left cheek on the commode, no loss of consciousness, takes aspirin daily. and patient tried for up to an hour to get him off the floor unsuccessfully before EMS was called.. I was present at bedside upon patient's arrival. On initial evaluation patient has airway intact, bilateral breath sounds present, 2+ right radial pulse, GCS 15, E-FAST personally performed and interpreted as negative. Physical exam notable for the presence of a Guadarrama catheter with leg bag draining clear yellow urine, bruising and tenderness to the left cheek, mild tenderness throughout the C-spine without focal tenderness or deformity or step-off, no neurologic deficits, thoracolumbar and diffuse lumbar tenderness without deformity or step-off. Remainder of exam benign. Differential diagnosis includes but is not limited to mechanical fall, facial fracture, axial spine injury. I considered the possibility of intrathoracic or intra-abdominal injury but since patient is hemodynamically stable and has negative E-FAST with no tenderness or complaints of pain in these regions. I have extremely low suspicion for this. Based on these concerns, I ordered hematologic and serum labs, ECG, troponin, CT imaging. ECG personally interpreted demonstrates sinus rhythm, rate 86, normal axis, normal WA and QTc, no STEMI.. Labs personally reviewed demonstrate leukocytosis which is nonspecific and nonactionable at this time, anemia hemoglobin 9.5 is nonactionable, normal platelets, PT/INR nonactionable, APTT normal, CMP with mild hyponatremia but this is not significantly changed from prior, patient does have slight increase in creatinine but this is since February and does not meet criteria for DHAVAL. Patient is tolerating oral intake at this time and actively drinking fluids. I do not believe he requires further intervention for this. Patient's troponin is 0.02 but in the setting of nonischemic ECG, no lightheadedness or chest pain, no difficulty breathing, I do not believe he requires serial troponins especially since he reports mechanical cause of his fall (tripping) and had no syncope or cardiac type symptoms. His BNP is elevated but he does not demonstrate findings of fluid overload. I did not order UA because he has not chronic indwelling Guadarrama and is not demonstrating any signs of infection, it is likely to be contaminated anyways. XR personally interpreted demonstrates chest without acute intrathoracic abnormality, specifically there is no volume overload, pneumonia, pneumothorax, hemothorax, or displaced rib fracture. See radiology read for final interpretation. Pelvis x-ray personally interpreted demonstrates no open book pelvic fracture or other acute osseous injury. See radiology read for final interpretation. CT imaging personally interpreted demonstrate no acute intracranial abnormality, no skull fracture or bleed, see radiology read for final interpretation. CT cervical spine discusses motion artifact prominently at the base of the dens, however this area is imaged on the CT head and there is no fracture identified here. I personally cleared the c-collar and patient has no midline tenderness, full range of motion without midline pain or paresthesias. No neurologic deficits. CT face with no acute osseous injury, CT lumbar and thoracic spine with no acute traumatic injury, chronic degenerative changes are present. Abdominal aortic aneurysm unchanged from prior. See radiology reads for full interpretations On reassessment patient is tolerating oral intake, he was able to ambulate in the ER without assistance. He is steady on his feet. He has no complaints or other acute symptoms at this time. I believe he is appropriate for discharge. Patient and family are comfortable with this plan. I recommended close follow-up with PCP to reevaluate his kidney function and to reevaluate him overall after his fall. They are comfortable with this plan. Patient was given instructions on symptomatic management, follow up instructions, and return precautions for the emergency department. Patient indicated understanding and was discharged in stable condition. Procedures Miscellaneous Procedure Procedure Performed: EFAST ultrasound Indication: Trip, fall at home Performed by Bhargav Maza MD Views: [LUQ/RUQ/pelvis/limited cardiac/limited thoracic] Interpretation: Peritoneal free fluid: Absent, bladder decompressed with catheter Pericardial effusion: Absent Right thoracic free fluid: Absent Left thoracic free fluid: Absent Right lung pneumothorax: Absent Left lung pneumothorax: Absent Impression: Negative EFAST ultrasound Images were saved in the permanent archive. The study was technically adequate. CPT 42795-78 (limited cardiac) 73566?26 (limited abdominal) 50007?26 (chest) This study was performed by me, and I personally interpreted all images/videos. Based on my clinical judgment, these images were adequate and did not necessitate further imaging. Critical Care Critical Care Time Critical Care Time: No
[2025-05-18 03:53] VITALS: BP 188/157; PULSE 89; RESP 16; TEMP 36.9; O2SAT 100; BMI 41.9
[2025-05-18 04:00] LABS: Hematocrit 27.9 % (42.0-52.0); Hemoglobin 9.5 g/dL (14.1-18.0); Immature Granulocytes % 0.7 %; Mean Corpuscular HGB Conc 34.1 g/dL (31.8-35.4); Mean Corpuscular Hemoglobin 31.3 pg (27.0-31.2); Mean Corpuscular Volume 91.8 fl (80-94); Nucleated Red Blood Cells % 0 %; Platelet Count 343 K/mm3 (142-424); Red Blood Count 3.04 M/mm3 (4.60-6.20); Red Cell Distribution Width-SD 44.4 fL; White Blood Count 15.5 K/mm3 (4.8-10.8)
[2025-05-18 04:08] LABS: Activated Partial Thrombo Time 29.3 seconds (22.8-30.6); INR 1.15 (0.9-1.1); Prothrombin Time 12.6 seconds (10.1-12.5)
[2025-05-18 04:09] LABS: Alanine Aminotransferase 29 U/L (12-78); Albumin Level 3.6 g/dl (3.5-5.0); Albumin/Globulin Ratio 1.0 (1.1-1.8); Alkaline Phosphatase 73 U/L (38-126); Anion Gap 13.1 mEq/L (5-15); Aspartate Amino Transferase 33 U/L (17-59); Bilirubin,Total 0.7 mg/dl (0.2-1.3); Blood Urea Nitrogen 32 mg/dl (9-20); Calcium 9.1 mg/dl (8.4-10.2); Carbon Dioxide 21 mmol/L (22.0-30.0); Chloride 100 mmol/L (98-107); Creatinine Clearance Estimated 40 mL/min (50-200); Creatinine,Serum 1.50 mg/dl (0.66-1.25); Estimated Glomerular Filt Rate 46 ml/min (>60); GFR (African American) 56 ML/MIN (>60); Globulin 3.5 g/dL (1.3-3.2); Glucose 152 mg/dl (74-100); Potassium 4.1 mmoL/L (3.5-5.1); Sodium 130 mmol/L (136-145); Total Protein,Serum 7.1 g/dl (6.3-8.2)
[2025-05-18 04:18] LABS: NT Pro Brain Natriuretic Pep. 1480 pg/mL (0-125)
[2025-05-18 04:20] VITALS: O2SAT 97
[2025-05-18 04:20] LABS: Troponin I 0.02 ng/ml (0.00-0.034)
[2025-05-18 04:23] VITALS: BP 111/64; PULSE 85; RESP 12; TEMP 37.2; O2SAT 99
--- NOTE | 2025-05-18 04:53 | PC.NURSE ---
275mL urine emptied out of leg bag.
--- NOTE | 2025-05-18 04:56 | PC.NURSE ---
Per provider C Collar removed.
[2025-05-18 05:10] VITALS: BP 120/61; PULSE 82; RESP 14; TEMP 36.8; O2SAT 96
== END 2025-05-18 05:13 | disposition home or self-care (01) ==
PROVIDERS: Emergency Provider Emergency Medicine; PCP Nurse Practitioner
DX: S00.83XA Contusion of other part of head, initial encounter (principal); R51.9 Headache, unspecified; M54.6 Pain in thoracic spine; M54.59 Other low back pain; W18.30XA Fall on same level, unspecified, initial encounter
CPT/HCPCS: 70450; 70486; 71045; 72125; 72128; 72131; 72170; 80053; 83880; 84484; 85025; 85610; 85730; 93005; 99285